=== PATIENT | female | born 1970 | race Caucasian/White ===

== ENCOUNTER 2017-11-15 07:43 | Emergency (ER) | payer OTHER, SELFPAY ==
[2017-11-15 07:44] VITALS: BP 129/93; PULSE 94; RESP 18; TEMP 37.1; O2SAT 99; BMI 18.5
--- NOTE | 2017-11-15 08:20 | CT_ITS ---
STUDY: CT ABDOMEN AND PELVIS WITH CONTRAST REASON FOR EXAM: Female, 47 years old. One week history of lower abdominal pain with nausea and vomiting. RADIATION DOSAGE (If Supplied By Facility): CTDIvol = ( 11.01 ) mGy, DLP = ( 262.59 ) mGycm TECHNIQUE: Transaxial images were obtained from the dome of the diaphragm to the symphysis pubis with oral contrast. 100 ml of Isovue 300 contrast was administered. Sagittal and coronal images were reconstructed. Individualized dose optimization techniques were used for this CT. COMPARISON: Comparison is made with prior study dated January 26, 2015. FINDINGS: The visualized lung bases are unremarkable. The visualized portions of the heart are within normal limits. Normal liver. Normal gallbladder and extrahepatic biliary system. Normal spleen. Normal pancreas. Normal bilateral adrenal glands. Normal right kidney. Normal left kidney. Normal visualized stomach. Normal small intestine. Moderate amount of fecal material is seen in the right hemicolon The appendix is visualized and appears normal. Normal abdominal aorta. Normal inferior vena cava. Normal retroperitoneum. Normal urinary bladder. Normal abdominal wall. Normal osseous structures. CT/Abdomen/Pelvis WITH Contrast IMPRESSION: Moderate amount of fecal material is seen in the right hemicolon. Electronically Signed: Cristopher Ayoub MD at 11:00 EDT Tel [phone], Service support ,
[2017-11-15] MEDS: Ondansetron 4 MG/2 ML Vial IV (08:36)
[2017-11-15 08:37] LABS: Absolute Lymphocyte Count 1.26 X10^3/ul (0.83-4.51); Absolute Neutrophil Count 4.6 X10^3/uL (2.0-7.7); Basophil# 0.06 X10^3/uL; Basophil% 0.9 % (0-1); Eosinophil# 0.19 X10^3/uL; Eosinophils% 2.9 % (0-5); Hematocrit 46.9 % (37-47); Hemoglobin 16.1 g/dl (12.0-15.0); Lymphocyte # 1.26 X10^3/ul (4.0); Mean Corp Hgb Conc 34.3 g/gl (32-36); Mean Corpuscular Hgb 31.8 pg (27.0-32.0); Mean Corpuscular Volume 92.5 fL (81-99); Mean Platelet Vol. 10.3 fl (6.2-12.0); Monocyte# 0.55 X10^3/uL; Monocyte% 8.3 % (0-10); Neutrophil # 4.56 X10^3/uL (2.7-7.7); Neutrophil % 68.7 % (47-70); Platelet Count 208 K/mm3 (150-450); RBC Distribution Width CV 12.3 % (11.6-14.6); RBC Distribution Width SD 40.9 fl (35.1-43.9); Red Blood Count 5.07 M/mm3 (4.2-5.4); White Blood Count 6.6 K/mm3 (4.4-11.0)
[2017-11-15] MEDS: 0.9% Normal Saline 1,000 ML 125 ML IV (08:39)
[2017-11-15 08:42] LABS: POSITIVE COUNT NO; POSITIVE DIFFERENTIAL NO; POSITIVE MORPHOLOGY NO
[2017-11-15 08:47] LABS: AST(SGOT) 21 U/L (15-37); Alanine Aminotransfer ALT/SGPT 19 U/L (13-56); Albumin, Serum 3.9 g/dL (3.2-5.0); Alkaline Phosphatase 58 U/L (45-117); Anion Gap 9 (5-15); BUN 16 mg/dL (7-18); BUN/Creat Ratio 15.1 RATIO (10-20); Calcium,Total 8.6 mg/dL (8.5-10.1); Chloride 105 mmol/L (98-107); Creatinine, Serum 1.06 mg/dL (0.55-1.02); EST Glomerular Filtration Rate 59 mL/min (>60); Est Glom Filt Rate - Afr Amer 71 mL/min (>60); Estimated Creatinine Clearance 50.19 ml/min; Globulin 4.1 g/dL (2.2-4.2); Glucose 73 mg/dL (74-106); Lipase 225 U/L (73-393); Potassium 3.5 mmol/L (3.5-5.1); Sodium Level 143 mmol/L (136-145)
[2017-11-15 08:51] LABS: Mucous, Urine 0 SEEN /hpf (<or=2+); Red Blood Cells-Urine 0 SEEN /hpf (0-5); White Blood Cells 0 SEEN /hpf (0-5)
[2017-11-15 08:55] LABS: Color, Urine Yellow (Yellow); Glucose, Dipstick Normal (Normal); Ketone-Dipstick Negative (Negative); Leukocyte Esterase-Dipstick Negative /ul (Negative); Nitrite-Dipstick Negative (Negative); Occult Blood-Urine Negative /ul (Negative); Protein-Dipstick Negative (Negative); Specific Gravity, Urine 1.015 (1.002-1.030); Urine Bilirubin Dipstick Negative (Negative); Urine Clarity Sl. Cloudy (Clear); Urine Urobilinogen Normal (Normal); Urine pH 6.5 (5.0 - 8.0)
[2017-11-15 09:03] LABS: Bacteria 1+ /hpf (None Seen); Squamous Epithelial Cells - UA 5-10 SEEN /hpf (5-10)
[2017-11-15 09:21] LABS: Lactic Acid 0.8 mmol/L (0.4-2.0)
--- NOTE | 2017-11-15 10:17 | ED.DCSUM_ITS ---
- ER Visit Summary Date of Service: 11/15/17 Chief Complaint: [Abdominal pain] History of Present Illness: The patient is a 47 F [since the emergency department abdominal pain that started about a week and a half ago. Patient states that is been relatively continuous but waxes and wanes in intensity. Patient currently claims the pain is a 6 or 7 out of 10. Patient describes the pain is at times in her lower abdomen at times in her upper abdomen. Patient states that food seems to make the pain worse. Patient denies any chest pain or shortness of breath. Patient believes she may have seen small amount of blood in her stool one time last week but none since. There is no family history of inflammatory bowel disease. Patient saw the nurse practitioner covering for her physician 2 days ago and had some blood work ordered as well as urinalysis and scheduled to have an ultrasound of her abdomen in 5 days. Patient had a hard time sleeping last night secondary to pain. Patient's prior surgical history includes a tubal ligation and hernia repair.] Physical Examination: [HEENT-PERRLA, EOMI. Cranial nerves II through XII grossly intact. TMs clear. Mucous membranes moist. No adenopathy. Cardiovascular-regular rate and rhythm without murmur or ectopy Lungs-clear to auscultation, chest wall stable without crepitus or subcu emphysema Abdomen-normoactive bowel sounds, soft. Patient has some mild diffuse tenderness throughout the abdomen. There is no rebound, rigidity, or perineal signs. Extremities-intact ?4, normal range of motion, normal pulses, atraumatic] Test Results: [CBC with differential obtained showed a white count of 6.6, h emoglobin 16, hematocrit 47, platelets 208. Chemistries unremarkable. LFTs were normal. Lipase was 225. Urinalysis was normal. Lactate was 0.8. CT scan of the abdomen and pelvis with IV and p.o. contrast showed moderate stool through the right side of the colon otherwise nothing acute.] Emergency Department Course and Treatment: [Patient was given a dose of Zofran in the emergency department as she did not want anything for pain being that she is driving.] Treatment Plan: [Patient will be given a prescription for Bentyl and [place] for severe pain. Patient will be given a referral to general surgeon on-call for follow-up. Patient understands she may need further workup such as possibly colonoscopy or EGD. Patient to keep her appointment in 5 days to have her ultrasound. ] Disposition: [Discharged home in stable condition] Impression: [Abdominal pain-etiology uncertain] This note was generated with [employer] dictation software. It may contain incorrect words, spelling, and punctuation that were not noted in review of the chart prior to signing ED Disposition - Plan for ED Patient: Chief Complaint: Abd Pain Referrals: Care Physician,No Primary [Primary Care Provider] -
[2017-11-15 11:02] VITALS: BP 99/62; PULSE 66; RESP 14; O2SAT 98
--- NOTE | 2017-11-15 11:34 | ED.DEP ---
ED Disposition - Plan for ED Patient: Chief Complaint: Abd Pain Instructions: ED Abdominal Pain Unkn Cause Prescriptions: Dicyclomine HCl [Bentyl] 20 mg PO TIDAC #20 cap Hydrocodone/Acetaminophen [[place] 5-325 Tablet] 1 - 2 ea PO 4X/DAY PRN PRN 3 Days #12 tab PRN Reason: Pain Referrals: Care Physician,No Primary [Primary Care Provider] - Julio C Russell MD [STAFF PHYSICIAN] - 3-5 Days Albert Garrison MD [STAFF PHYSICIAN] - 3-5 Days
[2017-11-15 12:06] VITALS: BP 119/82; PULSE 70; RESP 16; O2SAT 100
== END 2017-11-15 12:11 | disposition home or self-care (01) ==
PROVIDERS: Emergency Provider Emergency Medicine
DX: R10.9 Unspecified abdominal pain (principal); Z72.0 Tobacco use
CPT/HCPCS: 36415; 74177; 80053; 81001; 83605; 83690; 85025; 96361; 96374; 99283; J7030; Q9967; A4216; J2405

== ENCOUNTER 2018-02-25 12:44 | Emergency (ER) | payer OTHER, SELFPAY ==
[2018-02-25 12:45] VITALS: BP 127/79; PULSE 58; RESP 16; TEMP 36.4; O2SAT 99; BMI 19.9
--- NOTE | 2018-02-25 13:09 | RAD_ITS ---
STUDY: X-RAY CHEST REASON FOR EXAM: Female, 47 years old. Cough and fever. TECHNIQUE: Frontal and lateral views of the chest. COMPARISON: None. FINDINGS: The lungs are hyperexpanded. There is no demonstrated pleural abnormality. Normal size heart. Normal mediastinum and sky. Normal visualized pulmonary arteries. Normal visualized aortic arch and descending thoracic aorta. Normal visualized thoracic spine. Normal visualized ribs, clavicles, and shoulders. There is no demonstrated abnormality of the visualized soft tissue structures of the upper abdomen. RAD/Chest PA and Lateral IMPRESSION: Hyperexpansion. No acute pathology. Electronically Signed: Marky Mcgregor MD at 15:38 EST , Service support ,
--- NOTE | 2018-02-25 13:19 | ED.DCSUM_ITS ---
- ER Visit Summary Date of Service: 02/25/18 Chief Complaint: Flulike symptoms History of Present Illness: The patient is a 47 F presents to the emergency department with flulike symptoms. The patient states that her daughter was recently diagnosed with influenza and pneumonia. She was admitted to the [facility]. She states over the past 4 or 5 days, she has had fevers, chills, and myalgias. She had a scant cough. She denies any productive sputum. The patient was seen at urgent care today. She was complaining of being lightheaded. She was sent over for further evaluation. She has no history of immunosuppression. She does not take any daily medications. She does have history of smoking, recently quit. She did not get a flu shot this year. Physical Examination: Vital signs reviewed General: Well-nourished, well-developed Head: Normocephalic, atraumatic Eyes: Pupils equal and reactive, extraocular muscles intact Neck, supple, no lymphadenopathy Heart: Regular rate and rhythm Respiratory: No distress, clear bilaterally Abdomen: Soft, nontender, nondistended, no peritoneal signs Back: Nontender Extremities: Nontender, no edema, no cords Skin: Normal color no rash Neuro: Alert and oriented, no focal or lateralizing deficits Test Results: [] Emergency Department Course and Treatment: The patient was not tachypneic or hypoxic. She does not have a fever. Her symptoms do seem most consistent with influenza. Unfortunately, she is outside the window for treatment. I did obtain chest x-ray and screening labs. Labs are unremarkable. Chest x-ray is unremarkable. The patient was given fluids and Toradol. She had improvement of her symptoms. At this time, I do feel that she is safe for outpatient therapy. She was counseled on supportive care. She will be discharged home. Treatment Plan: [] Disposition: Discharge Impression: 1. Influenza This note was generated with [employer] dictation software. It may contain incorrect words, spelling, and punctuation that were not noted in review of the chart prior to signing ED Disposition - Plan for ED Patient: Disposition: Home or Assisted Living Chief Complaint: Cold Sx Instructions: ED Flu Prescriptions: RX: Naproxen [Naprosyn] 500 mg PO BID PRN #20 tab Referrals: NOT,DEFINED [NON-STAFF] -
[2018-02-25 13:33] VITALS: BP 131/87; PULSE 54; RESP 15; TEMP 36.7; O2SAT 100
[2018-02-25] MEDS: Ketorolac 30 MG/ML Syringe IV (13:54)
[2018-02-25] MEDS: 0.9% Normal Saline 1,000 ML 1000 ML IV (13:54)
[2018-02-25 14:06] LABS: Absolute Lymphocyte Count 1.55 X10^3/ul (0.83-4.51); Absolute Neutrophil Count 2.4 X10^3/uL (2.0-7.7); Basophil# 0.03 X10^3/uL; Basophil% 0.6 % (0-1); Eosinophil# 0.18 X10^3/uL; Eosinophils% 3.9 % (0-5); Hematocrit 42.7 % (37-47); Hemoglobin 14.7 g/dl (12.0-15.0); Lymphocyte # 1.55 X10^3/ul (4.0); Lymphocyte % 33.5 % (19-41); Mean Corp Hgb Conc 34.4 g/gl (32-36); Mean Corpuscular Hgb 31.9 pg (27.0-32.0); Mean Corpuscular Volume 92.6 fL (81-99); Mean Platelet Vol. 10.6 fl (6.2-12.0); Monocyte# 0.51 X10^3/uL; Neutrophil # 2.36 X10^3/uL (2.7-7.7); Platelet Count 187 K/mm3 (150-450); RBC Distribution Width CV 11.8 % (11.6-14.6); RBC Distribution Width SD 39.8 fl (35.1-43.9); Red Blood Count 4.61 M/mm3 (4.2-5.4); White Blood Count 4.6 K/mm3 (4.4-11.0)
[2018-02-25 14:16] LABS: POSITIVE COUNT NO; POSITIVE DIFFERENTIAL NO; POSITIVE MORPHOLOGY NO
[2018-02-25 14:18] LABS: Anion Gap 3 (5-15); BUN 12 mg/dL (7-18); BUN/Creat Ratio 13.4 RATIO (10-20); Calcium,Total 8.5 mg/dL (8.5-10.1); Chloride 107 mmol/L (98-107); EST Glomerular Filtration Rate 71 mL/min (>60); Est Glom Filt Rate - Afr Amer 86 mL/min (>60); Glucose 84 mg/dL (74-106); Potassium 4.2 mmol/L (3.5-5.1); Sodium Level 141 mmol/L (136-145)
[2018-02-25 14:45] VITALS: O2SAT 100
[2018-02-25 16:05] VITALS: BP 119/80; PULSE 69; RESP 15; O2SAT 97
== END 2018-02-25 16:09 | disposition home or self-care (01) ==
PROVIDERS: Emergency Provider Emergency Medicine
DX: J11.1 Influenza due to unidentified influenza virus with other respiratory manifestations (principal); F41.9 Anxiety disorder, unspecified; Z87.891 Personal history of nicotine dependence
CPT/HCPCS: 71046; 80048; 85025; 96361; 96374; 99285; J7030

== ENCOUNTER 2018-06-16 17:34 | Emergency (ER) | payer OTHER, SELFPAY ==
[2018-06-16 17:35] VITALS: BP 133/75; PULSE 75; RESP 18; TEMP 36.8; O2SAT 99; BMI 20.5
[2018-06-16 17:46] VITALS: O2SAT 100
--- NOTE | 2018-06-16 17:58 | NURSING ---
NO OLD EKGS
[2018-06-16] MEDS: LORazepam 1 MG Tablet PO (18:09)
--- NOTE | 2018-06-16 18:17 | ED.VISSUMM ---
- ER Visit Summary Date of Service: 06/16/18 Chief Complaint: Shortness of breath, palpitations History of Present Illness: The patient is a 47 F presenting with shortness of breath, palpitations. She states this started 30 minutes prior to arrival. She felt like she was having a panic attack. She states that she took her anxiety medicine as directed today. She has been under a lot of stress. She is currently going through a divorce. She is currently trying to quit smoking. She denies suicidal or homicidal ideation. She denies chest pain. Denies other complaints. Physical Examination: Vitals are stable. Patient is afebrile. Alert no acute distress. HEENT exam is unremarkable. Neck is supple. Lungs are clear and equal bilaterally. Heart is regular rate and rhythm. Abdomen is soft nontender nondistended. Extremities are unremarkable. Skin is warm and dry. No focal neurologic deficit. Anxious Remainder of exam is unremarkable. Emergency Department Course and Treatment: EKG sinus rhythm rate of 71. Patient was given Ativan. On reevaluation, patient is feeling improved. She has been to 180 in the past for counseling and will call for an appointment. She is advised to also follow-up with Dr. White distribution center supervisor for no doc. Advised return to ED if worsening complaints. Disposition: Discharge home Impression: Anxiety This note was generated with [employer] dictation software. It may contain incorrect words, spelling, and punctuation that were not noted in review of the chart prior to signing ED Disposition - Plan for ED Patient: Instructions: Understanding Anxiety Disorders Referrals: Edwar White MD [STAFF PHYSICIAN] - [facility] [STAFF PHYSICIAN] -
--- NOTE | 2018-06-16 18:20 | EKG12_ITS ---
Test Reason : PALPS Blood Pressure : / mmHG Vent. Rate : 071 BPM Atrial Rate : 071 BPM P-R Int : 148 ms QRS Dur : 080 ms QT Int : 410 ms P-R-T Axes : 074 070 032 degrees QTc Int : 445 ms Normal sinus rhythm Nonspecific ST & T wave abnormality Abnormal ECG Confirmed by KIMBER RUIZ, RADHA ([id number]), research editor SRIKANTH REYES ([id number]) on 06/20/2018 1:20:22 PM Referred By: KALI Confirmed By:RADHA QUIROGA MD
--- NOTE | 2018-06-16 18:41 | ED.DEP ---
ED Disposition - Plan for ED Patient: Instructions: Understanding Anxiety Disorders Referrals: [facility] [STAFF PHYSICIAN] - Edwar White MD [STAFF PHYSICIAN] -
[2018-06-16 18:57] VITALS: BP 116/90; PULSE 57; RESP 18; O2SAT 98
== END 2018-06-16 18:58 | disposition home or self-care (01) ==
LOC: ED 18:13
PROVIDERS: Emergency Provider Emergency Medicine
DX: F41.9 Anxiety disorder, unspecified (principal); F17.200 Nicotine dependence, unspecified, uncomplicated
CPT/HCPCS: 93005; 99282; J7050; A4216

== ENCOUNTER 2019-03-24 12:33 | Emergency (ER) | payer OTHER, SELFPAY ==
[2019-03-24 12:35] VITALS: BP 105/78; PULSE 98; RESP 18; TEMP 36.6; O2SAT 98; BMI 20.2
--- NOTE | 2019-03-24 12:50 | CT_ITS ---
STUDY: CT ABDOMEN AND PELVIS WITH CONTRAST REASON FOR EXAM: Female, 48 years old. Lower abdomen and rectal pain, recently treated for hemrrhoids 10 days ago. Prior hernia repair, tubal ligation. RADIATION DOSAGE (If Supplied By Facility): CTDIvol = ( 13.12 ) mGy, DLP = ( 294.76 ) mGycm TECHNIQUE: Transaxial images were obtained from the dome of the diaphragm to the symphysis pubis with oral contrast. IV 100mL Isovue-300 and amp; gastrografin was administered. Sagittal and coronal images were reconstructed. Individualized dose optimization techniques were used for this CT. COMPARISON: November 15, 2017 FINDINGS: The visualized lung bases are unremarkable. The visualized portions of the heart are within normal limits. Normal liver. Normal gallbladder and extrahepatic biliary system. Normal spleen. Normal pancreas. Normal bilateral adrenal glands. Normal right kidney. Normal left kidney. Normal visualized stomach. Normal small intestine. Normal colon. The appendix is visualized and appears normal. There is diffuse atherosclerotic calcification of the abdominal aorta, without a demonstrated aneurysm. Normal inferior vena cava. Normal retroperitoneum. Normal urinary bladder. There is bilateral tubal ligation clips. Normal abdominal wall. Normal osseous structures. CT/Abdomen/Pelvis WITH Contrast IMPRESSION: No bowel obstruction, diverticulitis or colitis. Electronically Signed: Belkys Antoine MD at 15:19 EST Tel , Service support ,
--- NOTE | 2019-03-24 12:52 | ED.VIS.GEN ---
History of Present Illness Chief Complaint: Abd Pain Informant: Patient Onset: Weeks Context: Gradual Onset Timing: Waxes and wanes Current Severity: Moderate Maximum Severity: Moderate Narrative: Patient presents with continued lower abdomen and rectal pain. Symptoms started a couple weeks ago. She was seen by her primary care physician who noted a hemorrhoid. Patient was seen by Dr. Frederick and patient reports Dr. Frederick did surgery approximate 10 days ago. She believes she had a thrombosed hemorrhoid. Surgery was performed at the outpatient surgery center I do not have notes available. Patient states she started to improve following the surgery, but over the past 3 or 4 days has now worsened again. She has not noted fever or chills. She has been able to have bowel movements. She denies dysuria. - Past Medical History (1) Anxiety Status: Chronic (2) H/O tubal ligation Status: Chronic Past Medical History - Allergies and Home Meds Allergies/Adverse Reactions: Allergies No Known Allergies Allergy (Verified 03/24/19 12:35) Primary Care Physician: Irene Frederick MD [STAFF PHYSICIAN] - As soon as possible Doctors: Dr. Peoples, Dr. Frederick Prior records reviewed: Yes Lives: With Family Smoking Status: Current every day smoker Review of Systems General: Denies: Chills, Fever Eyes: Denies: Visual changes - bilaterally ENT: Denies: Bilateral ear pain Cardiovascular: Denies: Chest pain Respiratory: Denies: Dyspnea, Cough Gastrointestinal: Reports: Abdominal pain, Nausea. Denies: Vomiting, Diarrhea Genitourinary: Denies: Dysuria Musculoskeletal: Denies: Swelling, Extremity Pain Skin: Denies: Rash Neurological: Denies: Headache Allergy: Denies: Uticaria Physical Exam Vital Signs/Narrative: Vital Signs Temp Pulse Resp BP Pulse Ox 03/24/19 12:35 97.9 F 98 18 105/78 98 Inital Vital Signs reviewed: Yes General: Well nourished, Well developed Head: Normocephalic ENT: Moist mucous membranes Neck: Supple Cardiovascular: Regular rate, Regular rhythm Respiratory: No distress, CTA bilaterally Abdomen: Soft, Tender - Suprapubic tenderness palpation.. Negative for: Guarding, Rebound tenderness Rectal: - - Noninflamed hemorrhoid noted. No tenderness. Back: Nontender Extremities: Nontender Skin: Normal color Neurological: Alert, Oriented x3 Psychological: Normal affect Diagnostic/Tx/Re-eval Impressions Abdomen/Pelvis CT 03/24/19 12:50 IMPRESSION: No bowel obstruction, diverticulitis or colitis. Electronically Signed: Belkys Antoine MD at 15:19 EST Tel , Service support , 03/24/19 12:50 Abdomen/Pelvis WITH Contrast [CT] Stat Laboratory Results 03/24/19 03/24/19 03/24/19 13:10 13:10 13:10 WBC 7.4 RBC 5.10 Hgb 16.2 H Hct 47.5 H MCV 93.1 MCH 31.8 MCHC 34.1 RDW Std Deviation 39.6 RDW Coeff of Jorge 11.5 L Plt Count 266 MPV 9.0 Immature Gran % (Auto) 0.100 Neut % (Auto) 55.6 Lymph % (Auto) 34.3 [place] % (Auto) 6.9 Eos % (Auto) 2.2 Baso % (Auto) 0.9 Absolute Neuts (auto) 4.1 Absolute Lymphs (auto) 2.53 Nucleated RBC % 0 Sodium 139 Potassium 4.2 Chloride 107 Carbon Dioxide 29.0 Anion Gap 3 L BUN 18 Creatinine 1.12 H Estim Creat Clear Calc 51.34 Est GFR (MDRD) Af Amer 66 Est GFR (MDRD) Non-Af 55 L BUN/Creatinine Ratio 16.1 Glucose 93 Calcium 9.0 Serum , Qual NEGATIVE Urine Color Urine Clarity Urine pH Ur Specific [place] Urine Protein Urine Glucose (UA) Urine Ketones Urine Occult Blood Urine Nitrite Urine Bilirubin Urine Urobilinogen Ur Leukocyte Esterase Urine RBC Urine WBC Ur Squamous Epith Cells Urine Bacteria Urine Mucus 03/24/19 14:14 WBC RBC Hgb Hct MCV MCH MCHC RDW Std Deviation RDW Coeff of Jorge Plt Count MPV Immature Gran % (Auto) Neut % (Auto) Lymph % (Auto) [place] % (Auto) Eos % (Auto) Baso % (Auto) Absolute Neuts (auto) Absolute Lymphs (auto) Nucleated RBC % Sodium Potassium Chloride Carbon Dioxide Anion Gap BUN Creatinine Estim Creat Clear Calc Est GFR (MDRD) Af Amer Est GFR (MDRD) Non-Af BUN/Creatinine Ratio Glucose Calcium Serum , Qual Urine Color Yellow Urine Clarity Sl. Cloudy Urine pH 6.0 Ur Specific [place] 1.010 Urine Protein Negative Urine Glucose (UA) Normal Urine Ketones Negative Urine Occult Blood Negative Urine Nitrite Negative Urine Bilirubin Negative Urine Urobilinogen Normal Ur Leukocyte Esterase Negative Urine RBC 0 SEEN Urine WBC 0 SEEN Ur Squamous Epith Cells 0 SEEN Urine Bacteria 0 SEEN Urine Mucus 0 SEEN - Medical Decision Making Patient was given morphine and Zofran for pain here. Test results are discussed with her. I did do an external rectal exam. There is no evidence of perirectal inflammation on CT scan. Patient will be written for some pain medication. She is already on stool softeners. I attempted to contact Dr. Frederick as she just performed surgery on this patient, however I am advised that Dr. Frederick is sick and is not able to respond to pages today. Patient was advised that this and is to call the office for close follow-up. Addendum: Please note patient initially advised me she wanted her prescription sent to [facility]. Prescription for Mccle[place]and was sent electronically. When nurse went to discharge the patient she changed her mind and wished to have her prescription sent to [facility] instead. The order for [facility] was canceled in the computer and we are notifying them not to fill this prescription. A new prescription was generated and sent to [facility], however this may appear twice on her oars report. ED Disposition - Plan for ED Patient: Disposition: Home or Assisted Living Diagnosis: Abdominal pain Instructions: ABDOMINAL PAIN, Unknown Cause, (Female) Prescriptions: Hydrocodone Bitart/Apap 5-325 [M[place] 5MG-325MG] 1 tablet PO Q6H PRN PRN 3 Days #10 tablet PRN Reason: Pain Transmission Status: Sent to [facility] Referrals: Irene Frederick MD [STAFF PHYSICIAN] - As soon as possible
[2019-03-24 13:19] LABS: Absolute Lymphocyte Count 2.53 X10^3/uL (0.83-4.51); Absolute Neutrophil Count 4.1 X10^3/uL (2.0-7.7); Basophil# 0.07 X10^3/uL; Basophil% 0.9 % (0-1); Eosinophil# 0.16 X10^3/uL; Eosinophils% 2.2 % (0-5); Hematocrit 47.5 % (37-47); Hemoglobin 16.2 g/dL (12.0-15.0); Lymphocyte # 2.53 X10^3/ul (4.0); Lymphocyte % 34.3 % (19-41); Mean Corp Hgb Conc 34.1 g/dL (32-36); Mean Corpuscular Hgb 31.8 pg (27.0-32.0); Mean Corpuscular Volume 93.1 fL (81-99); Monocyte# 0.51 X10^3/uL; Monocyte% 6.9 % (0-10); NRBC Flagged by Analyzer 0 % (0-5); Neutrophil % 55.6 % (47-70); Platelet Count 266 K/mm3 (150-450); RBC Distribution Width CV 11.5 % (11.6-14.6); RBC Distribution Width SD 39.6 fl (35.1-43.9); White Blood Count 7.4 K/mm3 (4.4-11.0)
[2019-03-24] MEDS: Morphine 4 MG/ML Syringe IV (13:19)
[2019-03-24] MEDS: Ondansetron 4 MG/2 ML Vial IV (13:19)
[2019-03-24] MEDS: 0.9% Normal Saline 1,000 ML 150 ML IV (13:20)
[2019-03-24 13:38] LABS: Anion Gap 3 (5-15); BUN 18 mg/dL (7-18); BUN/Creat Ratio 16.1 RATIO (10-20); Chloride 107 mmol/L (98-107); Creatinine, Serum 1.12 mg/dL (0.55-1.02); EST Glomerular Filtration Rate 55 mL/min (>60); Est Glom Filt Rate - Afr Amer 66 mL/min (>60); Estimated Creatinine Clearance 51.34 ml/min; Glucose 93 mg/dL (74-106); Potassium 4.2 mmol/L (3.5-5.1); Sodium Level 139 mmol/L (136-145)
[2019-03-24 13:49] LABS: Internal QC Validated? YES +Cl - CLEAR BKGD; Pregnancy, Serum, hCG Quali. NEGATIVE Negative
[2019-03-24 14:17] LABS: Bacteria 0 SEEN /hpf (None Seen); Mucous, Urine 0 SEEN /hpf (<or=2+); Red Blood Cells-Urine 0 SEEN /hpf (0-5); Squamous Epithelial Cells - UA 0 SEEN /hpf (5-10); White Blood Cells 0 SEEN /hpf (0-5)
[2019-03-24 14:19] LABS: Color, Urine Yellow (Yellow); Glucose, Dipstick Normal (Normal); Ketone-Dipstick Negative (Negative); Leukocyte Esterase-Dipstick Negative /ul (Negative); Nitrite-Dipstick Negative (Negative); Occult Blood-Urine Negative /ul (Negative); Protein-Dipstick Negative (Negative); Urine Bilirubin Dipstick Negative (Negative); Urine Clarity Sl. Cloudy (Clear); Urine Urobilinogen Normal (Normal)
[2019-03-24 15:50] VITALS: BP 121/92; PULSE 77; RESP 16; O2SAT 100
== END 2019-03-24 15:59 | disposition home or self-care (01) ==
PROVIDERS: Emergency Provider Emergency Medicine
DX: R10.30 Lower abdominal pain, unspecified (principal); F41.9 Anxiety disorder, unspecified; F17.200 Nicotine dependence, unspecified, uncomplicated
CPT/HCPCS: 74177; 80048; 81001; 84703; 85025; 96361; 96374; 96375; 99283; J7030; Q9967; A4216; J2405

== ENCOUNTER 2023-09-11 14:53 | Inpatient (IN) | payer MEDICAID, SELFPAY ==
[2023-09-11] VITALS (15 sets, daily range): BP systolic 90–126; BP diastolic 61–82; PULSE 56–85; RESP 13–19; TEMP 36.2–36.7; O2SAT 88–99; BMI 24.3
--- NOTE | 2023-09-11 15:25 | EKG12_ITS ---
Test Reason : CP Blood Pressure : / mmHG Vent. Rate : 064 BPM Atrial Rate : 064 BPM P-R Int : 150 ms QRS Dur : 082 ms QT Int : 414 ms P-R-T Axes : 049 040 -45 degrees QTc Int : 427 ms Normal sinus rhythm ST & T wave abnormality, consider inferior ischemia ST & T wave abnormality, consider anterolateral ischemia Abnormal ECG Confirmed by YASHIRA RUIZ, RAJESH ([id number]), advertising editor MUKUL BLISS ([id number]) on 09/13/2023 10:00:50 AM Referred By: Confirmed By:GABRIEL AC MD
--- NOTE | 2023-09-11 15:50 | RAD_ITS ---
INDICATION: chest pain EXAMINATION/TECHNIQUE: X-RAY - XR Chest 1 View COMPARISON: February 25, 2018 FINDINGS: LINES/DEVICES: None. LUNGS: No consolidation, edema or effusion. No pneumothorax. MEDIASTINUM AND CARDIOVASCULAR STRUCTURES: Cardiac silhouette not enlarged. Central airways and mediastinal contour are unremarkable. BONES AND SOFT TISSUES: Unremarkable. RAD/Chest 1 View (Portable) IMPRESSION: No radiographic evidence of acute cardiopulmonary disease. Electronically Signed: Fantasma Magaña DO at 17:15 EDT ,
--- NOTE | 2023-09-11 16:23 | ED.VIS.CHEST ---
HPI History of Present Illness Chief Complaint: Chest Pain Informant: patient Narrative Narrative: Patient is a 52-year-old female with history of prior tobacco use, COPD, and hyperlipidemia presenting with chest tightness and pressure. Patient states 2 days ago she woke up at 3:30 AM with pressure in her chest. She states it felt there was a cinderblock on my chest. She could not breathe. She got up and eventually the symptoms went away. Since then she has been having intermittent tightness and pressure on her chest. She is she feels like she is having having a hard time breathing. Today she was not feeling well and she laid down. Around 1 PM she was laying on her side and developed another episode of tightness in her chest lasting about 10 minutes. She has felt slightly better when she was laying flat on her back. Patient has no relief with her inhalers that she has at home. She does not have a nebulizer. Denies any cough or swelling of her legs. Denies any history of DVT or PE. Denies any fever. Did have some nausea today but EMS gave her Zofran and is doing better. No vomiting or abdominal pain reported. Denies any urinary symptoms. Does get some intermittent blood with wiping but attributes that to constipation and hemorrhoids. No other complaints or concerns reported at this time. CVD Risk Factors: Positive for Hypercholesterolemia and Smoking [facility] Medical History (Updated 09/12/23 @ 00:[address] Tricia Gonzalez, DO) COPD (chronic obstructive pulmonary disease) Hyperlipemia Home Medications ?Medication ?Instructions ?Recorded ?Last Taken ?Type buspirone 15 mg tablet 15 mg PO BID 11/15/17 Unknown History multivitamin with minerals 1 ea PO DAILY 02/25/18 Unknown History (Multiple Vitamin-Minerals tablet) albuterol sulfate 90 mcg/actuation 2 puff inhalation Q4H PRN 09/11/23 Unknown History aerosol inhaler atorvastatin 40 mg tablet 40 mg PO DAILY 09/11/23 Unknown History fluticasone 250 mcg-salmeterol 50 1 inh inhalation BID 09/11/23 Unknown History mcg/dose blistr powdr for inhalation (Advair Diskus) trazodone 100 mg tablet 100 mg PO QHS 09/11/23 Unknown History Allergy/AdvReac Type Severity Reaction Status Date / Time No Known Allergies Allergy Verified 09/11/23 14:54 Social History (Updated 09/11/23 @ 23:14 by Salena Machado) household members: children number of children: 3 current occupational status: unemployed pets and animals: Yes (cat) Smoking Status: Former smoker ROS ROS ED Constitutional Constitutional ED: Denies chills or fever(s) Cardiovascular Cardiovascular: Reports chest pain and other Details: chest pressure Respiratory/Chest Respiratory/Chest: Reports dyspnea and dyspnea on exertion; Denies cough or sputum Gastrointestinal Gastrointestinal: Reports nausea; Denies abdominal pain, diarrhea, melena or vomiting Musculoskeletal Musculoskeletal: Denies arthralgias or myalgias Neurologic Neurologic: Denies headache(s) or weakness Hematologic/Lymphatic Hematologic/Lymphatic: Denies easy bleeding or easy bruising EXAM Physical Exam Const Vital Signs: 09/11/23 14:54 09/11/23 17:02 09/11/23 17:02 Temperature 97.1 F L Temperature Source Temporal Pulse Rate 85 57 L Respiratory Rate 16 16 Respiratory Effort Respiratory Pattern Blood Pressure 126/82 H 104/69 Blood Pressure Mean 96 80 Pulse Ox 97 97 Oxygen Delivery Method Room Air Room Air Room Air 09/11/23 17:04 09/11/23 18:00 09/11/23 19:00 Temperature Temperature Source Pulse Rate 60 62 Respiratory Rate 13 18 Respiratory Effort Normal Non-Labored Respiratory Pattern Blood Pressure 90/61 97/64 Blood Pressure Mean 70 75 Pulse Ox 98 98 Oxygen Delivery Method Room Air Room Air 09/11/23 20:02 09/11/23 20:04 09/11/23 20:15 Temperature Temperature Source Pulse Rate 58 L 58 L Respiratory Rate 18 14 16 Respiratory Effort Respiratory Pattern Blood Pressure Blood Pressure Mean Pulse Ox 94 94 Oxygen Delivery Method 09/11/23 20:31 09/11/23 20:45 09/11/23 21:06 Temperature Temperature Source Pulse Rate 63 57 L 56 L Respiratory Rate 16 14 13 Respiratory Effort Respiratory Pattern Blood Pressure 99/69 Blood Pressure Mean 79 Pulse Ox 88 94 99 Oxygen Delivery Method 09/11/23 21:19 09/11/23 21:39 09/11/23 22:00 Temperature 98.0 F Temperature Source Pulse Rate 66 73 84 Respiratory Rate 16 18 19 H Respiratory Effort Respiratory Pattern Normal Blood Pressure 116/79 102/82 H Blood Pressure Mean 91 88 Pulse Ox 95 91 Oxygen Delivery Method Positive well nourished and well developed General Appearance ED: well developed and NAD HEENT Reports moist mucous membranes normocephalic Eyes PERRL and EOMs intact bilaterally Neck supple and no JVD Chest Wall inspection of chest normal and palpation of chest normal Resp normal respiratory effort and clear to auscultation bilaterally Auscultation: Negative for rhonchi, wheezes or diminished lung sounds Cardio regular rate, regular rhythm and no murmurs Peripheral Pulses: pulses 2+ throughout GI normal to inspection, nondistended, normoactive bowel sounds and soft to palpation Extremity normal to inspection General Extremety ED: Negative for edema General Extremity: Negative for edema Neuro oriented x3 Sensorium / Orientation: awake and alert Motor Exam: Negative for general weakness Psych mental status grossly normal Skin no rashes or lesions noted and no wounds MDM MDM MDM Narrative Medical decision making narrative: Patient is evaluated for shortness of breath and chest discomfort. Does have a history of COPD. Cardiopulmonary workup is obtained. Patient is PERC positive because of age but otherwise low risk of pulmonary embolus will obtain a D-dimer. Vital signs stable at this time. Will give patient a DuoNeb and reevaluate. Patient does feel slightly improved. Lab work largely unremarkable including CBC, BMP and delta high-sensitivity troponin. Her D-dimer is normal. Low suspicion for pulmonary emboli. She still does have some mild chest tightness and discomfort. She is given additional butyryl treatment. Patient is ambulated in the emergency room and does not feel well. She desats to 87%. Because of this desaturation continued chest discomfort will admit for presumed COPD exacerbation. Case discussed with hospitalist, Dr. Tamayo. Lab Data Attestation: I reviewed the patient's lab results. Labs: Laboratory Results - last 24 hr 09/11/23 09/11/23 17:50 20:05 WBC 5.9 RBC 4.72 Hgb 14.2 Hct 42.9 MCV 90.9 MCH 30.1 MCHC 33.1 RDW Std Deviation 39.7 RDW Coeff of Jorge 11.9 Plt Count 239 MPV 9.6 Immature Gran % (Auto) 0.200 Neut % (Auto) 62.1 Lymph % (Auto) 28.0 [place] % (Auto) 6.3 Eos % (Auto) 2.2 Baso % (Auto) 1.2 H Absolute Neuts (auto) 3.6 Absolute Lymphs (auto) 1.64 Nucleated RBC % 0 D-Dimer Quant (PE/DVT) 0.29 Sodium 140 Potassium 3.3 L Chloride 106 Carbon Dioxide 27.0 Anion Gap 7 BUN 14 Creatinine 1.14 H Estim Creat Clear Calc 49.28 Est GFR (MDRD) Af Amer 64 Est GFR (MDRD) Non-Af 53 L BUN/Creatinine Ratio 12.3 Glucose 112 H Calcium 9.7 Troponin I High Sens 4 4 Radiography Chest X-Ray - ED: 1 View, Read by ED Physician, Read by Radiologist and No Acute Disease Diagnostic Testing: Clinical Impression(s) from Imaging Studies Chest X-Ray 09/11/23 15:50 IMPRESSION: No radiographic evidence of acute cardiopulmonary disease. Electronically Signed: Fantasma Magaña DO at 17:15 EDT Reading Location ID and State: [facility] / [place] Tel [phone], Service support , Rhythm Strip Rhythm Strip: Sinus Rhythm Rate: 64 Ectopy: None EKG Initial EKG: Attestation: I personally reviewed and interpreted this EKG as follows: Interpretation: Sinus Rhythm Comments: Normal sinus rhythm at a rate of 64 bpm Normal axis T wave inversions in inferior and anterior leads with no reciprocal changes No significant change compared to prior EKG on 06/16/2018 Prior EKG tracings: available for review Prior: Unchanged Management Discussion w/another healthcare provider: Hospitalist Discharge Plan Dx/Rx/DC Orders Clinical Impression: COPD with acute exacerbation, History of tobacco abuse Disposition Disposition: Acute Care Hospital [facility] Discharge Date/Time: 09/11/23 22:41
[2023-09-11] MEDS: Ipratropium/Albuterol Sulfate 3 ML AMPUL.NEB INHALATION (16:28)
[2023-09-11 18:02] LABS: Absolute Lymphocyte Count 1.64 X10^3/uL (0.83-4.51); Absolute Neutrophil Count 3.6 X10^3/uL (2.0-7.7); Basophil# 0.07 X10^3/uL; Basophil% 1.2 % (0-1); Eosinophil# 0.13 X10^3/uL; Eosinophils% 2.2 % (0-5); Hematocrit 42.9 % (37-47); Hemoglobin 14.2 g/dL (12.0-15.0); Lymphocyte # 1.64 X10^3/ul (0.83-4.51); Mean Corp Hgb Conc 33.1 g/dL (32-36); Mean Corpuscular Hgb 30.1 pg (27.0-32.0); Mean Corpuscular Volume 90.9 fL (81-99); Mean Platelet Vol. 9.6 fl (6.2-12.0); Monocyte# 0.37 X10^3/uL; Monocyte% 6.3 % (0-10); NRBC Flagged by Analyzer 0 % (0-5); Neutrophil # 3.64 X10^3/uL (2.7-7.7); Neutrophil % 62.1 % (47-70); Platelet Count 239 K/mm3 (150-450); RBC Distribution Width CV 11.9 % (11.6-14.6); RBC Distribution Width SD 39.7 fl (35.1-43.9); Red Blood Count 4.72 M/mm3 (4.2-5.4); White Blood Count 5.9 K/mm3 (4.4-11.0)
[2023-09-11 18:17] LABS: D-Dimer Quantitative (DVT/PE) 0.29 FEU/ug/m (0.27-0.49)
[2023-09-11 18:18] LABS: Anion Gap 7 (5-15); BUN 14 mg/dL (7-18); BUN/Creat Ratio 12.3 RATIO (10-20); Calcium,Total 9.7 mg/dL (8.5-10.1); Chloride 106 mmol/L (98-107); Creatinine, Serum 1.14 mg/dL (0.55-1.02); EST Glomerular Filtration Rate 53 mL/min (>60); Est Glom Filt Rate - Afr Amer 64 mL/min (>60); Estimated Creatinine Clearance 49.28 ml/min; Glucose 112 mg/dL (74-106); Potassium 3.3 mmol/L (3.5-5.1); Sodium Level 140 mmol/L (136-145); Troponin-I HS (w/2H Reflex) 4 pg/mL (3.0-54.0)
[2023-09-11 19:56] LABS: Reflex Troponin-HS? (from REC) Y
[2023-09-11 20:40] LABS: Troponin-I HS 4 pg/mL (3.0-54.0)
[2023-09-11] MEDS: Albuterol 2.5 MG/3 ML VIAL.NEB. INHALATION (21:19)
[2023-09-11] MEDS: predniSONE 20 MG Tablet 60 MG PO (21:26)
--- NOTE | 2023-09-11 21:44 | PCM.HP.STD ---
[facility] - General General Date of Admission: 09/11/23 Date of Service: 09/11/23 Chief Complaint: Chest Tightness and SOB. [facility] Narrative SAMINA TURCIOS, is a 52 F with a past medical history of hyperlipidemia, depression with anxiety, history of tubal ligation, positive history of premature CAD in her father who of an OH at age 63 and history of tobacco abuse (quit ~2 years ago); with subsequent COPD who presents to [facility] ER complaining of chest tightness and SOB. Ms. Turcios reports her symptoms began approximately two days prior to admission after she was awakened from a sound sleep ~3:30 AM on September 09, 2023 but she did not seek medical attention at that time because her symptoms temporarily improved ~20 minutes after ECASA. Since then she states she feels like a cinderblock is on my chest that was ~10/10, substernal and non-radiating with with the gradual-onset of MERCADO that progressed to SOB with her also feeling a strong sense of impending doom causing her to worry that she might . She then had a second episode of chest pressure around 1:00 PM earlier today that occurred while she was lying on her Left side that lasted ~10 minutes and was very concerning for her as she has had intermittent chest pain in the past - but never this severe, persistent and recurrent. She tried to use her inhalers at home but when they did not help control her symptoms she activated EMS who gave her Zofran for nausea with modest improvement. She denies associated fever, chills, vomiting, abdominal pain, dysuria or leg swelling but she does admit to chronic constipation with external hemorrhoids that cause intermittent blood with wiping. In the ER she was diagnosed with AE COPD complicated by clinical evidence of acute respiratory insufficiency after her oxygen saturation dropped to 87% with activity with laboratory evidence of hypokalemia of 3.3 mmol/L present on admission compounded by severe intermittent chest pain and she was then admitted to the general medical floor for ongoing care for a stay that is expected to extend beyond 2 midnights. [facility] Medical History COPD (chronic obstructive pulmonary disease) Hyperlipemia Home Medications ?Medication ?Instructions ?Recorded ?Last Taken ?Type buspirone 15 mg tablet 15 mg PO BID 11/15/17 Unknown History multivitamin with minerals 1 ea PO DAILY 02/25/18 Unknown History (Multiple Vitamin-Minerals tablet) albuterol sulfate 90 mcg/actuation 2 puff inhalation Q4H PRN 09/11/23 Unknown History aerosol inhaler atorvastatin 40 mg tablet 40 mg PO DAILY 09/11/23 Unknown History fluticasone 250 mcg-salmeterol 50 1 inh inhalation BID 09/11/23 Unknown History mcg/dose blistr powdr for inhalation (Advair Diskus) trazodone 100 mg tablet 100 mg PO QHS 09/11/23 Unknown History Allergy/AdvReac Type Severity Reaction Status Date / Time No Known Allergies Allergy Verified 09/11/23 14:54 Social History household members: children number of children: 3 current occupational status: unemployed pets and animals: Yes (cat) Smoking Status: Former smoker ROS ROS Narrative Review of systems: General: Patient denies fever or chills HENT: Denies headache, denies stuffy nose, denies sore throat EYES: Denies changes in vision or discharge from eyes Resp: Patient admits to dyspnea on exertion that progressed to shortness of breath at rest. She denies cough or sputum production Cardiac: Patient admits to chest pressure that is related to her difficulty breathing. She denies heart racing or palpitations. GI: Denies abdominal pain, denies changes in bowel, had some nausea but denies vomiting : Denies changes in urination Extremity: Denies swelling Musculoskeletal: Feels somewhat generally weak and unwell but denies arthralgias or myalgias Neuro: Patient denies headache, paresthesias or focal neurologic deficits. Heme: Patient admits to hemorrhoids with occasional blood with wiping as per HPI. Skin: Denies rashes Psychiatric: No complaints voiced related uncontrolled depression or anxiety Endocrine: No polyuria, polydipsia or polyphagia. The rest of the 14 point ROS was negative except for positives in HPI. Vital Signs Vital Signs Vital Signs: 09/11/23 14:54 09/11/23 17:02 09/11/23 17:02 Temperature 97.1 F L Temperature Source Temporal Pulse Rate 85 57 L Respiratory Rate 16 16 Respiratory Effort Blood Pressure 126/82 H 104/69 Blood Pressure Mean 96 80 Pulse Ox 97 97 Oxygen Delivery Method Room Air Room Air Room Air 09/11/23 17:04 09/11/23 18:00 09/11/23 19:00 Temperature Temperature Source Pulse Rate 60 62 Respiratory Rate 13 18 Respiratory Effort Normal Non-Labored Blood Pressure 90/61 97/64 Blood Pressure Mean 70 75 Pulse Ox 98 98 Oxygen Delivery Method Room Air Room Air 09/11/23 20:02 09/11/23 20:04 09/11/23 20:15 Temperature Temperature Source Pulse Rate 58 L 58 L Respiratory Rate 18 14 16 Respiratory Effort Blood Pressure Blood Pressure Mean Pulse Ox 94 94 Oxygen Delivery Method 09/11/23 20:31 09/11/23 20:45 09/11/23 21:06 Temperature Temperature Source Pulse Rate 63 57 L 56 L Respiratory Rate 16 14 13 Respiratory Effort Blood Pressure 99/69 Blood Pressure Mean 79 Pulse Ox 88 94 99 Oxygen Delivery Method 09/11/23 21:39 Temperature 98.0 F Temperature Source Pulse Rate 73 Respiratory Rate 18 Respiratory Effort Blood Pressure 116/79 Blood Pressure Mean 91 Pulse Ox 95 Oxygen Delivery Method Weight Weight: 141 lb 11.2 oz Body Mass Index (BMI) 24.3 Physical Exam Const alert, oriented x3, no apparent distress and average body habitus General Appearance: cooperative HEENT normocephalic, head/scalp atraumatic, hearing grossly normal bilaterally and moist oral mucous membranes Eyes PERRL and EOMs intact bilaterally Neck no lymphadenopathy and supple Resp Resp Narrative: Diminished breath sounds throughout. Cardio regular rate and regular rhythm GI normal to inspection, nondistended, normoactive bowel sounds, soft to palpation, non-tender and non-distended Extremity normal to inspection, full ROM and no clubbing, cyanosis or edema Skin Skin Narrative: Patient has no evidence of rash, jaundice or abscess. Neuro oriented x3, CN's II-XII intact bilaterally, moves all extremities and no focal motor deficits Sensorium / Orientation: awake, alert, oriented to person, oriented to place and oriented to time Speech: speech normal Psych affect normal Results Medical Records Data Attestation: I reviewed the patient's medical records Lab / Micro Data Attestation: I reviewed the patient's lab results. 09/11/23 17:50 09/11/23 17:50 Labs: Laboratory Results - last 24 hr 09/11/23 17:50: WBC 5.9, RBC 4.72, Hgb 14.2, Hct 42.9, MCV 90.9, MCH 30.1, MCHC 33.1, RDW Std Deviation 39.7, RDW Coeff of Jorge 11.9, Plt Count 239, MPV 9.6, Immature Gran % (Auto) 0.200, Neut % (Auto) 62.1, Lymph % (Auto) 28.0, [place] % (Auto) 6.3, Eos % (Auto) 2.2, Baso % (Auto) 1.2 H, Absolute Neuts (auto) 3.6, Absolute Lymphs (auto) 1.64, Nucleated RBC % 0, D-Dimer Quant (PE/DVT) 0.29, Sodium 140, Potassium 3.3 L, Chloride 106, Carbon Dioxide 27.0, Anion Gap 7, BUN 14, Creatinine 1.14 H, Estim Creat Clear Calc 49.28, Est GFR (MDRD) Af Amer 64, Est GFR (MDRD) Non-Af 53 L, BUN/Creatinine Ratio 12.3, Glucose 112 H, Calcium 9.7, Troponin I High Sens 4 09/11/23 20:05: Troponin I High Sens 4 Micro: Microbiology 09/11/23 17:10 Mucosa - Nose Coronavirus COVID-19 PCR - Final Rhythm Strip Rhythm Strip: Sinus Rhythm Rate: 64 Ectopy: None Imaging Radiology Impression Chest X-Ray 09/11/23 15:50 IMPRESSION: No radiographic evidence of acute cardiopulmonary disease. Electronically Signed: Fantasma Magaña DO at 17:15 EDT Reading Location ID and State: [address] [place] [address] Tel [phone], Service support , Assessment & Plan Assessment/Plan (1) COPD with acute exacerbation: (2) Respiratory insufficiency: (3) History of tobacco abuse: (4) Chest pressure: (5) Hypokalemia: (6) Hyperlipemia: QUALIFIERS: Hyperlipidemia type: unspecified Qualified Code(s): E78.5 - Hyperlipidemia, unspecified PLAN: Plan 1. AE COPD; quit tobacco ~2 years ago - Admit to PCU. Continue steroids begun in ER plus give scheduled and as needed nebulizers. Give Tylenol as needed for pain or fever. 2. Acute respiratory insufficiency arising from #1 - Wean supplemental oxygen as tolerated. 3. Chest pressure; severe and recurrent in the setting of a known family history of premature CAD in her father who of an OH at age 63 complicating #1 & #2 - Serialize troponin. Check echocardiogram to evaluate LVEF. Check Lexiscan nuclear stress test to evaluate for underlying ischemia. Give ECASA plus as needed sublingual nitroglycerin. 4. Hypokalemia of 3.3 mmol/L present on admission compounding #1 - #3 - Give supplemental KCl and then recheck level in a.m. to ensure improvement 5. Hyperlipidemia - Resume statin and check Lipid Profile in light of #3. 6. Depression with anxiety - Continue home regimen as previous. 7. History of tubal ligation - Noted. 8. DVT prophylaxis - Lovenox 40 mg subcu daily. Total time: Approximately 75 minutes. Charges/Coding Visit Charges Inpatient E&M: 37186 Init Hosp L3
[2023-09-11] MEDS: MethylPREDNISolone 125 MG/2 ML Vial IV (22:06)
--- NOTE | 2023-09-11 22:10 | ECHOD_ITS ---
Reason For Study: CHEST PAIN Procedure This was a 2D Doppler, Color Flow transthoracic echocardiogram. Exam performed in department. Left Ventricle Normal LV size. The estimated ejection fraction is 70 %. No evidence for diastolic dysfunction. No regional wall motion abnormalities noted. Right Ventricle Normal RV size. Normal systolic function. Atria The left and right atria are normal. No doppler evidence for ASD. Mitral Valve There is no mitral valve stenosis. Trivial mitral valve insufficiency. Tricuspid Valve There is no tricuspid stenosis. Trivial tricuspid valve insufficiency. Unable to estimate RV systolic pressure due to insufficient tricuspid regurgitant envelope. Aortic Valve Trisinus/trileaflet aortic valve. There is no aortic stenosis. Trivial aortic valve insufficiency. Pulmonic Valve There is no pulmonic valvular stenosis. No pulmonic valve insufficiency. Great Vessels Normal aortic root. Pericardium/Pleural No pericardial effusion. MMode/2D Measurements & Calculations LVIDd: 4.4 cm IVSd: 0.88 cm LVOT diam: 2.0 cm LVIDs: 2.4 cm LVPWd: 0.77 cm LVOT area: 3.2 cm2 RVDd: 2.9 cm FS: 46.0 % Ao root diam: 2.9 cm LAV(MOD-bp): 34.3 ml LVAd ap4: 16.9 cm2 LAV(MOD-bp) Indexed: 20.3 ml/m2 LVLd ap4: 6.9 cm LAV(MOD-sp2): 37.7 ml EDV(MOD-sp4): 35.0 ml LAV(MOD-sp4): 29.6 ml EDV(sp4-el): 35.3 ml LVAs ap4: 8.2 cm2 LVLs ap4: 5.6 cm ESV(MOD-sp4): 10.5 ml ESV(sp4-el): 10.2 ml EF(MOD-sp4): 70.0 % EF(sp4-el): 71.2 % LVAd ap2: 16.0 cm2 SV(MOD-sp4): 24.5 ml SV(MOD-sp2): 20.7 ml LVLd ap2: 6.8 cm EDV(MOD-sp2): 31.1 ml EDV(sp2-el): 31.6 ml LVAs ap2: 8.1 cm2 LVLs ap2: 5.5 cm ESV(MOD-sp2): 10.4 ml ESV(sp2-el): 10.2 ml EF(MOD-sp2): 66.6 % SV(sp4-el): 25.2 ml LA dimension(2D): 3.1 cm LA A4 area: 13.0 cm2 RA A4 area: 10.3 cm2 TAPSE: 1.8 cm Time Measurements MV dec time: 0.22 sec Doppler Measurements & Calculations MV E max michael: 92.6 cm/sec Lat Peak E' Michael: 13.3 cm/sec Med Peak E' Michael: 9.6 cm/sec MV A max michael: 89.3 cm/sec E/E' lat: 6.9 E/E' med: 9.6 MV E/A: 1.0 Ao V2 max: 144.8 cm/sec LV V1 max: 131.4 cm/sec MV dec slope: 422.0 cm/sec2 Ao max P.4 mmHg LV V1 max P.9 mmHg Ao V2 mean: 101.8 cm/sec LV V1 mean P.5 mmHg Ao mean P.7 mmHg LV V1 mean: 88.1 cm/sec Ao V2 VTI: 33.7 cm LV V1 VTI: 28.4 cm AV (velocity ratio): 0.84 LAKSHMI(I,D): 2.7 cm2 LAKSHMI(V,D): 2.9 cm2 SV(LVOT): 91.1 ml PA V2 max: 105.2 cm/sec TR max michael: 236.9 cm/sec PA max PG (full): 1.4 mmHg TR max P.4 mmHg ECHO/Echo Complete Interpretation Summary The estimated ejection fraction is 70 %. No evidence for diastolic dysfunction. Trivial mitral valve insufficiency. Trivial aortic valve insufficiency. Ordering Physician: Red Torres Performed By: Mary Patel RDCS and Student
--- NOTE | 2023-09-11 22:48 | EKG12_ITS ---
Test Reason : CP ADMIT Blood Pressure : / mmHG Vent. Rate : 061 BPM Atrial Rate : 061 BPM P-R Int : 166 ms QRS Dur : 084 ms QT Int : 434 ms P-R-T Axes : 047 060 046 degrees QTc Int : 436 ms Normal sinus rhythm ST & T wave abnormality, consider inferior ischemia ST & T wave abnormality, consider anterior ischemia Abnormal ECG When compared with ECG of 11-SEP-2023 14:58, MANUAL COMPARISON REQUIRED, DATA IS UNCONFIRMED Confirmed by YASHIRA RUIZ, RAJESH ([id number]), editor greeting card MUKUL BLISS ([id number]) on 09/13/2023 10:09:07 AM Referred By: Confirmed By:GABRIEL AC MD
[2023-09-11 23:05] LABS: Troponin-I HS < 3 pg/mL (3.0-54.0)
[2023-09-11] MEDS: Aspirin 81 MG TAB.CHEW 324 MG PO (23:45)
[2023-09-11] MEDS: Potassium Chloride Oral Tablet 20 MEQ 40 MEQ PO (23:46)
[2023-09-11] MEDS: Acetaminophen 325 MG Tablet 650 MG PO (23:46)
[2023-09-11] MEDS: KCL 20MEQ in 0.9% NS 20 MEQ/1,000 ML IV.SOLN. 70 MEQ IV (23:49)
[2023-09-11] MEDS: traZODone 100 MG Tablet PO (23:53)
[2023-09-12] VITALS (10 sets, daily range): BP systolic 92–99; BP diastolic 56–71; PULSE 67–82; RESP 14–18; TEMP 36.4–36.6; O2SAT 93–95
--- NOTE | 2023-09-12 05:55 | EKG12_ITS ---
Test Reason : AM EKG Blood Pressure : / mmHG Vent. Rate : 066 BPM Atrial Rate : 066 BPM P-R Int : 158 ms QRS Dur : 078 ms QT Int : 436 ms P-R-T Axes : 057 052 037 degrees QTc Int : 457 ms Normal sinus rhythm Nonspecific T wave abnormality Abnormal ECG When compared with ECG of 11-SEP-2023 23:32, MANUAL COMPARISON REQUIRED, DATA IS UNCONFIRMED Confirmed by YASHIRA RUIZ, RAJESH ([id number]), department editor MUKUL BLISS ([id number]) on 09/13/2023 10:08:06 AM Referred By: Confirmed By:GABRIEL AC MD
[2023-09-12] MEDS: Budesonide Respules 0.5 MG/2 ML AMPUL.NEB. INHALATION (06:06)
[2023-09-12 06:08] LABS: Absolute Lymphocyte Count 0.43 X10^3/uL (0.83-4.51); Absolute Neutrophil Count 5.2 X10^3/uL (2.0-7.7); Basophil# 0.01 X10^3/uL; Hematocrit 41.7 % (37-47); Hemoglobin 13.8 g/dL (12.0-15.0); Lymphocyte # 0.43 X10^3/ul (0.83-4.51); Mean Corp Hgb Conc 33.1 g/dL (32-36); Mean Corpuscular Hgb 30.3 pg (27.0-32.0); Mean Corpuscular Volume 91.6 fL (81-99); Monocyte# 0.03 X10^3/uL; NRBC Flagged by Analyzer 0 % (0-5); Neutrophil # 5.15 X10^3/uL (2.7-7.7); POSITIVE DIFFERENTIAL YES; POSITIVE MORPHOLOGY YES; Platelet Count 247 K/mm3 (150-450); RBC Distribution Width SD 40.3 fl (35.1-43.9); Red Blood Count 4.55 M/mm3 (4.2-5.4); White Blood Count 5.6 K/mm3 (4.4-11.0)
[2023-09-12] MEDS: Albuterol 2.5 MG/3 ML VIAL.NEB. INHALATION ×2 (06:08→12:44)
[2023-09-12 06:13] LABS: Differential Indicated SCAN CRITERIA MET
[2023-09-12 06:38] LABS: AST(SGOT) 22 U/L (15-37); Alanine Aminotransfer ALT/SGPT 26 U/L (13-56); Albumin, Serum 3.7 g/dL (3.2-5.0); Alkaline Phosphatase 62 U/L (45-117); Anion Gap 8 (5-15); BUN 17 mg/dL (7-18); BUN/Creat Ratio 12.4 RATIO (10-20); Chloride 109 mmol/L (98-107); Cholesterol 122 mg/dL (200); Creatinine, Serum 1.37 mg/dL (0.55-1.02); EST Glomerular Filtration Rate 43 mL/min (>60); Est Glom Filt Rate - Afr Amer 52 mL/min (>60); Estimated Creatinine Clearance 41.01 ml/min; Globulin 3.8 g/dL (2.2-4.2); Glucose 189 mg/dL (74-106); High Density Lipoprotein 51 mg/dL; Magnesium 1.7 mg/dL (1.6-2.6); Phosphorus 2.6 mg/dL (2.5-4.9); Potassium 3.8 mmol/L (3.5-5.1); Protein, Total 7.5 g/dL (6.4-8.2); Sodium Level 140 mmol/L (136-145); Thyroid Stim Hormone (TSH) 1.09 uIU/mL (0.358-3.74); Triglycerides 58 mg/dL; Very Low Density Lipoprotein 12 mg/dL (5-40)
[2023-09-12 07:33] LABS: Lymphocyte 7 % (19-41); Metamyelocyte 2 % (0-1); Neutrophil-Band 2 % (0-5); Neutrophil-Segmented 89 % (47-70); Total Cells Counted 100 (MANUAL DIFF)
[2023-09-12 07:34] LABS: Scan Smear per Review Criteria MANUAL DIFF
[2023-09-12] MEDS: Aspirin E.C. 81 MG Tablet PO (07:38)
--- NOTE | 2023-09-12 07:43 | PCM.PN.HOSP ---
Reason for Visit Reason for Visit: Diagnoses Hyperlipidemia, unspecified (09/11/23) Hypokalemia (09/11/23) Chronic obstructive pulmonary disease with (acute) exacerbation (09/11/23) Other abnormalities of breathing (09/11/23) Other chest pain (09/11/23) Personal history of nicotine dependence (09/11/23) Subjective Subjective Has been coughing and has had midsternal chest pain. Objective Data Objective Data Vital Signs: Vital Signs Temp Pulse Resp BP Pulse Ox O2 Del Method 36.6 C 71 14 92/60 93 Room Air 09/12/23 06:24 09/12/23 06:24 09/12/23 06:24 09/12/23 06:24 09/12/23 06:24 09/12/23 06:24 Oxygen Delivery Method Room Air Weight: 64.1 kg Body Mass Index (BMI) 24.3 Intake & Output: Intake and Output for Last 24 Hours 09/10/23 09/11/23 09/12/23 23:59 23:59 23:59 Intake Total 0 / 325 873.33 / 873.33 Balance 0 / 325 873.33 / 873.33 Lab / Micro Data 09/12/23 05:27 09/12/23 05:27 Labs: Laboratory Results - last 24 hr 09/11/23 17:50: WBC 5.9, RBC 4.72, Hgb 14.2, Hct 42.9, MCV 90.9, MCH 30.1, MCHC 33.1, RDW Std Deviation 39.7, RDW Coeff of Ojrge 11.9, Plt Count 239, MPV 9.6, Immature Gran % (Auto) 0.200, Neut % (Auto) 62.1, Lymph % (Auto) 28.0, [place] % (Auto) 6.3, Eos % (Auto) 2.2, Baso % (Auto) 1.2 H, Absolute Neuts (auto) 3.6, Absolute Lymphs (auto) 1.64, Nucleated RBC % 0, D-Dimer Quant (PE/DVT) 0.29, Sodium 140, Potassium 3.3 L, Chloride 106, Carbon Dioxide 27.0, Anion Gap 7, BUN 14, Creatinine 1.14 H, Estim Creat Clear Calc 49.28, Est GFR (MDRD) Af Amer 64, Est GFR (MDRD) Non-Af 53 L, BUN/Creatinine Ratio 12.3, Glucose 112 H, Calcium 9.7, Troponin I High Sens 4 09/11/23 20:05: Troponin I High Sens 4 09/11/23 22:18: Troponin I High Sens < 3 L 09/12/23 05:27: WBC 5.6, RBC 4.55, Hgb 13.8, Hct 41.7, MCV 91.6, MCH 30.3, MCHC 33.1, RDW Std Deviation 40.3, RDW Coeff of Jorge 12.0, Plt Count 247, MPV 10.0, Immature Gran % (Auto) GERIATRIC PSYCHIATRIST, Neut % (Auto) GERIATRIC PSYCHIATRIST, Lymph % (Auto) GERIATRIC PSYCHIATRIST, [place] % (Auto) GERIATRIC PSYCHIATRIST, Eos % (Auto) GERIATRIC PSYCHIATRIST, Baso % (Auto) GERIATRIC PSYCHIATRIST, Absolute Neuts (auto) 5.2, Absolute Lymphs (auto) 0.43 L, Total Counted 100, Neutrophils % (Manual) 89 H, Band Neutrophils % 2, Lymphocytes % (Manual) 7 L, Metamyelocytes % 2 H, Nucleated RBC % 0, Diff Path Review June, Sodium 140, Potassium 3.8, Chloride 109 H, Carbon Dioxide 23.0, Anion Gap 8, BUN 17, Creatinine 1.37 H, Estim Creat Clear Calc 41.01, Est GFR (MDRD) Af Amer 52 L, Est GFR (MDRD) Non-Af 43 L, BUN/Creatinine Ratio 12.4, Glucose 189 H, Calcium 9.0, Phosphorus 2.6, Magnesium 1.7, Total Bilirubin 0.40, AST 22, ALT 26, Alkaline Phosphatase 62, Total Protein 7.5, Albumin 3.7, Globulin 3.8, Albumin/Globulin Ratio 1.0, Triglycerides 58, Cholesterol 122, LDL Cholesterol 59, VLDL Cholesterol 12, HDL Cholesterol 51, TSH 1.09 Micro: Microbiology 09/11/23 17:10 Mucosa - Nose Coronavirus COVID-19 PCR - Final Radiography Diagnostic Testing: Radiology Impression Chest X-Ray 09/11/23 15:50 IMPRESSION: No radiographic evidence of acute cardiopulmonary disease. Electronically Signed: Fantasma Magaña DO at 17:15 EDT Reading Location ID and State: [facility] / [place] Tel [phone], Service support , Rhythm Strip Rhythm Strip: Sinus Rhythm Rate: 64 Ectopy: None Physical Exam Const alert and no apparent distress HEENT head/scalp atraumatic and moist oral mucous membranes Resp normal respiratory effort, no retractions, no use of accessory muscles and clear to auscultation bilaterally Cardio regular rate, regular rhythm, S1 normal heart sound and S2 normal heart sound GI normal to inspection, nondistended, normoactive bowel sounds Assessment & Plan Assessment/Plan (1) COPD with acute exacerbation: (2) Respiratory insufficiency: (3) History of tobacco abuse: (4) Chest pressure: (5) Hypokalemia: (6) Hyperlipemia: QUALIFIERS: Hyperlipidemia type: unspecified Qualified Code(s): E78.5 - Hyperlipidemia, unspecified PLAN: Plan AECOPD Continue BDs and and changed to prednisone burst home oxygen, patient did not require oxygen with activity. Chest pain troponins negative Stress test negative Echocardiogram shows an EF of 70%. Chronic conditions: Hyperlipidemia - Resume statin and check Lipid Profile in light of #3. Depression with anxiety - Continue home regimen as previous. VTE prophylaxis: LMWH .
--- NOTE | 2023-09-12 10:30 | CASEMGMT ---
TORIBIO PLUMMER Assessment: Face to Face with pt for initial transition planning/care coordination assessment. TORIBIO PLUMMER introduced self and role at [facility], pt voices understanding and consents to assessment. Pt is A&O x4 and answers all questions appropriately at this time. Pt sitting up in chair in no distress. Care providers, pharmacy, and demographics verified/updated. Admitting Dx: AE COPD, Respiratory insufficiency and chest pressure PCP: [facility] Specialists: Denies Preferred Pharmacy: [facility] Insurance: [facility] Prescription Benefit: yes LNOK: Son Living Arrangements: Pt lives with son in a 2 story home with 3 steps to enter. ADLs: Pt states I with ADLs and IADLs. Transportation: Pt drives self, son also assists pt with driving when needed. DME: Denies HHC/SNF: Denies Hx of. Pt states no concerns with going home at time of dc. Pt states no further concerns/needs. CM to follow. Advised pt to ask CM if any further question/concerns/needs arise, voices understanding. Pt Goal: Home Plan: Home, will follow plan of care. Celina ROONEY CM
--- NOTE | 2023-09-12 11:02 | CASEMGMT ---
Social Work As per admitting RN, pt does not have LW/POA and declined further information. BETH Douglas
--- NOTE | 2023-09-12 11:04 | CASEMGMT ---
Social Work As per admitting RN, pt does not have LW/POA and declined further information. BETH Douglas
--- NOTE | 2023-09-12 11:09 | STRESSREP ---
Stress Test Report Date: 09/12/2023 Procedure: Exercise tolerance test/imaging study Indications: Chest pain Consent: Per the patient Procedure: The patient exercised on a Clay protocol for 9 minutes achieving a peak heart rate of 134 bpm (80% predicted maximal heart rate) with a peak blood pressure 174/70 mmHg and a peak MET capacity of 10.1 METs. The baseline ECG demonstrated sinus rhythm. The peak exercise ECG demonstrated no significant ischemic changes. EKG during recovery revealed no significant ischemic changes [There were no cardiac dysrhythmias pretest, during exercise, or recovery]. The functional capacity was considered excellent for age. There was mild chest pressure at baseline which did not increase significantly with exercise. The examination was discontinued secondary to dyspnea. Impression: 1. Inability to reach 85% of maximal age-predicted heart rate decreases the sensitivity of this test. 2. Stress test is negative for exercise-induced EKG changes of ischemia 3. Patient had mild chest pressure at baseline that did not change with exercise significantly. 4. Functional capacity is excellent for age 5. Nuclear images pending Myocardial perfusion imaging study: Technique: The patient was injected with 12 mCi of technetium 99m Cardiolite and subsequently rest SPECT Cardiolite nuclear imaging was obtained in the horizontal long, vertical long, and short axis views. The patient exercised on a Clay protocol. Please see above for details. The patient was injected with 33.7 mCi of technetium 99m Cardiolite and subsequently stress SPECT Cardiolite nuclear imaging was obtained in the horizontal long, vertical long, and short axis views. A gated Cardiolite study at peak stress was obtained. Interpretation: Rest and stress SPECT Cardiolite nuclear imaging status post realignment, normalization, and attenuation correction, demonstrates overall normal myocardial radioisotope uptake. The gated Cardiolite study demonstrates no significant regional wall motion abnormalities. The reported LVEF is greater than 70%. Impression: 1. There is no evidence of significant ischemia or infarction. 2. The gated Cardiolite study reports an LVEF of greater than 70%. This note was generated with Course Heroation software. It may contain incorrect words, spelling, and punctuation that were not noted in checking the note before signing.
[2023-09-12] MEDS: Multivitamins,Ther W-Minerals Tablet 1 TABLET PO (11:49)
[2023-09-12] MEDS: Acetaminophen 325 MG Tablet 650 MG PO (11:49)
[2023-09-12] MEDS: Pantoprazole Sodium 40 MG Tablet PO (11:49)
[2023-09-12] MEDS: busPIRone 15 MG TABLET PO (12:10)
[2023-09-12] MEDS: Magnesium Hydroxide 30 ML UDC PO (12:20)
[2023-09-12] MEDS: 0.9% Saline Lock 10 ML Syringe IV (12:20)
--- NOTE | 2023-09-12 13:17 | DS.PCM_ITS ---
Providers Date of Admission: 09/11/23 Primary Care Physician: ANGELIA. ROSALINDA WoodallC Reason For Visit: AE COPD, RESPIRATORY INSUFFICIENCY AND CHEST Diagnosis Discharge Diagnosis (1) COPD with acute exacerbation: Status: Chronic Code(s): J44.1 - Chronic obstructive pulmonary disease with (acute) exacerbation (2) Respiratory insufficiency: Status: Acute Code(s): R06.89 - Other abnormalities of breathing (3) History of tobacco abuse: Status: Acute Code(s): Z87.891 - Personal history of nicotine dependence (4) Chest pressure: Status: Acute Code(s): R07.89 - Other chest pain (5) Hypokalemia: Status: Acute Code(s): E87.6 - Hypokalemia (6) Hyperlipemia: Status: Acute Code(s): E78.5 - Hyperlipidemia, unspecified Qualifiers: Hyperlipidemia type: unspecified Qualified Code(s): E78.5 - Hyperlipidemia, unspecified Plan AECOPD * Continue BDs and and changed to prednisone burst * home oxygen, patient did not require oxygen with activity. Chest pain * troponins negative * Stress test negative * Echocardiogram shows an EF of 70%. Chronic conditions: * Hyperlipidemia - Resume statin and check Lipid Profile in light of #3. * Depression with anxiety - Continue home regimen as previous. VTE prophylaxis: LMWH . Medications at Discharge Home Medications buspirone 15 mg tablet 15 mg PO BID 11/15/17 multivitamin with minerals (Multiple Vitamin-Minerals tablet) 1 ea PO DAILY 02/25/18 albuterol sulfate 90 mcg/actuation aerosol inhaler 2 puff inhalation Q4H PRN 09/11/23 atorvastatin 40 mg tablet 40 mg PO DAILY 09/11/23 fluticasone 250 mcg-salmeterol 50 mcg/dose blistr powdr for inhalation (Advair Diskus) 1 inh inhalation BID 09/11/23 trazodone 100 mg tablet 100 mg PO QHS 09/11/23 prednisone 20 mg tablet 40 mg (2 x 20 mg) PO DAILY #10 tabs 09/12/23 Hospital Course Operations None Procedures 2-D Echocardiogram and Stress test Summary of Care Provided Hospital Course: Patient presents with chest pain. Patient mimic coughing. She came here had a stress test and 2D echocardiogram that were both unremarkable. Chest pain is felt to be probably musculoskeletal/costochondritis. No additional workup is necessary for this. Patient also had some exacerbation of her COPD and started on bronchodilators as well as Solu-Medrol. Patient is overall doing well. Patient will be discharged and to continue the prednisone burst. Weight / BMI Weight Weight: 64.1 kg Body Mass Index (BMI) 24.3 ABG / Lab / Microbiology Data 09/12/23 05:27 09/12/23 05:27 Laboratory: Laboratory Results - last 24 hr 09/11/23 17:50: WBC 5.9, RBC 4.72, Hgb 14.2, Hct 42.9, MCV 90.9, MCH 30.1, MCHC 33.1, RDW Std Deviation 39.7, RDW Coeff of Jorge 11.9, Plt Count 239, MPV 9.6, Immature Gran % (Auto) 0.200, Neut % (Auto) 62.1, Lymph % (Auto) 28.0, [place] % (Auto) 6.3, Eos % (Auto) 2.2, Baso % (Auto) 1.2 H, Absolute Neuts (auto) 3.6, Absolute Lymphs (auto) 1.64, Nucleated RBC % 0, D-Dimer Quant (PE/DVT) 0.29, Sodium 140, Potassium 3.3 L, Chloride 106, Carbon Dioxide 27.0, Anion Gap 7, BUN 14, Creatinine 1.14 H, Estim Creat Clear Calc 49.28, Est GFR (MDRD) Af Amer 64, Est GFR (MDRD) Non-Af 53 L, BUN/Creatinine Ratio 12.3, Glucose 112 H, Calcium 9.7, Troponin I High Sens 4 09/11/23 20:05: Troponin I High Sens 4 09/11/23 22:18: Troponin I High Sens < 3 L 09/12/23 05:27: WBC 5.6, RBC 4.55, Hgb 13.8, Hct 41.7, MCV 91.6, MCH 30.3, MCHC 33.1, RDW Std Deviation 40.3, RDW Coeff of Jorge 12.0, Plt Count 247, MPV 10.0, Immature Gran % (Auto) ASTROBIOLOGIST, Neut % (Auto) ASTROBIOLOGIST, Lymph % (Auto) ASTROBIOLOGIST, [place] % (Auto) ASTROBIOLOGIST, Eos % (Auto) ASTROBIOLOGIST, Baso % (Auto) ASTROBIOLOGIST, Absolute Neuts (auto) 5.2, Absolute Lymphs (auto) 0.43 L, Total Counted 100, Neutrophils % (Manual) 89 H, Band Neutrophils % 2, Lymphocytes % (Manual) 7 L, Metamyelocytes % 2 H, Nucleated RBC % 0, Diff Path Review May foll, Sodium 140, Potassium 3.8, Chloride 109 H, Carbon Dioxide 23.0, Anion Gap 8, BUN 17, Creatinine 1.37 H, Estim Creat Clear Calc 41.01, Est GFR (MDRD) Af Amer 52 L, Est GFR (MDRD) Non-Af 43 L, BUN/Creatinine Ratio 12.4, Glucose 189 H, Calcium 9.0, Phosphorus 2.6, Magnesium 1.7, Total Bilirubin 0.40, AST 22, ALT 26, Alkaline Phosphatase 62, Total Protein 7.5, Albumin 3.7, Globulin 3.8, Albumin/Globulin Ratio 1.0, Triglycerides 58, Cholesterol 122, LDL Cholesterol 59, VLDL Cholesterol 12, HDL Cholesterol 51, TSH 1.09 Microbiology: Microbiology 09/11/23 17:10 Mucosa - Nose Coronavirus COVID-19 PCR - Final Radiography Diagnostic Testing: Radiology Impression Chest X-Ray 09/11/23 15:50 IMPRESSION: No radiographic evidence of acute cardiopulmonary disease. Electronically Signed: Fantasma Magaña DO at 17:15 EDT Reading Location ID and State: [address] [place] [address] Tel [phone], Service support , Echocardiogram 09/11/23 22:10 Interpretation Summary The estimated ejection fraction is 70 %. No evidence for diastolic dysfunction. Trivial mitral valve insufficiency. Trivial aortic valve insufficiency. Ordering Physician: Red Torres Performed By: Mary Patel RDCS and Student D/C Instructions Discharge Diet: No restrictions Meaningful Use Info Meaningful Use Meaningful Use Diagnoses (Choose all that apply): None applicable Ischemic Stroke Statin Dosing Therapy Reference: STATIN DOSE THERAPY REFERENCE: * Patients > 75 years receive moderate or high dose statin therapy. * Patients 75 years or YOUNGER should receive HIGH intensity statin dose unless contraindicated. You will be required to document reason for non-treatment if statin daily dose does not meet guidelines. HIGH DOSE STATIN THERAPY DAILY Atorvastatin > than or = to 40 mg Rosuvastatin > than or = to 20 mg Amlodipine + Atorvastatin > than or = to 2.5/40 mg Ezetimibe + Simvastatin 10/80 mg Simvastatin 80mg Discharge Plan Admission Admit Date/Time: 09/11/23 22:04 Primary Reason for Your Visit: Chest pain Attending Provider: Dwight Self Primary Care Provider: Cammie Collins Consulting Providers: Red Torres Instructions Additional Instructions / Restrictions: Your chest pain workup with a stress test and echocardiogram (ultrasound of your heart) was normal. Your chest pain is not due to any cardiac reason but more likely due to some chest wall pain that he may have sustained with your coughing. I will get better with time. You may take Tylenol and ibuprofen for the pain. He had a flareup of your lungs and will be on prednisone for 5 days. If you have worsening shortness of breath, notify your physician or return to the emergency room. Discharge Orders/Prescriptions Prescriptions: New prednisone 20 mg tablet 40 mg PO DAILY Qty: 10 0RF Continued buspirone 15 MG tablet 15 mg PO BID Multiple Vitamin-Minerals 1 EACH tablet 1 ea PO DAILY albuterol sulfate 90 mcg/actuation HFA aerosol inhaler 2 puff INHALATION Q4H PRN atorvastatin 40 mg tablet 40 mg PO DAILY fluticasone propion-salmeterol [Advair Diskus] 250-50 mcg/dose blister with device 1 inh INHALATION BID trazodone 100 mg tablet 100 mg PO QHS Referrals / Follow Up: Care Physician,No Primary [Non-Staff] - Cammie Collins, ASTROBIOLOGIST-C [Primary Care Provider] - Within 2 Weeks Disposition Disposition (needs filled in before D/C Order can be placed): Home, Self Care Charges/Coding Visit Charges Inpatient E&M: 94171 Disch Hosp
--- NOTE | 2023-09-12 13:41 | PHA.DC_ITS ---
Pharmacy [facility] has performed discharge medication reconciliation and counseling for this patient. The patient's discharge medication list was reviewed for discrepancies and discrepancies were resolved. The patient was counseled on the following discharge medications and changes in medications for homegoing were reviewed. The Reason for Use, instructions for use, and potential side effects were reviewed for all new medications. The patient's questions regarding all of their medications were answered. 1. Prednisone 40 mg PO daily x 5 days The patient was able to verbally demonstrate an understanding of their discharge medications. The patient was counselled on new medications by student finance specialist Jose. Medications at Discharge Home Medications buspirone 15 mg tablet 15 mg PO BID 11/15/17 multivitamin with minerals (Multiple Vitamin-Minerals tablet) 1 ea PO DAILY 02/25/18 albuterol sulfate 90 mcg/actuation aerosol inhaler 2 puff inhalation Q4H PRN 09/11/23 atorvastatin 40 mg tablet 40 mg PO DAILY 09/11/23 fluticasone 250 mcg-salmeterol 50 mcg/dose blistr powdr for inhalation (Advair Diskus) 1 inh inhalation BID 09/11/23 trazodone 100 mg tablet 100 mg PO QHS 09/11/23 prednisone 20 mg tablet 40 mg (2 x 20 mg) PO DAILY #10 tabs 09/12/23
--- NOTE | 2023-09-12 15:06 | CHAPLAIN ---
Type of Pastoral Visit _x__ Initial Visit ___ Follow-up Visit ___ On-call Visit ___ General Patient Visit ___ Spiritual Assessment ___ Family Conference ___ Bereavement ___ Rapid Response ___ Code Blue ___ Other (describe below) Pastoral Care Referral From _x__ Patient ___ Family ___ Nurse ___ Physician ___ Child Care Education Coordinator ___ Butane Compressor Operator ___ Other (describe below) Sacrament/Intervention _x__ Active listening ___ Anointing ___ Mandaen ___ Bereavement ___ Communion _x__ Alejandra exploration ___ _x__ Life review _x__ Prayer ___ Reconciliation ___ Sacrament of Sick _x__ Supportive presence ___ Wedding ___ Other (describe below) Pastoral Comments patient is welcoming and describes her health issue and the fear it brought just yesterday; pt states she is feeling better now and is more relaxed; pt is waiting on more results and so not exactly sure about other findings, but until then being hopeful; pt takes responsibility for her health and tries to do the best she can now; pt has some family support but reveals other family tensions that also bring stress to her life; pt finds that her alejandra in God and support from her christian are very helpful; pt also has outside activities that bring her enjoyment; agreed to focus on the positives and the good parts of life going forward; pt welcomes a prayer with the visit
[2023-09-13 11:52] LABS: Pathologist Review Reviewed
== END 2023-09-12 17:30 | disposition home or self-care (01) | DRG 140 ==
LOC: ED 17:50 → PCU 09-12 03:38
PROVIDERS: Admitting Provider Internal Medicine; Emergency Provider Emergency Medicine; PCP Nurse Practitioner Family
DX: J44.1 Chronic obstructive pulmonary disease with (acute) exacerbation (principal); E78.00 Pure hypercholesterolemia, unspecified; F32.A Depression, unspecified; F41.9 Anxiety disorder, unspecified; E87.6 Hypokalemia; M94.0 Chondrocostal junction syndrome [Tietze]; Z87.891 Personal history of nicotine dependence; R06.89 Other abnormalities of breathing; Z79.51 Long term (current) use of inhaled steroids; Z79.899 Other long term (current) drug therapy
CPT/HCPCS: 36415; 71045; 78452; 80048; 80053; 80061; 83735; 84100; 84443; 84484; 85025; 85379; 87635; 93005; 93017; 93306; 94640; 94668; 99252; 99285; A9500; A4216; G0463; J2785

== ENCOUNTER 2023-10-04 18:26 | Emergency (ER) | payer MEDICAID, SELFPAY ==
[2023-10-04 18:26] VITALS: BP 146/89; PULSE 80; RESP 16; TEMP 36.6; O2SAT 100; BMI 23.8
--- NOTE | 2023-10-04 18:42 | EDS_ITS ---
HPI History of Present Illness Chief Complaint: Suicidal [facility] Medical History COPD (chronic obstructive pulmonary disease) Hyperlipemia Home Medications ?Medication ?Instructions ?Recorded ?Last Taken ?Type buspirone 15 mg tablet 15 mg PO BID 11/15/17 Unknown History multivitamin with minerals 1 ea PO DAILY 02/25/18 Unknown History (Multiple Vitamin-Minerals tablet) albuterol sulfate 90 mcg/actuation 2 puff inhalation Q4H PRN 09/11/23 Unknown History aerosol inhaler atorvastatin 40 mg tablet 40 mg PO DAILY 09/11/23 Unknown History fluticasone 250 mcg-salmeterol 50 1 inh inhalation BID 09/11/23 Unknown History mcg/dose blistr powdr for inhalation (Advair Diskus) trazodone 100 mg tablet 100 mg PO QHS 09/11/23 Unknown History prednisone 20 mg tablet 40 mg (2 x 20 mg) PO DAILY #10 tabs 09/12/23 Unknown Rx Allergy/AdvReac Type Severity Reaction Status Date / Time No Known Allergies Allergy Verified 10/04/23 18:31 Surgical History H/O tubal ligation Social History household members: children number of children: 3 current occupational status: unemployed pets and animals: Yes (cat) Smoking Status: Former smoker EXAM Physical Exam Const Vital Signs: 10/04/23 18:26 Temperature 97.8 F Temperature Source Temporal Pulse Rate 80 Respiratory Rate 16 Blood Pressure 146/89 H Blood Pressure Mean 108 Pulse Ox 100 Oxygen Delivery Method Room Air MDM MDM MDM Narrative Medical decision making narrative: HISTORY OF PRESENT ILLNESS: 52-year-old female presents with concern for suicidal ideation. Per police patient voiced suicidal ideation secondary to depression. This was voiced to the patient's son. She stated to her son I am going to take my meds. Patient denies wanting take her meds at this time but states she is upset that her family does not love her anymore. States she made mention to her son that she is going take her meds but she is only describing her anxiety medication. She states he had no intention of overdosing. REVIEW OF SYSTEMS: Pertinent positives: Suicidal ideation Pertinent negatives: Auditory hallucinations, visual hallucinations, homicidal ideation PHYSICAL EXAM: Nursing triage notes reviewed, Vital signs reviewed Constitutional: please see mdm HENT: MMM Eyes: Pupils equal round and reactive to light, Extraocular muscles intact Neck: No stridor, no JVD, full neck ROM Lungs: Clear to auscultation, No wheezing or rales. No increased work of breathing, no conversational dyspnea, no accessory muscle use, no nasal flaring. No respiratory distress noted Heart: Regular rate and rhythm, No murmurs, No rubs and No gallops, 2+ distal pulses (radial, femoral, posterior tibial) in all extremities Abdomen: Soft, there is no tenderness, rigidity, rebound or guarding, no obvious peritoneal signs, no palpable pulsatile abdominal masses, no auscultated abdominal bruit : No CVAT Extremities: No edema Neuro: No focal neurological deficits, cranial nerves II through XII intact, 5/5 strength in all extremities. Intact sensation to light touch in all extremities, 2+ reflexes bilateral patella tendons. Normal gait. No ataxia. Skin: No rash or lesions noted Psych: Tearful, depressed affect, goal-directed thought process, does not appear to be responding to internal stimuli MEDICAL DECISION MAKING: Chief Complaint: Suicidal ideation External records reviewed: Reviewed prior ED records: No recent or past encounters for suicide ideation noted in the chart Factors affecting care: Depression Social determinants of health: You are seen mental health pathology History obtained from others: Police Consults: Behavioral health psychosocial rehabilitation counselor [facility] Narrative: The patient was initially hemodynamically stable, afebrile and nontoxic- appearing. Patient was tearful, upset. But did not appear to responding to internal stimuli. Given report of suicidal intent I did obtain medical clearance for further behavioral health evaluation. I obtained labs to rule out intoxication, alcohol intoxication, coingestants, metabolic dysfunction issues with signs of infection. ALL IMAGES (IF OBTAINED) HAVE BEEN PERSONALLY REVIEWED AND INTERPRETED BY MYSELF. Salicylate, tylenol is negative. CBC without leukocytosis, severe anemia, no thrombocytopenia. BMP with mild hypokalemia, no NIDIA, no circulatory abnormalities otherwise. Noted hypokalemia, potassium was replaced. Urine tox cream negative Serum alcohol negative On reassessment patient denied any suicide ideation, denying auditory visual hallucinations. Denied any plan. Contracts safety. I discussed the case with our behavioral psychosocial rehabilitation counselor. She thought the patient is appropriate for outpatient care plan. I agree given patient would not contract to safety and denied suicidal ideation, homicidal nation, auditory or visual sedations while in the emergency department. Patient was discharged stable condition with IOP safety plan. The patient and/or family, caregivers express understanding. The patient and/or family, caregivers agrees with the plan. Shared decision making: I will have a discussion with the patient and or visitors regarding risk/benefits of further testing or admission. They will be made aware of of the risk/benefits inherent in this decision they will be given the opportunity to voice understanding. Total critical care time today provided was at least 0 minutes. This excludes separately billable procedures. Critical care time (if documented) is secondary to the patient having high probability of clinically significant/life threatening deterioration in the patient's condition which required my urgent intervention. Impression: 1. Suicidal ideation 2. History of anxiety Dispo: discharge This note was generated with Snappy shuttle dictation software. It may contain incorrect words, spelling, and punctuation that were not noted in review of the chart prior to signing. Lab Data Labs: Laboratory Results - last 24 hr 10/04/23 10/04/23 18:46 19:18 WBC 5.6 RBC 4.52 Hgb 13.6 Hct 40.2 MCV 88.9 MCH 30.1 MCHC 33.8 RDW Std Deviation 38.5 RDW Coeff of Jorge 11.9 Plt Count 257 MPV 9.9 Immature Gran % (Auto) 0.200 Neut % (Auto) 55.2 Lymph % (Auto) 32.9 [place] % (Auto) 7.7 Eos % (Auto) 3.1 Baso % (Auto) 0.9 Absolute Neuts (auto) 3.1 Absolute Lymphs (auto) 1.83 Nucleated RBC % 0 Sodium 140 Potassium 2.9 L Chloride 105 Carbon Dioxide 29.0 Anion Gap 6 BUN 19 H Creatinine 1.10 H Estim Creat Clear Calc 51.07 Est GFR (MDRD) Af Amer 67 Est GFR (MDRD) Non-Af 55 L BUN/Creatinine Ratio 17.3 Glucose 118 H Calcium 9.7 Urine Test Negative Salicylates < 1.7 L Urine Opiates Screen NEGATIVE Urine Methadone Screen NEGATIVE Acetaminophen < 2.0 L Ur Barbiturates Screen NEGATIVE Ur Phencyclidine Scrn NEGATIVE Ur Amphetamines Screen NEGATIVE MDMA (Ecstasy) Screen NEGATIVE U Benzodiazepines Scrn NEGATIVE Urine Cocaine Screen NEGATIVE U Cannabinoids Screen NEGATIVE Ur Drug Screen Comment Ethyl Alcohol 3.0 Discharge Plan Triage Chief Complaint: Suicidal ED Provider: Enrique Layne Dx/Rx/DC Orders Prescriptions: No Action buspirone 15 MG tablet 15 mg PO BID Multiple Vitamin-Minerals 1 EACH tablet 1 ea PO DAILY albuterol sulfate 90 mcg/actuation HFA aerosol inhaler 2 puff INHALATION Q4H PRN atorvastatin 40 mg tablet 40 mg PO DAILY fluticasone propion-salmeterol [Advair Diskus] 250-50 mcg/dose blister with device 1 inh INHALATION BID trazodone 100 mg tablet 100 mg PO QHS prednisone 20 mg tablet 40 mg PO DAILY Qty: 10 0RF Primary Care Provider: Cammie Collins Referrals: Cammie Collins, OPHTHALMIC NURSE-C [Primary Care Provider] - Print Language: Maltese
[2023-10-04 19:40] LABS: Absolute Lymphocyte Count 1.83 X10^3/uL (0.83-4.51); Absolute Neutrophil Count 3.1 X10^3/uL (2.0-7.7); Basophil# 0.05 X10^3/uL; Basophil% 0.9 % (0-1); Eosinophil# 0.17 X10^3/uL; Eosinophils% 3.1 % (0-5); Hematocrit 40.2 % (37-47); Hemoglobin 13.6 g/dL (12.0-15.0); Lymphocyte # 1.83 X10^3/ul (0.83-4.51); Lymphocyte % 32.9 % (19-41); Mean Corp Hgb Conc 33.8 g/dL (32-36); Mean Corpuscular Hgb 30.1 pg (27.0-32.0); Mean Corpuscular Volume 88.9 fL (81-99); Mean Platelet Vol. 9.9 fl (6.2-12.0); Monocyte# 0.43 X10^3/uL; Monocyte% 7.7 % (0-10); NRBC Flagged by Analyzer 0 % (0-5); Neutrophil # 3.07 X10^3/uL (2.7-7.7); Neutrophil % 55.2 % (47-70); Platelet Count 257 K/mm3 (150-450); RBC Distribution Width CV 11.9 % (11.6-14.6); RBC Distribution Width SD 38.5 fl (35.1-43.9); Red Blood Count 4.52 M/mm3 (4.2-5.4); White Blood Count 5.6 K/mm3 (4.4-11.0)
[2023-10-04 19:45] LABS: Internal QC Validated? YES +Cl - CLEAR BKGD; Pregnancy, Urine Negative Negative
--- NOTE | 2023-10-04 19:54 | ED.RN ---
PT CALLED FOR THIS NURSE AND ASKED FOR GUM FROM HER PURSE. THIS NURSE WENT AND GOT PT PURSE AND ALLOWED PT TO TAKE 1 PIECE OF GUM. THIS NURSE TOOK GUM AND PURSE BACK WITH LABELED BELONGINGS.
[2023-10-04 19:58] LABS: Anion Gap 6 (5-15); BUN 19 mg/dL (7-18); BUN/Creat Ratio 17.3 RATIO (10-20); Calcium,Total 9.7 mg/dL (8.5-10.1); Chloride 105 mmol/L (98-107); EST Glomerular Filtration Rate 55 mL/min (>60); Est Glom Filt Rate - Afr Amer 67 mL/min (>60); Estimated Creatinine Clearance 51.07 ml/min; Glucose 118 mg/dL (74-106); Potassium 2.9 mmol/L (3.5-5.1); Sodium Level 140 mmol/L (136-145)
[2023-10-04] MEDS: Potassium Chloride Oral Tablet 20 MEQ 60 MEQ PO (20:14)
[2023-10-04 20:26] LABS: Amphetamine Urine VISTA NEGATIVE (<1000 ng/mL); Barbiturate Urine VISTA NEGATIVE (< 200 ng/mL); Benzodiazepine Urine VISTA NEGATIVE (< 200 ng/mL); Cocaine Urine VISTA NEGATIVE (< 300 ng/mL); Ecstacy Urine VISTA NEGATIVE (< 500 ng/mL); Methadone Urine VISTA NEGATIVE (< 300 ng/mL); PCP Urine VISTA NEGATIVE (< 25 ng/mL); THC Urine VISTA NEGATIVE (< 50 ng/mL); Vista UDS pH Range 7
[2023-10-04 20:28] LABS: Acetaminophen (Tylenol) Level < 2.0 ug/mL (10.0-30.0); Salicylate < 1.7 mg/dL (2.8-20.0)
--- NOTE | 2023-10-04 20:33 | NURSING ---
CALLED CRISIS AT 2030 AND FAXED CHART
[2023-10-04 21:52] VITALS: BP 133/85; PULSE 70; RESP 16; TEMP 36.4; O2SAT 97
== END 2023-10-04 21:52 | disposition home or self-care (01) ==
PROVIDERS: Emergency Provider Emergency Medicine; PCP Nurse Practitioner Family; Visit Provider Emergency Medicine
DX: R45.851 Suicidal ideations (principal); J44.9 Chronic obstructive pulmonary disease, unspecified; E87.6 Hypokalemia; E78.5 Hyperlipidemia, unspecified; F41.9 Anxiety disorder, unspecified; Z79.899 Other long term (current) drug therapy; Z87.891 Personal history of nicotine dependence
CPT/HCPCS: 80048; 80307; 80329; 81025; 82077; 85025; 99283; G0480

== ENCOUNTER 2024-02-23 18:12 | Emergency (ER) | payer MEDICAID, SELFPAY ==
[2024-02-23] VITALS (9 sets, daily range): BP systolic 94–128; BP diastolic 65–92; PULSE 85–121; RESP 16–25; TEMP 37.7–39.3; O2SAT 91–98; BMI 25.8
--- NOTE | 2024-02-23 18:26 | EX.ED.DYSGE1 ---
HPI History of Present Illness Chief Complaint: Fever PFSH [facility] Medical History COPD (chronic obstructive pulmonary disease) Hyperlipemia Home Medications ?Medication ?Instructions ?Recorded ?Last Taken ?Type buspirone 15 mg tablet 15 mg PO BID 11/15/17 Unknown History multivitamin with minerals 1 ea PO DAILY 02/25/18 Unknown History (Multiple Vitamin-Minerals tablet) albuterol sulfate 90 mcg/actuation 2 puff inhalation Q4H PRN 09/11/23 Unknown History aerosol inhaler atorvastatin 40 mg tablet 40 mg PO DAILY 09/11/23 Unknown History fluticasone 250 mcg-salmeterol 50 1 inh inhalation BID 09/11/23 Unknown History mcg/dose blistr powdr for inhalation (Advair Diskus) trazodone 100 mg tablet 100 mg PO QHS 09/11/23 Unknown History prednisone 20 mg tablet 40 mg (2 x 20 mg) PO DAILY #10 tabs 09/12/23 Unknown Rx Allergy/AdvReac Type Severity Reaction Status Date / Time No Known Allergies Allergy Verified 10/04/23 18:31 Surgical History H/O tubal ligation Social History household members: children number of children: 3 current occupational status: unemployed pets and animals: Yes (cat) Smoking Status: Former smoker EXAM Physical Exam Const Vital Signs: 02/23/24 18:13 02/23/24 18:26 02/23/24 18:31 Temperature 102.8 F H 102.8 F H Temperature Source Oral Oral Pulse Rate 119 H 121 H Respiratory Rate 16 17 Respiratory Effort Normal Respiratory Pattern Normal Blood Pressure 128/91 H 128/92 H Blood Pressure Mean 103 104 Pulse Ox 98 95 Oxygen Delivery Method Room Air Room Air 02/23/24 19:22 02/23/24 19:26 02/23/24 20:00 Temperature 100.8 F H 100.8 F H Temperature Source Oral Oral Pulse Rate 99 99 Respiratory Rate 18 25 H Respiratory Effort Respiratory Pattern Blood Pressure 104/69 99/67 Blood Pressure Mean 80 77 Pulse Ox 92 91 Oxygen Delivery Method Room Air Room Air Room Air 02/23/24 22:00 02/23/24 22:21 02/23/24 22:23 Temperature 99.9 F H 99.9 F H 99.8 F H Temperature Source Oral Pulse Rate 85 85 99 Respiratory Rate 18 18 16 Respiratory Effort Respiratory Pattern Blood Pressure 94/78 94/78 96/65 Blood Pressure Mean 83 83 75 Pulse Ox 96 96 98 Oxygen Delivery Method Room Air [facility] Narrative Medical decision making narrative: HISTORY OF PRESENT ILLNESS: 53-year-old female presents with concern for fever. She states she has had sick contacts at home. She notes cough congestion short of breath 1 week. Today she developed body aches and chills. She has not been tested for COVID or flu. Denies chest pain. Notes productive cough of yellow sputum. She is concerned she may have pneumonia. The patient denies recent surgery in the last 4 weeks or immobilization in the last 3 days, denies previous diagnosis of DVT or PE, hemoptysis, unilateral leg swelling or malignancy with treatment the last 6 months or palliative. No estrogen use noted. REVIEW OF SYSTEMS: Pertinent positives: congestion, shortness of breath, body aches, fever, chillsCough, Pertinent negatives: Chest pain, leg swelling, syncope PHYSICAL EXAM: Nursing triage notes reviewed, Vital signs reviewed Constitutional: please see mdm HENT: MMM, no posterior oropharyngeal erythema, no tonsillar swelling or exudates Eyes: Pupils equal round and reactive to light, Extraocular muscles intact Neck: No stridor, no JVD, full neck ROM Lungs: Clear to auscultation, No wheezing or rales. No increased work of breathing, no conversational dyspnea, no accessory muscle use, no nasal flaring. No respiratory distress noted Heart: Regular rate and rhythm, No murmurs, No rubs and No gallops, 2+ distal pulses (radial, femoral, posterior tibial) in all extremities Abdomen: Soft, there is no tenderness, rigidity, rebound or guarding, no obvious peritoneal signs, no palpable pulsatile abdominal masses, no auscultated abdominal bruit : No CVAT Extremities: No edema Neuro: No new focal neurological deficits, cranial nerves II through XII intact, 5/5 strength in all present extremities. Intact sensation to light touch in all present extremities, 2+ reflexes bilateral patella tendons. Skin: No rash or lesions noted MEDICAL DECISION MAKING: Chief Complaint: Fever External records reviewed: Reviewed prior labs, allergies, current medications Factors affecting care: COPD, hyperlipidemia, anxiety, Social determinants of health: tobacco abuse History obtained from others: none Consults: none MDM Narrative: The patient was initially tachycardic with a rate of 119, febrile with a temperature 102.8, otherwise saturating well on room air. Exam without focus of infection I considered the following differential diagnosis: Pneumonia, UTI, COVID, flu, RSV, sepsis Sepsis order set used. The patient was resuscitated 1 L normal saline, 50 mg of IV Toradol and 1 g of oral Tylenol ALL IMAGES (IF OBTAINED) HAVE BEEN PERSONALLY REVIEWED AND INTERPRETED BY MYSELF. I have personally reviewed the patient's chest x-ray. Chest x-ray is unremarkable for pulmonary edema, pneumothorax, pneumonia or focal cardiopulmonary abnormality. Lactate is wnl indicating no end-organ hypoperfusion and/or hypoxia. CBC without leukocytosis, severe anemia, no thrombocytopenia. BMP without evidence of significant electrolyte abnormalities, no anion gap, no acute kidney injury. LFTs show no evidence of hepatobiliary pathology. Urinalysis shows no evidence of urinary inflammation suggestive of UTI Upon reevaluation patient's heart rate improved to 99, temperature improved to 99.8. Patient was able to ambulate without significant hypoxia. She is appropriate discharge home. Her symptoms are likely secondary to COVID-19. Encouraged Tylenol, ibuprofen and plenty of oral fluids. The patient and/or family, caregivers express understanding. The patient and/or family, caregivers agrees with the plan. Shared decision making: I will have a discussion with the patient and or visitors regarding risk/benefits of further testing or admission. They will be made aware of of the risk/benefits inherent in this decision they will be given the opportunity to voice understanding. Total critical care time today provided was at least 0 [] minutes. This excludes separately billable procedures. Critical care time (if documented) is secondary to the patient having high probability of clinically significant/life threatening deterioration in the patient's condition which required my urgent intervention. Impression: 1. Fever 2. COVID-19 Dispo: [] This note was generated with [employer] dictation software. It may contain incorrect words, spelling, and punctuation that were not noted in review of the chart prior to signing. Lab Data Labs: Laboratory Results - last 24 hr 02/23/24 02/23/24 02/23/24 18:40 19:18 20:18 WBC 8.6 RBC 5.01 Hgb 15.5 H Hct 44.8 MCV 89.4 MCH 30.9 MCHC 34.6 RDW Std Deviation 41.5 RDW Coeff of Jorge 12.8 Plt Count 284 MPV 10.8 Immature Gran % (Auto) 0.200 Neut % (Auto) 82.9 H Lymph % (Auto) 6.9 L [place] % (Auto) 8.5 Eos % (Auto) 0.7 Baso % (Auto) 0.8 Absolute Neuts (auto) 7.1 Absolute Lymphs (auto) 0.59 L Nucleated RBC % 0 PT 12.0 INR 0.9 APTT 31.1 Sodium Cancelled 141 Potassium Cancelled 3.6 Chloride Cancelled 112 H Carbon Dioxide Cancelled 26.0 Anion Gap Cancelled 3 L BUN Cancelled 18 Creatinine Cancelled 1.00 Estim Creat Clear Calc Cancelled 61.06 Est GFR (MDRD) Af Amer Cancelled 74 Est GFR (MDRD) Non-Af Cancelled 61 BUN/Creatinine Ratio Cancelled 18.0 Glucose Cancelled 102 Lactic Acid 1.7 Calcium Cancelled 8.0 L Total Bilirubin Cancelled 0.30 AST Cancelled 42 H ALT Cancelled 48 Alkaline Phosphatase Cancelled 72 Total Protein Cancelled 6.4 Albumin Cancelled 3.2 Globulin Cancelled 3.2 Albumin/Globulin Ratio Cancelled 1.0 Urine Color Yellow Urine Clarity Clear Urine pH 6.0 Ur Specific [place] 1.015 Urine Protein Negative Urine Glucose (UA) Normal Urine Ketones Negative Urine Occult Blood Negative Urine Nitrite Negative Urine Bilirubin Negative Urine Urobilinogen Normal Ur Leukocyte Esterase Negative Urine RBC 0-5 SEEN Urine WBC 0-5 SEEN Ur Squamous Epith Cells 0-5 SEEN Urine Bacteria 0 SEEN Urine Mucus 0 SEEN Radiography Diagnostic Testing: Clinical Impression(s) from Imaging Studies Chest X-Ray 02/23/24 19:14 IMPRESSION: No radiographic evidence of acute cardiopulmonary disease. Electronically Signed: Fantasma Magaña DO at 20:44 EST Reading Location ID and State: [facility] / [place] Tel [phone], Service support , Discharge Plan Triage Chief Complaint: Fever ED Provider: Enrique Layne Dx/Rx/DC Orders Instructions: Coronavirus Disease 2019 (COVID-19): Overview Prescriptions: No Action buspirone 15 MG tablet 15 mg PO BID Multiple Vitamin-Minerals 1 EACH tablet 1 ea PO DAILY albuterol sulfate 90 mcg/actuation HFA aerosol inhaler 2 puff INHALATION Q4H PRN atorvastatin 40 mg tablet 40 mg PO DAILY fluticasone propion-salmeterol [Advair Diskus] 250-50 mcg/dose blister with device 1 inh INHALATION BID trazodone 100 mg tablet 100 mg PO QHS prednisone 20 mg tablet 40 mg PO DAILY Qty: 10 0RF Primary Care Provider: Cammie Collins Referrals: Cammie Collins, TV HOST-C [Primary Care Provider] - Activity Restrictions/Additional Instructions: Thank you for trusting us with your care today! Please take Tylenol (2 pills, 650 mg), ibuprofen (2 pills, 400 mg) every 6 hours as needed for pain and fever control. Please return to the emergency department if your symptoms change or worsen. Please follow with your primary care physician for further outpatient evaluation and management. Print Language: Palestinian Disposition Disposition: Home, Self Care Discharge Date/Time: 02/23/24 22:24
--- NOTE | 2024-02-23 18:35 | EKG12_ITS ---
Test Reason : FEVER Blood Pressure : */* mmHG Vent. Rate : 116 BPM Atrial Rate : 116 BPM P-R Int : 144 ms QRS Dur : 76 ms QT Int : 308 ms P-R-T Axes : 70 70 44 degrees QTcB Int : 428 ms Sinus tachycardia Nonspecific T wave abnormality Abnormal ECG Confirmed by SCOTTIE RUIZ, CHERYL ([id number]), assistant editor MUKUL BLISS ([id number]) on 02/26/2024 6:46:46 AM Referred By: Confirmed By: CHERYL RUBIN MD
[2024-02-23 18:52] LABS: Bacteria 0 SEEN /hpf (None Seen); Mucous, Urine 0 SEEN /hpf (<or=2+)
[2024-02-23 18:53] LABS: Color, Urine Yellow (Yellow); Glucose, Dipstick Normal (Normal); Ketone-Dipstick Negative (Negative); Leukocyte Esterase-Dipstick Negative /ul (Negative); Nitrite-Dipstick Negative (Negative); Occult Blood-Urine Negative /ul (Negative); Protein-Dipstick Negative (Negative); Specific Gravity, Urine 1.015 (1.002-1.030); Urine Bilirubin Dipstick Negative (Negative); Urine Clarity Clear (Clear); Urine Urobilinogen Normal (Normal)
[2024-02-23 19:05] LABS: Red Blood Cells-Urine 0-5 SEEN /hpf (0-5); Squamous Epithelial Cells - UA 0-5 SEEN /hpf (5-10); White Blood Cells 0-5 SEEN /hpf (0-5)
--- NOTE | 2024-02-23 19:14 | RAD_ITS ---
INDICATION: cough EXAMINATION/TECHNIQUE: X-RAY - XR Chest 1 View COMPARISON: September 11, 2023 FINDINGS: LINES/DEVICES: None. LUNGS: No consolidation, edema or effusion. No pneumothorax. MEDIASTINUM AND CARDIOVASCULAR STRUCTURES: Cardiac silhouette not enlarged. Central airways and mediastinal contour are unremarkable. BONES AND SOFT TISSUES: Unremarkable. RAD/Chest 1 View (Portable) IMPRESSION: No radiographic evidence of acute cardiopulmonary disease. Electronically Signed: Fantasma Magaña DO at 20:44 EST ,
[2024-02-23] MEDS: Acetaminophen 500 MG Tablet 1000 MG PO (19:15)
[2024-02-23] MEDS: 0.9% Normal Saline (1000mL) 1,000 ML 999 ML IV (19:15)
[2024-02-23] MEDS: Ketorolac 15 MG/ML Vial IV (19:15)
[2024-02-23 19:26] LABS: Absolute Lymphocyte Count 0.59 X10^3/uL (0.83-4.51); Absolute Neutrophil Count 7.1 X10^3/uL (2.0-7.7); Basophil# 0.07 X10^3/uL; Basophil% 0.8 % (0-1); Eosinophil# 0.06 X10^3/uL; Eosinophils% 0.7 % (0-5); Hematocrit 44.8 % (37-47); Hemoglobin 15.5 g/dL (12.0-15.0); Lymphocyte # 0.59 X10^3/ul (0.83-4.51); Lymphocyte % 6.9 % (19-41); Mean Corp Hgb Conc 34.6 g/dL (32-36); Mean Corpuscular Hgb 30.9 pg (27.0-32.0); Mean Corpuscular Volume 89.4 fL (81-99); Mean Platelet Vol. 10.8 fl (6.2-12.0); Monocyte# 0.73 X10^3/uL; Monocyte% 8.5 % (0-10); NRBC Flagged by Analyzer 0 % (0-5); Neutrophil # 7.08 X10^3/uL (2.7-7.7); Neutrophil % 82.9 % (47-70); POSITIVE DIFFERENTIAL YES; Platelet Count 284 K/mm3 (150-450); RBC Distribution Width CV 12.8 % (11.6-14.6); RBC Distribution Width SD 41.5 fl (35.1-43.9); Red Blood Count 5.01 M/mm3 (4.2-5.4); White Blood Count 8.6 K/mm3 (4.4-11.0)
[2024-02-23 19:34] LABS: International Normalized Ratio 0.9
[2024-02-23 19:35] LABS: Partial Thromboplast Time 31.1 Seconds (24.1-36.2)
[2024-02-23 19:58] LABS: Lactic Acid 1.7 mmol/L (0.4-1.9)
[2024-02-23 20:45] LABS: AST(SGOT) 42 U/L (15-37); Alanine Aminotransfer ALT/SGPT 48 U/L (13-56); Albumin, Serum 3.2 g/dL (3.2-5.0); Alkaline Phosphatase 72 U/L (45-117); Anion Gap 3 (5-15); BUN 18 mg/dL (7-18); Chloride 112 mmol/L (98-107); EST Glomerular Filtration Rate 61 mL/min (>60); Est Glom Filt Rate - Afr Amer 74 mL/min (>60); Estimated Creatinine Clearance 61.06 ml/min; Globulin 3.2 g/dL (2.2-4.2); Glucose 102 mg/dL (74-106); Potassium 3.6 mmol/L (3.5-5.1); Protein, Total 6.4 g/dL (6.4-8.2); Sodium Level 141 mmol/L (136-145)
== END 2024-02-23 22:24 | disposition home or self-care (01) ==
PROVIDERS: Emergency Provider Emergency Medicine; PCP Nurse Practitioner Family; Visit Provider Emergency Medicine
DX: U07.1 COVID-19 (principal); J44.9 Chronic obstructive pulmonary disease, unspecified; Z87.891 Personal history of nicotine dependence
CPT/HCPCS: 71045; 80053; 81001; 83605; 85025; 85610; 85730; 87040; 87086; 87631; 93005; 96374; 99285; A4216

== ENCOUNTER 2024-10-25 05:47 | Emergency (ER) | payer MEDICAID, SELFPAY ==
[2024-10-25 05:48] VITALS: BP 127/87; PULSE 86; RESP 18; TEMP 36.5; O2SAT 96; BMI 23.8
[2024-10-25 05:52] VITALS: BP 127/87; PULSE 86; RESP 18; TEMP 36.5; O2SAT 96
--- NOTE | 2024-10-25 05:55 | EDS_ITS ---
HPI History of Present Illness Chief Complaint: General Illness Informant: patient Onset/Context/Timing Onset: Days Context: Gradual Onset Timing: Continuous Current Severity: Mild Maximum Severity: Mild Narrative Narrative: 53-year-old female history of COPD. States she is not felt well for about a week. Says she has had intermittent diarrhea. Has been sleeping a lot. And on Monday started getting discomfort with urination. Denies any hematuria. No fever. No nausea or vomiting. Mild suprapubic abdominal discomfort. Prior similar symptoms: No Recent Illness/Hospitalization: No PFSH PFS Medical History Emphysema lung History of tobacco abuse COPD (chronic obstructive pulmonary disease) Hyperlipemia Anxiety Home Medications ?Medication ?Instructions ?Recorded ?Last Taken ?Type buspirone 15 mg tablet 15 mg PO BID 11/15/17 Unknow n History multivitamin with minerals 1 ea PO DAILY 02/25/18 Unkn own History (Multiple Vitamin-Minerals tablet) albuterol sulfate 90 mcg/actuation 2 puff inhalation Q 4H PRN 09/11/23 Unknown History aerosol inhaler atorvastatin 40 mg tablet 40 mg PO DAILY 09/11/23 Unkn own History trazodone 100 mg tablet 150 mg PO QHS PRN sleep 08/27 07/20 Unknown History
--- NOTE | 2024-10-25 05:55 | EX.ED.DYSGE1 ---
HPI History of Present Illness Chief Complaint: General Illness Informant: patient Onset/Context/Timing Onset: Days Context: Gradual Onset Timing: Continuous Current Severity: Mild Maximum Severity: Mild Narrative Narrative: 53-year-old female history of COPD. States she is not felt well for about a week. Says she has had intermittent diarrhea. Has been sleeping a lot. And on Monday started getting discomfort with urination. Denies any hematuria. No fever. No nausea or vomiting. Mild suprapubic abdominal discomfort. Prior similar symptoms: No Recent Illness/Hospitalization: No PFSH PFSH Medical History Emphysema lung History of tobacco abuse COPD (chronic obstructive pulmonary disease) Hyperlipemia Anxiety Home Medications ?Medication ?Instructions ?Recorded ?Last Taken ?Type buspirone 15 mg tablet 15 mg PO BID 11/15/17 Unknown History multivitamin with minerals 1 ea PO DAILY 02/25/18 Unknown History (Multiple Vitamin-Minerals tablet) albuterol sulfate 90 mcg/actuation 2 puff inhalation Q4H PRN 09/11/23 Unknown History aerosol inhaler atorvastatin 40 mg tablet 40 mg PO DAILY 09/11/23 Unknown History trazodone 100 mg tablet 150 mg PO QHS PRN sleep 09/11/23 Unknown History mometasone-formoterol HFA 200 2 puff inhalation BID 10/25/24 Unknown History mcg-5 mcg/actuation aerosol inhaler (Dulera) Allergy/AdvReac Type Severity Reaction Status Date / Time No Known Allergies Allergy Verified 10/25/24 05:48 Surgical History H/O tubal ligation Social History household members: children number of children: 3 current occupational status: unemployed pets and animals: Yes (cat) Smoking Status: Former smoker ROS ROS ED Constitutional Constitutional ED: Denies chills or fever(s) Eyes Eyes: Denies blurry vision ENT ENT ED: Denies ear pain Cardiovascular Cardiovascular: Denies chest pain Respiratory/Chest Respiratory/Chest: Denies cough or dyspnea Gastrointestinal Gastrointestinal: Reports abdominal pain and diarrhea; Denies melena, nausea or vomiting Genitourinary Genitourinary ED: Reports dysuria; Denies hematuria Musculoskeletal Musculoskeletal: Reports back pain Integumentary Denies abscess Neurologic Neurologic: Denies headache(s) Psychiatric Psychiatric: Denies anxiety Endocrine Endocrinology: Denies cold intolerance Hematologic/Lymphatic Hematologic/Lymphatic: Denies anemia Allergic/Immunologic Allergic/Immunologic ED: Denies mouth swelling, tongue swelling or urticaria EXAM Physical Exam Narrative Exam Narrative: 53-year-old female sitting upright in bed. Vital signs are stable afebrile. Pulse ox 96% on room air no hypoxia. No distress. No lives with her. H EENT exam pupils round react light. Mildly dry mucous membranes. Neck nontender no lymphadenopathy. No meningismus. Back nontender. Lungs clear to auscultation bilaterally. Heart regular rhythm rate about 85 no murmur. Chest wall ribs nontender. Abdomen soft, nondistended, no peritoneal signs. Mild suprapubic discomfort to palpation. No hernia or mass. No obstruction. No pulsatile mass. Moving all 4 extremities. Normal diamond grinder strength. Normal dorsi plantarflexion. Calves are nontender without edema or cords. Neurologically patient is awake alert. Answer question following commands. Const Vital Signs: 10/25/24 05:48 10/25/24 05:48 10/25/24 05:52 Temperature 97.7 F L 97.7 F L Temperature Source Oral Oral Pulse Rate 86 86 Respiratory Rate 18 18 Respiratory Effort Normal Non-Labored Respiratory Pattern Normal Blood Pressure 127/87 H 127/87 H Blood Pressure Mean 100 100 Pulse Ox 96 96 Oxygen Delivery Method Room Air Room Air 10/25/24 06:52 Temperature 98.7 F Temperature Source Oral Pulse Rate 78 Respiratory Rate 18 Respiratory Effort Respiratory Pattern Blood Pressure 132/78 H Blood Pressure Mean 96 Pulse Ox 99 Oxygen Delivery Method Room Air Positive well nourished and well developed; Negative for cachectic, contractures or unkempt General Appearance ED: well developed and NAD; Negative for unkempt, cachectic, contractures, cyanotic, diaphoretic or pallor Nutritional Appearance: Negative for cachectic HEENT Reports dry mucous membranes Negative for trauma or tenderness Mouth ED: Yes dry mucous membranes Mouth: dry mucous membranes Eyes PERRL and EOMs intact bilaterally General Eye ED: Negative for pale conjunctiva or scleral icterus Neck no lymphadenopathy, supple and no JVD Chest Wall inspection of chest normal and palpation of chest normal Resp normal respiratory effort and clear to auscultation bilaterally Auscultation: Negative for rales, rhonchi, wheezes or diminished lung sounds Cardio regular rate, regular rhythm, S1 normal heart sound, S2 normal heart sound and no murmurs GI normal to inspection, nondistended, normoactive bowel sounds, non-distended and no masses; Negative for non-tender GI Narrative: Mild suprapubic tenderness. No rebound guarding or rigidity. No specific right lower or right upper quadrant tenderness. No Monique sign or McBurney's point tenderness. No hernia or mass. No obstruction. Auscultation: normoactive bowel sounds Palpation: soft and tender; Negative for guarding, splenomegaly, mass or rebound tenderness present Back/Spine no CVA tenderness General Back: Negative for CVA tenderness Cervical Spine: Negative for cervical spine tenderness Thoracic Spine / Upper Back: Negative for thoracic spinal tenderness or paraspinal muscle tenderness Lumbar Spine / Lower Back: Negative for lumbar spinal tenderness Extremity normal to inspection General Extremety ED: Negative for edema or tenderness General Extremity: Negative for edema Neuro oriented x3 and CN's II-XII intact bilaterally Motor Exam: strength 5/5 throughout Psych mental status grossly normal Appearance: Negative for unkempt Attitude: No agitated Skin no rashes or lesions noted, no wounds and skin turgor normal General Skin Exam: Negative for jaundice or pallor Lesions: No lesion noted Rashes: No rashes noted Trauma: Negative for abrasion MDM MDM MDM Narrative Medical decision making narrative: 53-year-old female week of intermittent diarrhea and increasing sleep and fatigue. Clinically may be a little dehydrated with dry mucous membranes. Possible UTI with her dysuria. Should be treated IV fluids screening labs will be obtained a UA. At this time I do not think she needs imaging. Repeat exam patient is doing well at 7:33 AM. We went over her test results. I will send a urine culture. Given her symptoms and her UA I will treat her for UTI she will be started on Bactrim 1 pill twice a day for 5 days. Urine culture will be sent. Repeat exam her abdomen is benign. We discussed her lab results. She is comfortable being discharged to home. She will follow-up with her primary care provider next week. Patient was given her first dose of Bactrim here prior to discharge. History & Record Review Discussion w/independent historian: Patient Additional record(s) reviewed:: Prior inpatient record, Prior outpatient record, Prior ED visit and Prior labs Lab Data Attestation: I reviewed the patient's lab results. Lab results narrative: CBC shows a white count 6. H&H 15 and 45. Platelets 259. BMP showed sodium 138. Gap 12. BUN and creatinine 29 and 0.9. Glucose of 109. Urinalysis shows positive nitrites 5-10 white cells. Only rare bacteria. It was contaminated with 10-25 epithelial cells. Labs: Laboratory Results - last 24 hr 10/25/24 10/25/24 06:03 06:08 WBC 6.0 RBC 5.03 Hgb 15.7 H Hct 45.4 MCV 90.3 MCH 31.2 MCHC 34.6 RDW Std Deviation 38.3 RDW Coeff of Jorge 11.6 Plt Count 259 MPV 9.4 Immature Gran % (Auto) 0.300 Neut % (Auto) 38.5 L Lymph % (Auto) 46.1 H [place] % (Auto) 9.4 Eos % (Auto) 4.5 Baso % (Auto) 1.2 H Absolute Neuts (auto) 2.3 Absolute Lymphs (auto) 2.75 Nucleated RBC % 0 Sodium 138 Potassium 4.0 Chloride 102 Carbon Dioxide 24.3 Anion Gap 12 BUN 29 H Creatinine 0.93 Estim Creat Clear Calc 59.72 Est GFR (MDRD) Non-Af 73 BUN/Creatinine Ratio 31.2 H Glucose 109 H Calcium 9.3 Urine Color Crissy Urine Clarity Clear Urine pH 5.0 Ur Specific Maria Stein 1.025 Urine Protein 15 H Urine Glucose (UA) Normal Urine Ketones Negative Urine Occult Blood 10 H Urine Nitrite Positive H Urine Bilirubin 6 H Urine Urobilinogen 8 H Ur Leukocyte Esterase 25 H Urine RBC 0-5 SEEN Urine WBC 5-10 SEEN Ur Squamous Epith Cells 10-25 SEEN Urine Bacteria RARE Urine Mucus 0 SEEN Discharge Plan Triage Chief Complaint: General Illness ED Provider: Ty Norwood Dx/Rx/DC Orders Prescriptions: No Action buspirone 15 MG tablet 15 mg PO BID Multiple Vitamin-Minerals 1 EACH tablet 1 ea PO DAILY albuterol sulfate 90 mcg/actuation HFA aerosol inhaler 2 puff INHALATION Q4H PRN atorvastatin 40 mg tablet 40 mg PO DAILY trazodone 100 mg tablet 150 mg PO QHS PRN (Reason: sleep) Dulera 200-5 mcg/actuation HFA aerosol inhaler 2 puff inhalation BID Primary Care Provider: Care Physician,No Primary Referrals: Care Physician,No Primary [Primary Care Provider] - Print Language: Canadian
[2024-10-25] MEDS: 0.9% Normal Saline (1000mL) 1,000 ML 1000 ML IV (06:09)
--- OUTSIDE RECORDS SUMMARY | 2024-10-25 06:10 | XMS RPT_ITS | CCD ---
Author Organization [facility] Care Team Providers Care Internal Grinder Tender Name Role Phone PHYSICIAN, NOT RECORDED Primary Care Physician U navailable Unavailable Primary Care Provider Unavailabl e PHYSICIAN, NOT RECORDED Primary Care Unavaila hilario SIMONS MD, DR APARICIO Admitting Unavailab kailash SIMONS MD, DR APARICIO Attending Unavailab le PHYSICIAN, NOT RECORDED Primary Care Unavaila hilario DUGGAN MD, CAROLANN Leger Attending Unavail able AN NORMAN, MARCELA Persaud Attending Unavaila hilario KINGSTON MD, AKIN Referring Unavailable PHYSICIAN, NOT RECORDED Primary Care Unavaila hilario NORMAN, MERYL Admitting Unavailab le Unavailable Primary Care Provider Unavailcristi e O'JHONCAMMIE Attending Unavailable AMANDA FOOTE Referring Unavailable Vera'JHONCAMMIE SOTO Attending Unavailable AMANDA FOOTE Referring Unavailable Vera'CAMMIE FERREIRA Attending Unavailable AMANDA FOOTE Referring Unavailable AMANDA FOOTE Attending Unavailable CAMMIE SELF Referring Unavailable FRANCESCO BANKS Referring Unavailable FRANCESCO BANKS Attending Unavailable FRANCESCO BANKS Attending Unavailable KYAW REMY Referring Unavailable FRANCESCO BANKS Referring Unavailable Yolandar, Cammie Primary Care Unavailable Dwight Self Attending Unavailable Amanda Torres Admitting Unavailable de Amanda Tavera Consulting Unavailable Yolandar, Cammie Primary Care Unavailable Cari Gardner Attending Unavailcristi e Karina, Cammie Primary Care Unavailable de Amanda Tavera Admitting Unavailable de Amanda Tavera Consulting Unavailable Amanda Torres Attending Unavailable Dwight Self Attending Unavailable Dwight Self Consulting Unavailable Ungerer, Cammie Primary Care Unavailable Roverto Enrique Attending Unavailable Ungerer, Cammie Primary Care Unavailable Roverto Enrique Attending Unavailable UNGDUTCHR, CAMMIE DIGITAL ARTIST Attending Unavailable CAMMIE SELF DIGITAL ARTIST Consulting Unavailable CAMMIE SELF NP Primary Care Unavailable CAMMIE SELF DIGITAL ARTIST Admitting Unavailable PROVIDER, UNKNOWN Consulting Unavailable Medications Current Medications Medication Drug Class(es) Dates Sig (Normalized) Sig (Original) 200 actuat albuterol 0.09 mg/actuat dry powder inhaler (10 sources) beta2-Adrenergic Agonist Start: 05-28-2019 take 2 puff(s) by inhalation four times daily as needed albuterol sulfate (PROAIR RESPICLICK) 90 mcg/actuation Indications: Chronic obstructive pulmonary disease, unspecified COPD type (HCC) Inhale 2 Puffs as instructed four times daily as needed. 3 Inhaler 05/28/2019 Active Comment on above: Inhale 2 Puffs as in structed four times daily as needed. albuterol MDI (90 mcg/inh) CFC free inhalation aerosol (3 sources) Start: 11-07-2022 take 1 puff(s) by inhalation every six hours as needed albuterol MDI (90 mcg/inh) CFC free inhalation aerosol 1 puff(s), Inhalation, q6hr, PRN Shortness of breath (SOB), 0 Refill(s) Start Date: 11/07/22 Status: Ordered aspirin 81 mg chewable tablet (13 sources) Platelet Aggregation Inhibitor, Nonsteroidal Anti-inflammatory Drug Start: 11-07-2022 aspirin 81 mg oral tablet, chewable Dose : 81 mg = 1 tab(s), Chewed, qDay, 0 Refill(s) Start Date: 11/07/22 Status: Ordered take 1 tablet by mouth once darin y aspirin, enteric coated (ASPIRIN, ENTERIC COATED) 81 mg EC tablet Take 81 mg by mouth once daily. Active Comment on above: Take 81 mg by mouth once daily. atorvastatin 40 mg oral tablet (11 sources) HMG-CoA Reductase Inhibitor Start: 11-09-19 atorvastatin (LIPITOR) 40 mg tablet biotin 1 mg oral capsule (10 sources) biotin 1 mg cap Take by mouth. Active Comment on above: Take by mouth. Budesonide / formoterol (9 sources) Corticosteroid, beta2-Adrenergic Agonist Start: 09-05-19 take 2 puff(s) by inhalation twice daily budesonide-formotero l (SYMBICORT) 160-4.5 mcg/actuation inhaler Indications: Chronic obstructive pulmonary disease, unspecified COPD type (HCC) Inhale 2 Puffs as instructed twice daily. 30.6 g 09/05/2019 Active Start: 09-05-2019 take 2 puff(s) by in halation twice daily budesonide-formoterol (SYMBICORT) 160-4.5 mcg/actuation inhaler Indications: Chronic obstructive pulmonary disease, unspecified COPD type (HCC) Inhale 2 Puffs as instructed twice daily. 30.6 g 0 09/05/2019 Active Comment on above: Inhale 2 Puffs as in structed twice daily. busPIRone hydrochloride 15 mg oral tablet (10 sources) Start: 2019 take 0.5 tablet by mouth twice daily busPIRone (BUSPAR) 15 mg tablet Indications: Anxiety Take 0.5 tablets by mouth twice daily. 30 tablet 3 03/04/2019 Active Comment on above: Take 0.5 tablets by mouth twice daily. DULoxetine 30 mg delayed release oral capsule (4 sources) Serotonin and Norepinephrine Reuptake Inhibitor Start: 2023 take 1 capsule by mouth once DULoxetine (CYMBALTA) 30 mg capsule Take 1 capsule by mouth every afternoon. 0 05/28/2023 Active Comment on above: Take 1 capsule [facility] afternoon. escitalopram 10 mg oral tablet (10 sources) Serotonin Reuptake Inhibitor Start: 2019 take 1 tablet by mouth once daily escitalopram oxalate (LEXAPRO) 10 mg tablet Indications: Anxiety , Situational stress Take 1 tablet by mouth once daily. 30 tablet 11 07/09/2019 Active Comment on above: [facility]. 60 actuat fluticasone propionate 0.25 mg/actuat / salmeterol 0.05 mg/actuat dry powder inhaler (4 sources) Corticosteroid, beta2-Adrenergic Agonist Start: 2023 ADVAIR DISKUS 250-50 mcg/dose inhaler two times a day. 0 05/19/2023 Active Comment on above: two times a day. melatonin 10 mg extended release oral tablet (12 sources) Start: 2022 melatonin 10 mg TbER Take by mouth. 0 11/07/2022 Active Comment on above: Take by mouth. Misc Medication (3 sources) Start: 2022 take 1 capsule by mouth three times daily as needed for gastroesophageal reflux disease, then take 1 capsule by mouth three times daily as needed for gastroesophageal reflux disease Misc Medication 1 capsule, Oral, TID, apple cider vinegar capsules patient takes up to 3 times a day for heartburn, PRN Heartburn, 0 Refill(s) Start Date: 11/07/22 Status: Ordered MULTIVITAMIN ORAL (10 sources) MULTIVITAMIN ORA L Take by mouth. Active MULTIVITAMIN ORA L Take by mouth. 0 Active Comment on above: Take by mouth. Multivitamin preparation (3 sources) Start: 3 take 1 tablet by mouth once daily Multivitamin Dose = 1 tab(s), Oral, Daily, 0 Refill(s) Start Date: 11/07/22 Status: Ordered omeprazole 20 mg delayed release oral capsule (1 source) Proton Pump Inhibitor Start: 4 omeprazole 20 mg oral delayed release capsule Dose : 20 mg = 1 cap(s), Oral, qDay, # 90 cap(s), 0 Refill(s) Start Date: 03/11/23 Status: Ordered pantoprazole 40 mg delayed release oral tablet (4 sources) Proton Pump Inhibitor Start: 4 take 1 tablet by mouth once pantoprazole DR (PROTONIX) 40 mg tablet Take 1 tablet by mouth every afternoon. 0 03/23/2023 Active Comment on above: Take 1 tablet by lexy th every afternoon. tiZANidine 4 mg oral tablet (4 sources) Central alpha-2 Adrenergic Agonist Start: 4 take 1 tablet by mouth twice daily as needed tiZANidine (ZANAFLEX) 4 mg tablet Indications: muscle spasm Take 1 tablet by mouth two times a day as needed. 30 tablet 0 06/07/2023 Active Comment on above: Take 1 tablet by leyx th two times a day as needed. traZODone hydrochloride 100 mg oral tablet (4 sources) Serotonin Reuptake Inhibitor Start: 4 take 1 tablet by mouth once daily at bedtime traZODone (DESYREL) 100 mg tablet Take 100 mg by mouth daily at bedtime. 0 04/25/2023 Active Comment on above: Take 100 mg by mouth daily at bedtime. TURMERIC ROOT EXTRACT ORAL (10 sources) TURMERIC ROOT EXTRACT ORAL Take by mouth. Active TURMERIC ROOT EX TRACT ORAL Take by mouth. 0 Active Comment on above: Take by mouth. Problems Active Problems Problem Classification Problem Date Documented Date Episodic/Chronic Anxiety disorders (10 sources) Anxiety; Translations: [Anxiety disorder, unspecified] Onset: 05-30-2017 05-30-2017 Chronic Chronic obstructive pulmonary disease and bronchiectasis (20 sources) Chronic obstructive lung disease; Translations: [Chronic obstructive pulmonary disease, unspecified] Onset: 05-28-2019 Chronic Disorders of lipid metabolism (1 source) Hyperlipidemia, unspecified; Translations: [Hyperlipidemia, unspecified] Onset: 09-12-2023 Chronic Esophageal disorders (2 sources) Gastroesophageal reflux disease without esophagitis; Translations: [Gastro-esophageal reflux disease without esophagitis] Onset: 11-07-2022 Chronic Fever of unknown origin (1 source) Fever, unspecified; Translations: [Fever, unspecified] Onset: 03-19-2024 Episodic Other bone disease and musculoskeletal deformities (7 sources) Somatic dysfunction of lumbar region; Translations: [Segmental and somatic dysfunction of lumbar region] Onset: 06-21-2023 06-07-2023 Episodic Other connective tissue disease (1 source) Synovial cyst of right popliteal space; Translations: [Synovial cyst of popliteal space [Christy], right knee] 01-15-2023 Episodic Other lower respiratory disease (1 source) Rib pain; Translations: [Pleurodynia] 02-06-2020 Episodic Other nervous system disorders (1 source) Other chronic pain; Translations: [Chronic pain of both knees] Onset: 06-21-2023 Chronic Residual codes; unclassified (2 sources) Pain; Translations: [Pain, unspecified] 01-16-2023 Episodic Substance-related disorders (10 sources) Tobacco user; Translations: [Nicotine dependence, unspecified, uncomplicated] Onset: 05-30-2017 05-30-2017 Chronic Past or Other Problems Problem Classification Problem Date Documented Da te Episodic/Chronic Fluid and electrolyte disorders (1 source) Hypokalemia; Translations: [Hypokalemia] Onset: 09-12-2023 Episodic Genitourinary symptoms and ill-defined conditions (10 sources) Dysuria; Translations: [Dysuria] Onset: 01-21-2013 01-21-2013 Episodic Nonspecific chest pain (5 sources) Chest pain; Translations: [Chest pain, unspecified] Onset: 11-07-2022 Episodic Other bone disease and musculoskeletal deformities (1 source) Segmental and somatic dysfunction of lumbar region; Translations: [Somatic dysfunction of lumbar region] Onset: 06-21-2023 Episodic Other connective tissue disease (1 source) Synovial cyst of popliteal space [Christy], right knee; Translations: [Synovial cyst of right popliteal space] Onset: 02-10-2023 Episodic Other lower respiratory disease (10 sources) Multiple nodules of lung; Translations: [Other nonspecific abnormal finding of lung field] Onset: 02-06-2020 02-06-2020 Episodic Other lower respiratory disease (1 source) Other abnormalities of breathing; Translations: [Other abnormalities of breathing] Onset: 09-12-2023 Episodic Other non-traumatic joint disorders (8 sources) Pain in right knee; Translations: [Pain in joint, lower leg] Onset: 06-21-2023 06-07-2023 Episodic Other non-traumatic joint disorders (2 sources) Pain in left knee; Translations: [Chronic pain of both knees] Onset: 03-03-2023 Episodic Residual codes; unclassified (1 source) Pain, unspecified; Translations: [Pain] Onset: 01-20-2023 Episodic Screening and history of mental health and substance abuse codes (11 sources) Tobacco use and exposure - finding; Translations: [Personal history of nicotine dependence] Onset: 09-12-2023 05-28-2019 Episodic Suicide and intentional self-inflicted injury (1 source) Suicidal ideations; Translations: [Suicidal ideations] Onset: 10-19-2023 Episodic Results Test Name Value Interpretation Reference Range Facility Culture, Blood (WB)on 2024 CUB Blood cultures x2, f rom two different sites No growth in 5 days. Normal [facility] Comment on above: Performed By: #### L 700.6800, L500.2500, L505.5000, L501.9100, L100.0100, L501.8300, L501.8400 #### [facility] [address] [place], [address] Urine Cultureon 02-24-2024 URC Culture exhibits no growth. Normal [facility] Comment on above: Performed By: #### L 700.6800, L500.2500, L505.5000, L501.9100, L100.0100, L501.8300, L501.8400 #### [facility] [address] [place], [address] 12 Lead EKGon 02-23-2024 12 Lead EKG [facility] [address] [place] [address] 12 Lead EKG 02/23/24 1903 MR#: [id number] Acct: [id number] Name: JOAN SNOW Rep #: [id number] : 1970 53 From: Hamilton Dorantes MD Attending Dr: Status: DEP ER Ordering Dr: Enrique Layne DO Date: 02/23/24 Location: ED Sex: F C Admitted: Test Reason : FEVER Blood Pressure : */* mmHG Vent. Rate : 116 BPM Atrial Rate : 116 BPM P-R Int : 144 ms QRS Dur : 76 ms QT Int : 308 ms P-R-T Axes : 70 70 44 degrees QTcB Int : 428 ms Sinus tachycardia Nonspecific T wave abnormality Abnormal ECG Confirmed by HAMILTON DORANTES MD ([id number]), material expeditor MUKUL BLISS ([id number]) on 02/26/2024 6:46:46 AM Referred By: Confirmed By: HAMILTON DORANTES MD 02/26/24 0646 Date Hamilton Dorantes MD CC: DIGITAL ARTIST-Soto Self; Dr. Enrique Layne DO Signed Normal [facility] CBC W/Diff, Automatedon 12-2 Absolute Lymph 0.59 X10 3/uL Low 0.83-4.51 [facility] Comment on above: Performed By: #### L 503.6005, L500.4050, M200.1000, L300.4310, L100.0100, L300.3900 #### [facility] [address] [place], [address] Absolute Neut 7.1 X10 3/uL Normal 2.0-7.7 [facility] Comment on above: Performed By: #### L 503.6005, L500.4050, M200.1000, L300.4310, L100.0100, L300.3900 #### [facility] [address] [place], [address] Basophils/100 WBC (Bld) 0.8 % Normal 0-1 [facility] Comment on above: Performed By: #### L 503.6005, L500.4050, M200.1000, L300.4310, L100.0100, L300.3900 #### [facility] [address] [place], [address] Eosinophils/100 WBC (Bld) 0.7 % Normal 0-5 [facility] Comment on above: Performed By: #### L 503.6005, L500.4050, M200.1000, L300.4310, L100.0100, L300.3900 #### [facility] [address] [place], [address] Erythrocyte distribution width (RBC) [Ratio] 12.8 % Normal 11.6-14.6 [facility] Comment on above: Performed By: #### L 503.6005, L500.4050, M200.1000, L300.4310, L100.0100, L300.3900 #### [facility] [address] [place], [address] Hematocrit (Bld) [Volume fraction] 44.8 % Normal 37-47 [facility] Comment on above: Performed By: #### L 503.6005, L500.4050, M200.1000, L300.4310, L100.0100, L300.3900 #### [facility] [address] [place], [address] Hemoglobin (Bld) [Mass/Vol] 15.5 g/dL High 12.0-15.0 [facility] Comment on above: Performed By: #### L 503.6005, L500.4050, M200.1000, L300.4310, L100.0100, L300.3900 #### [facility] [address] [place], [address] IG% 0.200 Normal 0.0-0.9 [facility] Comment on above: Result Comment: IG% - Immature Granulocytes (promyelocytes, myelocytes and metamyelocytes) > 1% indicates that a LEFT SHIFT is Present. Performed By: #### L 503.6005, L500.4050, M200.1000, L300.4310, L100.0100, L300.3900 #### [facility] [address] [place], [address] Lymphocytes/100 WBC (Bld) 6.9 % Low 19-41 [facility] Comment on above: Performed By: #### L 503.6005, L500.4050, M200.1000, L300.4310, L100.0100, L300.3900 #### [facility] [address] [place], [address] MCH (RBC) [Entitic mass] 30.9 pg Normal 27.0-32.0 [facility] Comment on above: Performed By: #### L 503.6005, L500.4050, M200.1000, L300.4310, L100.0100, L300.3900 #### [facility] [address] [place], [address] MCHC (RBC) [Mass/Vol] 34.6 g/dL Normal 32-36 [facility] Comment on above: Performed By: #### L 503.6005, L500.4050, M200.1000, L300.4310, L100.0100, L300.3900 #### [facility] [address] [place], [address] MCV (RBC) [Entitic vol] 89.4 fL Normal 81-99 [facility] Comment on above: Performed By: #### L 503.6005, L500.4050, M200.1000, L300.4310, L100.0100, L300.3900 #### [facility] [address] [place], [address] Monocytes/100 WBC (Bld) 8.5 % Normal 0-10 [facility] Comment on above: Performed By: #### L 503.6005, L500.4050, M200.1000, L300.4310, L100.0100, L300.3900 #### [facility] [address] [place], [address] Neutrophils/100 WBC (Bld) 82.9 % High 47-70 [facility] Comment on above: Performed By: #### L 503.6005, L500.4050, M200.1000, L300.4310, L100.0100, L300.3900 #### [facility] [address] [place], [address] Nucleated RBC (Bld) [#/Vol] 0 10*3/uL Normal 0-5 [facility] Comment on above: Performed By: #### L 503.6005, L500.4050, M200.1000, L300.4310, L100.0100, L300.3900 #### [facility] [address] [place], [address] Platelet mean volume (Bld) [Entitic vol] 10.8 fL Normal 6.2-12.0 [facility] Comment on above: Performed By: #### L 503.6005, L500.4050, M200.1000, L300.4310, L100.0100, L300.3900 #### [facility] [address] [place], [address] Platelets (Bld) [#/Vol] 284 10*3/uL Normal 150-450 [facility] Comment on above: Performed By: #### L 503.6005, L500.4050, M200.1000, L300.4310, L100.0100, L300.3900 #### [facility] [address] [place], [address] RBC (Bld) [#/Vol] 5.01 10*6/uL Normal 4.2-5.4 [facility] Comment on above: Performed By: #### L 503.6005, L500.4050, M200.1000, L300.4310, L100.0100, L300.3900 #### [facility] [address] [place], [address] RDW SD 41.5 fl Normal 35.1-43.9 [facility] Comment on above: Performed By: #### L 503.6005, L500.4050, M200.1000, L300.4310, L100.0100, L300.3900 #### [facility] [address] [place], [address] WBC (Bld) [#/Vol] 8.6 10*3/uL Normal 4.4-11.0 [facility] Comment on above: Performed By: #### L 503.6005, L500.4050, M200.1000, L300.4310, L100.0100, L300.3900 #### [facility] [address] [place], [address] Chest 1 View (Portable)on Chest 1 View (Portable) [facility] Imaging Services [address] [place] [address] Chest 1 View (Portable) MR#: [id number] Acct: [id number] Name: JOAN SNOW Rep #: [id number] : 1970 F 53 From: Fantasma Magaña DO PCP: NP. Cammie Self DIGITAL ARTIST-C Status: REG ER Study: Chest 1 View (Portable) Date of Exam: 02/23/24 Exam# [id number] Ordering [place]: [place] [id number] INDICATION: cough EXAMINATION/TECHNIQUE: X-RAY - XR Chest 1 View COMPARISON: September 11, 2023 FINDINGS: LINES/DEVICES: None. LUNGS: No consolidation, edema or effusion. No pneumothorax. MEDIASTINUM AND CARDIOVASCULAR STRUCTURES: Cardiac silhouette not enlarged. Central airways and mediastinal contour are unremarkable. BONES AND SOFT TISSUES: Unremarkable. RAD/Chest 1 View (Portable) IMPRESSION: No radiographic evidence of acute cardiopulmonary disease. Electronically Signed: Fantasma Magaña DO at 20:44 EST Reading Location ID and State: [facility] / [place] Tel [phone], Service support , CC: DIGITAL ARTIST-C NP. Cammie Self; Dr. Enrique Layne DO Transmission Maintenance Supervisor: Signed Normal [facility] Comprehensive Metabolic Prof pron 02-23-2024 Albumin [Mass/Vol] 3.2 g/dL Normal 3.2-5.0 [facility] Comment on above: Performed By: #### L 700.6800, L500.2500, L505.5000, L501.9100, L100.0100, L501.8300, L501.8400 #### [facility] [address] [place], [place], [id number] Albumin/Globulin [Mass ratio] 1.0 {ratio} Normal 0.9-2.4 [facility] Comment on above: Performed By: #### L 700.6800, L500.2500, L505.5000, L501.9100, L100.0100, L501.8300, L501.8400 #### [facility] [address] [place], [address] ALK P 72 U/L Normal 45-117 [facility] Comment on above: Performed By: #### L 700.6800, L500.2500, L505.5000, L501.9100, L100.0100, L501.8300, L501.8400 #### [facility] [address] [place], [address] ALT [Catalytic activity/Vol] 48 U/L Normal 13-56 [facility] Comment on above: Performed By: #### L 700.6800, L500.2500, L505.5000, L501.9100, L100.0100, L501.8300, L501.8400 #### [facility] [address] [place], [address] AST [Catalytic activity/Vol] 42 U/L High 15-37 [facility] Comment on above: Result Comment: Mode rate Hemolysis, Result may be falsely increased. Performed By: #### L 700.6800, L500.2500, L505.5000, L501.9100, L100.0100, L501.8300, L501.8400 #### [facility] [address] [place], [address] Bilirubin [Mass/Vol] 0.30 mg/dL Normal 0.20-1.00 [facility] Comment on above: Result Comment: For patients on eltrombopag therapy, use of Dimension [place] TBIL is not recommended. Performed By: #### L 700.6800, L500.2500, L505.5000, L501.9100, L100.0100, L501.8300, L501.8400 #### [facility] [address] [place], [address] BUN/CRE 18.0 RATIO Normal 10-20 [facility] Comment on above: Performed By: #### L 700.6800, L500.2500, L505.5000, L501.9100, L100.0100, L501.8300, L501.8400 #### [facility] [address] [place], [address] CA,Total 8.0 mg/dL Low 8.5-10.1 [facility] Comment on above: Performed By: #### L 700.6800, L500.2500, L505.5000, L501.9100, L100.0100, L501.8300, L501.8400 #### [facility] [address] [place], [address] Chloride [Moles/Vol] 112 mmol/L High 98-107 [facility] Comment on above: Performed By: #### L 700.6800, L500.2500, L505.5000, L501.9100, L100.0100, L501.8300, L501.8400 #### [facility] [address] [place], [address] CO2 [Moles/Vol] 26.0 mmol/L Normal 21.0-32.0 [facility] Comment on above: Performed By: #### L 700.6800, L500.2500, L505.5000, L501.9100, L100.0100, L501.8300, L501.8400 #### [facility] [address] [place], [address] Creatinine [Mass/Vol] 1.00 mg/dL Normal 0.55-1.02 [facility] Comment on above: Result Comment: The validity of the calculated GFR GFRAA in patients over 70 years has not been determined. Clinical correlation is essential. Performed By: #### L 700.6800, L500.2500, L505.5000, L501.9100, L100.0100, L501.8300, L501.8400 #### [facility] [address] [place], [address] ECRCL 61.06 ml/min Normal [facility] Comment on above: Performed By: #### L 700.6800, L500.2500, L505.5000, L501.9100, L100.0100, L501.8300, L501.8400 #### [facility] [address] [place], [address] EST GFR - AA 74 mL/min Normal >60 [facility] Comment on above: Result Comment: Afri can Moroccan GFR Calc Performed By: #### L 700.6800, L500.2500, L505.5000, L501.9100, L100.0100, L501.8300, L501.8400 #### [facility] [address] [place], [place], [id number] GAP 3 Low 5-15 [facility] Comment on above: Performed By: #### L 700.6800, L500.2500, L505.5000, L501.9100, L100.0100, L501.8300, L501.8400 #### [facility] [address] [place], [address] GFR/1.73 sq M.predicted among non-blacks MDRD (S/P/Bld) [Vol rate/Area] 61 mL/min/{1.73_m2} Normal >60 [facility] Comment on above: Result Comment: Non- GFR Calc Performed By: #### L 700.6800, L500.2500, L505.5000, L501.9100, L100.0100, L501.8300, L501.8400 #### [facility] [address] [place], [address] Globulin (S) [Mass/Vol] 3.2 g/dL Normal 2.2-4.2 [facility] Comment on above: Performed By: #### L 700.6800, L500.2500, L505.5000, L501.9100, L100.0100, L501.8300, L501.8400 #### [facility] [address] [place], [address] Glucose [Mass/Vol] 102 mg/dL Normal 74-106 [facility] Comment on above: Result Comment: Fast ing Glucose result from 100 to 125 mg/dL suggests IMPAIRED HOMEOSTASIS per A.D.A. criteria. Performed By: #### L 700.6800, L500.2500, L505.5000, L501.9100, L100.0100, L501.8300, L501.8400 #### [facility] [address] [place], [address] Potassium [Moles/Vol] 3.6 mmol/L Normal 3.5-5.1 [facility] Comment on above: Result Comment: Mode rate Hemolysis, Result may be falsely increased. Performed By: #### L 700.6800, L500.2500, L505.5000, L501.9100, L100.0100, L501.8300, L501.8400 #### [facility] [address] [place], [address] Sodium [Moles/Vol] 141 mmol/L Normal 136-145 [facility] Comment on above: Performed By: #### L 700.6800, L500.2500, L505.5000, L501.9100, L100.0100, L501.8300, L501.8400 #### [facility] [address] [place], [address] T PROT 6.4 g/dL Normal 6.4-8.2 [facility] Comment on above: Performed By: #### L 700.6800, L500.2500, L505.5000, L501.9100, L100.0100, L501.8300, L501.8400 #### [facility] [address] [place], [address] Urea nitrogen [Mass/Vol] 18 mg/dL Normal 7-18 [facility] Comment on above: Performed By: #### L 700.6800, L500.2500, L505.5000, L501.9100, L100.0100, L501.8300, L501.8400 #### [facility] [address] [place], [address] ALB Normal 3.2-5.0 [facility] Comment on above: Result Comment: This specimen has been REJECTED due to Laboratory criteria: Hemolyzed. SARI CHIU has been notified of need of recollection. 02/23/242013 Sabrina Lollo Performed By: #### L 700.6800, L500.2500, L505.5000, L501.9100, L100.0100, L501.8300, L501.8400 #### [facility] [address] [place], [address] ALK P Normal 45-117 [facility] Comment on above: Result Comment: This specimen has been REJECTED due to Laboratory criteria: Hemolyzed. SARI CHIU has been notified of need of recollection. 02/23/242013 Sabrina Lollo Performed By: #### L 700.6800, L500.2500, L505.5000, L501.9100, L100.0100, L501.8300, L501.8400 #### [facility] [address] [place], [address] ALT Normal 13-56 [facility] Comment on above: Result Comment: This specimen has been REJECTED due to Laboratory criteria: Hemolyzed. SARI CHIU has been notified of need of recollection. 02/23/242013 Sabrina Lollo Performed By: #### L 700.6800, L500.2500, L505.5000, L501.9100, L100.0100, L501.8300, L501.8400 #### [facility] [address] [place], [address] AST Normal 15-37 [facility] Comment on above: Result Comment: This specimen has been REJECTED due to Laboratory criteria: Hemolyzed. SARI CHIU has been notified of need of recollection. 02/23/242013 Sabrina Lollo Performed By: #### L 700.6800, L500.2500, L505.5000, L501.9100, L100.0100, L501.8300, L501.8400 #### [facility] [address] [place], [address] BUN Normal 7-18 [facility] Comment on above: Result Comment: This specimen has been REJECTED due to Laboratory criteria: Hemolyzed. SARI CHIU has been notified of need of recollection. 02/23/242013 Sabrina Lollo Performed By: #### L 700.6800, L500.2500, L505.5000, L501.9100, L100.0100, L501.8300, L501.8400 #### [facility] [address] [place], [address] BUN/CRE Normal 10-20 [facility] Comment on above: Result Comment: This specimen has been REJECTED due to Laboratory criteria: Hemolyzed. SARI CHIU has been notified of need of recollection. 02/23/242013 Sabrina Lollo Performed By: #### L 700.6800, L500.2500, L505.5000, L501.9100, L100.0100, L501.8300, L501.8400 #### [facility] [address] [place], [address] CA,Total Normal 8.5-10.1 [facility] Comment on above: Result Comment: This specimen has been REJECTED due to Laboratory criteria: Hemolyzed. SARI CHIU has been notified of need of recollection. 02/23/242013 Sabrina Lollo Performed By: #### L 700.6800, L500.2500, L505.5000, L501.9100, L100.0100, L501.8300, L501.8400 #### [facility] [address] [place], [address] CL Normal 98-107 [facility] Comment on above: Result Comment: This specimen has been REJECTED due to Laboratory criteria: Hemolyzed. SARI CHIU has been notified of need of recollection. 02/23/242013 Sabrina Lollo Performed By: #### L 700.6800, L500.2500, L505.5000, L501.9100, L100.0100, L501.8300, L501.8400 #### [facility] [address] [place], [address] CO2 Normal 21.0-32.0 [facility] Comment on above: Result Comment: This specimen has been REJECTED due to Laboratory criteria: Hemolyzed. SARI CHIU has been notified of need of recollection. 02/23/242013 Sabrina Lollo Performed By: #### L 700.6800, L500.2500, L505.5000, L501.9100, L100.0100, L501.8300, L501.8400 #### [facility] [address] [place], [address] CREAT,SERUM Normal 0.55-1.02 [facility] Comment on above: Result Comment: This specimen has been REJECTED due to Laboratory criteria: Hemolyzed. SARI CHIU has been notified of need of recollection. 02/23/242013 Sabrina Lollo Performed By: #### L 700.6800, L500.2500, L505.5000, L501.9100, L100.0100, L501.8300, L501.8400 #### [facility] [address] [place], [address] EST GFR Normal >60 [facility] Comment on above: Result Comment: This specimen has been REJECTED due to Laboratory criteria: Hemolyzed. SARI CHIU has been notified of need of recollection. 02/23/242013 Sabrina Lollo Performed By: #### L 700.6800, L500.2500, L505.5000, L501.9100, L100.0100, L501.8300, L501.8400 #### [facility] [address] [place], [address] EST GFR - AA Normal >60 [facility] Comment on above: Result Comment: This specimen has been REJECTED due to Laboratory criteria: Hemolyzed. SARILILIAN CHIU has been notified of need of recollection. 02/23/242013 Sabrina Lollo Performed By: #### L 700.6800, L500.2500, L505.5000, L501.9100, L100.0100, L501.8300, L501.8400 #### [facility] [address] [place], [address] GAP Normal 5-15 [facility] Comment on above: Result Comment: This specimen has been REJECTED due to Laboratory criteria: Hemolyzed. SARI APPLE has been notified of need of recollection. 02/23/242013 Sabrina Lollo Performed By: #### L 700.6800, L500.2500, L505.5000, L501.9100, L100.0100, L501.8300, L501.8400 #### [facility] [address] [place], [address] GLU Normal 74-106 [facility] Comment on above: Result Comment: This specimen has been REJECTED due to Laboratory criteria: Hemolyzed. SARILILIAN CHIU has been notified of need of recollection. 02/23/242013 Sabrina Lollo Performed By: #### L 700.6800, L500.2500, L505.5000, L501.9100, L100.0100, L501.8300, L501.8400 #### [facility] [address] [place], [address] Potassium Normal 3.5-5.1 [facility] Comment on above: Result Comment: This specimen has been REJECTED due to Laboratory criteria: Hemolyzed. SARI PINEDAUC has been notified of need of recollection. 02/23/242013 Sabrina Lollo Performed By: #### L 700.6800, L500.2500, L505.5000, L501.9100, L100.0100, L501.8300, L501.8400 #### [facility] [address] [place], [address] T BILI Normal 0.20-1.00 [facility] Comment on above: Result Comment: This specimen has been REJECTED due to Laboratory criteria: Hemolyzed. SARI PINEDAUC has been notified of need of recollection. 02/23/242013 Sabrina Lollo Performed By: #### L 700.6800, L500.2500, L505.5000, L501.9100, L100.0100, L501.8300, L501.8400 #### [facility] [address] [place], [place], [id number] T PROT Normal 6.4-8.2 [facility] Comment on above: Result Comment: This specimen has been REJECTED due to Laboratory criteria: Hemolyzed. SARI CHIU has been notified of need of recollection. 02/23/242013 Sabrina Lollo Performed By: #### L 700.6800, L500.2500, L505.5000, L501.9100, L100.0100, L501.8300, L501.8400 #### [facility] [address] [place], [address] Comprehensive Metabolic Profil Normal 136-145 [facility] Comment on above: Result Comment: This specimen has been REJECTED due to Laboratory criteria: Hemolyzed. SARI CHIU has been notified of need of recollection. 02/23/242013 Sabrina Lollo Performed By: #### L 700.6800, L500.2500, L505.5000, L501.9100, L100.0100, L501.8300, L501.8400 #### [facility] [address] [place], [address] Emergency Department Summary on 02-23-2024 Emergency Department Summary [facility] Medical Records Department [address] [place] [address] Emergency Department Summary 02/23/24 MR#: [id number] Acct: [id number] Name: JOAN SNOW Rep #: [id number] : 1970 53 From: Enrique Layne DO PCP: ALFONSO Wang Status:DEP ER Location: ED HPI History of Present Illness Chief Complaint: Fever PFSH PFSH Medical History COPD (chronic obstructive pulmonary disease) Hyperlipemia Home Medications ???Medication ???Instructions ???Recorded ???Last Taken ???Type buspirone 15 mg tablet 15 mg PO BID 11/15/17 Unknown History multivitamin with minerals 1 ea PO DAILY 02/25/18 Unknown History (Multiple Vitamin-Minerals tablet) albuterol sulfate 90 mcg/actuation 2 puff inhalation Q4H PRN 09/11/23 Unknown History aerosol inhaler atorvastatin 40 mg tablet 40 mg PO DAILY 09/11/23 Unknown History fluticasone 250 mcg-salmeterol 50 1 inh inhalation BID 09/11/23 Unknown History mcg/dose blistr powdr for inhalation (Advair Diskus) trazodone 100 mg tablet 100 mg PO QHS 09/11/23 Unknown History prednisone 20 mg tablet 40 mg (2 x 20 mg) PO DAILY #10 tabs 09/12/23 Unknown Rx Allergy/AdvReac Type Severity Reaction Status Date / Time No Known Allergies Allergy Verified 10/04/23 18:31 Surgical History H/O tubal ligation Social History household members: children number of children: 3 current occupational status: unemployed pets and animals: Yes (cat) Smoking Status: Former smoker EXAM Physical Exam Const Vital Signs: 02/23/24 18:13 02/23/24 18:26 02/23/24 18:31 Temperature 102.8 F H 102.8 F H Temperature Source Oral Oral Pulse Rate 119 H 121 H Respiratory Rate 16 17 Respiratory Effort Normal Respiratory Pattern Normal Blood Pressure 128/91 H 128/92 H Blood Pressure Mean 103 104 Pulse Ox 98 95 Oxygen Delivery Method Room Air Room Air 02/23/24 19:22 02/23/24 19:26 02/23/24 20:00 Temperature 100.8 F H 100.8 F H Temperature Source Oral Oral Pulse Rate 99 99 Respiratory Rate 18 25 H Respiratory Effort Respiratory Pattern Blood Pressure 104/69 99/67 Blood Pressure Mean 80 77 Pulse Ox 92 91 Oxygen Delivery Method Room Air Room Air Room Air 02/23/24 22:00 02/23/24 22:21 02/23/24 22:23 Temperature 99.9 F H 99.9 F H 99.8 F H Temperature Source Oral Pulse Rate 85 85 99 Respiratory Rate 18 18 16 Respiratory Effort Respiratory Pattern Blood Pressure 94/78 94/78 96/65 Blood Pressure Mean 83 83 75 Pulse Ox 96 96 98 Oxygen Delivery Method Room Air MDM MDM MDM Narrative Medical decision making narrative: HISTORY OF PRESENT ILLNESS: 53-year-old female presents with concern for fever. She states she has had sick contacts at home. She notes cough congestion short of breath 1 week. Today she developed body aches and chills. She has not been tested for COVID or flu. Denies chest pain. Notes productive cough of yellow sputum. She is concerned she may have pneumonia. The patient denies recent surgery in the last 4 weeks or immobilization in the last 3 days, denies previous diagnosis of DVT or PE, hemoptysis, unilateral leg swelling or malignancy with treatment the last 6 months or palliative. No estrogen use noted. REVIEW OF SYSTEMS: Pertinent positives: congestion, shortness of breath, body aches, fever, chillsCough, Pertinent negatives: Chest pain, leg swelling, syncope PHYSICAL EXAM: Nursing triage notes reviewed, Vital signs reviewed Constitutional: please see mdm HENT: MMM, no posterior oropharyngeal erythema, no tonsillar swelling or exudates Eyes: Pupils equal round and reactive to light, Extraocular muscles intact Neck: No stridor, no JVD, full neck ROM Lungs: Clear to auscultation, No wheezing or rales. No increased work of breathing, no conversational dyspnea, no accessory muscle use, no nasal flaring. No respiratory distress noted Heart: Regular rate and rhythm, No murmurs, No rubs and No gallops, 2+ distal pulses (radial, femoral, posterior tibial) in all extremities Abdomen: Soft, there is no tenderness, rigidity, rebound or guarding, no obvious peritoneal signs, no palpable pulsatile abdominal masses, no auscultated abdominal bruit : No CVAT Extremities: No edema Neuro: No new focal neurological deficits, cranial nerves II through XII intact, 5/5 strength in all present extremities. Intact sensation to light touch in all present extremities, 2+ reflexes bilateral patella tendons. Skin: No rash or lesions noted MEDICAL DECISION MAKING: Chief Complaint: Fever External records reviewed: Reviewed peyton (more content not included)... Normal [facility] Lactic Acidon 02-23-2024 Lactate [Moles/Vol] 1.7 mmol/L Normal 0.4-1.9 [facility] Comment on above: Order Comment: Y Performed By: #### L 700.6800, L500.2500, L505.5000, L501.9100, L100.0100, L501.8300, L501.8400 #### [facility] [address] [place], [address] M100.678on 02-23-2024 M100.678 Copy of report sent to Infection Control Printer [id number] 02/24/24 3653 DAIN. SARS-CoV-2 (COVID 19) A Positive A INFLUENZA A Negative INFLUENZA B Negative RSV PCR Negative SARS-CoV-2 (COVID 19 PCR) * This is an amended result. * A prior result that was reported as final has been changed. 02/24/24 2208 by DAIN [facility] Comment on above: Performed By: #### L 700.6800, L500.2500, L505.5000, L501.9100, L100.0100, L501.8300, L501.8400 #### [facility] [address] [place], [address] Partial Thromboplast Timeon 02-23-2024 aPTT Coag (Bld) [Time] 31.1 s Normal 24.1-36.2 [facility] Comment on above: Performed By: #### L 700.6800, L500.2500, L505.5000, L501.9100, L100.0100, L501.8300, L501.8400 #### [facility] [address] [place], [address] Prothrombin Time w/INRon INR Coag (PPP) [Relative time] 0.9 {INR} Normal [facility] Comment on above: Performed By: #### L 503.6005, L500.4050, M200.1000, L300.4310, L100.0100, L300.3900 #### [facility] [address] [place], [address] PT Coag (PPP) [Time] 12.0 s Normal 11.7-14.9 [facility] Comment on above: Performed By: #### L 503.6005, L500.4050, M200.1000, L300.4310, L100.0100, L300.3900 #### [facility] [address] [place], [place], [phone] Urinalysis, Completeon 02-22 EPI,SQUAMOUS 0-5 SEEN Normal 5-10 [facility] Comment on above: Order Comment: COLLE CTOR TO SPECIFY Performed By: #### L 700.6800, L500.2500, L505.5000, L501.9100, L100.0100, L501.8300, L501.8400 #### [facility] [address] [place], [address] RBC 0-5 SEEN Normal 0-5 [facility] Comment on above: Order Comment: COLLE CTOR TO SPECIFY Performed By: #### L 700.6800, L500.2500, L505.5000, L501.9100, L100.0100, L501.8300, L501.8400 #### [facility] [address] [place], [address] WBC 0-5 SEEN Normal 0-5 [facility] Comment on above: Order Comment: COLLE CTOR TO SPECIFY Performed By: #### L 700.6800, L500.2500, L505.5000, L501.9100, L100.0100, L501.8300, L501.8400 #### [facility] [address] [place], [address] BACTERIA 0 SEEN Normal None Seen [facility] Comment on above: Order Comment: COLLE CTOR TO SPECIFY Performed By: #### L 700.6800, L500.2500, L505.5000, L501.9100, L100.0100, L501.8300, L501.8400 #### [facility] [address] [place], [address] Mucus Ql (Urine sed) 0 SEEN Normal [facility] Comment on above: Order Comment: COLLE CTOR TO SPECIFY Performed By: #### L 700.6800, L500.2500, L505.5000, L501.9100, L100.0100, L501.8300, L501.8400 #### [facility] [address] [place], [address] Acetaminophen (Tylenol) Leve jonathan 10-04-2023 Acetaminophen [Mass/Vol] ug/mL Low 10.0-30.0 [facility] Comment on above: Performed By: #### L 700.6800, L500.2500, L505.5000, L501.9100, L100.0100, L501.8300, L501.8400 #### [facility] [address] [place], [place], [address] Alcohol, Blood (Medical)-Ser umon 10-04-2023 SERUM ETOH 3.0 mg/dL Normal [facility] Comment on above: Result Comment: The serum:whole blood ethanol ratio is approximately 1.14 and varies slightly with hematocrit. Medical Alcohol reference interval and critical value in non-tolerant individuals; 50 - 100 Impairment 100 Intoxication 100 - 250 Severe Poisoning 250 - 400 Deep/possible fatal coma Performed By: #### L 700.6800, L500.2500, L505.5000, L501.9100, L100.0100, L501.8300, L501.8400 #### [facility] [address] [place], [place], [id number] Basic Metabolic Profile (BMP )on 10-04-2023 BUN/CRE 17.3 RATIO Normal 10-20 [facility] Comment on above: Performed By: #### L 700.6800, L500.2500, L505.5000, L501.9100, L100.0100, L501.8300, L501.8400 #### [facility] [address] [place], [place], [id number] CA,Total 9.7 mg/dL Normal 8.5-10.1 [facility] Comment on above: Performed By: #### L 700.6800, L500.2500, L505.5000, L501.9100, L100.0100, L501.8300, L501.8400 #### [facility] [address] [place], [place], [phone] Chloride [Moles/Vol] 105 mmol/L Normal 98-107 [facility] Comment on above: Performed By: #### L 700.6800, L500.2500, L505.5000, L501.9100, L100.0100, L501.8300, L501.8400 #### [facility] [address] [place], [address] CO2 [Moles/Vol] 29.0 mmol/L Normal 21.0-32.0 [facility] Comment on above: Performed By: #### L 700.6800, L500.2500, L505.5000, L501.9100, L100.0100, L501.8300, L501.8400 #### [facility] [address] [place], [address] Creatinine [Mass/Vol] 1.10 mg/dL High 0.55-1.02 [facility] Comment on above: Result Comment: The validity of the calculated GFR GFRAA in patients over 70 years has not been determined. Clinical correlation is essential. Performed By: #### L 700.6800, L500.2500, L505.5000, L501.9100, L100.0100, L501.8300, L501.8400 #### [facility] [address] [place], [address] ECRCL 51.07 ml/min Normal [facility] Comment on above: Performed By: #### L 700.6800, L500.2500, L505.5000, L501.9100, L100.0100, L501.8300, L501.8400 #### [facility] [address] [place], [place], [id number] EST GFR - AA 67 mL/min Normal >60 [facility] Comment on above: Result Comment: Afri can Moroccan GFR Calc Performed By: #### L 700.6800, L500.2500, L505.5000, L501.9100, L100.0100, L501.8300, L501.8400 #### [facility] [address] [place], [address] GAP 6 Normal 5-15 [facility] Comment on above: Performed By: #### L 700.6800, L500.2500, L505.5000, L501.9100, L100.0100, L501.8300, L501.8400 #### [facility] [address] [place], [address] GFR/1.73 sq M.predicted among non-blacks MDRD (S/P/Bld) [Vol rate/Area] 55 mL/min/{1.73_m2} Low >60 [facility] Comment on above: Result Comment: Non- GFR Calc Performed By: #### L 700.6800, L500.2500, L505.5000, L501.9100, L100.0100, L501.8300, L501.8400 #### [facility] [address] [place], [address] Glucose [Mass/Vol] 118 mg/dL High 74-106 [facility] Comment on above: Result Comment: Fast ing Glucose result from 100 to 125 mg/dL suggests IMPAIRED HOMEOSTASIS per A.D.A. criteria. Performed By: #### L 700.6800, L500.2500, L505.5000, L501.9100, L100.0100, L501.8300, L501.8400 #### [facility] [address] [place], [address] ([phone] Potassium [Moles/Vol] 2.9 mmol/L Low 3.5-5.1 [facility] Comment on above: Performed By: #### L 700.6800, L500.2500, L505.5000, L501.9100, L100.0100, L501.8300, L501.8400 #### [facility] [address] [place], [address] Sodium [Moles/Vol] 140 mmol/L Normal 136-145 [facility] Comment on above: Performed By: #### L 700.6800, L500.2500, L505.5000, L501.9100, L100.0100, L501.8300, L501.8400 #### [facility] [address] [place], [address] Urea nitrogen [Mass/Vol] 19 mg/dL High 7-18 [facility] Comment on above: Performed By: #### L 700.6800, L500.2500, L505.5000, L501.9100, L100.0100, L501.8300, L501.8400 #### [facility] [address] [place], [address] CBC W/Diff, Automatedon 08-0 7-2023 Absolute Lymph 1.83 X10 3/uL Normal 0.83-4.51 [facility] Comment on above: Performed By: #### L 700.6800, L500.2500, L505.5000, L501.9100, L100.0100, L501.8300, L501.8400 #### [facility] [address] [place], [address] Absolute Neut 3.1 X10 3/uL Normal 2.0-7.7 [facility] Comment on above: Performed By: #### L 700.6800, L500.2500, L505.5000, L501.9100, L100.0100, L501.8300, L501.8400 #### [facility] [address] [place], [address] Basophils/100 WBC (Bld) 0.9 % Normal 0-1 [facility] Comment on above: Performed By: #### L 700.6800, L500.2500, L505.5000, L501.9100, L100.0100, L501.8300, L501.8400 #### [facility] [address] [place], [address] Eosinophils/100 WBC (Bld) 3.1 % Normal 0-5 [facility] Comment on above: Performed By: #### L 700.6800, L500.2500, L505.5000, L501.9100, L100.0100, L501.8300, L501.8400 #### [facility] [address] [place], [address] Erythrocyte distribution width (RBC) [Ratio] 11.9 % Normal 11.6-14.6 [facility] Comment on above: Performed By: #### L 700.6800, L500.2500, L505.5000, L501.9100, L100.0100, L501.8300, L501.8400 #### [facility] [address] [place], [address] Hematocrit (Bld) [Volume fraction] 40.2 % Normal 37-47 [facility] Comment on above: Performed By: #### L 700.6800, L500.2500, L505.5000, L501.9100, L100.0100, L501.8300, L501.8400 #### [facility] [address] [place], [address] Hemoglobin (Bld) [Mass/Vol] 13.6 g/dL Normal 12.0-15.0 [facility] Comment on above: Performed By: #### L 700.6800, L500.2500, L505.5000, L501.9100, L100.0100, L501.8300, L501.8400 #### [facility] [address] [place], [address] IG% 0.200 Normal 0.0-0.9 [facility] Comment on above: Result Comment: IG% - Immature Granulocytes (promyelocytes, myelocytes and metamyelocytes) > 1% indicates that a LEFT SHIFT is Present. Performed By: #### L 700.6800, L500.2500, L505.5000, L501.9100, L100.0100, L501.8300, L501.8400 #### [facility] [address] [place], [address] Lymphocytes/100 WBC (Bld) 32.9 % Normal 19-41 [facility] Comment on above: Performed By: #### L 700.6800, L500.2500, L505.5000, L501.9100, L100.0100, L501.8300, L501.8400 #### [facility] [address], [address] MCH (RBC) [Entitic mass] 30.1 pg Normal 27.0-32.0 [facility] Comment on above: Performed By: #### L 700.6800, L500.2500, L505.5000, L501.9100, L100.0100, L501.8300, L501.8400 #### [facility] [address] [place], [address] MCHC (RBC) [Mass/Vol] 33.8 g/dL Normal 32-36 [facility] Comment on above: Performed By: #### L 700.6800, L500.2500, L505.5000, L501.9100, L100.0100, L501.8300, L501.8400 #### [facility] [address] [place], [address] MCV (RBC) [Entitic vol] 88.9 fL Normal 81-99 [facility] Comment on above: Performed By: #### L 700.6800, L500.2500, L505.5000, L501.9100, L100.0100, L501.8300, L501.8400 #### [facility] [address], [address] Monocytes/100 WBC (Bld) 7.7 % Normal 0-10 [facility] Comment on above: Performed By: #### L 700.6800, L500.2500, L505.5000, L501.9100, L100.0100, L501.8300, L501.8400 #### [facility] [address] [place], [address] Neutrophils/100 WBC (Bld) 55.2 % Normal 47-70 [facility] Comment on above: Performed By: #### L 700.6800, L500.2500, L505.5000, L501.9100, L100.0100, L501.8300, L501.8400 #### [facility] [address] [place], [address] Nucleated RBC (Bld) [#/Vol] 0 10*3/uL Normal 0-5 [facility] Comment on above: Performed By: #### L 700.6800, L500.2500, L505.5000, L501.9100, L100.0100, L501.8300, L501.8400 #### [facility] [address] [place], [address] Platelet mean volume (Bld) [Entitic vol] 9.9 fL Normal 6.2-12.0 [facility] Comment on above: Performed By: #### L 700.6800, L500.2500, L505.5000, L501.9100, L100.0100, L501.8300, L501.8400 #### [facility] [address] [place], [address] Platelets (Bld) [#/Vol] 257 10*3/uL Normal 150-450 [facility] Comment on above: Performed By: #### L 700.6800, L500.2500, L505.5000, L501.9100, L100.0100, L501.8300, L501.8400 #### [facility] [address] [place], [address] RBC (Bld) [#/Vol] 4.52 10*6/uL Normal 4.2-5.4 [facility] Comment on above: Performed By: #### L 700.6800, L500.2500, L505.5000, L501.9100, L100.0100, L501.8300, L501.8400 #### [facility] [address] [place], [address] RDW SD 38.5 fl Normal 35.1-43.9 [facility] Comment on above: Performed By: #### L 700.6800, L500.2500, L505.5000, L501.9100, L100.0100, L501.8300, L501.8400 #### [facility] [address] [place], [address] WBC (Bld) [#/Vol] 5.6 10*3/uL Normal 4.4-11.0 [facility] Comment on above: Performed By: #### L 700.6800, L500.2500, L505.5000, L501.9100, L100.0100, L501.8300, L501.8400 #### [facility] [address] [facility] [place], [address] Emergency Department Summary on 10-04-2023 Emergency Department Summary [facility] Medical Records Department [address] [place] [address] Emergency Department Summary 10/04/23 MR#: [id number] Acct: [id number] Name: JOAN SNOW Rep #: [id number] : 1970 52 From: Enrique Layne DO PCP: ALFONSO Wang Status:REG ER Location: ED HPI History of Present Illness Chief Complaint: Suicidal [facility] Medical History COPD (chronic obstructive pulmonary disease) Hyperlipemia Home Medications ???Medication ???Instructions ???Recorded ???Last Taken ???Type buspirone 15 mg tablet 15 mg PO BID 11/15/17 Unknown History multivitamin with minerals 1 ea PO DAILY 02/25/18 Unknown History (Multiple Vitamin-Minerals tablet) albuterol sulfate 90 mcg/actuation 2 puff inhalation Q4H PRN 09/11/23 Unknown History aerosol inhaler atorvastatin 40 mg tablet 40 mg PO DAILY 09/11/23 Unknown History fluticasone 250 mcg-salmeterol 50 1 inh inhalation BID 09/11/23 Unknown History mcg/dose blistr powdr for inhalation (Advair Diskus) trazodone 100 mg tablet 100 mg PO QHS 09/11/23 Unknown History prednisone 20 mg tablet 40 mg (2 x 20 mg) PO DAILY #10 tabs 09/12/23 Unknown Rx Allergy/AdvReac Type Severity Reaction Status Date / Time No Known Allergies Allergy Verified 10/04/23 18:31 Surgical History H/O tubal ligation Social History household members: children number of children: 3 current occupational status: unemployed pets and animals: Yes (cat) Smoking Status: Former smoker EXAM Physical Exam Const Vital Signs: 10/04/23 18:26 Temperature 97.8 F Temperature Source Temporal Pulse Rate 80 Respiratory Rate 16 Blood Pressure 146/89 H Blood Pressure Mean 108 Pulse Ox 100 Oxygen Delivery Method Room Air MDM MDM MDM Narrative Medical decision making narrative: HISTORY OF PRESENT ILLNESS: 52-year-old female presents with concern for suicidal ideation. Per police patient voiced suicidal ideation secondary to depression. This was voiced to the patient's son. She stated to her son I am going to take my meds. Patient denies wanting take her meds at this time but states she is upset that her family does not love her anymore. States she made mention to her son that she is going take her meds but she is only describing her anxiety medication. She states he had no intention of overdosing. REVIEW OF SYSTEMS: Pertinent positives: Suicidal ideation Pertinent negatives: Auditory hallucinations, visual hallucinations, homicidal ideation PHYSICAL EXAM: Nursing triage notes reviewed, Vital signs reviewed Constitutional: please see mdm HENT: MMM Eyes: Pupils equal round and reactive to light, Extraocular muscles intact Neck: No stridor, no JVD, full neck ROM Lungs: Clear to auscultation, No wheezing or rales. No increased work of breathing, no conversational dyspnea, no accessory muscle use, no nasal flaring. No respiratory distress noted Heart: Regular rate and rhythm, No murmurs, No rubs and No gallops, 2+ distal pulses (radial, femoral, posterior tibial) in all extremities Abdomen: Soft, there is no tenderness, rigidity, rebound or guarding, no obvious peritoneal signs, no palpable pulsatile abdominal masses, no auscultated abdominal bruit : No CVAT Extremities: No edema Neuro: No focal neurological deficits, cranial nerves II through XII intact, 5/5 strength in all extremities. Intact sensation to light touch in all extremities, 2+ reflexes bilateral patella tendons. Normal gait. No ataxia. Skin: No rash or lesions noted Psych: Tearful, depressed affect, goal-directed thought process, does not appear to be responding to internal stimuli MEDICAL DECISION MAKING: Chief Complaint: Suicidal ideation External records reviewed: Reviewed prior ED records: No recent or past encounters for suicide ideation noted in the chart Factors affecting care: Depression Social determinants of health: You are seen mental health pathology History obtained from others: Police Consults: Behavioral health hospice social worker MDM Narrative: The patient was initially hemodynamically stable, afebrile and nontoxic-appearing. Patient was tearful, upset. But did not appear to responding to internal stimuli. Given report of suicidal intent I did obtain medical clearance for further behavioral health evaluation. I obtained labs to rule out intoxication, alcohol intoxication, coingestants, metabolic dysfunction issues with signs of infection. ALL IMAGES (IF OBTAINED) HAVE BEEN PERSONALLY REVIEWED AND INTERPRETED BY MYSELF. Salicylate, tylenol is negative. CBC without leukocytosis, severe anemia, no thr (more content not included)... Normal [facility] ,Serum,hCG Quali.on 10-04-2023 HCG, SERUM QUAL Normal [facility] Comment on above: Result Comment: Luc elled via OM: Ordered Performed By: #### L 700.6800, L500.2500, L505.5000, L501.9100, L100.0100, L501.8300, L501.8400 #### [facility] [address] [place], [address] INTERNAL QC OK? Normal [facility] Comment on above: Result Comment: Luc douged via OM: Ordered Performed By: #### L 700.6800, L500.2500, L505.5000, L501.9100, L100.0100, L501.8300, L501.8400 #### [facility] [address] [place], [place], [id number] RECORD KIT LOT# [facility] Comment on above: Result Comment: Canc elled via OM: Ordered Performed By: #### L 700.6800, L500.2500, L505.5000, L501.9100, L100.0100, L501.8300, L501.8400 #### [facility] [address] [place], [place], [id number] ,Urineon 10-04-2023 Beta HCG ( test) Ql (U) Negative Normal [facility] Comment on above: Result Comment: Very dilute urine specimens, as indicated by a low specific gravity, may not contain loan representative levels of hCG. If is still suspected, a first morning urine specimen should be collected 48 hours later and tested. Performed By: #### L 700.6800, L500.2500, L505.5000, L501.9100, L100.0100, L501.8300, L501.8400 #### [facility] [address] [place], [address] Salicylateon 10-04-2023 SALICYLATE < 1.7 Low 2.8-20.0 [facility] Comment on above: Performed By: #### L 700.6800, L500.2500, L505.5000, L501.9100, L100.0100, L501.8300, L501.8400 #### [facility] [address] [place], [address] Urine Drug Screen (VISTA)on 10-04-2023 AMPHETAMINES Negative Normal <1000 ng/mL [facility] Comment on above: Performed By: #### L 700.6800, L500.2500, L505.5000, L501.9100, L100.0100, L501.8300, L501.8400 #### [facility] [address] [place], [place], [id number] BARBITIURATES Negative Normal < 200 ng/mL [facility] Comment on above: Performed By: #### L 700.6800, L500.2500, L505.5000, L501.9100, L100.0100, L501.8300, L501.8400 #### [facility] [address] [place], [place], [facility] BENZODIAZIPINE Negative Normal < 200 ng/mL [facility] Comment on above: Performed By: #### L 700.6800, L500.2500, L505.5000, L501.9100, L100.0100, L501.8300, L501.8400 #### [facility] [address] [place], [facility] COCAINE Negative Normal < 300 ng/mL [facility] Comment on above: Performed By: #### L 700.6800, L500.2500, L505.5000, L501.9100, L100.0100, L501.8300, L501.8400 #### [facility] [place], [place], [facility] ECSTACY Negative Normal < 500 ng/mL [facility] Comment on above: Performed By: #### L 700.6800, L500.2500, L505.5000, L501.9100, L100.0100, L501.8300, L501.8400 #### [facility] [place], [facility] METHADONE Negative Normal < 300 ng/mL [facility] Comment on above: Performed By: #### L 700.6800, L500.2500, L505.5000, L501.9100, L100.0100, L501.8300, L501.8400 #### [facility] [address] [place], [facility] OPIATES Negative Normal < 300 ng/mL [facility] Comment on above: Performed By: #### L 700.6800, L500.2500, L505.5000, L501.9100, L100.0100, L501.8300, L501.8400 #### [facility] [address] [place], [address] PCP Negative Normal < 25 ng/mL [facility] Comment on above: Performed By: #### L 700.6800, L500.2500, L505.5000, L501.9100, L100.0100, L501.8300, L501.8400 #### [facility] [address] [place], [address] THC Negative Normal < 50 ng/mL [facility] Comment on above: Performed By: #### L 700.6800, L500.2500, L505.5000, L501.9100, L100.0100, L501.8300, L501.8400 #### [facility] [address] [place], [address] VISTA UDS PH 7 Normal [facility] Comment on above: Performed By: #### L 700.6800, L500.2500, L505.5000, L501.9100, L100.0100, L501.8300, L501.8400 #### [facility] [address] [place], [address] CBC W/Diff, Automatedon 07- PATH REV Reviewed Normal [facility] Comment on above: Order Comment: A MENDED REPORT 09/12/23733 NEUT% previously reported as: 91.3 H % AMENDED REPORT 09/12/23733 LY% previously reported as: 7.6 L % AMENDED REPORT 09/12/23733 MONO% previously reported as: 0.5 % AMENDED REPORT 09/12/23733 EO% previously reported as: 0.0 % AMENDED REPORT 09/12/23733 BASO% previously reported as: 0.2 %IG% - Immature Granulocytes (promyelocytes, myelocytes andmetamyelocytes) > 1% indicates that a LEFT SHIFT is Present. AMENDED REPORT 07/16/24 0734 IM GRAN % previously reported as: 0.400 % Result Comment: Shant Mack M.D. 09/13/23 AMENDED REPORT 09/13/23 1152 PATH REV previously reported as: June Performed By: #### L 700.6800, L500.2500, L505.5000, L501.9100, L100.0100, L501.8300, L501.8400 #### [facility] [address] [place], [address] Absolute Neut Normal 2.0-7.7 [facility] Comment on above: Result Comment: Canc elled via OM: Order cancelled - Patient discharged Performed By: #### L 700.6800, L500.2500, L505.5000, L501.9100, L100.0100, L501.8300, L501.8400 #### [facility] [address] [place], [address] HCT Normal 37-47 [facility] Comment on above: Result Comment: Canc elled via OM: Order cancelled - Patient discharged Performed By: #### L 700.6800, L500.2500, L505.5000, L501.9100, L100.0100, L501.8300, L501.8400 #### [facility] [address] [place], [address] HGB Normal 12.0-15.0 [facility] Comment on above: Result Comment: Canc elled via OM: Order cancelled - Patient discharged Performed By: #### L 700.6800, L500.2500, L505.5000, L501.9100, L100.0100, L501.8300, L501.8400 #### [facility] [address] [place], [address] MCH Normal 27.0-32.0 [facility] Comment on above: Result Comment: Canc elled via OM: Order cancelled - Patient discharged Performed By: #### L 700.6800, L500.2500, L505.5000, L501.9100, L100.0100, L501.8300, L501.8400 #### [facility] [address] [place], [address] MCHC Normal 32-36 [facility] Comment on above: Result Comment: Canc elled via OM: Order cancelled - Patient discharged Performed By: #### L 700.6800, L500.2500, L505.5000, L501.9100, L100.0100, L501.8300, L501.8400 #### [facility] [address] [place], [address] MCV Normal 81-99 [facility] Comment on above: Result Comment: Canc elled via OM: Order cancelled - Patient discharged Performed By: #### L 700.6800, L500.2500, L505.5000, L501.9100, L100.0100, L501.8300, L501.8400 #### [facility] [address] [place], [address] NEUT% Normal 47-70 [facility] Comment on above: Result Comment: Canc elled via OM: Order cancelled - Patient discharged Performed By: #### L 700.6800, L500.2500, L505.5000, L501.9100, L100.0100, L501.8300, L501.8400 #### [facility] [address] [place], [address] PLT Normal 150-450 [facility] Comment on above: Result Comment: Canc elled via OM: Order cancelled - Patient discharged Performed By: #### L 700.6800, L500.2500, L505.5000, L501.9100, L100.0100, L501.8300, L501.8400 #### [facility] [address] [place], [address] RBC Normal 4.2-5.4 [facility] Comment on above: Result Comment: Canc elled via OM: Order cancelled - Patient discharged Performed By: #### L 700.6800, L500.2500, L505.5000, L501.9100, L100.0100, L501.8300, L501.8400 #### [facility] [address] [place], [address] RDW CV Normal 11.6-14.6 [facility] Comment on above: Result Comment: Canc elled via OM: Order cancelled - Patient discharged Performed By: #### L 700.6800, L500.2500, L505.5000, L501.9100, L100.0100, L501.8300, L501.8400 #### [facility] [address] [place], [address] RDW SD Normal 35.1-43.9 [facility] Comment on above: Result Comment: Canc elled via OM: Order cancelled - Patient discharged Performed By: #### L 700.6800, L500.2500, L505.5000, L501.9100, L100.0100, L501.8300, L501.8400 #### [facility] [address] [place], [address] WBC Normal 4.4-11.0 [facility] Comment on above: Result Comment: Canc elled via OM: Order cancelled - Patient discharged Performed By: #### L 700.6800, L500.2500, L505.5000, L501.9100, L100.0100, L501.8300, L501.8400 #### [facility] [address] [place], [address] Comprehensive Metabolic Prof ilon 09-13-2023 ALB Normal 3.2-5.0 [facility] Comment on above: Result Comment: Canc elled via OM: Order cancelled - Patient discharged Performed By: #### L 700.6800, L500.2500, L505.5000, L501.9100, L100.0100, L501.8300, L501.8400 #### [facility] [address] [place], [address] ALK P Normal 45-117 [facility] Comment on above: Result Comment: Canc elled via OM: Order cancelled - Patient discharged Performed By: #### L 700.6800, L500.2500, L505.5000, L501.9100, L100.0100, L501.8300, L501.8400 #### [facility] [address] [place], [address] ALT Normal 13-56 [facility] Comment on above: Result Comment: Canc elled via OM: Order cancelled - Patient discharged Performed By: #### L 700.6800, L500.2500, L505.5000, L501.9100, L100.0100, L501.8300, L501.8400 #### [facility] [address] [place], [address] AST Normal 15-37 [facility] Comment on above: Result Comment: Canc elled via OM: Order cancelled - Patient discharged Performed By: #### L 700.6800, L500.2500, L505.5000, L501.9100, L100.0100, L501.8300, L501.8400 #### [facility] [address] [place], [address] BUN Normal 7-18 [facility] Comment on above: Result Comment: Canc elled via OM: Order cancelled - Patient discharged Performed By: #### L 700.6800, L500.2500, L505.5000, L501.9100, L100.0100, L501.8300, L501.8400 #### [facility] [address] [place], [address] BUN/CRE Normal 10-20 [facility] Comment on above: Result Comment: Canc elled via OM: Order cancelled - Patient discharged Performed By: #### L 700.6800, L500.2500, L505.5000, L501.9100, L100.0100, L501.8300, L501.8400 #### [facility] [address] [place], [address] CA,Total Normal 8.5-10.1 [facility] Comment on above: Result Comment: Canc elled via OM: Order cancelled - Patient discharged Performed By: #### L 700.6800, L500.2500, L505.5000, L501.9100, L100.0100, L501.8300, L501.8400 #### [facility] [address] [place], [address] CL Normal 98-107 [facility] Comment on above: Result Comment: Canc elled via OM: Order cancelled - Patient discharged Performed By: #### L 700.6800, L500.2500, L505.5000, L501.9100, L100.0100, L501.8300, L501.8400 #### [facility] [address] [place], [place], [id number] (148) CO2 Normal 21.0-32.0 [facility] Comment on above: Result Comment: Canc elled via OM: Order cancelled - Patient discharged Performed By: #### L 700.6800, L500.2500, L505.5000, L501.9100, L100.0100, L501.8300, L501.8400 #### [facility] [address] [place], [place], [id number] (822) CREAT,SERUM Normal 0.55-1.02 [facility] Comment on above: Result Comment: Canc elled via OM: Order cancelled - Patient discharged Performed By: #### L 700.6800, L500.2500, L505.5000, L501.9100, L100.0100, L501.8300, L501.8400 #### [facility] [address] [place], [address] EST GFR Normal >60 [facility] Comment on above: Result Comment: Canc elled via OM: Order cancelled - Patient discharged Performed By: #### L 700.6800, L500.2500, L505.5000, L501.9100, L100.0100, L501.8300, L501.8400 #### [facility] [address] [place], [address] EST GFR - AA Normal >60 [facility] Comment on above: Result Comment: Canc elled via OM: Order cancelled - Patient discharged Performed By: #### L 700.6800, L500.2500, L505.5000, L501.9100, L100.0100, L501.8300, L501.8400 #### [facility] [address] [place], [address] GAP Normal 5-15 [facility] Comment on above: Result Comment: Canc elled via OM: Order cancelled - Patient discharged Performed By: #### L 700.6800, L500.2500, L505.5000, L501.9100, L100.0100, L501.8300, L501.8400 #### [facility] [address] [place], [address] GLU Normal 74-106 [facility] Comment on above: Result Comment: Canc elled via OM: Order cancelled - Patient discharged Performed By: #### L 700.6800, L500.2500, L505.5000, L501.9100, L100.0100, L501.8300, L501.8400 #### [facility] [address] [place], [address] Potassium Normal 3.5-5.1 [facility] Comment on above: Result Comment: Canc elled via OM: Order cancelled - Patient discharged Performed By: #### L 700.6800, L500.2500, L505.5000, L501.9100, L100.0100, L501.8300, L501.8400 #### [facility] [address] [place], [address] T BILI Normal 0.20-1.00 [facility] Comment on above: Result Comment: Canc elled via OM: Order cancelled - Patient discharged Performed By: #### L 700.6800, L500.2500, L505.5000, L501.9100, L100.0100, L501.8300, L501.8400 #### [facility] [address] [place], [address] T PROT Normal 6.4-8.2 [facility] Comment on above: Result Comment: Canc elled via OM: Order cancelled - Patient discharged Performed By: #### L 700.6800, L500.2500, L505.5000, L501.9100, L100.0100, L501.8300, L501.8400 #### [facility] [address] [place], [address] Comprehensive Metabolic Profil Normal 136-145 [facility] Comment on above: Result Comment: Canc elled via OM: Order cancelled - Patient discharged Performed By: #### L 700.6800, L500.2500, L505.5000, L501.9100, L100.0100, L501.8300, L501.8400 #### [facility] [address] [place], [address] 12 Lead EKGon 09-12-2023 12 Lead EKG [facility] [address] [place] [address] 12 Lead EKG 09/12/23 0552 MR#: [id number] Acct: [id number] Name: GWENDOLYNJOAN Altamirano Rep #: [id number] : 1970 52 From: Cari Gardner MD Attending Dr: Dr. Dwight Self DO Status: DIS IN Ordering Dr: Amanda Torres DO Date: 09/12/23 Location: [facility] Sex: F C Admitted: 09/11/23 Test Reason : AM EKG Blood Pressure : / mmHG Vent. Rate : 066 BPM Atrial Rate : 066 BPM P-R Int : 158 ms QRS Dur : 078 ms QT Int : 436 ms P-R-T Axes : 057 052 037 degrees QTc Int : 457 ms Normal sinus rhythm Nonspecific T wave abnormality Abnormal ECG When compared with ECG of 11-SEP-2023 23:32, MANUAL COMPARISON REQUIRED, DATA IS UNCONFIRMED Confirmed by YASHIRA RUZI, LUANN ([id number]), material expeditor MUKUL BLISS ([id number]) on 09/13/2023 10:08:06 AM Referred By: Confirmed By:GABRIEL GARDNER MD 09/13/23 1008 Date Cari Gardner MD CC: DIGITAL ARTIST-C DIGITAL ARTIST. Cammie Self; Dr. Amanda Torres DO; Dr. Dwight Self DO Signed Normal [facility] Comprehensive Metabolic Prof pron 09-12-2023 Albumin [Mass/Vol] 3.7 g/dL Normal 3.2-5.0 [facility] Comment on above: Performed By: #### L 700.6800, L500.2500, L505.5000, L501.9100, L100.0100, L501.8300, L501.8400 #### [facility] [address] [place], [address] Albumin/Globulin [Mass ratio] 1.0 {ratio} Normal 0.9-2.4 [facility] Comment on above: Performed By: #### L 700.6800, L500.2500, L505.5000, L501.9100, L100.0100, L501.8300, L501.8400 #### [facility] [address] [place], [address] ALK P 62 U/L Normal 45-117 [facility] Comment on above: Performed By: #### L 700.6800, L500.2500, L505.5000, L501.9100, L100.0100, L501.8300, L501.8400 #### [facility] [address] [place], [address] ALT [Catalytic activity/Vol] 26 U/L Normal 13-56 [facility] Comment on above: Performed By: #### L 700.6800, L500.2500, L505.5000, L501.9100, L100.0100, L501.8300, L501.8400 #### [facility] [address] [place], [address] AST [Catalytic activity/Vol] 22 U/L Normal 15-37 [facility] Comment on above: Performed By: #### L 700.6800, L500.2500, L505.5000, L501.9100, L100.0100, L501.8300, L501.8400 #### [facility] [address] [place], [address] Bilirubin [Mass/Vol] 0.40 mg/dL Normal 0.20-1.00 [facility] Comment on above: Result Comment: For patients on eltrombopag therapy, use of Dimension [place] TBIL is not recommended. Performed By: #### L 700.6800, L500.2500, L505.5000, L501.9100, L100.0100, L501.8300, L501.8400 #### [facility] [address] [place], [address] BUN/CRE 12.4 RATIO Normal 10-20 [facility] Comment on above: Performed By: #### L 700.6800, L500.2500, L505.5000, L501.9100, L100.0100, L501.8300, L501.8400 #### [facility] [address] [place], [address] CA,Total 9.0 mg/dL Normal 8.5-10.1 [facility] Comment on above: Performed By: #### L 700.6800, L500.2500, L505.5000, L501.9100, L100.0100, L501.8300, L501.8400 #### [facility] [address] [place], [address] Chloride [Moles/Vol] 109 mmol/L High 98-107 [facility] Comment on above: Performed By: #### L 700.6800, L500.2500, L505.5000, L501.9100, L100.0100, L501.8300, L501.8400 #### [facility] [address] [place], [address] CO2 [Moles/Vol] 23.0 mmol/L Normal 21.0-32.0 [facility] Comment on above: Performed By: #### L 700.6800, L500.2500, L505.5000, L501.9100, L100.0100, L501.8300, L501.8400 #### [facility] [address] [place], [address] Creatinine [Mass/Vol] 1.37 mg/dL High 0.55-1.02 [facility] Comment on above: Result Comment: The validity of the calculated GFR GFRAA in patients over 70 years has not been determined. Clinical correlation is essential. Performed By: #### L 700.6800, L500.2500, L505.5000, L501.9100, L100.0100, L501.8300, L501.8400 #### [facility] [address] [place], [address] ECRCL 41.01 ml/min Normal [facility] Comment on above: Performed By: #### L 700.6800, L500.2500, L505.5000, L501.9100, L100.0100, L501.8300, L501.8400 #### [facility] [address] [place], [address] EST GFR - AA 52 mL/min Low >60 [facility] Comment on above: Result Comment: Afri can Moroccan GFR Calc Performed By: #### L 700.6800, L500.2500, L505.5000, L501.9100, L100.0100, L501.8300, L501.8400 #### [facility] [address] [place], [address] GAP 8 Normal 5-15 [facility] Comment on above: Performed By: #### L 700.6800, L500.2500, L505.5000, L501.9100, L100.0100, L501.8300, L501.8400 #### [facility] [address] [place], [place], [id number] [phone] GFR/1.73 sq M.predicted among non-blacks MDRD (S/P/Bld) [Vol rate/Area] 43 mL/min/{1.73_m2} Low >60 [facility] Comment on above: Result Comment: Non- GFR Calc Performed By: #### L 700.6800, L500.2500, L505.5000, L501.9100, L100.0100, L501.8300, L501.8400 #### [facility] [address] [place], [place], [id number] [phone]) Globulin (S) [Mass/Vol] 3.8 g/dL Normal 2.2-4.2 [facility] Comment on above: Performed By: #### L 700.6800, L500.2500, L505.5000, L501.9100, L100.0100, L501.8300, L501.8400 #### [facility] [address] [place], [address] Glucose [Mass/Vol] 189 mg/dL High 74-106 [facility] Comment on above: Result Comment: Fast ing Glucose result greater than or equal to 126 mg/dL suggests DIABETES MELLITUS per A.D.A. criteria. Performed By: #### L 700.6800, L500.2500, L505.5000, L501.9100, L100.0100, L501.8300, L501.8400 #### [facility] [address] [place], [address] Potassium [Moles/Vol] 3.8 mmol/L Normal 3.5-5.1 [facility] Comment on above: Performed By: #### L 700.6800, L500.2500, L505.5000, L501.9100, L100.0100, L501.8300, L501.8400 #### [facility] [address] [place], [address] Sodium [Moles/Vol] 140 mmol/L Normal 136-145 [facility] Comment on above: Performed By: #### L 700.6800, L500.2500, L505.5000, L501.9100, L100.0100, L501.8300, L501.8400 #### [facility] [address] [place], [address] T PROT 7.5 g/dL Normal 6.4-8.2 [facility] Comment on above: Performed By: #### L 700.6800, L500.2500, L505.5000, L501.9100, L100.0100, L501.8300, L501.8400 #### [facility] [address] [place], [address] Urea nitrogen [Mass/Vol] 17 mg/dL Normal 7-18 [facility] Comment on above: Performed By: #### L 700.6800, L500.2500, L505.5000, L501.9100, L100.0100, L501.8300, L501.8400 #### [facility] [address] [place], [address] Lipid Profileon 09-12-2023 Cholesterol [Mass/Vol] 122 mg/dL Normal 200 [facility] Comment on above: Result Comment: <200 mg/dL Desirable 200-240 mg/dL Borderline >240 mg/dL High Risk Performed By: #### L 700.6800, L500.2500, L505.5000, L501.9100, L100.0100, L501.8300, L501.8400 #### [facility] [address] [place], [address] Cholesterol in HDL [Mass/Vol] 51 mg/dL Normal [facility] Comment on above: Result Comment: The drugs N-Acetylcysteine and Metamizole may falsely depress this assay. Reference Range HDL <40 mg/dL Low HDL Cholesterol HDL >or= 60 mg/dL High HDL Cholesterol Performed By: #### L 700.6800, L500.2500, L505.5000, L501.9100, L100.0100, L501.8300, L501.8400 #### [facility] [address] [place], [address] Cholesterol in LDL [Mass/Vol] 59 mg/dL Normal 0-130 [facility] Comment on above: Performed By: #### L 700.6800, L500.2500, L505.5000, L501.9100, L100.0100, L501.8300, L501.8400 #### [facility] [address] [place], [address] Cholesterol in VLDL [Mass/Vol] 12 mg/dL Normal 5-40 [facility] Comment on above: Performed By: #### L 700.6800, L500.2500, L505.5000, L501.9100, L100.0100, L501.8300, L501.8400 #### [facility] [address] [place], [address] Triglyceride [Mass/Vol] 58 mg/dL Normal [facility] Comment on above: Result Comment: The drugs N-Acetylcysteine and Metamizole may falsely depress this assay. Serum Triglycerides Reference Interval Normal <150 mg/dL Borderline high 150 - 199 mg/dL High 200 - 499 mg/dL Very High > or = 500 mg/dL Performed By: #### L 700.6800, L500.2500, L505.5000, L501.9100, L100.0100, L501.8300, L501.8400 #### [facility] [address] [place], [address] Magnesiumon 09-12-2023 Magnesium [Mass/Vol] 1.7 mg/dL Normal 1.6-2.6 [facility] Comment on above: Performed By: #### L 700.6800, L500.2500, L505.5000, L501.9100, L100.0100, L501.8300, L501.8400 #### [facility] [address] [place], [address] Phosphoruson 09-12-2023 Phosphate [Mass/Vol] 2.6 mg/dL Normal 2.5-4.9 [facility] Comment on above: Performed By: #### L 700.6800, L500.2500, L505.5000, L501.9100, L100.0100, L501.8300, L501.8400 #### [facility] [address] [place], [address] Stress Reporton 09-12-2023 Stress Report [facility] Services [address] [place] [address] MR#: [id number] Acct: [id number] Name: JOAN SNOW Adarsh Rep #: [id number] : 1970 52 From: Cari Gardner MD Primary Care: DIGITAL ARTIST. Cammie Self NP-C Status: ADM IN Referring Dr: Sex: F C Stress Test Report Date: 09/12/2023 Procedure: Exercise tolerance test/imaging study Indications: Chest pain Consent: Per the patient Procedure: The patient exercised on a Clay protocol for 9 minutes achieving a peak heart rate of 134 bpm (80% predicted maximal heart rate) with a peak blood pressure 174/70 mmHg and a peak MET capacity of 10.1 METs. The baseline ECG demonstrated sinus rhythm. The peak exercise ECG demonstrated no significant ischemic changes. EKG during recovery revealed no significant ischemic changes [There were no cardiac dysrhythmias pretest, during exercise, or recovery]. The functional capacity was considered excellent for age. There was mild chest pressure at baseline which did not increase significantly with exercise. The examination was discontinued secondary to dyspnea. Impression: 1. Inability to reach 85% of maximal age-predicted heart rate decreases the sensitivity of this test. 2. Stress test is negative for exercise-induced EKG changes of ischemia 3. Patient had mild chest pressure at baseline that did not change with exercise significantly. 4. Functional capacity is excellent for age 5. Nuclear images pending Myocardial perfusion imaging study: Technique: The patient was injected with 12 mCi of technetium 99m Cardiolite and subsequently rest SPECT Cardiolite nuclear imaging was obtained in the horizontal long, vertical long, and short axis views. The patient exercised on a Clay protocol. Please see above for details. The patient was injected with 33.7 mCi of technetium 99m Cardiolite and subsequently stress SPECT Cardiolite nuclear imaging was obtained in the horizontal long, vertical long, and short axis views. A gated Cardiolite study at peak stress was obtained. Interpretation: Rest and stress SPECT Cardiolite nuclear imaging status post realignment, normalization, and attenuation correction, demonstrates overall normal myocardial radioisotope uptake. The gated Cardiolite study demonstrates no significant regional wall motion abnormalities. The reported LVEF is greater than 70%. Impression: 1. There is no evidence of significant ischemia or infarction. 2. The gated Cardiolite study reports an LVEF of greater than 70%. This note was generated with [employer] software. It may contain incorrect words, spelling, and punctuation that were not noted in checking the note before signing. 09/12/23 1113 Date Cari Gardner MD CC: DIGITAL ARTIST-C DIGITAL ARTIST. Cammie Self; Dr. Tricia Gonzalez DO; Dr. Amanda Torres DO; Dr. Dwight Self DO Date Dictated: 09/12/231108 Date Transcribed: 09/12/231108 Transmission Maintenance Supervisor: NN Signed Normal [facility] Thyroid Stim Hormone (TSH)on 09-12-2023 TSH 1.09 uIU/mL Normal 0.358-3.74 [facility] Comment on above: Performed By: #### L 700.6800, L500.2500, L505.5000, L501.9100, L100.0100, L501.8300, L501.8400 #### [facility] [address] [facility] [place], [address] 12 Lead EKGon 09-11-2023 12 Lead EKG [facility] Cardiovascular Services [address] [place] [address] 12 Lead EKG 09/11/23 2332 MR#: [id number] Acct: [id number] Name: JOAN SNOW Rep #: [id number] : 1970 52 From: Cari Gardner MD Attending Dr: Dr. Dwight Self DO Status: DIS IN Ordering Dr: Amanda Torres DO Date: 09/11/23 Location: [facility] Sex: F C Admitted: 09/11/23 Test Reason : CP ADMIT Blood Pressure : / mmHG Vent. Rate : 061 BPM Atrial Rate : 061 BPM P-R Int : 166 ms QRS Dur : 084 ms QT Int : 434 ms P-R-T Axes : 047 060 046 degrees QTc Int : 436 ms Normal sinus rhythm ST T wave abnormality, consider inferior ischemia ST T wave abnormality, consider anterior ischemia Abnormal ECG When compared with ECG of 11-SEP-2023 14:58, MANUAL COMPARISON REQUIRED, DATA IS UNCONFIRMED Confirmed by YASHIRA RUIZ, LUANN ([id number]), material expeditor MUKUL BLISS ([id number]) on 09/13/2023 10:09:07 AM Referred By: Confirmed By:GABRIEL GARDNER MD 09/13/23 1009 Date Cari Gardner MD CC: DIGITAL ARTIST-C NP. Cammie Self; Dr. Amanda Torres DO; Dr. Dwight Self DO Signed Normal [facility] 12 Lead EKG [facility] Cardiovascular Services [address] [place] [address] 12 Lead EKG 09/11/23 1458 MR#: [id number] Acct: [id number] Name: JOAN SNOW Rep #: [id number] : 1970 52 From: Cari Gardner MD Attending Dr: Dr. Dwight Self DO Status: DIS IN Ordering Dr: Tricia Gonzalez DO Date: 09/11/23 Location: [facility] Sex: F C Admitted: 09/11/23 Test Reason : CP Blood Pressure : / mmHG Vent. Rate : 064 BPM Atrial Rate : 064 BPM P-R Int : 150 ms QRS Dur : 082 ms QT Int : 414 ms P-R-T Axes : 049 040 -45 degrees QTc Int : 427 ms Normal sinus rhythm ST T wave abnormality, consider inferior ischemia ST T wave abnormality, consider anterolateral ischemia Abnormal ECG Confirmed by LUANN GARDNER MD ([id number]), material expeditor MUKUL BLISS ([id number]) on 09/13/2023 10:00:50 AM Referred By: Confirmed By:GABRIEL GARDNER MD 09/13/23 1000 Date Cari Gardner MD CC: ALFONSO Self; Dr. Tricia Gonzalez DO; Dr. Dwight Self DO Signed Normal [facility] Basic Metabolic Profile (BMP )on 09-11-2023 BUN/CRE 12.3 RATIO Normal 10-20 [facility] Comment on above: Order Comment: 1Y Performed By: #### L 700.6800, L500.2500, L505.5000, L501.9100, L100.0100, L501.8300, L501.8400 #### [facility] [address] [place], [address] CA,Total 9.7 mg/dL Normal 8.5-10.1 [facility] Comment on above: Order Comment: 1Y Performed By: #### L 700.6800, L500.2500, L505.5000, L501.9100, L100.0100, L501.8300, L501.8400 #### [facility] [address] [place], [address] Chloride [Moles/Vol] 106 mmol/L Normal 98-107 [facility] Comment on above: Order Comment: 1Y Performed By: #### L 700.6800, L500.2500, L505.5000, L501.9100, L100.0100, L501.8300, L501.8400 #### [facility] [address] [place], [address] CO2 [Moles/Vol] 27.0 mmol/L Normal 21.0-32.0 [facility] Comment on above: Order Comment: 1Y Performed By: #### L 700.6800, L500.2500, L505.5000, L501.9100, L100.0100, L501.8300, L501.8400 #### [facility] [address] [place], [address] Creatinine [Mass/Vol] 1.14 mg/dL High 0.55-1.02 [facility] Comment on above: Order Comment: 1Y Result Comment: The validity of the calculated GFR GFRAA in patients over 70 years has not been determined. Clinical correlation is essential. Performed By: #### L 700.6800, L500.2500, L505.5000, L501.9100, L100.0100, L501.8300, L501.8400 #### [facility] [address] [place], [address] ECRCL 49.28 ml/min Normal [facility] Comment on above: Order Comment: 1Y Performed By: #### L 700.6800, L500.2500, L505.5000, L501.9100, L100.0100, L501.8300, L501.8400 #### [facility] [address] [place], [address] EST GFR - AA 64 mL/min Normal >60 [facility] Comment on above: Order Comment: 1Y Result Comment: Afri can [place]occan GFR Calc Performed By: #### L 700.6800, L500.2500, L505.5000, L501.9100, L100.0100, L501.8300, L501.8400 #### [facility] [address] [place], [place], [id number] GAP 7 Normal 5-15 [facility] Comment on above: Order Comment: 1Y Performed By: #### L 700.6800, L500.2500, L505.5000, L501.9100, L100.0100, L501.8300, L501.8400 #### [facility] [address] [place], [address] GFR/1.73 sq M.predicted among non-blacks MDRD (S/P/Bld) [Vol rate/Area] 53 mL/min/{1.73_m2} Low >60 [facility] Comment on above: Order Comment: 1Y Result Comment: Non- GFR Calc Performed By: #### L 700.6800, L500.2500, L505.5000, L501.9100, L100.0100, L501.8300, L501.8400 #### [facility] [address] [place], [address] Glucose [Mass/Vol] 112 mg/dL High 74-106 [facility] Comment on above: Order Comment: 1Y Result Comment: Fast ing Glucose result from 100 to 125 mg/dL suggests IMPAIRED HOMEOSTASIS per A.D.A. criteria. Performed By: #### L 700.6800, L500.2500, L505.5000, L501.9100, L100.0100, L501.8300, L501.8400 #### [facility] [address] [place], [address] Potassium [Moles/Vol] 3.3 mmol/L Low 3.5-5.1 [facility] Comment on above: Order Comment: 1Y Performed By: #### L 700.6800, L500.2500, L505.5000, L501.9100, L100.0100, L501.8300, L501.8400 #### [facility] [address] [place], [place], [address] Sodium [Moles/Vol] 140 mmol/L Normal 136-145 [facility] Comment on above: Order Comment: 1Y Performed By: #### L 700.6800, L500.2500, L505.5000, L501.9100, L100.0100, L501.8300, L501.8400 #### [facility] [address] [place], [address] Urea nitrogen [Mass/Vol] 14 mg/dL Normal 7-18 [facility] Comment on above: Order Comment: 1Y Performed By: #### L 700.6800, L500.2500, L505.5000, L501.9100, L100.0100, L501.8300, L501.8400 #### [facility] [address] [place], [address] CBC W/Diff, Automatedon 08-27 Absolute Lymph 1.64 X10 3/uL Normal 0.83-4.51 [facility] Comment on above: Performed By: #### L 700.6800, L500.2500, L505.5000, L501.9100, L100.0100, L501.8300, L501.8400 #### [facility] [address] [place], [address] Absolute Neut 3.6 X10 3/uL Normal 2.0-7.7 [facility] Comment on above: Performed By: #### L 700.6800, L500.2500, L505.5000, L501.9100, L100.0100, L501.8300, L501.8400 #### [facility] [address] [place], [address] Basophils/100 WBC (Bld) 1.2 % High 0-1 [facility] Comment on above: Performed By: #### L 700.6800, L500.2500, L505.5000, L501.9100, L100.0100, L501.8300, L501.8400 #### [facility] [address] [place], [address] Eosinophils/100 WBC (Bld) 2.2 % Normal 0-5 [facility] Comment on above: Performed By: #### L 700.6800, L500.2500, L505.5000, L501.9100, L100.0100, L501.8300, L501.8400 #### [facility] [address] [place], [address] Erythrocyte distribution width (RBC) [Ratio] 11.9 % Normal 11.6-14.6 [facility] Comment on above: Performed By: #### L 700.6800, L500.2500, L505.5000, L501.9100, L100.0100, L501.8300, L501.8400 #### [facility] [address] [facility] [address] Hematocrit (Bld) [Volume fraction] 42.9 % Normal 37-47 [facility] Comment on above: Performed By: #### L 700.6800, L500.2500, L505.5000, L501.9100, L100.0100, L501.8300, L501.8400 #### [facility] [address] [place], [address] Hemoglobin (Bld) [Mass/Vol] 14.2 g/dL Normal 12.0-15.0 [facility] Comment on above: Performed By: #### L 700.6800, L500.2500, L505.5000, L501.9100, L100.0100, L501.8300, L501.8400 #### [facility] [address] [facility] [place], [address] IG% 0.200 Normal 0.0-0.9 [facility] Comment on above: Result Comment: IG% - Immature Granulocytes (promyelocytes, myelocytes and metamyelocytes) > 1% indicates that a LEFT SHIFT is Present. Performed By: #### L 700.6800, L500.2500, L505.5000, L501.9100, L100.0100, L501.8300, L501.8400 #### [facility] [address] [place], [address] Lymphocytes/100 WBC (Bld) 28.0 % Normal 19-41 [facility] Comment on above: Performed By: #### L 700.6800, L500.2500, L505.5000, L501.9100, L100.0100, L501.8300, L501.8400 #### [facility] [address] [place], [address] MCH (RBC) [Entitic mass] 30.1 pg Normal 27.0-32.0 [facility] Comment on above: Performed By: #### L 700.6800, L500.2500, L505.5000, L501.9100, L100.0100, L501.8300, L501.8400 #### [facility] [address], [address] MCHC (RBC) [Mass/Vol] 33.1 g/dL Normal 32-36 [facility] Comment on above: Performed By: #### L 700.6800, L500.2500, L505.5000, L501.9100, L100.0100, L501.8300, L501.8400 #### [facility] [address] [place], [address] MCV (RBC) [Entitic vol] 90.9 fL Normal 81-99 [facility] Comment on above: Performed By: #### L 700.6800, L500.2500, L505.5000, L501.9100, L100.0100, L501.8300, L501.8400 #### [facility] [address] [place], [address] Monocytes/100 WBC (Bld) 6.3 % Normal 0-10 [facility] Comment on above: Performed By: #### L 700.6800, L500.2500, L505.5000, L501.9100, L100.0100, L501.8300, L501.8400 #### [facility] [address] [place], [address] Neutrophils/100 WBC (Bld) 62.1 % Normal 47-70 [facility] Comment on above: Performed By: #### L 700.6800, L500.2500, L505.5000, L501.9100, L100.0100, L501.8300, L501.8400 #### [facility] [address] [place] [place], [address] Nucleated RBC (Bld) [#/Vol] 0 10*3/uL Normal 0-5 [facility] Comment on above: Performed By: #### L 700.6800, L500.2500, L505.5000, L501.9100, L100.0100, L501.8300, L501.8400 #### [facility] [address] [place], [address] Platelet mean volume (Bld) [Entitic vol] 9.6 fL Normal 6.2-12.0 [facility] Comment on above: Performed By: #### L 700.6800, L500.2500, L505.5000, L501.9100, L100.0100, L501.8300, L501.8400 #### [facility] [address] [place], [address] Platelets (Bld) [#/Vol] 239 10*3/uL Normal 150-450 [facility] Comment on above: Performed By: #### L 700.6800, L500.2500, L505.5000, L501.9100, L100.0100, L501.8300, L501.8400 #### [facility] [address] [place], [address] RBC (Bld) [#/Vol] 4.72 10*6/uL Normal 4.2-5.4 [facility] Comment on above: Performed By: #### L 700.6800, L500.2500, L505.5000, L501.9100, L100.0100, L501.8300, L501.8400 #### [facility] [address] [place], [address] RDW SD 39.7 fl Normal 35.1-43.9 [facility] Comment on above: Performed By: #### L 700.6800, L500.2500, L505.5000, L501.9100, L100.0100, L501.8300, L501.8400 #### [facility] [address] [place], [address] WBC (Bld) [#/Vol] 5.9 10*3/uL Normal 4.4-11.0 [facility] Comment on above: Performed By: #### L 700.6800, L500.2500, L505.5000, L501.9100, L100.0100, L501.8300, L501.8400 #### [facility] [address] [place], [address] Chest 1 View (Portable)on Chest 1 View (Portable) [facility] Imaging Services [address] [place], [place] [address] Chest 1 View (Portable) MR#: [id number] Acct: [id number] Name: JOAN SNOW Rep #: [id number] : 1970 F 52 From: Fantasma Magaña DO PCP: NP. Cammie Self, ROSALINDAC Status: DIS IN Study: Chest 1 View (Portable) Date of Exam: 09/11/23 Exam# [id number] Ordering Dr: [place] [id number] INDICATION: chest pain EXAMINATION/TECHNIQUE: X-RAY - XR Chest 1 View COMPARISON: February 25, 2018 FINDINGS: LINES/DEVICES: None. LUNGS: No consolidation, edema or effusion. No pneumothorax. MEDIASTINUM AND CARDIOVASCULAR STRUCTURES: Cardiac silhouette not enlarged. Central airways and mediastinal contour are unremarkable. BONES AND SOFT TISSUES: Unremarkable. RAD/Chest 1 View (Portable) IMPRESSION: No radiographic evidence of acute cardiopulmonary disease. Electronically Signed: Fantasma Magaña DO at 17:15 EDT , CC: DIGITAL ARTIST-C NP. Cammie Self; Dr. Tricia Gonzalez DO Transmission Maintenance Supervisor: Signed Normal [facility] D-Dimer Quantitative (DVT/PE )on 09-11-2023 D-DIMER QUANT 0.29 FEU/ug/m Normal 0.27-0.49 [facility] Comment on above: Result Comment: NORM AL D-Dimer level (<0.50) indicates no DVT or PE. Performed By: #### L 700.6800, L500.2500, L505.5000, L501.9100, L100.0100, L501.8300, L501.8400 #### [facility] [address] [place], [address] Echo Completeon 09-11-2023 Echo Complete [facility] [address] [place] [address] Echo Complete 09/12/23 0933 MR#: [id number] Acct: [id number] Name: JOAN SNOW Rep #: [id number] : 1970 52 From: Cari Gardner MD Attending Dr: Dr. Dwight Self DO Status: ADM IN Ordering Dr: Amanda Torres DO Date: 09/11/23 Location: U Sex: F C Admitted: 09/11/23 Reason For Study: CHEST PAIN Procedure This was a 2D Doppler, Color Flow transthoracic echocardiogram. Exam performed in department. Left Ventricle Normal LV size. The estimated ejection fraction is 70 %. No evidence for diastolic dysfunction. No regional wall motion abnormalities noted. Right Ventricle Normal RV size. Normal systolic function. Atria The left and right atria are normal. No doppler evidence for ASD. Mitral Valve There is no mitral valve stenosis. Trivial mitral valve insufficiency. Tricuspid Valve There is no tricuspid stenosis. Trivial tricuspid valve insufficiency. Unable to estimate RV systolic pressure due to insufficient tricuspid regurgitant envelope. Aortic Valve Trisinus/trileaflet aortic valve. There is no aortic stenosis. Trivial aortic valve insufficiency. Pulmonic Valve There is no pulmonic valvular stenosis. No pulmonic valve insufficiency. Great Vessels Normal aortic root. Pericardium/Pleural No pericardial effusion. MMode/2D Measurements Calculations LVIDd: 4.4 cm IVSd: 0.88 cm LVOT diam: 2.0 cm LVIDs: 2.4 cm LVPWd: 0.77 cm LVOT area: 3.2 cm2 RVDd: 2.9 cm FS: 46.0 % Ao root diam: 2.9 cm LAV(MOD-bp): 34.3 ml LVAd ap4: 16.9 cm2 LAV(MOD-bp) Indexed: 20.3 ml/m2 LVLd ap4: 6.9 cm LAV(MOD-sp2): 37.7 ml EDV(MOD-sp4): 35.0 ml LAV(MOD-sp4): 29.6 ml EDV(sp4-el): 35.3 ml LVAs ap4: 8.2 cm2 LVLs ap4: 5.6 cm ESV(MOD-sp4): 10.5 ml ESV(sp4-el): 10.2 ml EF(MOD-sp4): 70.0 % EF(sp4-el): 71.2 % LVAd ap2: 16.0 cm2 SV(MOD-sp4): 24.5 ml SV(MOD-sp2): 20.7 ml LVLd ap2: 6.8 cm EDV(MOD-sp2): 31.1 ml EDV(sp2-el): 31.6 ml LVAs ap2: 8.1 cm2 LVLs ap2: 5.5 cm ESV(MOD-sp2): 10.4 ml ESV(sp2-el): 10.2 ml EF(MOD-sp2): 66.6 % SV(sp4-el): 25.2 ml LA dimension(2D): 3.1 cm LA A4 area: 13.0 cm2 RA A4 area: 10.3 cm2 TAPSE: 1.8 cm Time Measurements MV dec time: 0.22 sec Doppler Measurements Calculations MV E max spencer: 92.6 cm/sec Lat Peak E' Spencer: 13.3 cm/sec Med Peak E' Spencer: 9.6 cm/sec MV A max spencer: 89.3 cm/sec E/E' lat: 6.9 E/E' med: 9.6 MV E/A: 1.0 Ao V2 max: 144.8 cm/sec LV V1 max: 131.4 cm/sec MV dec slope: 422.0 cm/sec2 Ao max P.4 mmHg LV V1 max P.9 mmHg Ao V2 mean: 101.8 cm/sec LV V1 mean P.5 mmHg Ao mean P.7 mmHg LV V1 mean: 88.1 cm/sec Ao V2 VTI: 33.7 cm LV V1 VTI: 28.4 cm AV (velocity ratio): 0.84 LAKSHMI(I,D): 2.7 cm2 LAKSHMI(V,D): 2.9 cm2 SV(LVOT): 91.1 ml PA V2 max: 105.2 cm/sec TR max spencer: 236.9 cm/sec PA max PG (full): 1.4 mmHg TR max P.4 mmHg ECHO/Echo Complete Interpretation Summary The estimated ejection fraction is 70 %. No evidence for diastolic dysfunction. Trivial mitral valve insufficiency. Trivial aortic valve insufficiency. Ordering Physician: Amanda Torres Performed By: Mary Patel RDCS and Student 09/12/23 1100 Date Cari Gardner MD CC: DIGITAL ARTIST-C NP. Cammie Self; Dr. Amanda Torres DO; Dr. Dwight Self DO Date Dictated: 09/12/23 0933 Date Transcribed: 09/12/23 1100 Transmission Maintenance Supervisor: Signed Normal [facility] Emergency Department Summary on 09-11-2023 Emergency Department Summary [facility] Medical Records Department [address] [place] [address] Emergency Department Summary 09/11/23 MR#: [id number] Acct: [id number] Name: JOAN SNOW Rep #: [id number] : 1970 52 From: Tricia Gonzalez DO PCP: ROSALINDA WangC Status:ADM JOSE L Location: [place] [address] HPI History of Present Illness Chief Complaint: Chest Pain Informant: patient Narrative Narrative: Patient is a 52-year-old female with history of prior tobacco use, COPD, and hyperlipidemia presenting with chest tightness and pressure. Patient states 2 days ago she woke up at 3:30 AM with pressure in her chest. She states it felt there was a cinderblock on my chest. She could not breathe. She got up and eventually the symptoms went away. Since then she has been having intermittent tightness and pressure on her chest. She is she feels like she is having having a hard time breathing. Today she was not feeling well and she laid down. Around 1 PM she was laying on her side and developed another episode of tightness in her chest lasting about 10 minutes. She has felt slightly better when she was laying flat on her back. Patient has no relief with her inhalers that she has at home. She does not have a nebulizer. Denies any cough or swelling of her legs. Denies any history of DVT or PE. Denies any fever. Did have some nausea today but EMS gave her Zofran and is doing better. No vomiting or abdominal pain reported. Denies any urinary symptoms. Does get some intermittent blood with wiping but attributes that to constipation and hemorrhoids. No other complaints or concerns reported at this time. CVD Risk Factors: Positive for Hypercholesterolemia and Smoking [facility] Medical History (Updated 09/12/23 @ 00:[address] Tricia Gonzalez, DO) COPD (chronic obstructive pulmonary disease) Hyperlipemia Home Medications ???Medication ???Instructions ???Recorded ???Last Taken ???Type buspirone 15 mg tablet 15 mg PO BID 11/15/17 Unknown History multivitamin with minerals 1 ea PO DAILY 02/25/18 Unknown History (Multiple Vitamin-Minerals tablet) albuterol sulfate 90 mcg/actuation 2 puff inhalation Q4H PRN 09/11/23 Unknown History aerosol inhaler atorvastatin 40 mg tablet 40 mg PO DAILY 09/11/23 Unknown History fluticasone 250 mcg-salmeterol 50 1 inh inhalation BID 09/11/23 Unknown History mcg/dose blistr powdr for inhalation (Advair Diskus) trazodone 100 mg tablet 100 mg PO QHS 09/11/23 Unknown History Allergy/AdvReac Type Severity Reaction Status Date / Time No Known Allergies Allergy Verified 09/11/23 14:54 Social History (Updated 09/11/23 @ 23:14 by Salena Machado) household members: children number of children: 3 current occupational status: unemployed pets and animals: Yes (cat) Smoking Status: Former smoker ROS ROS ED Constitutional Constitutional ED: Denies chills or fever(s) Cardiovascular Cardiovascular: Reports chest pain and other Details: chest pressure Respiratory/Chest Respiratory/Chest: Reports dyspnea and dyspnea on exertion; Denies cough or sputum Gastrointestinal Gastrointestinal: Reports nausea; Denies abdominal pain, diarrhea, melena or vomiting Musculoskeletal Musculoskeletal: Denies arthralgias or myalgias Neurologic Neurologic: Denies headache(s) or weakness Hematologic/Lymphatic Hematologic/Lymphatic: Denies easy bleeding or easy bruising EXAM Physical Exam Const Vital Signs: 09/11/23 14:54 09/11/23 17:02 09/11/23 17:02 Temperature 97.1 F L Temperature Source Temporal Pulse Rate 85 57 L Respiratory Rate 16 16 Respiratory Effort Respiratory Pattern Blood Pressure 126/82 H 104/69 Blood Pressure Mean 96 80 Pulse Ox 97 97 Oxygen Delivery Method Room Air Room Air Room Air 09/11/23 17:04 09/11/23 18:00 09/11/23 19:00 Temperature Temperature Source Pulse Rate 60 62 Respiratory Rate 13 18 Respiratory Effort Normal Non-Labored Respiratory Pattern Blood Pressure 90/61 97/64 Blood Pressure Mean 70 75 Pulse Ox 98 98 Oxygen Delivery Method Room Air Room Air 09/11/23 20:02 09/11/23 20:04 09/11/23 20:15 Temperature Temperature Source Pulse Rate 58 L 58 L Respiratory Rate 18 14 16 Respiratory Effort Respiratory Pattern Blood Pressure Blood Pressure Mean Pulse Ox 94 94 Oxygen Delivery Method 09/11/23 20:31 09/11/23 20:45 09/11/23 21:06 Temperature Temperature Source Pulse Rate 63 57 L 56 L Respiratory Rate 16 14 13 Respiratory Effort Respiratory Pattern Blood Pressure 99/69 Blood Pressure Mean 79 Pulse Ox 88 94 99 Oxygen Delivery Method 09/11/23 21:19 09/11/23 21:39 09/11/23 22:00 Temperature 98.0 F Temperature Source Pulse R (more content not included)... Normal [facility] H AND P Exam - Hospitaliston 09-11-2023 H&P Exam - Hospitalist [facility] Medical Records Department [address] [place] [address] H P Exam - Hospitalist 09/11/23 2939 MR#: [id number] Acct: [id number] Name: JOAN SNOW Rep #: [id number] : 1970 52 From: Amanda Torres DO PCP: ALFONSO Wang Status:ADM IN [facility] General Date of Admission: 09/11/23 Date of Service: 09/11/23 Chief Complaint: Chest Tightness and SOB. HPI Narrative JOAN SNOW, is a 52 F with a past medical history of hyperlipidemia, depression with anxiety, history of tubal ligation, positive history of premature CAD in her father who of an GA at age 63 and history of tobacco abuse (quit 2 years ago); with subsequent COPD who presents to [facility] ER complaining of chest tightness and SOB. Ms. Snow reports her symptoms began approximately two days prior to admission after she was awakened from a sound sleep 3:30 AM on September 09, 2023 but she did not seek medical attention at that time because her symptoms temporarily improved 20 minutes after ECASA. Since then she states she feels like a cinderblock is on my chest that was 10/10, substernal and non-radiating with with the gradual-onset of MERCADO that progressed to SOB with her also feeling a strong sense of impending doom causing her to worry that she might . She then had a second episode of chest pressure around 1:00 PM earlier today that occurred while she was lying on her Left side that lasted 10 minutes and was very concerning for her as she has had intermittent chest pain in the past - but never this severe, persistent and recurrent. She tried to use her inhalers at home but when they did not help control her symptoms she activated EMS who gave her Zofran for nausea with modest improvement. She denies associated fever, chills, vomiting, abdominal pain, dysuria or leg swelling but she does admit to chronic constipation with external hemorrhoids that cause intermittent blood with wiping. In the ER she was diagnosed with AE COPD complicated by clinical evidence of acute respiratory insufficiency after her oxygen saturation dropped to 87% with activity with laboratory evidence of hypokalemia of 3.3 mmol/L present on admission compounded by severe intermittent chest pain and she was then admitted to the general medical floor for ongoing care for a stay that is expected to extend beyond 2 midnights. [facility] Medical History COPD (chronic obstructive pulmonary disease) Hyperlipemia Home Medications ???Medication ???Instructions ???Recorded ???Last Taken ???Type buspirone 15 mg tablet 15 mg PO BID 11/15/17 Unknown History multivitamin with minerals 1 ea PO DAILY 02/25/18 Unknown History (Multiple Vitamin-Minerals tablet) albuterol sulfate 90 mcg/actuation 2 puff inhalation Q4H PRN 09/11/23 Unknown History aerosol inhaler atorvastatin 40 mg tablet 40 mg PO DAILY 09/11/23 Unknown History fluticasone 250 mcg-salmeterol 50 1 inh inhalation BID 09/11/23 Unknown History mcg/dose blistr powdr for inhalation (Advair Diskus) trazodone 100 mg tablet 100 mg PO QHS 09/11/23 Unknown History Allergy/AdvReac Type Severity Reaction Status Date / Time No Known Allergies Allergy Verified 09/11/23 14:54 Social History household members: children number of children: 3 current occupational status: unemployed pets and animals: Yes (cat) Smoking Status: Former smoker ROS ROS Narrative Review of systems: General: Patient denies fever or chills HENT: Denies headache, denies stuffy nose, denies sore throat EYES: Denies changes in vision or discharge from eyes Resp: Patient admits to dyspnea on exertion that progressed to shortness of breath at rest. She denies cough or sputum production Cardiac: Patient admits to chest pressure that is related to her difficulty breathing. She denies heart racing or palpitations. GI: Denies abdominal pain, denies changes in bowel, had some nausea but denies vomiting : Denies changes in urination Extremity: Denies swelling Musculoskeletal: Feels somewhat generally weak and unwell but denies arthralgias or myalgias Neuro: Patient denies headache, paresthesias or focal neurologic deficits. Heme: Patient admits to hemorrhoids with occasional blood with wiping as per HPI. Skin: Denies rashes Psychiatric: No complaints voiced related uncontrolled depression or anxiety Endocrine: No polyuria, polydipsia or polyphagia. The rest of the 14 point ROS was negative except for positives in HPI. Vital Signs Vital Signs Vital Signs: 09/11/23 14:54 09/11/23 17:02 09/11/23 17:02 Temperature 97.1 F L Temperature Source Temporal Pulse Rate 85 57 L Respiratory Rate 16 16 (more content not included)... Normal [facility] L501.4020on 09-11-2023 TROPONIN-I HS < 3 Low 3.0-54.0 [facility] Comment on above: Order Comment: 'TROP ' Serial specimen #1, #2 or #3: 2 Result Comment: Plea se Note: New Test Units and Gender Specific Reference Ranges. For more information see Policy Stat Procedure [place] High Sensitivity Troponin (TNIH) and attachments. Performed By: #### L 700.6800, L500.2500, L505.5000, L501.9100, L100.0100, L501.8300, L501.8400 #### [facility] [address] [place], [address] TROPONIN-I HS 4 pg/mL Normal 3.0-54.0 [facility] Comment on above: Result Comment: Plea se Note: New Test Units and Gender Specific Reference Ranges. For more information see Policy Stat Procedure [place] High Sensitivity Troponin (TNIH) and attachments. Performed By: #### L 501.4020 #### [facility] [address] [place], [address] L501.5425on 09-11-2023 TROPONIN-I HS 4 pg/mL Normal 3.0-54.0 [facility] Comment on above: Order Comment: 1Y Result Comment: Plea se Note: New Test Units and Gender Specific Reference Ranges. For more information see Policy Stat Procedure [place] High Sensitivity Troponin (TNIH) and attachments. Performed By: #### L 700.6800, L500.2500, L505.5000, L501.9100, L100.0100, L501.8300, L501.8400 #### [facility] [address] [place], [address] M100.019on 09-11-2023 M100.019 Negative Normal [facility] Comment on above: Performed By: #### L 700.6800, L500.2500, L505.5000, L501.9100, L100.0100, L501.8300, L501.8400 #### [facility] [address] [place], [address] [id number] 07-19-2023 [id number] HNO ID: [id number] Author: CAMMIE RODRIGES PT Service: ? Author Type: Physical Therapist Type: [id number] Filed: 07/19/2023 09:23 Note Text: [facility] Physical Therapy Plan of Care Certification Patient Name: Joan Snow : 1970 [facility] #: [id number] Date: 07/19/2023 To: Amanda Foote PA-C From Therapist: Cammie Rodriges PT RE: Patient Certification/ Recertification Your review, approval and electronic signature are required in order to comply with Payor: [facility] MEDICAID / Plan: [employer] PLAN MEDICAID OF [place] / Product Type: Medicaid / regulations. The identified Physical Therapy PLAN OF CARE for the patient is as follows: M99.03 Somatic dysfunction of lumbar region (primary encounter diagnosis) M25.561, M25.562, G89.29 Chronic pain of both knees PLAN OF CARE UPDATE: Assessment: Joan Snow demonstrates improvements in rising from a chair, standing, walking, walking in the house, and walking in the community. She has progressed toward goals. Patient continues to present with impairments in ADL's, balance, flexibility, gait, independence in exercise, overall function, patient reported outcome measures, strength, symptom management, and tissue tenderness that interfere with bending, kneeling, stair negotiation . Current prognosis is Good due to: positive past response to therapy, current objective clinical presentation . She will benefit from continued skilled therapy services to meet the updated goals for this plan of care as noted below. Goals for Episode of Care: created on 06/21/23 through 08/16/23 Goals updated on 07/19/2023 08/23/23 [place] in home exercise program. -- MET Patient will decrease pain rating by 2 points to meet minimal clinical important difference for numeric pain rating scale. -- MET Patient will increase active ROM of bilateral knee active extension to to 0 to allow pt to to improve postural alignment, to improve performance of ADLs, to improve gait mechanics / gait pattern , and to decrease falls risks . -- MET Patient will demonstrate increase in bilateral quadriceps strength to 4/5 during manual muscle testing in order to improve function for prior functional tasks. -- MET Patient will increase flexibility of BLE hamstrings to WNL to improve ability to maintain proper posture, improve mechanics, and decrease pain. Improve postural awareness. -- MET Normal gait. -- PROGRESSING Reciprocal stair negotiation. -- PROGRESSING Patient Goals: reduce LBP and B knee pain -- PROGRESSING Patient Goals: reduce LBP and B knee pain Planned Interventions, Frequency, and Duration: 1x/week, 5 weeks Total Number of Visits Planned: 5 Patient to be seen for Therapeutic exercise (67820), Neuromuscular re-education (99435), Manual therapy (52793), Therapeutic activities (80310), Self-fpc management (33184), Gait Training (39226) PLAN FOR NEXT VISIT: pt. will return 08/07/23 if she continues to have LB and knee pain. otherwise she plans to cx this visit. For further details regarding this patient refer to the Physical Therapy electronically documented visit dated 07/19/2023. Provider Attestation I have reviewed the treatment plan for Joan Snow, [facility]# [id number] for the period of 07/19/23 -- 08/23/23, established on 07/19/2023. Signature certifies the need for therapy services. Normal [facility] CNTHERAPYon 07-19-2023 CNTHERAPY OT/PT/Speech Visit (PTWS) JOAN SNOW ([id number]) 1970 F Date Time Provider Department 07/19/23 9:00 AM CAMMIE RODRIGES PTWS Date Time Provider Department Center 07/19/2023 9:00 AM [id number] RODRIGES PTWS Shira Perez Reason for Visit: PT Discharge [752] Primary Visit Diagnosis:Somatic dysfunction of lumbar region [M99.03] Other Visit Diagnosis:Chronic pain of both knees [M25.561, M25.562, G89.29] Allergies As of Date: 07/19/2023 (No Known Allergies) Date Reviewed: 06/07/2023 Reviewed by: Annelise Malagon MA - Fully Assessed Prescriptions as of 10/25/2023 - DULoxetine (CYMBALTA) 30 mg capsule Take 1 capsule by mouth every afternoon. - ADVAIR DISKUS 250-50 mcg/dose inhaler two times a day. - pantoprazole DR (PROTONIX) 40 mg tablet Take 1 tablet by mouth every afternoon. - traZODone (DESYREL) 100 mg tablet Take 100 mg by mouth daily at bedtime. - tiZANidine (ZANAFLEX) 4 mg tablet Take 1 tablet by mouth two times a day as needed. - atorvastatin (LIPITOR) 40 mg tablet - melatonin 10 mg TbER Take by mouth. - budesonide-formoterol (SYMBICORT) 160-4.5 mcg/actuation inhaler Inhale 2 Puffs as instructed twice daily. - escitalopram oxalate (LEXAPRO) 10 mg tablet Take 1 tablet by mouth once daily. - albuterol sulfate (PROAIR RESPICLICK) 90 mcg/actuation Inhale 2 Puffs as instructed four times daily as needed. - busPIRone (BUSPAR) 15 mg tablet Take 0.5 tablets by mouth twice daily. - biotin 1 mg cap Take by mouth. - TURMERIC ROOT EXTRACT ORAL Take by mouth. - aspirin, enteric coated (ASPIRIN, ENTERIC COATED) 81 mg EC tablet Take 81 mg by mouth once daily. - MULTIVITAMIN ORAL Take by mouth. Action Installer: Addendum Therapy (PT/OT/Speech/Resp) ID: [id number] 07/19/2023 9:19 AM Author: CAMMIE RODRIGES Signed by CAMMIE RODRIGES PT on 07/19/2023 at 9:19 AM * * * This document replaces document [id number] * * * Document text: Program_ID:[id number] Access Code: [email or web address] URL: [email or web address]/ Date: 07-19-2023 Prepared By: Cammie Rodriges Program Notes Exercises - Supine Single Knee to Chest Stretch - 2-3 x daily - 7 x weekly - 4 sets - 1 reps - Supine Single Knee to Chest Stretch - 2-3 x daily - 7 x weekly - 4 sets - 1 reps - Supine Hamstring Stretch - 2 x daily - 7 x weekly - 4 sets - 10 reps - Supine Hamstring Stretch - 2 x daily - 7 x weekly - 4 sets - 10 reps - Seated Long Arc Quad - 2 x daily - 7 x weekly - 2 sets - 10-12 reps - Seated Long Arc Quad - 2 x daily - 7 x weekly - 2 sets - 10-12 reps - Supine Active Straight Leg Raise - 2 x daily - 7 x weekly - 2 sets - 10-12 reps - Supine Active Straight Leg Raise - 2 x daily - 7 x weekly - 2 sets - 10-12 reps - Gastroc Stretch on Wall - 1 x daily - 7 x weekly - 3 sets - 10 reps - Gastroc Stretch on Wall - 1 x daily - 7 x weekly - 3 sets - 10 reps Normal [facility] THERAPY NTon 07-19-2023 THERAPY NT HNO ID: [id number] Author: CAMMIE RODRIGES PT Service: ? Author Type: Physical Therapist Type: Therapy (PT/OT/Speech/Resp) Filed: 07/19/2023 09:07 Note Text: Program_ID:[id number] Access Code: [email or web address] URL: [email or web address]/ Date: 07-19-2023 Prepared By: Cammie Rodriges Program Notes Exercises - Supine Single Knee to Chest Stretch - 2-3 x daily - 7 x weekly - 4 sets - 1 reps - Supine Single Knee to Chest Stretch - 2-3 x daily - 7 x weekly - 4 sets - 1 reps - Supine Hamstring Stretch - 1 x daily - 7 x weekly - 4 sets - 10 reps Normal [facility] CNTHERAPYon 07-05-2023 CNTHERAPY OT/PT/Speech Visit (PTWS) JOAN SNOW ([id number]) 1970 F Date Time Provider Department 07/05/23 6:00 PM CAMMIE RODRIGES Date Time Provider Department [place] 07/05/2023 6:00 PM [id number] RODRIGES PTANTONIETTA Perez Reason for Visit: Physical Therapy [503] Primary Visit Diagnosis:Somatic dysfunction of lumbar region [M99.03] Other Visit Diagnosis:Chronic pain of both knees [M25.561, M25.562, G89.29] Allergies As of Date: 07/05/2023 (No Known Allergies) Date Reviewed: 06/07/2023 Reviewed by: Annelise Malagon MA - Fully Assessed Prescriptions as of 07/05/2023 - DULoxetine (CYMBALTA) 30 mg capsule Take 1 capsule by mouth every afternoon. - ADVAIR DISKUS 250-50 mcg/dose inhaler two times a day. - pantoprazole DR (PROTONIX) 40 mg tablet Take 1 tablet by mouth every afternoon. - traZODone (DESYREL) 100 mg tablet Take 100 mg by mouth daily at bedtime. - tiZANidine (ZANAFLEX) 4 mg tablet Take 1 tablet by mouth two times a day as needed. - atorvastatin (LIPITOR) 40 mg tablet - melatonin 10 mg TbER Take by mouth. - budesonide-formoterol (SYMBICORT) 160-4.5 mcg/actuation inhaler Inhale 2 Puffs as instructed twice daily. - escitalopram oxalate (LEXAPRO) 10 mg tablet Take 1 tablet by mouth once daily. - albuterol sulfate (PROAIR RESPICLICK) 90 mcg/actuation Inhale 2 Puffs as instructed four times daily as needed. - busPIRone (BUSPAR) 15 mg tablet Take 0.5 tablets by mouth twice daily. - biotin 1 mg cap Take by mouth. - TURMERIC ROOT EXTRACT ORAL Take by mouth. - aspirin, enteric coated (ASPIRIN, ENTERIC COATED) 81 mg EC tablet Take 81 mg by mouth once daily. - MULTIVITAMIN ORAL Take by mouth. Action Installer: Therapy (PT/OT/Speech/Resp) ID: [id number] 07/05/2023 6:18 PM Author: CAMMIE RODRIGES Signed by CAMMIE RODRIGES PT on 07/05/2023 at 6:18 PM Document text: Program_ID:[id number] Access Code: [email or web address] URL: [email or web address] [email or web address]/ Date: 07-05-2023 Prepared By: Cammie Rodriges Program Notes Exercises - Supine Single Knee to Chest Stretch - 2-3 x daily - 7 x weekly - 4 sets - 1 reps - Supine Single Knee to Chest Stretch - 2-3 x daily - 7 x weekly - 4 sets - 1 reps - Quad Setting and Stretching - 2-3 x daily - 7 x weekly - 4 sets - 5 reps - Supine Hamstring Stretch - 1 x daily - 7 x weekly - 4 sets - 5 reps Normal [facility] THERAPY NTon 07-05-2023 THERAPY NT HNO ID: [id number] Author: CAMMIE RODRIGES PT Service: ? Author Type: Physical Therapist Type: Therapy (PT/OT/Speech/Resp) Filed: 07/05/2023 18:18 Note Text: Program_ID:[id number] Access Code: [email or web address] URL: [email or web address] .Jenn [email or web address]/ Date: 07-05-2023 Prepared By: Cammie Rodriges Program Notes Exercises - Supine Single Knee to Chest Stretch - 2-3 x daily - 7 x weekly - 4 sets - 1 reps - Supine Single Knee to Chest Stretch - 2-3 x daily - 7 x weekly - 4 sets - 1 reps - Quad Setting and Stretching - 2-3 x daily - 7 x weekly - 4 sets - 5 reps - Supine Hamstring Stretch - 1 x daily - 7 x weekly - 4 sets - 5 reps Normal [facility] [id number] 06-21-2023 [id number] HNO ID: [id number] Author: CAMMIE RODRIGES PT Service: ? Author Type: Physical Therapist Type: [id number] Filed: 06/21/2023 08:51 Note Text: [facility] Physical Therapy Plan of Care Certification Patient Name: Joan Snow : 1970 [facility] #: [id number] Date: 06/21/2023 To: Amanda Foote PA-C From Therapist: Cammie Rodriges PT RE: Patient Certification/ Recertification Your review, approval and electronic signature are required in order to comply with Payor: [facility] MEDICAID / Plan: [facility] COMMUNITY PLAN MEDICAID [facility] / Product Type: Medicaid / regulations. The identified Physical Therapy PLAN OF CARE for the patient is as follows: M99.03 Somatic dysfunction of lumbar region (primary encounter diagnosis) M25.561, M25.562, G89.29 Chronic pain of both knees PLAN OF CARE: Assessment: Joan Snow presents with diagnosis of somatic dysfunction of lumbar region and chronic pain of both knees that interferes with standing, rising from a chair, bending, kneeling, walking, stair negotiation, walking in the community, walking in the house . She presents with impairments in ADL's, balance, flexibility, gait, independence in exercise, joint mobility, overall function, patient reported outcome measures, posture, range of motion, strength, and symptom management. PROMIS? (Patient-Reported Outcomes Measurement Information System) scores were reviewed and identified as a rehabilitation concern. Prognosis for therapy is Fair due to: coping skills, chronic nature of impairments, multiple co- morbidities, clinical presentation, limited tolerance to activity, poor historian, poor understanding of deficits . She will benefit from skilled therapy services to meet the goals established for this plan of care as noted below. Classification Low Back Pain Classification: Symptom Modulation Goals for Episode of Care: created on 06/21/23 through 08/16/23 [place] in home exercise program. Patient will decrease pain rating by 2 points to meet minimal clinical important difference for numeric pain rating scale. Patient will increase active ROM of bilateral knee active extension to to 0 to allow pt to to improve postural alignment, to improve performance of ADLs, to improve gait mechanics / gait pattern , and to decrease falls risks . Patient will demonstrate increase in bilateral quadriceps strength to 4/5 during manual muscle testing in order to improve function for prior functional tasks. Patient will increase flexibility of BLE hamstrings to WNL to improve ability to maintain proper posture, improve mechanics, and decrease pain. Improve postural awareness. Normal gait. Reciprocal stair negotiation. Patient Goals: reduce LBP and B knee pain Planned Interventions, Frequency, and Duration: Current Frequency: 1x/week Duration: 8 weeks Total Number of Visits Planned: 8 Planned Treatment Interventions: Self-fpc management (99231), Gait Training (43350), Therapeutic activities (37066), Manual therapy (20420), Neuromuscular re-education (35455), Therapeutic exercise (88222) PLAN FOR NEXT VISIT: assess symptom response to HS stretching, quad strengthening, and flexion KTC stretch--- determine directional preference of lumbar spine or continue hook lying TA Patient demonstrates fair understanding of plan of care and treatment. The above goals and plan of care were discussed and agreed upon by patient/family. For further details regarding this patient refer to the Physical Therapy electronically documented visit dated 06/21/2023. Provider Attestation I have reviewed the treatment plan for Joan Adarsh Snow, [facility]# [id number] for the period of 06/21/23 -- 07/26/23, established on 06/21/2023. Signature certifies the need for therapy services. Normal [facility] CNTHERAPYon 06-21-2023 CNTHERAPY OT/PT/Speech Visit (PTWS) JOAN SNOW ([id number]) 1970 F Date Time Provider Department 06/21/23 8:15 AM CAMMIE RODRIGES Date Time Provider Department Center 06/21/2023 8:15 AM [id number]-CCAMMIE RODRIGES Reason for Visit: PT Eval [747] Primary Visit Diagnosis:Somatic dysfunction of lumbar region [M99.03] Other Visit Diagnosis:Chronic pain of both knees [M25.561, M25.562, G89.29] Allergies As of Date: 06/21/2023 (No Known Allergies) Date Reviewed: 06/07/2023 Reviewed by: Annelise Malagon MA - Fully Assessed Prescriptions as of 06/21/2023 - DULoxetine (CYMBALTA) 30 mg capsule Take 1 capsule by mouth every afternoon. - ADVAIR DISKUS 250-50 mcg/dose inhaler two times a day. - pantoprazole DR (PROTONIX) 40 mg tablet Take 1 tablet by mouth every afternoon. - traZODone (DESYREL) 100 mg tablet Take 100 mg by mouth daily at bedtime. - tiZANidine (ZANAFLEX) 4 mg tablet Take 1 tablet by mouth two times a day as needed. - atorvastatin (LIPITOR) 40 mg tablet - melatonin 10 mg TbER Take by mouth. - budesonide-formoterol (SYMBICORT) 160-4.5 mcg/actuation inhaler Inhale 2 Puffs as instructed twice daily. - escitalopram oxalate (LEXAPRO) 10 mg tablet Take 1 tablet by mouth once daily. - albuterol sulfate (PROAIR RESPICLICK) 90 mcg/actuation Inhale 2 Puffs as instructed four times daily as needed. - busPIRone (BUSPAR) 15 mg tablet Take 0.5 tablets by mouth twice daily. - biotin 1 mg cap Take by mouth. - TURMERIC ROOT EXTRACT ORAL Take by mouth. - aspirin, enteric coated (ASPIRIN, ENTERIC COATED) 81 mg EC tablet Take 81 mg by mouth once daily. - MULTIVITAMIN ORAL Take by mouth. Action Installer: Addendum Therapy (PT/OT/Speech/Resp) ID: [id number] 06/21/2023 8:42 AM Author: CAMMIE RODRIGES Signed by CAMMIE RODRIGES PT on 06/21/2023 at 8:42 AM * * * This document replaces document [id number] * * * Document text: Program_ID:[id number] Access Code: [email or web address] URL: [email or web address] .Jenn Rykert/ Date: 06-21-2023 Prepared By: Cammie Rodriges Program Notes Exercises - Supine Single Knee to Chest Stretch - 2-3 x daily - 7 x weekly - 4 sets - 1 reps - Quad Setting and Stretching - 2-3 x daily - 7 x weekly - 4 sets - 5 reps - Supine Single Knee to Chest Stretch - 2-3 x daily - 7 x weekly - 4 sets - 1 reps - Seated Hamstring Stretch - 2-3 x daily - 7 x weekly - 4 sets - 1 reps Normal [facility] THERAPY NTon 06-21-2023 THERAPY NT HNO ID: [id number] Author: CAMMIE RODRIGES PT Service: ? Author Type: Physical Therapist Type: Therapy (PT/OT/Speech/Resp) Filed: 06/21/2023 08:31 Note Text: Program_ID:[id number] Access Code: [email or web address] URL: [email or web address] .Jenn Rykert/ Date: 06-21-2023 Prepared By: Cammie Rodriges Program Notes Exercises - Supine Single Knee to Chest Stretch - 2-3 x daily - 7 x weekly - 4 sets - 1 reps - Quad Setting and Stretching - 2-3 x daily - 7 x weekly - 4 sets - 5 reps - Supine Single Knee to Chest Stretch - 2-3 x daily - 7 x weekly - 4 sets - 1 reps Normal [facility] CNOVon 06-07-2023 CNOV Office Visit (SPNMED ) JOAN SNOW ([id number]) 1970 F Date Time Provider Department 06/07/23 9:40 AM AMANDA FOOTE SPNMED During your visit today, we recorded the following information about you: Pulse Blood pressure Weight Height 72/minute 120/83 66.9 kg 1.626 m Amanda Foote PA-C 06/07/2023 10:35 AM Signed [facility] [address] [place] [address] 06/07/2023 ASSESSMENT AND PLAN: Assessment : Encounter Diagnosis ICD-10-CM 1. Somatic dysfunction of lumbar region M99.03 CONSULT TO PHYSICAL THERAPY tiZANidine (ZANAFLEX) 4 mg tablet 2. Chronic pain of both knees M25.561 CONSULT TO PHYSICAL THERAPY M25.562 tiZANidine (ZANAFLEX) 4 mg tablet G89.29 Discussion: Ms. Snow is a 52-year-old female here for evaluation of fairly severe low back pain worsening over the past 6 months or so, but present for a number of years. She describes separate right greater than left knee pain and stiffness with standing and sitting. She has been using a heating pad extensively and notes the fact that she has developed heating pad solorzano across her lumbosacral junction. EXAM Highlights: She is quite slow to move from sitting to standing and does not achieve a fully erect stance. She does not straighten out her right knee fully. She has troubles with getting any motion forward, backward, or [id number]-ga-[id number] without increasing central low back pain. She has diminished strength resistance in all motor groups of the lower extremities but describes increased pain with all resisted strength testing. She denies any bowel or bladder dysfunction or perineal numbness Seated SLR's are negative bilaterally. There is moderately severe pain on palpation in multiple areas across her low back including SI joints, PSIS, and lumbosacral junction in the midline and greater trochanters. IMAGING: She had a current series of lumbar plain radiographs that we reviewed in detail during today's visit. There is mild scoliosis without rotational component noted on the AP view. There may be mild disc space height loss at L3-4 and L4-5, but this is fairly subtle. She has otherwise age-appropriate degenerative findings in the lumbar region. SUMMARY/PLAN: Her pain seems to be poorly managed at this point and it seems to also be creating a cascade of other issues. I am not sure if the low back problems recently worsened are a result of her significant gait alterations to favor her right knee, or whether her low back is its own separate issue. Since she is neurologically intact without clear evidence of lumbar nerve root dysfunction today, I would recommend supervised PT and muscle relaxants to try to calm down some of her muscle spasm and pain in the back itself. We also had a discussion about the importance of her getting her knee issues evaluated and more fully treated. As long as she has significant gait alteration and favoring of her knee, it we will place additional mechanical stressors on her low back and keep her low back from healing well. She is to follow-up here after trying these 2 things if she still has some appreciable symptoms. We could consider future spine imaging studies such as CT or MRI. She will consider follow-up in urgent care or emergency department if symptoms become unmanageable in the interim Plan : REFERAL FOR SERVICES: -Physical therapy will be instituted. MEDICATIONS: -See prescribed medication list for this encounter. ACTIVITY RECOMMENDATIONS: -The patient is encouraged to avoid bed rest and maintain normal activity. -The patient advised to avoid prolonged sitting. FOLLOW-UP: -The patient is instructed to return after six weeks of therapy. -The patient is instructed to return sooner if problems warrant. This document has been created with the use of voice recognition technology. It may contain inaccuracies: (e.g. misspellings, inaccurate syntax or word sense) that have escaped review. Time spent: 45 minutes today with this patient visit. This includes [id number] time, review of chart records regarding conservative care history, spine-pertinent imaging, and communication/care coordination with referring provider, problem-specific history-taking and counseling/education regarding treatment options. cc: SELF Phone: N/A Fax: Results of consultation to be transmitted via electronic medical record for those providers who practice within [facility] or with access to [facility] via [facility], or via letter. ___ ####################### ####################### ####################### ### CHIEF COMPLAINT: Patient is here for the lower back pain, sometimes has left hip pain and pain goes down to the upper left leg. Has t (more content not included)... Normal [facility] CNPJennifer 05-09-2023 CNPN Telephone (SEJALNA) JOAN SNOW ([id number]) 1970 F Date Time Provider Department 05/09/23 FRANCESCO BANKS During your visit today, we recorded the following information about you: Tia Almonte MA 05/09/2023 10:40 AM Signed Patient has appointment scheduled on 05/12/2023 for bilateral knee injections. I left a message for the patient to contact the office to determine what kind of injection she is coming in for. She is too early to get a cortisone injection(last one 03/03/2023), will need to wait until 06/02/2023 to repeat and if she is coming in for a gel injection, that needs to be approved by her insurance. Tia Almonte MA 05/10/2023 2:26 PM Signed Patient cancelled appointment. Allergies As of Date: 05/09/2023 (No Known Allergies) Date Reviewed: 03/03/2023 Reviewed by: Francesco Banks PA-C - Fully Assessed Reason for Visit: Appointment [186] Prescriptions as of 05/10/2023 - atorvastatin (LIPITOR) 40 mg tablet - melatonin 10 mg TbER Take by mouth. - budesonide-formoterol (SYMBICORT) 160-4.5 mcg/actuation inhaler Inhale 2 Puffs as instructed twice daily. - escitalopram oxalate (LEXAPRO) 10 mg tablet Take 1 tablet by mouth once daily. - albuterol sulfate (PROAIR RESPICLICK) 90 mcg/actuation Inhale 2 Puffs as instructed four times daily as needed. - busPIRone (BUSPAR) 15 mg tablet Take 0.5 tablets by mouth twice daily. - biotin 1 mg cap Take by mouth. - TURMERIC ROOT EXTRACT ORAL Take by mouth. - aspirin, enteric coated (ASPIRIN, ENTERIC COATED) 81 mg EC tablet Take 81 mg by mouth once daily. - MULTIVITAMIN ORAL Take by mouth. Problem List As Of Date 05/09/2023 Noted Resolved Dysuria [R30.0] 01/21/2013 Anxiety [F41.9] 05/30/2017 Tobacco use disorder [F17.200] 05/30/2017 Chronic obstructive pulmonary disease (HCC) [J4*05/28/2019 History of tobacco use [Z87.891] COPD (chronic obstructive pulmonary disease) (H* Lung nodule, multiple [R91.8] 02/06/2020 Encounter Status:Closed by TIA ALMONTE on 05/10/23 Normal [facility] XR CERVICAL 4V AP/LAT/FLX/EX Ton 04-18-2023 XR CERVICAL 4V AP/LAT/FLX/EXT * * *Final Report* * * DATE OF EXAM: Apr 18 2023 9:52AM [id number] - XR CERVICAL 4V AP/LAT/FLX/EXT / PROCEDURE REASON: M54.9 * * * * Physician Interpretation * * * * EXAM TITLE: XR CERVICAL 4V AP/LAT/FLX/EXT EXAM DATE/TIME: 04/18/2023 9:52 AM COMPARISON: None. CLINICAL INDICATION/HISTORY: Degenerative disc disease. TECHNIQUE: AP, lateral, lateral extension and lateral flexion views of the cervical spine are presented. FINDINGS: No fractures or subluxations are noted. No change in alignment of the cervical spine with lateral extension and lateral flexion. C5-6 disc space narrowing is demonstrated, with osteophyte formation. The prevertebral soft tissues are normal. IMPRESSION: Cervical spine degenerative changes with C5-6 disc space narrowing. Transmission Maintenance Supervisor: PSC[facility] Transcribe Date/Time: Apr 19 2023 3:06P Dictated by : KEE YUSUF MD This examination was interpreted and the report reviewed and electronically signed by: KEE YUSUF MD on Apr 19 2023 3:09PM EST [id number] Normal [facility] XR LUMBAR 4V AP/LAT/ FLEX/EX Ton 04-18-2023 XR LUMBAR 4V AP/LAT/ FLEX/EXT * * *Final Report* * * DATE OF EXAM: Apr 18 2023 9:55AM WRX [id number] - XR LUMBAR 4V AP/LAT/ FLEX/EXT / PROCEDURE REASON: M54.9 * * * * Physician Interpretation * * * * HISTORY: M5. TECHNOLOGIST PROVIDED HISTORY (if applicable): PT STATES HISTORY OF DDD. TECHNIQUE: XR LUMBAR 4V AP/LAT/ FLEX/EXT RESULT: Lumbar spine 4 views. Counting reference: Lumbosacral junction. For the purposes of this report, L5-S1 is considered the most caudal well formed disc space. Mild apex rightward curvature centered at L2-3. Mild straightening of the lordosis. No subluxation or compression. Mild disc space narrowing L2-3 through L4-5 with minimal endplate productive changes. With flexion and extension there is no radiographic demonstration of instability. The sacroiliac joints and hips are symmetrically preserved. There are tubal ligation clips. IMPRESSION: MILD DEGENERATIVE CHANGES WITHOUT RADIOGRAPHICALLY DEMONSTRATED INSTABILITY. Transmission Maintenance Supervisor: [facility] Transcribe Date/Time: Apr 19 2023 9:10P Dictated by : YUNIOR DUNN MD This examination was interpreted and the report reviewed and electronically signed by: YUNIOR DUNN MD on Apr 19 2023 9:27PM EST [id number] Normal [facility] XR THORACIC 3V AP/LAT/SWIMME RSon 04-18-2023 XR THORACIC 3V AP/LAT/SWIMMERS * * *Final Report* * * DATE OF EXAM: Apr 18 2023 9:54AM [id number] [id number] - XR THORACIC 3V AP/LAT/SWIMMERS / PROCEDURE REASON: M54.9 * * * * Physician Interpretation * * * * HISTORY: M54. TECHNOLOGIST PROVIDED HISTORY (if applicable): PT STATES HISOTRY OF DDD TECHNIQUE: XR THORACIC 3V AP/LAT/SWIMMERS RESULT: Thoracic spine 3 views. Counting reference: The first visualized rib is considered T1. There are 12 paired ribs. She is osteopenic. Mildly accentuated thoracic kyphosis. No compression or destructive lesion is identified. There is mild disc space narrowing with minimal productive change throughout the midthoracic spine. More advanced degenerative changes are seen in the lower cervical spine on the swimmer's projection. IMPRESSION: OSTEOPENIA. DEGENERATIVE CHANGES. Transmission Maintenance Supervisor: [facility] Transcribe Date/Time: Apr 19 2023 9:09P Dictated by : YUNIOR DUNN MD This examination was interpreted and the report reviewed and electronically signed by: YUNIOR DUNN MD on Apr 19 2023 9:26PM EST [id number] Normal [facility] .GFRon 03-12-2023 GFR 56 ml/min/1.73sqm Normal [facility] ([place]) Comment on above: Result Comment: GFR Population mean for , Non- Americans Ages 20-29 = 116 mL/min/1.73 sq.m. Ages 30-39 = 107 mL/min/1.73 sq.m. Ages 40-49 = 99 mL/min/1.73 sq.m. Ages 50-59 = 93 mL/min/1.73 sq.m. Ages 60-69 = 85 mL/min/1.73 sq.m. Ages 70+ = 75 mL/min/1.73 sq.m. Chronic Kidney Disease: Less than 60 mL/min/1.73 square meters End Stage Renal Disease: Less than 15 mL/min/1.73 square meters Performed By: #### C BC, ADIFF, ANEU, BMP, TROPHS, MG, GFR, TSH, DRUGS, A1C #### [place] [address] GFR Non- 47 ml/min/1.73sqm Normal [facility] ([place]) Comment on above: Result Comment: GFR Population mean for , Non- Americans Ages 20-29 = 116 mL/min/1.73 sq.m. Ages 30-39 = 107 mL/min/1.73 sq.m. Ages 40-49 = 99 mL/min/1.73 sq.m. Ages 50-59 = 93 mL/min/1.73 sq.m. Ages 60-69 = 85 mL/min/1.73 sq.m. Ages 70+ = 75 mL/min/1.73 sq.m. Chronic Kidney Disease: Less than 60 mL/min/1.73 square meters End Stage Renal Disease: Less than 15 mL/min/1.73 square meters Performed By: #### C BC, ADIFF, ANEU, BMP, TROPHS, MG, GFR, TSH, DRUGS, A1C #### [address] [address] [facility] BUN/Creatinine Ratio 18 ratio Normal 7-27 [facility] ([place]) Comment on above: Performed By: #### C BC, ADIFF, ANEU, BMP, TROPHS, MG, GFR, TSH, DRUGS, A1C #### [place] [address] Calcium [Mass/Vol] 9.2 mg/dL Normal 8.4-10.2 [facility] ([place]) Comment on above: Performed By: #### C BC, ADIFF, ANEU, BMP, TROPHS, MG, GFR, TSH, DRUGS, A1C #### [place] [address] Chloride [Moles/Vol] 103 mmol/L Normal 98-107 [facility] ([place]) Comment on above: Performed By: #### C BC, ADIFF, ANEU, BMP, TROPHS, MG, GFR, TSH, DRUGS, A1C #### [place] [id number] CO2 [Moles/Vol] 31 mmol/L High 22-29 [facility] ([place]) Comment on above: Performed By: #### C BC, ADIFF, ANEU, BMP, TROPHS, MG, GFR, TSH, DRUGS, A1C #### [place] [address] Creatinine [Mass/Vol] 1.21 mg/dL High 0.55-1.02 [facility] ([place]) Comment on above: Performed By: #### C BC, ADIFF, ANEU, BMP, TROPHS, MG, GFR, TSH, DRUGS, A1C #### [place] [address] Electrolyte Balance 6.0 mEq/L Normal 4.0-15.0 [facility] ([place]) Comment on above: Performed By: #### C BC, ADIFF, ANEU, BMP, TROPHS, MG, GFR, TSH, DRUGS, A1C #### [address] [address] Glucose [Mass/Vol] 121 mg/dL High 70-105 [facility] ([place]) Comment on above: Performed By: #### C BC, ADIFF, ANEU, BMP, TROPHS, MG, GFR, TSH, DRUGS, A1C #### [address] [address] Potassium [Moles/Vol] 3.8 mmol/L Normal 3.5-5.1 [facility] ([place]) Comment on above: Performed By: #### C BC, ADIFF, ANEU, BMP, TROPHS, MG, GFR, TSH, DRUGS, A1C #### [address] [address] Sodium [Moles/Vol] 140 mmol/L Normal 136-145 [facility] ([place]) Comment on above: Performed By: #### C BC, ADIFF, ANEU, BMP, TROPHS, MG, GFR, TSH, DRUGS, A1C #### [address] [address] Urea nitrogen [Mass/Vol] 22 mg/dL High 7-18 [facility] ([place]) Comment on above: Performed By: #### C BC, ADIFF, ANEU, BMP, TROPHS, MG, GFR, TSH, DRUGS, A1C #### [address] [address] TROPHSon 03-12-2023 Troponin I High Sensitivity <4.0 Normal 0.0-51.4 [facility] ([place]) Comment on above: Performed By: #### C BC, ADIFF, ANEU, BMP, TROPHS, MG, GFR, TSH, DRUGS, A1C #### [address] [address] XR CHEST 1 VIEWon 03-12-2023 XR CHEST 1 VIEW ORIGINAL EXAMINATION: ONE XRAY VIEW OF THE CHEST 03/11/2023 10:14 pm COMPARISON: Chest radiograph November 08, 2022 HISTORY: ORDERING SYSTEM PROVIDED HISTORY: Reason for Exam: chest pain FINDINGS: The cardiomediastinal silhouette is relatively stable. The lungs appear to be emphysematous. No overt central vascular congestion, large pleural effusion or significant appreciable pneumothorax. There is biapical scarring. There is left basilar airspace opacity. The right lung is predominantly clear. No acute osseous abnormality. IMPRESSION: Left basilar airspace opacity may represent atelectasis versus developing infiltrate. Correlate with symptomatology and continued follow-up is recommended. Interpreted by: Lashawn Alonso MD Preliminary Report By: Lashawn Alonso MD Electronically signed By Lashawn Alonso MD Dictated Date: 03/11/2023 10:21:45 PM Prelim Date: 03/11/2023 10:24:42 PM Sign Date: 03/11/2023 10:24:42 PM Ordering Provider: CAROLANN French [facility] ([place]) .Auto Diffon 03-11-2023 Basophil, Absolute 0.1 10 3/mcL Normal 0.0-0.2 [facility] ([place]) Comment on above: Performed By: #### C BC, ADIFF, ANEU, BMP, TROPHS, MG, GFR, TSH, DRUGS, A1C #### [address] [address] Basophils/100 WBC (Bld) 1.4 % Normal 0.0-2.5 [facility] ([place]) Comment on above: Performed By: #### C BC, ADIFF, ANEU, BMP, TROPHS, MG, GFR, TSH, DRUGS, A1C #### [address] [address] Eosinophil, Absolute 0.3 10 3/mcL Normal 0.0-0.4 [facility] ([place]) Comment on above: Performed By: #### C BC, ADIFF, ANEU, BMP, TROPHS, MG, GFR, TSH, DRUGS, A1C #### [address] [address] Eosinophils/100 WBC (Bld) 3.4 % Normal 0.0-7.0 [facility] ([place]) Comment on above: Performed By: #### C BC, ADIFF, ANEU, BMP, TROPHS, MG, GFR, TSH, DRUGS, A1C #### [address] [address] Lymphocyte, Absolute 3.0 10 3/mcL Normal 0.8-3.9 [facility] ([place]) Comment on above: Performed By: #### C BC, ADIFF, ANEU, BMP, TROPHS, MG, GFR, TSH, DRUGS, A1C #### [address] [address] Lymphocytes/100 WBC (Bld) 40.9 % Normal 10.0-50.0 [facility] ([place]) Comment on above: Performed By: #### C BC, ADIFF, ANEU, BMP, TROPHS, MG, GFR, TSH, DRUGS, A1C #### [address] [address] Monocyte, Absolute 0.8 10 3/mcL Normal 0.2-1.0 [facility] ([place]) Comment on above: Performed By: #### C BC, ADIFF, ANEU, BMP, TROPHS, MG, GFR, TSH, DRUGS, A1C #### [address] [address] Monocytes/100 WBC (Bld) 10.1 % Normal 1.7-13.0 [facility] ([place]) Comment on above: Performed By: #### C BC, ADIFF, ANEU, BMP, TROPHS, MG, GFR, TSH, DRUGS, A1C #### [address] [address] Neutrophils/100 WBC (Bld) 44.2 % Normal 37.0-80.0 [facility] ([place]) Comment on above: Performed By: #### C BC, ADIFF, ANEU, BMP, TROPHS, MG, GFR, TSH, DRUGS, A1C #### [address] [address] .MDWon 03-11-2023 Monocyte Distribution Width 17.39 Normal 0.00-20.00 [facility] ([place]) Comment on above: Result Comment: For ED adult patients suspected of sepsis, MDW<=20.0 does not rule out sepsis or risk of sepsis Performed By: #### C BC, ADIFF, ANEU, BMP, TROPHS, MG, GFR, TSH, DRUGS, A1C #### [address] [address] .NEUABSon 03-11-2023 Neutrophil, Absolute 3.3 10 3/mcL Normal 2.9-6.2 [facility] ([place]) Comment on above: Performed By: #### C BC, ADIFF, ANEU, BMP, TROPHS, MG, GFR, TSH, DRUGS, A1C #### [place] [id number] CBCon 03-11-2023 Erythrocyte distribution width (RBC) [Ratio] 12.6 % Normal 11.5-14.5 [facility] ([place]) Comment on above: Performed By: #### C BC, ADIFF, ANEU, BMP, TROPHS, MG, GFR, TSH, DRUGS, A1C #### [place] [address] Hematocrit (Bld) [Volume fraction] 41.5 % Normal 37.0-47.0 [facility] ([place]) Comment on above: Performed By: #### C BC, ADIFF, ANEU, BMP, TROPHS, MG, GFR, TSH, DRUGS, A1C #### [place] [address] Hgb 14.8 G/dL Normal 12.0-16.0 [facility] ([place]) Comment on above: Performed By: #### C BC, ADIFF, ANEU, BMP, TROPHS, MG, GFR, TSH, DRUGS, A1C #### [place] [address] MCH (RBC) [Entitic mass] 32.0 pg High 27.0-31.2 [facility] ([place]) Comment on above: Performed By: #### C BC, ADIFF, ANEU, BMP, TROPHS, MG, GFR, TSH, DRUGS, A1C #### [place] [address] MCHC 35.6 G/dL Normal 33.0-37.0 [facility] ([place]) Comment on above: Performed By: #### C BC, ADIFF, ANEU, BMP, TROPHS, MG, GFR, TSH, DRUGS, A1C #### [place] [address] MCV (RBC) [Entitic vol] 89.7 fL Normal 80.0-94.0 [facility] ([place]) Comment on above: Performed By: #### C BC, ADIFF, ANEU, BMP, TROPHS, MG, GFR, TSH, DRUGS, A1C #### [place] [address] Platelet 282 10 3/mcL Normal 130-400 [facility] ([place]) Comment on above: Performed By: #### C BC, ADIFF, ANEU, BMP, TROPHS, MG, GFR, TSH, DRUGS, A1C #### [place] [address] Platelet mean volume (Bld) [Entitic vol] 7.1 fL Low 7.4-10.4 [facility] ([place]) Comment on above: Performed By: #### C BC, ADIFF, ANEU, BMP, TROPHS, MG, GFR, TSH, DRUGS, A1C #### [place] [address] RBC 4.63 10 6/mcL Normal 4.20-5.40 [facility] ([place]) Comment on above: Performed By: #### C BC, ADIFF, ANEU, BMP, TROPHS, MG, GFR, TSH, DRUGS, A1C #### [place] [address] WBC 7.4 10 3/mcL Normal 4.6-10.8 [facility] ([place]) Comment on above: Performed By: #### C BC, ADIFF, ANEU, BMP, TROPHS, MG, GFR, TSH, DRUGS, A1C #### [place] [address] LABORATORYOrdered By: SYSTEM SYSTEM on 03-11-2023 Basophil, Absolute 0.1 103/mcL Normal 0.0 - 0.2 10^3/mcL AO Workflow SS Basophils/100 WBC (Bld) 1.4 % Normal 0.0 - 2.5 % AO Workflow SS Calcium [Mass/Vol] 9.2 mg/dL Normal 8.4 - 10. 2 mg/dL AO ADM SS Chloride [Moles/Vol] 103 mmol/L Normal 98 - 10 7 mmol/L AO ADM SS CO2 [Moles/Vol] 31 mmol/L High 22 - 29 mmol/L AO ADM SS Creatinine [Mass/Vol] 1.21 mg/dL High 0.55 - 1.02 mg/dL AO ADM SS Electrolyte Balance 6.0 mEq/L Normal 4.0 - 15 .0 mEq/L AO ADM SS Eosinophil, Absolute 0.3 103/mcL Normal 0.0 - 0 .4 10^3/mcL AO Workflow SS Eosinophils/100 WBC (Bld) 3.4 % Normal 0.0 - 7.0 % AO Workflow SS Erythrocyte distribution width (RBC) [Ratio] 12.6 % Normal 11.5 - 14.5 % AO Workflow SS GFR/1.73 sq M.predicted among blacks MDRD (S/P/Bld) [Vol rate/Area] 56 ml/min/1.73sqm Invalid Interpretation Code AO Chemistry S Comment on above: Interpretive Data: GFR Population mean for , Non- Americans Ages 20-29 = 116 mL/min/1.73 sq.m. Ages 30-39 = 107 mL/min/1.73 sq.m. Ages 40-49 = 99 mL/min/1.73 sq.m. Ages 50-59 = 93 mL/min/1.73 sq.m. Ages 60-69 = 85 mL/min/1.73 sq.m. Ages 70+ = 75 mL/min/1.73 sq.m. Chronic Kidney Disease: Less than 60 mL/min/1.73 square meters End Stage Renal Disease: Less than 15 mL/min/1.73 square meters GFR/1.73 sq M.predicted among non-blacks MDRD (S/P/Bld) [Vol rate/Area] 47 ml/min/1.73sqm Invalid Interpretation Code AO Chemistry S Comment on above: Interpretive Data: GFR Population mean for , Non- Americans Ages 20-29 = 116 mL/min/1.73 sq.m. Ages 30-39 = 107 mL/min/1.73 sq.m. Ages 40-49 = 99 mL/min/1.73 sq.m. Ages 50-59 = 93 mL/min/1.73 sq.m. Ages 60-69 = 85 mL/min/1.73 sq.m. Ages 70+ = 75 mL/min/1.73 sq.m. Chronic Kidney Disease: Less than 60 mL/min/1.73 square meters End Stage Renal Disease: Less than 15 mL/min/1.73 square meters Glucose [Mass/Vol] 121 mg/dL High 70 - 105 mg/dL AO ADM SS Hematocrit (Bld) [Volume fraction] 41.5 % Normal 37.0 - 47.0 % AO Workflow SS Hemoglobin (Bld) [Mass/Vol] 14.8 G/dL Normal 12.0 - 16.0 G/dL AO Workflow SS Lymphocyte, Absolute 3.0 103/mcL Normal 0.8 - 3 .9 10^3/mcL AO Workflow SS Lymphocytes/100 WBC (Bld) 40.9 % Normal 10.0 - 50.0 % AO Workflow SS MCH (RBC) [Entitic mass] 32.0 pg High 27.0 - 31.2 pg AO Workflow SS MCHC 35.6 G/dL Normal 33.0 - 37.0 G/dL AO Workflow SS MCV (RBC) [Entitic vol] 89.7 fL Normal 80.0 - 94.0 fL AO Workflow SS Monocyte distribution width Auto (Bld) [Entitic vol] 17.39 1 Normal 0.00 - 20.00 AO Workflow SS Comment on above: Result Comment: For ED adult patients suspected of sepsis, MDW<=20.0 does not rule out sepsis or risk of sepsis Monocyte, Absolute 0.8 103/mcL Normal 0.2 - 1.0 10^3/mcL AO Workflow SS Monocytes/100 WBC (Bld) 10.1 % Normal 1.7 - 13.0 % AO Workflow SS Neutrophil, Absolute 3.3 103/mcL Normal 2.9 - 6 .2 10^3/mcL AO Workflow SS Neutrophils/100 WBC (Bld) 44.2 % Normal 37.0 - 80.0 % AO Workflow SS Platelet mean volume (Bld) [Entitic vol] 7.1 fL Low 7.4 - 10.4 fL AO Workflow SS Platelets (Bld) [#/Vol] 282 103/mcL Normal 130 - 400 10^3/mcL AO Workflow SS Potassium [Moles/Vol] 3.8 mmol/L Normal 3.5 - 5.1 mmol/L AO ADM SS RBC (Bld) [#/Vol] 4.63 106/mcL Normal 4.20 - 5.4 0 10^6/mcL AO Workflow SS Sodium [Moles/Vol] 140 mmol/L Normal 136 - 145 mmol/L AO ADM SS Troponin I.cardiac DL <= 0.01 ng/mL [Mass/Vol] ng/L Normal 0.0 - 51.4 ng/L AO ADM SS Urea nitrogen [Mass/Vol] 22 mg/dL High 7 - 18 mg/dL AO ADM SS Urea nitrogen/Creatinine [Mass ratio] 18 ratio Normal 7 - 27 ratio AO ADM SS WBC (Bld) [#/Vol] 7.4 103/mcL Normal 4.6 - 10.8 10^3/mcL AO Workflow SS CNOVon 03-03-2023 CNOV Office Visit (ORTHWS ) JOAN SNOW ([id number]) 1970 F Date Time Provider Department 03/03/23 9:30 AM FRANCESCO BANKS During your visit today, we recorded the following information about you: Suzy Tia Perea 03/03/2023 9:50 AM Signed AMB ROOMING INTAKE FLOWSHEET DATA Pain Pain Level: 4 Pain Location: Knee-Left Description: Aching Duration Amount of Time: 1 Duration Units: Months Frequency: Continuous Intervention/Comfort measure: Cold, Medication, Other: See comment (compression) Patient here for left knee pain that has been ongoing for about 1 month. She states it is difficult to sleep. Her pain is better when she wakes up, but get progressively worse throughout the day as she is on it. Not currently working outside the home. She has been using compression, ice and medications which do not help her pain. Francesco Banks PA-C 03/03/2023 9:50 AM Signed INJECTION PROCEDURE NOTE: Patient returns today for LEFT knee cortisone injection. Patient reports some relief from right knee cortisone, but may be compensating and aggravating the knees. She also was kneeling on concrete floor which made her pain worse. Has been taking meloxicam with minimal help. We will proceed with left knee cortisone for relief. Prior to the procedure, the patient's allergies were reviewed. The procedure site was marked. The procedure team checked for proper functioning of devices and supplies to be used for the procedure. Procedure details: The injection site was prepped in the usual sterile manner. Ethyl chloride mist spray was used to numb the skin. 3cc of 1% lidocaine without epinephrine and 2cc of Celestone was injected into the left knee. After the injection, a bandage was placed over the injection site. The patient tolerated the procedure well with no adverse effects. Post-injection instructions were reviewed with the patient and the patient voiced understanding. Large Joint Arthro/Inj: L knee joint Informed Consent Consent Obtained: Verbal [place] Protocol SIGN IN Personnel directly involved with the procedure wore the appropriate PPE. Special Equipment: N/A Patient/Surrogate Stated/Verified: Patient name, Date of , Relevant allergies and Intended procedure TIME OUT Relevant labs, photos, and/or imaging studies have been reviewed. Correct side/site marked and visible. Medications required for procedure verified. No fire risk assessment and interventions applicable. No implant(s) inserted. 03/03/2023 9:49 AM The procedure site was prepped in the usual sterile fashion. Site: L knee joint Medications: 12 mg betamethasone acetate-betamethasone sodium phosphate 6 mg/mL Anesthetics: 3 mL lidocaine (PF) 10 mg/mL (1 %) Outcome: Tolerated well, no immediate complications Post-injection instructions were reviewed with the patient and the patient voiced understanding of these instructions. SIGN OUT All instruments, equipment, possible retained foreign bodies accounted for. 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 - atorvastatin (LIPITOR) 40 mg tablet - melatonin 10 mg TbER Take by mouth. - budesonide-formoterol (SYMBICORT) 160-4.5 mcg/actuation inhaler Inhale 2 Puffs as instructed twice daily. - escitalopram oxalate (LEXAPRO) 10 mg tablet Take 1 tablet by mouth once daily. - albuterol sulfate (PROAIR RESPICLICK) 90 mcg/actuation Inhale 2 Puffs as instructed four times daily as needed. - busPIRone (BUSPAR) 15 mg tablet Take 0.5 tablets by mouth twice daily. - biotin 1 mg cap Take by mouth. - TURMERIC ROOT EXTRACT ORAL Take by mouth. - aspirin, enteric coated (ASPIRIN, ENTERIC COATED) 81 mg EC tablet Take 81 mg by mouth once daily. - MULTIVITAMIN ORAL Take by mouth. Medication notes this encounter MULTIVITAMIN ORAL >> Tia Almonte Ma 03/03/2023 9:24 AM >> TIA ALMONTE MA MonMar 03, 2023 9:24 AM Problem List As Of Date 03/03/2023 Noted Resolved Dysuria [R30.0] 01/21/2013 Anxiety [F41.9] 05/30/2017 Tobacco use disorder [F17.200] 05/30/2017 Chronic obstructive pulmonary disease (HCC) [J4*05/28/2019 History of tobacco use [Z87.891] COPD (chronic obstructive pulmonary disease) (H* Lung nodule, multiple [R91.8] 02/06/2020 Prescriptions (more content not included)... Normal [facility] XR KNEE 4V AP/PA BOTH+LAT/ME R LTon 03-03-2023 XR KNEE 4V AP/PA BOTH+LAT/NAYLA LT * * *Final Report* * * DATE OF EXAM: Mar 03 2023 9:19AM WRX 5202 - XR KNEE 4V AP/PA BOTH+LAT/NAYLA LT / PROCEDURE REASON: Left knee pain, unspecified chronicity * * * * Physician Interpretation * * * * EXAMINATION / TECHNIQUE: XR KNEE 4V AP/PA BOTH+LAT/NAYLA LT HISTORY: pain in left anterior patella area for a month no inj Left knee pain, unspecified chronicity COMPARISON: 01/20/2023. RESULT: No acute fracture or osseous malalignment is identified. The joint spaces are preserved. No joint effusion. IMPRESSION: No acute bony abnormality. Transmission Maintenance Supervisor: PSCB Transcribe Date/Time: Mar 06 2023 8:48P Dictated by : SAGRARIO PARNELL MD This examination was interpreted and the report reviewed and electronically signed by: SAGRARIO PARNELL MD on Mar 06 2023 9:10PM EST [id number] Normal [facility] CNOVon 02-10-2023 CNOV Office Visit (ORTHWS ) JOAN SNOW ([id number]) 1970 F Date Time Provider Department 02/10/23 8:00 AM FRANCESCO BANKS During your visit today, we recorded the following information about you: Natalie Mcnair RN 02/10/2023 8:47 AM Signed Patient presents with: Right Knee - New: Right knee pain and swelling Referred by Kyaw Remy APRN Xrnigel 01/20/2023 (right knee only) Left Knee - New: Left knee pain Patient states that both of her knees have been bothering her (right worse left) with pain and swelling. She states the right knee pain sometimes radiates down to her foot. The pain is worse when using stairs or by the end of the day. Patient is not currently employed. AMB ROOMING INTAKE FLOWSHEET DATA Pain Pain Level: 7 (left knee 2/10) Pain Location: Knee-Right Description: Dull, Throbbing Duration Amount of Time: 3 Duration Units: Months Frequency: Continuous Intervention/Comfort measure: Reposition, Medication TORIBIO Matthew Pawel, PA-C 02/10/2023 9:45 AM Addendum HISTORY OF PRESENT ILLNESS: Joan is a 52 year old female. She is here for evaluation of Right knee pain. Previously been seen by Kyaw Remy CNP for right knee posterior swelling for 3 weeks. She has been using knee sleeve and ibuprofen with no relief. Upon physical examination she had Christy's cyst in the posterior right knee. 02/10/2023: Patient presents to the office today with bilateral knee pain right greater than left. She feels that she is compensating for her right knee and her left knee has started to bother her. This pain has been going on for approximately 3 months. There was no injury or trauma that set off her pain. She has been using topical lidocaine, ibuprofen, and copper knee sleeve without relief. She reports that any movement aggravates her pain, but she does report pain going down the stairs makes her feel even worse. She does not report any alleviating factors that have helped. Patient denies diabetes, history of blood clots, or use of blood thinners. Per chart review patient is a former smoker with [id number] history she does have chronic COPD that is well-controlled. Injury: No Pain: Yes LOCATION: Bilateral knee pain predominantly anterior PAIN SCALE: 710 on the right, 210 on the left PAIN CHARACTER: Dull, aching DURATION: (How long have you had the pain?) 3 months FREQUENCY: (How often does the pain occur?) Daily, continuous AGGRAVATING FACTORS: Activity, walking, stairs ALLEVIATING FACTORS: Heating pad, rest Onset: gradual and progressive Quality:aching Swelling: Patient notes continuous swelling of the joint. Mechanical symptoms: None Radiation: Yes, occasional radiation down right lower leg extending into foot Activities: Walking, exercise Restriction: None Progression: Constant Previous treatment: Ibuprofen, heating pad, knee sleeve, topical lidocaine NSAIDS: Ibuprofen PT:No physical therapy program has been initiated. MEDICATIONS Current Outpatient Medications on File Prior to Visit Medication Sig atorvastatin (LIPITOR) 40 mg tablet melatonin 10 mg TbER Take by mouth. budesonide-formoterol (SYMBICORT) 160-4.5 mcg/actuation inhaler Inhale 2 Puffs as instructed twice daily. escitalopram oxalate (LEXAPRO) 10 mg tablet Take 1 tablet by mouth once daily. (Patient not taking: Reported on 01/15/2023) albuterol sulfate (PROAIR RESPICLICK) 90 mcg/actuation Inhale 2 Puffs as instructed four times daily as needed. busPIRone (BUSPAR) 15 mg tablet Take 0.5 tablets by mouth twice daily. (Patient not taking: Reported on 01/15/2023) biotin 1 mg cap Take by mouth. (Patient not taking: Reported on 01/15/2023) TURMERIC ROOT EXTRACT ORAL Take by mouth. aspirin, enteric coated (ASPIRIN, ENTERIC COATED) 81 mg EC tablet Take 81 mg by mouth once daily. MULTIVITAMIN ORAL Take by mouth. No current facility-administered medications on file prior to visit. ALLERGIES ALLERGIES No Known Allergies PAST MEDICAL HISTORY PAST MEDICAL HISTORY Diagnosis Date Abnormal pap COPD (chronic obstructive pulmonary disease) (HCC) History of tobacco use Umbilical hernia without mention of obstruction or gangrene PAST SURGICAL HISTORY PAST SURGICAL HISTORY Procedure Laterality Date COLONOSCOPY FLX DX W/COLLJ SPEC WHEN PFRMD 11/22/2017 Colonoscopy HERNIA REPAIR HX 2003 umbilical LEEP PROCEDURE (HEAD OF BIOLOGY DEPT)_*FL 2006 LIG/TRNSXJ FLP TUBE ABDL/VAG APPR UNI/BI 2003 VAGINOSCOPY 07/2006 SOCIAL HISTORY Tobacco: Ex-smoker, quit 1 years ago FAMILY HISTORY Does a similar condition to what you are experiencing run in your family? N/A REVIEW OF SYSTEMS: All other systems negative. PHYSICAL EXAM: PE: All other systems deferred. GENERAL: Appears healthy, well-nourished, no deformities. HABITUS: Normal Gait: Antalgic to the right Left: (more content not included)... Normal [facility] XR KNEE 4V AP/PA BOTH+LAT/ME R RTon 01-20-2023 XR KNEE 4V AP/PA BOTH+LAT/NAYLA RT * * *Final Report* * * DATE OF EXAM: Jan 20 2023 8:47AM WRX 5203 - XR KNEE 4V AP/PA BOTH+LAT/NAYLA RT / PROCEDURE REASON: Pain * * * * Physician Interpretation * * * * HISTORY: 52-YEAR-OLD FEMALE WITH Pain . PT STATES RIGHT POSTERIOR KNEE CYST. TECHNIQUE: XR KNEE 4V AP/PA BOTH+LAT/NAYLA RT Laterality: RIGHT Number of different views (projections): 4 COMPARISON: None RESULT: Right knee: Knee joint and patellofemoral joint are maintained. No joint effusion. No fracture. If a Christy's cyst is clinically suspected further evaluation by ultrasound should be considered. IMPRESSION: NORMAL RADIOGRAPH OF THE RIGHT KNEE. Transmission Maintenance Supervisor: RAVI Transcribe Date/Time: Jan 22 2023 9:08P Dictated by : NIDA MONET MD This examination was interpreted and the report reviewed and electronically signed by: NIDA MONET MD on Jan 22 2023 9:08PM EST [id number] Normal [facility] CNOVon 01-15-2023 CNOV Office Visit (UCWSTR ) JOAN SNOW ([id number]) 1970 F Date Time Provider Department 01/15/23 1:15 PM KYAW REMY [facility] During your visit today, we recorded the following information about you: Pulse Respiration Blood pressure Weight 82/minute 16/minute 110/78 66.2 kg Kyaw Remy APRN.CNP 01/15/2023 1:42 PM Signed This note was created using EasySizeriter. Subjective Joan Snow is a 52 year old female for right posterior knee swelling x3 weeks. Patient reports use of knee sleeve and ibuprofen with no improvement. Objective BP 110/78 Pulse 82 Resp 16 Wt 66.2 kg (146 lb) LMP (LMP Unknown) SpO2 96% BMI 25.86 kg/m? Physical Exam PHYSICAL EXAMINATION: General appearance: Well appearing, alert, in no acute distress, well-hydrated, well nourished. Extremities: Positive findings: Bakers Cyst to posterior right knee Peripheral pulses: Normal Neuro: Gait normal. Reflexes normal and symmetric. Sensation grossly intact. ASSESSMENT/PLAN: 1. Synovial cyst of right popliteal space - ICD9: 727.51, ICD10: M71.21 - CONSULT TO ORTHOPAEDICS JOHN Parkinson Danielle, APRN.CNP 01/15/2023 1:42 PM Signed Follow up with Dr. Alva. Allergies As of Date: 01/15/2023 (No Known Allergies) Date Reviewed: 01/15/2023 Reviewed by: Alicia Alonso LPN - Fully Assessed Reason for Visit: Edema [39] Cmt: Right knee with pain x 3 wks worsening Primary Visit Diagnosis:Synovial cyst of right popliteal space [M71.21] Order(s):CONSULT TO ORTHOPAEDICS [9085] Order #: [id number]: 1 FUTURE Prescriptions as of 01/15/2023 - atorvastatin (LIPITOR) 40 mg tablet - melatonin 10 mg TbER Take by mouth. - budesonide-formoterol (SYMBICORT) 160-4.5 mcg/actuation inhaler Inhale 2 Puffs as instructed twice daily. - escitalopram oxalate (LEXAPRO) 10 mg tablet Take 1 tablet by mouth once daily. - albuterol sulfate (PROAIR RESPICLICK) 90 mcg/actuation Inhale 2 Puffs as instructed four times daily as needed. - busPIRone (BUSPAR) 15 mg tablet Take 0.5 tablets by mouth twice daily. - biotin 1 mg cap Take by mouth. - TURMERIC ROOT EXTRACT ORAL Take by mouth. - aspirin, enteric coated (ASPIRIN, ENTERIC COATED) 81 mg EC tablet Take 81 mg by mouth once daily. - MULTIVITAMIN ORAL Take by mouth. Problem List As Of Date 01/15/2023 Noted Resolved Dysuria [R30.0] 01/21/2013 Anxiety [F41.9] 05/30/2017 Tobacco use disorder [F17.200] 05/30/2017 Chronic obstructive pulmonary disease (HCC) [J4*05/28/2019 History of tobacco use [Z87.891] COPD (chronic obstructive pulmonary disease) (H* Lung nodule, multiple [R91.8] 02/06/2020 Other instructions from your clinician: Follow up with Dr. Alva. Encounter Status:Closed by KYAW REMY on 01/15/23 Normal [facility] .Auto Diffon 11-08-2022 Basophil, Absolute 0.1 10 3/mcL Normal 0.0-0.3 [facility] ([place]) Comment on above: Performed By: #### C DEISI, KD, SILVERIO, BMP, TROPHS, MG, GFR, TSH, DRUGS, A1C #### [facility] [address] [place] [id number] Basophils/100 WBC (Bld) 0.7 % Normal 0.0-2.5 [facility] ([place]) Comment on above: Performed By: #### C BC, ADIFF, ANEU, BMP, TROPHS, MG, GFR, TSH, DRUGS, A1C #### [address] [address] Eosinophil, Absolute 0.2 10 3/mcL Normal 0.0-0.7 [facility] ([place]) Comment on above: Performed By: #### C BC, ADIFF, ANEU, BMP, TROPHS, MG, GFR, TSH, DRUGS, A1C #### [address] [address] Eosinophils/100 WBC (Bld) 2.6 % Normal 0.0-6.0 [facility] ([place]) Comment on above: Performed By: #### C BC, ADIFF, ANEU, BMP, TROPHS, MG, GFR, TSH, DRUGS, A1C #### [address] [address] Lymphocyte, Absolute 1.9 10 3/mcL Normal 0.9-4.3 [facility] ([place]) Comment on above: Performed By: #### C BC, ADIFF, ANEU, BMP, TROPHS, MG, GFR, TSH, DRUGS, A1C #### [address] [address] Lymphocytes/100 WBC (Bld) 28.4 % Normal 20.0-40.0 [facility] ([place]) Comment on above: Performed By: #### C BC, ADIFF, ANEU, BMP, TROPHS, MG, GFR, TSH, DRUGS, A1C #### [address] [address] Monocyte, Absolute 0.5 10 3/mcL Normal 0.1-1.4 [facility] ([place]) Comment on above: Performed By: #### C BC, ADIFF, ANEU, BMP, TROPHS, MG, GFR, TSH, DRUGS, A1C #### [address] [address] Monocytes/100 WBC (Bld) 7.4 % Normal 2.0-13.0 [facility] ([place]) Comment on above: Performed By: #### C BC, ADIFF, ANEU, BMP, TROPHS, MG, GFR, TSH, DRUGS, A1C #### [address] [address] Neutrophils/100 WBC (Bld) 60.9 % Normal 50.0-75.0 [facility] ([place]) Comment on above: Performed By: #### C BC, ADIFF, ANEU, BMP, TROPHS, MG, GFR, TSH, DRUGS, A1C #### [address] [address] .GFRon 11-08-2022 GFR >60 Normal [facility] ([place]) Comment on above: Result Comment: GFR Population mean for , Non- Americans Ages 20-29 = 116 mL/min/1.73 sq.m. Ages 30-39 = 107 mL/min/1.73 sq.m. Ages 40-49 = 99 mL/min/1.73 sq.m. Ages 50-59 = 93 mL/min/1.73 sq.m. Ages 60-69 = 85 mL/min/1.73 sq.m. Ages 70+ = 75 mL/min/1.73 sq.m. Chronic Kidney Disease: Less than 60 mL/min/1.73 square meters End Stage Renal Disease: Less than 15 mL/min/1.73 square meters Performed By: #### C BC, ADIFF, ANEU, BMP, TROPHS, MG, GFR, TSH, DRUGS, A1C #### [address] [address] GFR Non- 53 ml/min/1.73sqm Normal [facility] ([place]) Comment on above: Result Comment: GFR Population mean for , Non- Americans Ages 20-29 = 116 mL/min/1.73 sq.m. Ages 30-39 = 107 mL/min/1.73 sq.m. Ages 40-49 = 99 mL/min/1.73 sq.m. Ages 50-59 = 93 mL/min/1.73 sq.m. Ages 60-69 = 85 mL/min/1.73 sq.m. Ages 70+ = 75 mL/min/1.73 sq.m. Chronic Kidney Disease: Less than 60 mL/min/1.73 square meters End Stage Renal Disease: Less than 15 mL/min/1.73 square meters Performed By: #### C BC, ADIFF, ANEU, BMP, TROPHS, MG, GFR, TSH, DRUGS, A1C #### [address] [address] .NEUABSon 11-08-2022 Neutrophil, Absolute 4.1 10 3/mcL Normal 2.3-8.1 [facility] ([place]) Comment on above: Performed By: #### C BC, ADIFF, ANEU, BMP, TROPHS, MG, GFR, TSH, DRUGS, A1C #### [address] [address] A1Con 11-08-2022 HbA1c (Bld) [Mass fraction] 5.1 % Normal 4.0-6.0 [facility] ([place]) Comment on above: Performed By: #### C BC, ADIFF, ANEU, BMP, TROPHS, MG, GFR, TSH, DRUGS, A1C #### [address] [address] BMPon 11-08-2022 BUN/Creatinine Ratio 17.6 ratio Normal 10.0-22.0 [facility] ([place]) Comment on above: Performed By: #### C BC, ADIFF, ANEU, BMP, TROPHS, MG, GFR, TSH, DRUGS, A1C #### [address] [address] Calcium [Mass/Vol] 9.3 mg/dL Normal 8.7-10.4 [facility] ([place]) Comment on above: Performed By: #### C BC, ADIFF, ANEU, BMP, TROPHS, MG, GFR, TSH, DRUGS, A1C #### [address] [address] Chloride [Moles/Vol] 110 mmol/L Normal 98-110 [facility] ([place]) Comment on above: Performed By: #### C BC, ADIFF, ANEU, BMP, TROPHS, MG, GFR, TSH, DRUGS, A1C #### [address] [address] CO2 [Moles/Vol] 28 mmol/L Normal 22-32 [facility] ([place]) Comment on above: Performed By: #### C BC, ADIFF, ANEU, BMP, TROPHS, MG, GFR, TSH, DRUGS, A1C #### [address] [address] Creatinine [Mass/Vol] 1.08 mg/dL Normal 0.50-1.20 [facility] ([place]) Comment on above: Performed By: #### C BC, ADIFF, ANEU, BMP, TROPHS, MG, GFR, TSH, DRUGS, A1C #### [address] [address] Electrolyte Balance 4.0 mEq/L Normal 4.0-15.0 [facility] ([place]) Comment on above: Performed By: #### C BC, ADIFF, ANEU, BMP, TROPHS, MG, GFR, TSH, DRUGS, A1C #### [address] [address] Glucose [Mass/Vol] 103 mg/dL Normal 70-110 [facility] ([place]) Comment on above: Performed By: #### C BC, ADIFF, ANEU, BMP, TROPHS, MG, GFR, TSH, DRUGS, A1C #### [address] [address] Potassium [Moles/Vol] 4.0 mmol/L Normal 3.5-5.0 [facility] ([place]) Comment on above: Result Comment: Spec imen slightly hemolyzed. Performed By: #### C BC, ADIFF, ANEU, BMP, TROPHS, MG, GFR, TSH, DRUGS, A1C #### [address] [address] Sodium [Moles/Vol] 142 mmol/L Normal 136-145 [facility] ([place]) Comment on above: Performed By: #### C BC, ADIFF, ANEU, BMP, TROPHS, MG, GFR, TSH, DRUGS, A1C #### [address] [address] Urea nitrogen [Mass/Vol] 19.0 mg/dL Normal 8.0-22.0 [facility] ([place]) Comment on above: Performed By: #### C BC, ADIFF, ANEU, BMP, TROPHS, MG, GFR, TSH, DRUGS, A1C #### [address] [address] CBCon 11-08-2022 Erythrocyte distribution width (RBC) [Ratio] 12.5 % Normal 11.5-15.5 [facility] ([place]) Comment on above: Performed By: #### C BC, ADIFF, ANEU, BMP, TROPHS, MG, GFR, TSH, DRUGS, A1C #### [place] [id number] Hematocrit (Bld) [Volume fraction] 40.0 % Normal 34.0-46.0 [facility] ([place]) Comment on above: Performed By: #### C BC, ADIFF, ANEU, BMP, TROPHS, MG, GFR, TSH, DRUGS, A1C #### [place] [address] Hgb 13.8 G/dL Normal 12.0-16.0 [facility] ([place]) Comment on above: Performed By: #### C BC, ADIFF, ANEU, BMP, TROPHS, MG, GFR, TSH, DRUGS, A1C #### [place] [address] MCH (RBC) [Entitic mass] 31.5 pg Normal 27.0-33.0 [facility] ([place]) Comment on above: Performed By: #### C BC, ADIFF, ANEU, BMP, TROPHS, MG, GFR, TSH, DRUGS, A1C #### [place] [address] MCHC 34.5 G/dL Normal 32.0-36.0 [facility] ([place]) Comment on above: Performed By: #### C BC, ADIFF, ANEU, BMP, TROPHS, MG, GFR, TSH, DRUGS, A1C #### [place] [id number] MCV (RBC) [Entitic vol] 91.4 fL Normal 80.0-99.0 [facility] ([place]) Comment on above: Performed By: #### C BC, ADIFF, ANEU, BMP, TROPHS, MG, GFR, TSH, DRUGS, A1C #### [place] [address] Platelet 273 10 3/mcL Normal 150-450 [facility] ([place]) Comment on above: Performed By: #### C BC, ADIFF, ANEU, BMP, TROPHS, MG, GFR, TSH, DRUGS, A1C #### [address] [address] Platelet mean volume (Bld) [Entitic vol] 7.9 fL Normal 6.6-10.5 [facility] ([place]) Comment on above: Performed By: #### C BC, ADIFF, ANEU, BMP, TROPHS, MG, GFR, TSH, DRUGS, A1C #### [place] [id number] RBC 4.38 10 6/mcL Normal 4.10-5.30 [facility] ([place]) Comment on above: Performed By: #### C BC, ADIFF, ANEU, BMP, TROPHS, MG, GFR, TSH, DRUGS, A1C #### [place] [id number] WBC 6.8 10 3/mcL Normal 4.5-10.8 [facility] ([place]) Comment on above: Performed By: #### C BC, ADIFF, ANEU, BMP, TROPHS, MG, GFR, TSH, DRUGS, A1C #### [place] [id number] DRUGSon 11-08-2022 Acetaminophen [Mass/Vol] ug/mL Low 10.0-20.0 [facility] ([place]) Comment on above: Performed By: #### C BC, ADIFF, ANEU, BMP, TROPHS, MG, GFR, TSH, DRUGS, A1C #### [place] [address] Ethanol Level <10.0 Normal [facility] ([place]) Comment on above: Performed By: #### C BC, ADIFF, ANEU, BMP, TROPHS, MG, GFR, TSH, DRUGS, A1C #### [place] [id number] Salicylate Lvl (ds) <3.0 Low 10.0-25.0 [facility] ([place]) Comment on above: Performed By: #### C BC, ADIFF, ANEU, BMP, TROPHS, MG, GFR, TSH, DRUGS, A1C #### [place] [address] Serum Drugs screened: See Below Normal [facility] ([place]) Comment on above: Result Comment: This drug screen is a presumptive screening only. No confirmation will be performed unless requested. Drugs included in the ER serum drug screen are: Threshold Ethanol 10.0 mg/dL Salicylate 2.0 mg/dl Acetaminophen 2.0 mcg/mL Testing has been performed FOR MEDICAL PURPOSES ONLY. Performed By: #### C BC, ADIFF, ANEU, BMP, TROPHS, MG, GFR, TSH, DRUGS, A1C #### [place] [address] DRUGUon 11-08-2022 Amphetamine (u) Negative Normal Negative [facility] ([place]) Comment on above: Performed By: #### C BC, ADIFF, ANEU, BMP, TROPHS, MG, GFR, TSH, DRUGS, A1C #### [place] [address] Barbiturate (u) Negative Normal Negative [facility] ([place]) Comment on above: Performed By: #### C BC, ADIFF, ANEU, BMP, TROPHS, MG, GFR, TSH, DRUGS, A1C #### [place] [address] Benzodiazepine (u) Negative Normal Negative [facility] ([place]) Comment on above: Performed By: #### C BC, ADIFF, ANEU, BMP, TROPHS, MG, GFR, TSH, DRUGS, A1C #### [place] [address] Cannabinoid (u) Negative Normal Negative [facility] ([place]) Comment on above: Performed By: #### C BC, ADIFF, ANEU, BMP, TROPHS, MG, GFR, TSH, DRUGS, A1C #### [place] [address] Cocaine Ql (U) Negative Normal Negative [facility] ([place]) Comment on above: Performed By: #### C BC, ADIFF, ANEU, BMP, TROPHS, MG, GFR, TSH, DRUGS, A1C #### [address] [address] Fentanyl (u) Negative Normal Negative [facility] ([place]) Comment on above: Result Comment: Test ing has been performed FOR MEDICAL PURPOSES ONLY. Performed By: #### C BC, ADIFF, ANEU, BMP, TROPHS, MG, GFR, TSH, DRUGS, A1C #### [address] [address] Methadone Ql (U) Negative Normal Negative [facility] ([place]) Comment on above: Performed By: #### C BC, ADIFF, ANEU, BMP, TROPHS, MG, GFR, TSH, DRUGS, A1C #### [place] [id number] Opiate (u) Negative Normal Negative [facility] ([place]) Comment on above: Performed By: #### C BC, ADIFF, ANEU, BMP, TROPHS, MG, GFR, TSH, DRUGS, A1C #### [place] [address] Oxycodone (u) Negative Normal Negative [facility] ([place]) Comment on above: Result Comment: Test ing has been performed FOR MEDICAL PURPOSES ONLY. Performed By: #### C BC, ADIFF, ANEU, BMP, TROPHS, MG, GFR, TSH, DRUGS, A1C #### [address] [address] PCP (u) Negative Normal Negative [facility] ([place]) Comment on above: Performed By: #### C BC, ADIFF, ANEU, BMP, TROPHS, MG, GFR, TSH, DRUGS, A1C #### [place] [id number] Propoxyphene (u) Negative Normal Negative [facility] ([place]) Comment on above: Performed By: #### C BC, ADIFF, ANEU, BMP, TROPHS, MG, GFR, TSH, DRUGS, A1C #### [place] [address] U pH Drug Scrn 6.5 Normal 5.0-8.0 [facility] ([place]) Comment on above: Performed By: #### C BC, ADIFF, ANEU, BMP, TROPHS, MG, GFR, TSH, DRUGS, A1C #### [address] [address] Urine Drugs screened: See Below Normal [facility] ([place]) Comment on above: Result Comment: This drug screen is a presumptive screening only. No confirmation will be performed unless requested. Drugs screened include: Threshold Amphetamines/Methamphetamines 1,000 ng/mL Barbiturates 200 ng/mL Benzodiazepine metabolites 200 ng/mL Cannabinoids (THC metabolites) 50 ng/mL Benzoylecognine (Cocaine metab) 300 ng/mL Opiates 300 ng/mL Phencyclidine (PCP) 25 ng/mL Methadone 300 ng/mL Propoxyphene 300 ng/mL Fentanyl 1.0 ng/mL Oxycodone 100 ng/mL Testing has been performed FOR MEDICAL PURPOSES ONLY. Performed By: #### C BC, ADIFF, ANEU, BMP, TROPHS, MG, GFR, TSH, DRUGS, A1C #### [address] [address] LABORATORYOrdered By: Yue Owens on 11-08-2022 Amphetamines Screen Ql (U) Negative *NA* (11/08/22 4:56 AM) Invalid Interpretation Code Negative AH ADM SS Barbiturates Screen Ql (U) Negative *NA* (11/08/22 4:56 AM) Invalid Interpretation Code Negative AH ADM SS Benzodiazepines Ql (U) Negative *NA* (11/08/22 4:56 AM) Invalid Interpretation Code Negative AH ADM SS Benzoylecgonine Screen Ql (U) Negative *NA* (11/08/22 4:56 AM) Invalid Interpretation Code Negative AH ADM SS Cannabinoids Screen Ql (U) Negative *NA* (11/08/22 4:56 AM) Invalid Interpretation Code Negative AH ADM SS fentaNYL Screen Ql (U) Negative 1 *NA* (11/08/22 4:56 AM) Invalid Interpretation Code Negative AH ADM SS Comment on above: Interpretive Data: T esting has been performed FOR MEDICAL PURPOSES ONLY. Methadone Screen Ql (U) Negative *NA* (11/08/22 4:56 AM) Invalid Interpretation Code Negative AH ADM SS Opiates Screen Ql (U) Negative *NA* (11/08/22 4:56 AM) Invalid Interpretation Code Negative AH ADM SS oxyCODONE Ql (U) Negative 2 *NA* (11/08/22 4:56 AM) Invalid Interpretation Code Negative ADM SS Comment on above: Interpretive Data: T esting has been performed FOR MEDICAL PURPOSES ONLY. pH (U) 6.5 [pH] Invalid Interpretation Code 5.0 - 8.0 Chemistry S Phencyclidine Ql (U) Negative *NA* (11/08/22 4:56 AM) Invalid Interpretation Code Negative ADM SS Propoxyphene Screen Ql (U) Negative *NA* (11/08/22 4:56 AM) Invalid Interpretation Code Negative ADM SS Urine Drugs screened: See Below 9 (11/08/22 4:56 AM) Invalid Interpretation Code Chemistry S Comment on above: Interpretive Data: T his drug screen is a presumptive screening only. No confirmation will be performed unless requested. Drugs screened include: Threshold Amphetamines/Methamphetamines 1,000 ng/mL Barbiturates 200 ng/mL Benzodiazepine metabolites 200 ng/mL Cannabinoids (THC metabolites) 50 ng/mL Benzoylecognine (Cocaine metab) 300 ng/mL Opiates 300 ng/mL Phencyclidine (PCP) 25 ng/mL Methadone 300 ng/mL Propoxyphene 300 ng/mL Fentanyl 1.0 ng/mL Oxycodone 100 ng/mL Testing has been performed FOR MEDICAL PURPOSES ONLY. LABORATORYOrdered By: Pratik Flores on 11-08-2022 Cholesterol [Mass/Vol] 240 mg/dL Invalid Interpretation Code 50 - 199 mg/dL ADM SS Comment on above: Interpretive Data: C holesterol Reference Interval: Less than 200 Desirable 200-239 Borderline high risk 240 and above High risk Cholesterol in HDL [Mass/Vol] 50 mg/dL Invalid Interpretation Code 40 - 59 mg/dL ADM SS Cholesterol in LDL [Mass/Vol] 171 mg/dL Invalid Interpretation Code 0 - 129 mg/dL ADM SS Triglyceride [Mass/Vol] 96 mg/dL Invalid Interpretation Code 3 - 149 mg/dL ADM SS Acetaminophen [Mass/Vol] mcg/mL Invalid Interpretation Code 10.0 - 20.0 mcg/mL ADM SS Ethanol [Mass/Vol] mg/dL Invalid Interpretation Code ADM SS Salicylates [Mass/Vol] mg/dL Invalid Interpretation Code 10.0 - 25.0 mg/dL ADM SS Serum Drugs screened: See Below 8 (11/08/22 1:50 AM) Invalid Interpretation Code Chemistry S Comment on above: Interpretive Data: T his drug screen is a presumptive screening only. No confirmation will be performed unless requested. Drugs included in the ER serum drug screen are: Threshold Ethanol 10.0 mg/dL Salicylate 2.0 mg/dl Acetaminophen 2.0 mcg/mL Testing has been performed FOR MEDICAL PURPOSES ONLY. LABORATORYOrdered By: SYSTEM SYSTEM on 11-08-2022 Troponin I.cardiac DL <= 0.01 ng/mL [Mass/Vol] ng/L Invalid Interpretation Code 0.00 - 34.00 ng/L ADM SS Comment on above: Interpretive Data: I f the High Sensitive Troponin result is below the 99th percentile value (<45 ng/L) at the first blood draw, at least two additional blood samples should be drawn before results are interpreted as negative for AMI. Basophils (Bld) [#/Vol] 0.1 103/mcL Invalid Interpretation Code 0.0 - 0.3 10^3/mcL Workflow SS Basophils/100 WBC (Bld) 0.7 % Invalid Interpretation Code 0.0 - 2.5 % Workflow SS Calcium [Mass/Vol] 9.3 mg/dL Invalid Interpretation Code 8.7 - 10.4 mg/dL ADM SS Chloride [Moles/Vol] 110 mmol/L Invalid Interpretation Code 98 - 110 mEq/L ADM SS CO2 [Moles/Vol] 28 mmol/L Invalid Interpretation Code 22 - 32 mEq/L ADM SS Creatinine [Mass/Vol] 1.08 mg/dL Invalid Interpretation Code 0.50 - 1.20 mg/dL ADM SS Electrolyte Balance 4.0 mEq/L Invalid Interpretation Code 4.0 - 15.0 mEq/L ADM SS Eosinophils (Bld) [#/Vol] 0.2 103/mcL Invalid Interpretation Code 0.0 - 0.7 10^3/mcL Workflow SS Eosinophils/100 WBC (Bld) 2.6 % Invalid Interpretation Code 0.0 - 6.0 % Workflow SS Erythrocyte distribution width (RBC) [Ratio] 12.5 % Invalid Interpretation Code 11.5 - 15.5 % Workflow SS GFR/1.73 sq M.predicted among blacks MDRD (S/P/Bld) [Vol rate/Area] ml/min/1.73sqm Invalid Interpretation Code ADM SS Comment on above: Interpretive Data: GFR Population mean for , Non- Americans Ages 20-29 = 116 mL/min/1.73 sq.m. Ages 30-39 = 107 mL/min/1.73 sq.m. Ages 40-49 = 99 mL/min/1.73 sq.m. Ages 50-59 = 93 mL/min/1.73 sq.m. Ages 60-69 = 85 mL/min/1.73 sq.m. Ages 70+ = 75 mL/min/1.73 sq.m. Chronic Kidney Disease: Less than 60 mL/min/1.73 square meters End Stage Renal Disease: Less than 15 mL/min/1.73 square meters GFR/1.73 sq M.predicted among non-blacks MDRD (S/P/Bld) [Vol rate/Area] 53 ml/min/1.73sqm Invalid Interpretation Code ADM SS Comment on above: Interpretive Data: GFR Population mean for , Non- Americans Ages 20-29 = 116 mL/min/1.73 sq.m. Ages 30-39 = 107 mL/min/1.73 sq.m. Ages 40-49 = 99 mL/min/1.73 sq.m. Ages 50-59 = 93 mL/min/1.73 sq.m. Ages 60-69 = 85 mL/min/1.73 sq.m. Ages 70+ = 75 mL/min/1.73 sq.m. Chronic Kidney Disease: Less than 60 mL/min/1.73 square meters End Stage Renal Disease: Less than 15 mL/min/1.73 square meters Glucose [Mass/Vol] 103 mg/dL Invalid Interpretation Code 70 - 110 mg/dL ADM SS HbA1c (Bld) [Mass fraction] 5.1 % Invalid Interpretation Code 4.0 - 6.0 % Auto Chem SS Hematocrit (Bld) [Volume fraction] 40.0 % Invalid Interpretation Code 34.0 - 46.0 % Workflow SS Hemoglobin (Bld) [Mass/Vol] 13.8 G/dL Invalid Interpretation Code 12.0 - 16.0 G/dL Workflow SS Lymphocytes (Bld) [#/Vol] 1.9 103/mcL Invalid Interpretation Code 0.9 - 4.3 10^3/mcL Workflow SS Lymphocytes/100 WBC (Bld) 28.4 % Invalid Interpretation Code 20.0 - 40.0 % Workflow SS Magnesium [Mass/Vol] 2.2 mg/dL Invalid Interpretation Code 1.6 - 2.4 mg/dL ADM SS MCH (RBC) [Entitic mass] 31.5 pg Invalid Interpretation Code 27.0 - 33.0 pg AH Workflow SS MCHC 34.5 G/dL Invalid Interpretation Code 32.0 - 36.0 G/dL Workflow SS MCV (RBC) [Entitic vol] 91.4 fL Invalid Interpretation Code 80.0 - 99.0 fL AH Workflow SS Monocytes (Bld) [#/Vol] 0.5 103/mcL Invalid Interpretation Code 0.1 - 1.4 10^3/mcL Workflow SS Monocytes/100 WBC (Bld) 7.4 % Invalid Interpretation Code 2.0 - 13.0 % Workflow SS Neutrophils (Bld) [#/Vol] 4.1 103/mcL Invalid Interpretation Code 2.3 - 8.1 10^3/mcL Workflow SS Neutrophils/100 WBC (Bld) 60.9 % Invalid Interpretation Code 50.0 - 75.0 % Workflow SS Platelet mean volume (Bld) [Entitic vol] 7.9 fL Invalid Interpretation Code 6.6 - 10.5 fL Workflow SS Platelets (Bld) [#/Vol] 273 103/mcL Invalid Interpretation Code 150 - 450 10^3/mcL Workflow SS Potassium [Moles/Vol] 4.0 mmol/L Invalid Interpretation Code 3.5 - 5.0 mEq/L [facility] Comment on above: Result Comment: Spec imen slightly hemolyzed. RBC (Bld) [#/Vol] 4.38 106/mcL Invalid Interpretation Code 4.10 - 5.30 10^6/mcL Workflow SS Sodium [Moles/Vol] 142 mmol/L Invalid Interpretation Code 136 - 145 mEq/L ADM SS Troponin I.cardiac DL <= 0.01 ng/mL [Mass/Vol] ng/L Invalid Interpretation Code 0.00 - 34.00 ng/L ADM Comment on above: Interpretive Data: I f the High Sensitive Troponin result is below the 99th percentile value (<45 ng/L) at the first blood draw, at least two additional blood samples should be drawn before results are interpreted as negative for AMI. TSH Qn 4.983 mIU/mL Invalid Interpretation Code 0.550 - 4.780 mIU/mL ADM SS Comment on above: Interpretive Data: * *Note - New Reference Range in effect 19 Urea nitrogen [Mass/Vol] 19.0 mg/dL Invalid Interpretation Code 8.0 - 22.0 mg/dL AH ADM SS Urea nitrogen/Creatinine [Mass ratio] 17.6 ratio Invalid Interpretation Code 10.0 - 22.0 ratio AH ADM SS WBC (Bld) [#/Vol] 6.8 103/mcL Invalid Interpretation Code 4.5 - 10.8 10^3/mcL AH Workflow SS LIPIDon 11-08-2022 Cholesterol [Mass/Vol] 240 mg/dL High 50-199 [facility] ([place]) Comment on above: Result Comment: Chol esterol Reference Interval: Less than 200 Desirable 200-239 Borderline high risk 240 and above High risk Performed By: #### C BC, ADIFF, ANEU, BMP, TROPHS, MG, GFR, TSH, DRUGS, A1C #### [address] [address] Cholesterol in HDL [Mass/Vol] 50 mg/dL Normal 40-59 [facility] ([place]) Comment on above: Performed By: #### C BC, ADIFF, ANEU, BMP, TROPHS, MG, GFR, TSH, DRUGS, A1C #### [address] [address] Cholesterol in LDL [Mass/Vol] 171 mg/dL High 0-129 [facility] ([place]) Comment on above: Performed By: #### C BC, ADIFF, ANEU, BMP, TROPHS, MG, GFR, TSH, DRUGS, A1C #### [address] [address] Triglyceride [Mass/Vol] 96 mg/dL Normal 3-149 [facility] ([place]) Comment on above: Performed By: #### C BC, ADIFF, ANEU, BMP, TROPHS, MG, GFR, TSH, DRUGS, A1C #### [address] [address] MGon 11-08-2022 Magnesium [Mass/Vol] 2.2 mg/dL Normal 1.6-2.4 [facility] ([place]) Comment on above: Performed By: #### C BC, ADIFF, ANEU, BMP, TROPHS, MG, GFR, TSH, DRUGS, A1C #### [address] [address] NM MYOCARDIAL SPECT STRESS/R ESTon 11-08-2022 NM MYOCARDIAL SPECT STRESS/REST ORIGINAL NM MYOCARDIAL SPECT STRESS/REST CLINICAL STATEMENT: chest pain TECHNIQUE: Lexiscan dose: 0.4 mg Radiopharmaceutical (stress): Tc-99m Sestamibi Dose: mCi Radiopharmaceutical (rest): Tc-99m Sestamibi Dose: mCi SPECT acquisition and processing Reconstruction and reorientation of SPECT images into short axis, vertical and horizontal long axis planes Quantitative LVEF assessment COMPARISON: None REPORT: There are no fixed or reversible perfusion defects. Gated study shows normal left ventricular wall motion and thickening with LVEF 73%. Left ventricle is normal in size with an end-diastolic volume of 60ml. TID ratio is normal at 1.29. IMPRESSION: 1. Lexiscan nuclear imaging study without ischemia or infarct. 2. Normal left ventricular cavity size and systolic function. 3. Normal TID ratio. 4. No prior study is available for comparison. Interpreted By: Jacqui Arroyo MD Preliminary Report By: Jacqui Arroyo MD Electronically Signed By: Jacqui Arroyo MD Dictated Date: 11/08/2022 7:19:49 AM Prelim Date: 11/08/2022 7:19:49 AM Sign Date: 11/08/2022 7:25:10 AM Ordering Provider:Meryl French [facility]) [facility] Troponin I High Sensitivity <2.50 Normal 0.00-34.00 [facility]) Comment on above: Result Comment: If t he High Sensitive Troponin result is below the 99th percentile value (<45 ng/L) at the first blood draw, at least two additional blood samples should be drawn before results are interpreted as negative for AMI. Performed By: #### C BC, ADIFF, ANEU, BMP, TROPHS, MG, GFR, TSH, DRUGS, A1C #### [address] [address] Troponin I High Sensitivity <2.50 Normal 0.00-34.00 [facility] ([place]) Comment on above: Result Comment: If t he High Sensitive Troponin result is below the 99th percentile value (<45 ng/L) at the first blood draw, at least two additional blood samples should be drawn before results are interpreted as negative for AMI. Performed By: #### C BC, ADIFF, ANEU, BMP, TROPHS, MG, GFR, TSH, DRUGS, A1C #### [address] [address] TSHon 11-08-2022 TSH 4.983 mIU/mL High 0.550-4.780 [facility] ([place]) Comment on above: Result Comment: No te - New Reference Range in effect 19 Performed By: #### C BC, ADIFF, ANEU, BMP, TROPHS, MG, GFR, TSH, DRUGS, A1C #### [address] [address] XR CHEST 2 VIEWSon 3 XR CHEST 2 VIEWS ORIGINAL EXAMINATION: TWO XRAY VIEWS OF THE CHEST 11/08/2022 11:17 am COMPARISON: None. HISTORY: ORDERING SYSTEM PROVIDED HISTORY: Reason for Exam: Chest pain FINDINGS: Heart is normal in size and there is no vascular congestion present. Emphysema is evident and there are scattered areas of scarring noted. No infiltrate or pleural fluid is evident. Minor degenerative changes are seen in the spine. IMPRESSION: Emphysema. No acute finding. Interpreted by: Ceci Owens MD Preliminary Report By: Ceci Owens MD Electronically signed By Ceci Owens MD Dictated Date: 11/08/2022 11:20:06 AM Prelim Date: 11/08/2022 11:20:36 AM Sign Date: 11/08/2022 11:20:36 AM Ordering Provider: THOMAS French [facility] ([place]) .Auto Diffon 11-07-2022 Basophil, Absolute 0.1 10 3/mcL Normal 0.0-0.2 [facility] ([place]) Comment on above: Performed By: #### C BC, ADIFF, ANEU, BMP, TROPHS, MG, GFR, TSH, DRUGS, A1C #### [address] [address] Basophils/100 WBC (Bld) 0.9 % Normal 0.0-2.5 [facility] ([place]) Comment on above: Performed By: #### C BC, ADIFF, ANEU, BMP, TROPHS, MG, GFR, TSH, DRUGS, A1C #### [address] [address] Eosinophil, Absolute 0.3 10 3/mcL Normal 0.0-0.4 [facility] ([place]) Comment on above: Performed By: #### C BC, ADIFF, ANEU, BMP, TROPHS, MG, GFR, TSH, DRUGS, A1C #### [address] [address] Eosinophils/100 WBC (Bld) 4.0 % Normal 0.0-7.0 [facility] ([place]) Comment on above: Performed By: #### C BC, ADIFF, ANEU, BMP, TROPHS, MG, GFR, TSH, DRUGS, A1C #### [address] [address] Lymphocyte, Absolute 2.1 10 3/mcL Normal 0.8-3.9 [facility] ([place]) Comment on above: Performed By: #### C BC, ADIFF, ANEU, BMP, TROPHS, MG, GFR, TSH, DRUGS, A1C #### [address] [address] Lymphocytes/100 WBC (Bld) 29.9 % Normal 10.0-50.0 [facility] ([place]) Comment on above: Performed By: #### C BC, ADIFF, ANEU, BMP, TROPHS, MG, GFR, TSH, DRUGS, A1C #### [address] [address] Monocyte, Absolute 0.6 10 3/mcL Normal 0.2-1.0 [facility] ([place]) Comment on above: Performed By: #### C BC, ADIFF, ANEU, BMP, TROPHS, MG, GFR, TSH, DRUGS, A1C #### [address] [address] Monocytes/100 WBC (Bld) 8.2 % Normal 1.7-13.0 [facility] ([place]) Comment on above: Performed By: #### C BC, ADIFF, ANEU, BMP, TROPHS, MG, GFR, TSH, DRUGS, A1C #### [address] [address] Neutrophils/100 WBC (Bld) 57.0 % Normal 37.0-80.0 [facility] ([place]) Comment on above: Performed By: #### C BC, ADIFF, ANEU, BMP, TROPHS, MG, GFR, TSH, DRUGS, A1C #### [address] [address] .GFRon 11-07-2022 GFR 55 ml/min/1.73sqm Normal [facility] ([place]) Comment on above: Result Comment: GFR Population mean for , Non- Americans Ages 20-29 = 116 mL/min/1.73 sq.m. Ages 30-39 = 107 mL/min/1.73 sq.m. Ages 40-49 = 99 mL/min/1.73 sq.m. Ages 50-59 = 93 mL/min/1.73 sq.m. Ages 60-69 = 85 mL/min/1.73 sq.m. Ages 70+ = 75 mL/min/1.73 sq.m. Chronic Kidney Disease: Less than 60 mL/min/1.73 square meters End Stage Renal Disease: Less than 15 mL/min/1.73 square meters Performed By: #### C BC, ADIFF, ANEU, BMP, TROPHS, MG, GFR, TSH, DRUGS, A1C #### [address] [address] GFR Non- 45 ml/min/1.73sqm Normal [facility] ([place]) Comment on above: Result Comment: GFR Population mean for , Non- Americans Ages 20-29 = 116 mL/min/1.73 sq.m. Ages 30-39 = 107 mL/min/1.73 sq.m. Ages 40-49 = 99 mL/min/1.73 sq.m. Ages 50-59 = 93 mL/min/1.73 sq.m. Ages 60-69 = 85 mL/min/1.73 sq.m. Ages 70+ = 75 mL/min/1.73 sq.m. Chronic Kidney Disease: Less than 60 mL/min/1.73 square meters End Stage Renal Disease: Less than 15 mL/min/1.73 square meters Performed By: #### C BC, ADIFF, ANEU, BMP, TROPHS, MG, GFR, TSH, DRUGS, A1C #### [address] [address] .NEUABSon 11-07-2022 Neutrophil, Absolute 4.0 10 3/mcL Normal 2.9-6.2 [facility] ([place]) Comment on above: Performed By: #### C BC, ADIFF, ANEU, BMP, TROPHS, MG, GFR, TSH, DRUGS, A1C #### [place] [address] CBCon 11-07-2022 Erythrocyte distribution width (RBC) [Ratio] 12.4 % Normal 11.5-14.5 [facility] ([place]) Comment on above: Performed By: #### C BC, ADIFF, ANEU, BMP, TROPHS, MG, GFR, TSH, DRUGS, A1C #### [place] [address] Hematocrit (Bld) [Volume fraction] 43.3 % Normal 37.0-47.0 [facility] ([place]) Comment on above: Performed By: #### C BC, ADIFF, ANEU, BMP, TROPHS, MG, GFR, TSH, DRUGS, A1C #### [place] [address] Hgb 14.9 G/dL Normal 12.0-16.0 [facility] ([place]) Comment on above: Performed By: #### C BC, ADIFF, ANEU, BMP, TROPHS, MG, GFR, TSH, DRUGS, A1C #### [place] [address] MCH (RBC) [Entitic mass] 31.0 pg Normal 27.0-31.2 [facility] ([place]) Comment on above: Performed By: #### C BC, ADIFF, ANEU, BMP, TROPHS, MG, GFR, TSH, DRUGS, A1C #### [place] [address] MCHC 34.5 G/dL Normal 33.0-37.0 [facility] ([place]) Comment on above: Performed By: #### C BC, ADIFF, ANEU, BMP, TROPHS, MG, GFR, TSH, DRUGS, A1C #### [place] [address] MCV (RBC) [Entitic vol] 89.7 fL Normal 80.0-94.0 [facility] ([place]) Comment on above: Performed By: #### C BC, ADIFF, ANEU, BMP, TROPHS, MG, GFR, TSH, DRUGS, A1C #### [place] [address] Platelet 299 10 3/mcL Normal 130-400 [facility] ([place]) Comment on above: Performed By: #### C BC, ADIFF, ANEU, BMP, TROPHS, MG, GFR, TSH, DRUGS, A1C #### [place] [id number] Platelet mean volume (Bld) [Entitic vol] 7.5 fL Normal 7.4-10.4 [facility] ([place]) Comment on above: Performed By: #### C BC, ADIFF, ANEU, BMP, TROPHS, MG, GFR, TSH, DRUGS, A1C #### [place] [address] RBC 4.82 10 6/mcL Normal 4.20-5.40 [facility] ([place]) Comment on above: Performed By: #### C BC, ADIFF, ANEU, BMP, TROPHS, MG, GFR, TSH, DRUGS, A1C #### [place] [id number] WBC 7.0 10 3/mcL Normal 4.6-10.8 [facility] ([place]) Comment on above: Performed By: #### C BC, ADIFF, ANEU, BMP, TROPHS, MG, GFR, TSH, DRUGS, A1C #### [address] [address] CMPon 11-07-2022 Albumin Level 4.4 G/dL Normal 3.5-5.0 [facility] ([place]) Comment on above: Performed By: #### C BC, ADIFF, ANEU, BMP, TROPHS, MG, GFR, TSH, DRUGS, A1C #### [address] [address] Albumin/Globulin [Mass ratio] 1.1 {ratio} Normal 1.1-2.5 [facility] ([place]) Comment on above: Performed By: #### C BC, ADIFF, ANEU, BMP, TROPHS, MG, GFR, TSH, DRUGS, A1C #### [address] [address] ALP [Catalytic activity/Vol] 70 U/L Normal 40-135 [facility] ([place]) Comment on above: Performed By: #### C BC, ADIFF, ANEU, BMP, TROPHS, MG, GFR, TSH, DRUGS, A1C #### [address] [address] ALT [Catalytic activity/Vol] 37 U/L Normal 14-59 [facility] ([place]) Comment on above: Performed By: #### C BC, ADIFF, ANEU, BMP, TROPHS, MG, GFR, TSH, DRUGS, A1C #### [address] [address] AST [Catalytic activity/Vol] 24 U/L Normal 10-40 [facility] ([place]) Comment on above: Performed By: #### C BC, ADIFF, ANEU, BMP, TROPHS, MG, GFR, TSH, DRUGS, A1C #### [address] [address] Bili Total 0.5 mg/dL Normal 0.2-1.0 [facility] ([place]) Comment on above: Result Comment: Use of this assay is not recommended for patients undergoing treatment with eltrombopag due to the potential for falsely elevated results. Performed By: #### C BC, ADIFF, ANEU, BMP, TROPHS, MG, GFR, TSH, DRUGS, A1C #### [address] [address] BUN/Creatinine Ratio 15 ratio Normal 7-27 [facility] ([place]) Comment on above: Performed By: #### C BC, ADIFF, ANEU, BMP, TROPHS, MG, GFR, TSH, DRUGS, A1C #### [address] [address] Calcium [Mass/Vol] 9.3 mg/dL Normal 8.4-10.2 [facility] ([place]) Comment on above: Performed By: #### C BC, ADIFF, ANEU, BMP, TROPHS, MG, GFR, TSH, DRUGS, A1C #### [address] [address] Chloride [Moles/Vol] 102 mmol/L Normal 98-107 [facility] ([place]) Comment on above: Performed By: #### C BC, ADIFF, ANEU, BMP, TROPHS, MG, GFR, TSH, DRUGS, A1C #### [address] [address] CO2 [Moles/Vol] 32 mmol/L High 22-29 [facility] ([place]) Comment on above: Performed By: #### C BC, ADIFF, ANEU, BMP, TROPHS, MG, GFR, TSH, DRUGS, A1C #### [address] [address] Creatinine [Mass/Vol] 1.24 mg/dL High 0.55-1.02 [facility] ([place]) Comment on above: Performed By: #### C BC, ADIFF, ANEU, BMP, TROPHS, MG, GFR, TSH, DRUGS, A1C #### [address] [address] Electrolyte Balance 6.0 mEq/L Normal 4.0-15.0 [facility] ([place]) Comment on above: Performed By: #### C BC, ADIFF, ANEU, BMP, TROPHS, MG, GFR, TSH, DRUGS, A1C #### [address] [address] Globulin 4.0 G/dL Normal [facility] ([place]) Comment on above: Performed By: #### C BC, ADIFF, ANEU, BMP, TROPHS, MG, GFR, TSH, DRUGS, A1C #### [place] [id number] Glucose [Mass/Vol] 101 mg/dL Normal 70-105 [facility] ([place]) Comment on above: Performed By: #### C BC, ADIFF, ANEU, BMP, TROPHS, MG, GFR, TSH, DRUGS, A1C #### [address] [address] Potassium [Moles/Vol] 4.5 mmol/L Normal 3.5-5.1 [facility] ([place]) Comment on above: Performed By: #### C BC, ADIFF, ANEU, BMP, TROPHS, MG, GFR, TSH, DRUGS, A1C #### [address] [address] Sodium [Moles/Vol] 140 mmol/L Normal 136-145 [facility] ([place]) Comment on above: Performed By: #### C BC, ADIFF, ANEU, BMP, TROPHS, MG, GFR, TSH, DRUGS, A1C #### [address] [address] Total Protein 8.4 G/dL High 6.4-8.2 [facility] ([place]) Comment on above: Performed By: #### C BC, ADIFF, ANEU, BMP, TROPHS, MG, GFR, TSH, DRUGS, A1C #### [address] [address] Urea nitrogen [Mass/Vol] 19 mg/dL High 7-18 [facility] ([place]) Comment on above: Performed By: #### C BC, ADIFF, ANEU, BMP, TROPHS, MG, GFR, TSH, DRUGS, A1C #### [address] [address] DIMERon 11-07-2022 D-Dimer 374 ng/mL D-DU High 0-230 [facility] ([place]) Comment on above: Result Comment: Resu lts reported in D-DU ng/mL. Positive for D-dimer. A positive D-Dimer may occur in the following: DVT, PE, DIC, Trauma, Cancer, Sepsis, , Rheumatoid arthritis, Myocardial infarction and Cirrhosis. The presence of Rheumatoid Factor and HAMA (human mouse antibody) produces an overestimation of test results. The result of the D-Dimer test should be evaluated in the context of all the clinical and laboratory data available. In those instances where the laboratory result does not agree with the clinical evaluation, additional tests should be performed accordingly. If the D-Dimer result is used to exclude DVT or PE, the recommended cutoff value is less than 230 ng/mL. The D-Dimer result should not be used alone to rule in DVT/PE, but should be used in conjunction with a clinical pretest probability (PTP)assessment model to exclude venous thromboembolism (VTE) in outpatients suspected of deep venous thrombosis (DVT) and pulmonary embolism (PE). Performed By: #### D LUZ #### [place] [id number] [place], [place] [address] LABORATORYOrdered By: SYSTEM SYSTEM on 11-07-2022 Albumin BCP dye [Mass/Vol] 4.4 G/dL Invalid Interpretation Code 3.5 - 5.0 G/dL AO ADM SS Albumin/Globulin [Mass ratio] 1.1 {ratio} Invalid Interpretation Code 1.1 - 2.5 ratio AO ADM SS ALP [Catalytic activity/Vol] 70 U/L Invalid Interpretation Code 40 - 135 U/L AO ADM SS ALT With P-5'-P [Catalytic activity/Vol] 37 U/L Invalid Interpretation Code 14 - 59 U/L AO ADM SS AST With P-5'-P [Catalytic activity/Vol] 24 U/L Invalid Interpretation Code 10 - 40 U/L AO ADM SS Basophil, Absolute 0.1 103/mcL Invalid Interpretation Code 0.0 - 0.2 10^3/mcL AO Workflow SS Basophils/100 WBC (Bld) 0.9 % Invalid Interpretation Code 0.0 - 2.5 % AO Workflow SS Bilirubin [Mass/Vol] 0.5 mg/dL Invalid Interpretation Code 0.2 - 1.0 mg/dL AO ADM SS Comment on above: Interpretive Data: U se of this assay is not recommended for patients undergoing treatment with eltrombopag due to the potential for falsely elevated results. Calcium [Mass/Vol] 9.3 mg/dL Invalid Interpretation Code 8.4 - 10.2 mg/dL AO ADM SS Chloride [Moles/Vol] 102 mmol/L Invalid Interpretation Code 98 - 107 mmol/L AO ADM SS CO2 [Moles/Vol] 32 mmol/L Invalid Interpretation Code 22 - 29 mmol/L AO ADM SS Creatinine [Mass/Vol] 1.24 mg/dL Invalid Interpretation Code 0.55 - 1.02 mg/dL AO ADM SS Electrolyte Balance 6.0 mEq/L Invalid Interpretation Code 4.0 - 15.0 mEq/L AO ADM SS Eosinophil, Absolute 0.3 103/mcL Invalid Interpretation Code 0.0 - 0.4 10^3/mcL AO Workflow SS Eosinophils/100 WBC (Bld) 4.0 % Invalid Interpretation Code 0.0 - 7.0 % AO Workflow SS Erythrocyte distribution width (RBC) [Ratio] 12.4 % Invalid Interpretation Code 11.5 - 14.5 % AO Workflow SS GFR/1.73 sq M.predicted among blacks MDRD (S/P/Bld) [Vol rate/Area] 55 ml/min/1.73sqm Invalid Interpretation Code AO Chemistry S Comment on above: Interpretive Data: GFR Population mean for , Non- Americans Ages 20-29 = 116 mL/min/1.73 sq.m. Ages 30-39 = 107 mL/min/1.73 sq.m. Ages 40-49 = 99 mL/min/1.73 sq.m. Ages 50-59 = 93 mL/min/1.73 sq.m. Ages 60-69 = 85 mL/min/1.73 sq.m. Ages 70+ = 75 mL/min/1.73 sq.m. Chronic Kidney Disease: Less than 60 mL/min/1.73 square meters End Stage Renal Disease: Less than 15 mL/min/1.73 square meters GFR/1.73 sq M.predicted among non-blacks MDRD (S/P/Bld) [Vol rate/Area] 45 ml/min/1.73sqm Invalid Interpretation Code AO Chemistry S Comment on above: Interpretive Data: GFR Population mean for , Non- Americans Ages 20-29 = 116 mL/min/1.73 sq.m. Ages 30-39 = 107 mL/min/1.73 sq.m. Ages 40-49 = 99 mL/min/1.73 sq.m. Ages 50-59 = 93 mL/min/1.73 sq.m. Ages 60-69 = 85 mL/min/1.73 sq.m. Ages 70+ = 75 mL/min/1.73 sq.m. Chronic Kidney Disease: Less than 60 mL/min/1.73 square meters End Stage Renal Disease: Less than 15 mL/min/1.73 square meters Globulin 4.0 G/dL Invalid Interpretation Code AO ADM SS Glucose [Mass/Vol] 101 mg/dL Invalid Interpretation Code 70 - 105 mg/dL AO ADM SS Hematocrit (Bld) [Volume fraction] 43.3 % Invalid Interpretation Code 37.0 - 47.0 % AO Workflow SS Hemoglobin (Bld) [Mass/Vol] 14.9 G/dL Invalid Interpretation Code 12.0 - 16.0 G/dL AO Workflow SS Lymphocyte, Absolute 2.1 103/mcL Invalid Interpretation Code 0.8 - 3.9 10^3/mcL AO Workflow SS Lymphocytes/100 WBC (Bld) 29.9 % Invalid Interpretation Code 10.0 - 50.0 % AO Workflow SS Magnesium [Mass/Vol] 2.2 mg/dL Invalid Interpretation Code 1.8 - 2.4 mg/dL AO ADM SS MCH (RBC) [Entitic mass] 31.0 pg Invalid Interpretation Code 27.0 - 31.2 pg AO Workflow SS MCHC 34.5 G/dL Invalid Interpretation Code 33.0 - 37.0 G/dL AO Workflow SS MCV (RBC) [Entitic vol] 89.7 fL Invalid Interpretation Code 80.0 - 94.0 fL AO Workflow SS Monocyte, Absolute 0.6 103/mcL Invalid Interpretation Code 0.2 - 1.0 10^3/mcL AO Workflow SS Monocytes/100 WBC (Bld) 8.2 % Invalid Interpretation Code 1.7 - 13.0 % AO Workflow SS Neutrophil, Absolute 4.0 103/mcL Invalid Interpretation Code 2.9 - 6.2 10^3/mcL AO Workflow SS Neutrophils/100 WBC (Bld) 57.0 % Invalid Interpretation Code 37.0 - 80.0 % AO Workflow SS Platelet mean volume (Bld) [Entitic vol] 7.5 fL Invalid Interpretation Code 7.4 - 10.4 fL AO Workflow SS Platelets (Bld) [#/Vol] 299 103/mcL Invalid Interpretation Code 130 - 400 10^3/mcL AO Workflow SS Potassium [Moles/Vol] 4.5 mmol/L Invalid Interpretation Code 3.5 - 5.1 mmol/L AO ADM SS Protein [Mass/Vol] 8.4 G/dL Invalid Interpretation Code 6.4 - 8.2 G/dL AO ADM SS RBC (Bld) [#/Vol] 4.82 106/mcL Invalid Interpretation Code 4.20 - 5.40 10^6/mcL AO Workflow SS Sodium [Moles/Vol] 140 mmol/L Invalid Interpretation Code 136 - 145 mmol/L AO ADM SS Troponin I.cardiac DL <= 0.01 ng/mL [Mass/Vol] ng/L Invalid Interpretation Code 0.0 - 51.4 ng/L AO ADM SS Urea nitrogen [Mass/Vol] 19 mg/dL Invalid Interpretation Code 7 - 18 mg/dL AO ADM SS Urea nitrogen/Creatinine [Mass ratio] 15 ratio Invalid Interpretation Code 7 - 27 ratio AO ADM SS WBC (Bld) [#/Vol] 7.0 103/mcL Invalid Interpretation Code 4.6 - 10.8 10^3/mcL AO Workflow SS LABORATORYOrdered By: Heather Wilde on 11-07-2022 Fibrin D-dimer DDU (PPP) [Mass/Vol] 374 ng/mL D-DU Invalid Interpretation Code 0 - 230 ng/mL D-DU AO [facility] SS Comment on above: Result Comment: Resu lts reported in D-DU ng/mL. Positive for D-dimer. A positive D-Dimer may occur in the following: DVT, PE, DIC, Trauma, Cancer, Sepsis, , Rheumatoid arthritis, Myocardial infarction and Cirrhosis. The presence of Rheumatoid Factor and HAMA (human mouse antibody) produces an overestimation of test results. Interpretive Data: T he result of the D-Dimer test should be evaluated in the context of all the clinical and laboratory data available. In those instances where the laboratory result does not agree with the clinical evaluation, additional tests should be performed accordingly. If the D-Dimer result is used to exclude DVT or PE, the recommended cutoff value is less than 230 ng/mL. The D-Dimer result should not be used alone to rule in DVT/PE, but should be used in conjunction with a clinical pretest probability (PTP)assessment model to exclude venous thromboembolism (VTE) in outpatients suspected of deep venous thrombosis (DVT) and pulmonary embolism (PE). MGon 11-07-2022 Magnesium [Mass/Vol] 2.2 mg/dL Normal 1.8-2.4 [facility] ([place]) Comment on above: Performed By: #### C BC, ADIFF, ANEU, BMP, TROPHS, MG, GFR, TSH, DRUGS, A1C #### [place] [id number] [place] [id number] TROPHSon 11-07-2022 Troponin I High Sensitivity <4.0 Normal 0.0-51.4 [facility] ([place]) Comment on above: Performed By: #### C BC, ADIFF, ANEU, BMP, TROPHS, MG, GFR, TSH, DRUGS, A1C #### [place] [id number] [place] [id number] XR Ribs - bilateral 4 Views and Chest PAon 02-06-2020 IMPRESSION: No acute abnormality. Transmission Maintenance Supervisor: SpeakPhoneB Transcribe Date/Time: Feb 06 2020 3:30P Dictated by : DODIE MENDEZ MD This examination was interpreted and the report reviewed and electronically signed by: DODIE MENDEZ MD on Feb 06 2020 3:31PM [facility] * * *Final Report* * * DATE OF EXAM: Feb 06 2020 3:24PM WOX 5242 - XR RIBS 4V FIDELINA+UPPER/LOWER CHEST / PROCEDURE REASON: Rib pain * * * * Physician Interpretation * * * * PROCEDURE: Bilateral ribs with chest INDICATION: Rib pain .Bilateral lateral lower rib pain x 1 week without injury TECHNIQUE: XR RIBS 4V FIDELINA+UPPER/LOWER CHEST COMPARISON: Chest 11/13/2017 FINDINGS: Cardiothymic silhouette is within normal limits. No acute consolidation, pleural effusion or pneumothorax. Suspected COPD. Bilateral ribs are intact without acute fracture, sclerotic or lytic lesion. DIVISION OF RADIOLOGY Provider, [facility] - 02/06/2020 * * *Final Report* * * DATE OF EXAM: Feb 06 2020 3:24PM WOX 5242 - XR RIBS 4V FIDELINA+UPPER/LOWER CHEST / PROCEDURE REASON: Rib pain * * * * Physician Interpretation * * * * PROCEDURE: Bilateral ribs with chest INDICATION: Rib pain .Bilateral lateral lower rib pain x 1 week without injury TECHNIQUE: XR RIBS 4V FIDELINA+UPPER/LOWER CHEST COMPARISON: Chest 11/13/2017 FINDINGS: Cardiothymic silhouette is within normal limits. No acute consolidation, pleural effusion or pneumothorax. Suspected COPD. Bilateral ribs are intact without acute fracture, sclerotic or lytic lesion. IMPRESSION IMPRESSION: No acute abnormality. Transmission Maintenance Supervisor: Speak[employer] Transcribe Date/Time: Feb 06 2020 3:30P Dictated by : DODIE MENDEZ MD This examination was interpreted and the report reviewed and electronically signed by: DODIE MENDEZ MD on Feb 06 2020 3:31PM EST [facility] Radiology Study observation (narrative) [facility] XR Ribs - bilateral 4 Views and Chest PAOrdered By: [facility] Provider on 02-06-2020 [facility] Coronavirus 0 COVID 19 Result DIGITAL ARTIST Normal Negative for COVID19 (SARS CoV2) by PCR. [facility] Comment on above: Result Comment: Nega tive for This test was developed and its performance characteristics determined by [facility] [place]. This test has been authorized by FDA under an Emergency Use Authorization (EUA). This test has been validated in accordance with the FDA's Guidance Document Policy for Diagnostics Testing in Laboratories Certified to Perform High Complexity Testing under CLIA prior to Emergency use Authorization for Coronavirus Disease 2019 during the Public Health Emergency issued on April 27, 2019. COVID19 (SARS This test was developed and its performance characteristics determined by [facility] [place]. This test has been authorized by FDA under an Emergency Use Authorization (EUA). This test has been validated in accordance with the FDA's Guidance Document Policy for Diagnostics Testing in Laboratories Certified to Perform High Complexity Testing under CLIA prior to Emergency use Authorization for Coronavirus Disease 2019 during the Public Health Emergency issued on April 27, 2019. CoV2) by PCR. This test was developed and its performance characteristics determined by [facility] [place]. This test has been authorized by FDA under an Emergency Use Authorization (EUA). This test has been validated in accordance with the FDA's Guidance Document Policy for Diagnostics Testing in Laboratories Certified to Perform High Complexity Testing under CLIA prior to Emergency use Authorization for Coronavirus Disease 2019 during the Public Health Emergency issued on April 27, 2019. Coronavirus 0 COVID 19 Source DIGITAL ARTIST DIGITAL ARTIST Normal [facility] Coronavirus 0 COVID 19 Result DIGITAL ARTIST Normal Negative for COVID19 (SARS CoV2) by PCR. [facility] Comment on above: Result Comment: Nega tive for This test was developed and its performance characteristics determined by [facility]'s [facility] [place]. This test has been authorized by FDA under an Emergency Use Authorization (EUA). This test has been validated in accordance with the FDA's Guidance Document Policy for Diagnostics Testing in Laboratories Certified to Perform High Complexity Testing under CLIA prior to Emergency use Authorization for Coronavirus Disease 2019 during the Public Health Emergency issued on April 27, 2019. COVID19 (SARS This test was developed and its performance characteristics determined by [facility] [place]. This test has been authorized by FDA under an Emergency Use Authorization (EUA). This test has been validated in accordance with the FDA's Guidance Document Policy for Diagnostics Testing in Laboratories Certified to Perform High Complexity Testing under CLIA prior to Emergency use Authorization for Coronavirus Disease 2019 during the Public Health Emergency issued on April 27, 2019. CoV2) by PCR. This test was developed and its performance characteristics determined by [facility] [place]. This test has been authorized by FDA under an Emergency Use Authorization (EUA). This test has been validated in accordance with the FDA's Guidance Document Policy for Diagnostics Testing in Laboratories Certified to Perform High Complexity Testing under CLIA prior to Emergency use Authorization for Coronavirus Disease 2019 during the Public Health Emergency issued on April 27, 2019. COVID 19 Source DIGITAL ARTIST DIGITAL ARTIST Normal [facility] Reference Lab Vital Signs Date Time Vital Sign Value Performing Clinician Facility 06-07-2023 09:33-0400 Body height 162.6 cm Amanda Foote PA-C Work Phone: [facility] 06-07-2023 09:33-0400 Body weight 66.9 kg Amanda Foote PA-C Work Phone: [facility] 06-07-2023 09:33-0400 Diastolic blood pressure 83 mm[Hg] Amanda Foote PA-C Work Phone: [facility] 06-07-2023 09:33-0400 Heart rate 72 /min Amanda Foote PA-C Work Phone: [facility] 06-07-2023 09:33-0400 SaO2% (BldA) [Mass fraction] 97 % Amanda Foote PA-C Work Phone: [facility] 06-07-2023 09:33-0400 Systolic blood pressure 120 mm[Hg] Amanda Foote PA-C Work Phone: [facility] 03-11-2023 22:35-0500 Diastolic Blood Pressure Non-Invasive 86 mm[Hg] CAROLANN DUGGAN MD [facility] 03-11-2023 22:35-0500 Heart rate 76 /min CAROLANN DUGGAN MD [facility] 03-11-2023 22:35-0500 Respiratory rate 18 /min CAROLANN DUGGAN MD [facility] 03-11-2023 22:35-0500 Systolic Blood Pressure Non-Invasive 137 mm[Hg] CAROLANN DUGGAN MD [facility] 03-11-2023 21:25-0500 Body temperature 97.34 [degF] CAROLANN DUGGAN MD [facility] 03-11-2023 21:25-0500 Diastolic Blood Pressure Non-Invasive 87 mm[Hg] CAROLANN DUGGAN MD [facility] 03-11-2023 21:25-0500 Heart rate 79 /min CAROLANN DUGGAN MD [facility] 03-11-2023 21:25-0500 Respiratory rate 18 /min CAROLANN DUGGAN MD [facility] 03-11-2023 21:25-0500 Systolic Blood Pressure Non-Invasive 146 mm[Hg] CAROLANN DUGGAN MD [facility] 01-15-2023 13:28-0500 Body weight 66.22 kg Kyaw Remy EXHIBIT PREPARATOR.OYSTER PICKER Work Phone: [facility] 01-15-2023 13:28-0500 Diastolic blood pressure 78 mm[Hg] Kyaw Remy EXHIBIT PREPARATOR.OYSTER PICKER Work Phone: [facility] 01-15-2023 13:28-0500 Heart rate 82 /min Kyaw Remy EXHIBIT PREPARATOR.OYSTER PICKER Work Phone: [facility] 01-15-2023 13:28-0500 Respiratory rate 16 /min Kyaw Remy EXHIBIT PREPARATOR.OYSTER PICKER Work Phone: [facility] 01-15-2023 13:28-0500 SaO2% (BldA) [Mass fraction] 96 % Kyaw Remy EXHIBIT PREPARATOR.OYSTER PICKER Work Phone: [facility] 01-15-2023 13:28-0500 Systolic blood pressure 110 mm[Hg] Kyaw Remy EXHIBIT PREPARATOR.OYSTER PICKER Work Phone: [facility] 11-08-2022 18:50-0400 Heart rate 78 /min DR MARKUS SIMONS MD [address] 11-08-2022 18:20-0400 Diastolic Blood Pressure Non-Invasive [address] MARKUS SIMONS MD [address] 11-08-2022 18:20-0400 Heart rate 82 /min DR MARKUS SIMONS MD [facility] 11-08-2022 18:20-0400 Mean blood pressure 68 mm[Hg] DR MARKUS SIMONS MD [address] 11-08-2022 18:20-0400 Systolic Blood Pressure Non-Invasive [address] MARKUS SIMONS MD [facility] 11-08-2022 17:51-0400 Diastolic Blood Pressure Non-Invasive [address] MARKUS SIMONS MD [facility] 09-12-2023 17:51-0400 Heart rate 75 /min DR MARKUS SIMONS MD [address] [place] [address] 11-08-2022 17:51-0400 Mean blood pressure 71 mm[Hg] DR MARKUS SIMONS MD [address] [place] [address] 11-08-2022 17:51-0400 Systolic Blood Pressure Non-Invasive [address] MARKUS SIMONS MD [address] [place] [address] 11-08-2022 17:25-0400 Diastolic Blood Pressure Non-Invasive [address] MARKUS SIMONS MD [address] [place] [address] 11-08-2022 17:25-0400 Mean blood pressure 78 mm[Hg] DR MARKUS SIMONS MD [address] [place] [address] 11-08-2022 17:25-0400 Systolic Blood Pressure Non-Invasive [address] MARKUS SIMONS MD [address] [place] [address] 11-08-2022 14:13-0400 Blood Pressure Cuff Size DR MARKUS SIMONS MD [address] [place] [address] 11-08-2022 14:13-[address] MARKUS SIMONS MD [address] [place] [address] 11-08-2022 14:13-[address] MARKUS SIMONS MD [address] [place] [address] 11-08-2022 14:13-0400 Body temperature 97.52 [degF] DR MARKUS SIMONS MD [address] [place] [address] 11-08-2022 14:13-0400 Reason For Taking VItal Signs DR MARKUS SIMONS MD [address] [place] [address] 11-08-2022 14:13-0400 Respiratory rate 16 /min DR MARKUS SIMONS MD [address] [place] [address] 11-08-2022 06:33-0400 Blood Pressure Cuff Size DR MARKUS SIMONS MD [address] [place] [address] 11-08-2022 06:33-[address] MARKUS SIMONS MD [address] [place] [address] 11-08-2022 06:33-[address] MARKUS SIMONS MD [address] [place] [address] 11-08-2022 06:33-0400 Body temperature 98.06 [degF] DR MARKUS SIMONS MD [address] [place] [address] 11-08-2022 06:33-0400 Reason For Taking VItal Signs DR MARKUS SIMONS MD [address] 11-08-2022 06:33-0400 Respiratory rate 16 /min DR MARKUS SIMONS MD [address] 11-07-2022 23:43-0400 Body height 162.[address] MARKUS SIMONS MD [address] [place] [address] 11-07-2022 23:43-0400 Body weight 66.[address] MARKUS SIMONS MD [address] [place] [address] 11-07-2022 23:43-0400 Body weight 25.15 kg/m2 DR MARKUS SIMONS MD [facility] 11-07-2022 19:11-0400 Body temperature 98.24 [degF] MERYL GILLILAND APRN-OYSTER PICKER [facility] 11-07-2022 19:11-0400 Diastolic Blood Pressure Non-Invasive 67 1 MERYL GILLILAND APRN-OYSTER PICKER [facility] 11-07-2022 19:11-0400 Heart rate 80 /min MERYL GILLILAND APRN-OYSTER PICKER [facility] 11-07-2022 19:11-0400 Reason For Taking VItal Signs MERYL GILLILAND APRN-OYSTER PICKER [facility] 11-07-2022 19:11-0400 Respiratory rate 18 /min MERYL GILLILAND EXHIBIT PREPARATOR-OYSTER PICKER [facility] 11-07-2022 19:11-0400 Systolic Blood Pressure Non-Invasive 102 1 MERYL GILLILAND EXHIBIT PREPARATOR-OYSTER PICKER [facility] 11-07-2022 17:32-0400 Heart rate 78 /min MERYL GILLILAND EXHIBIT PREPARATOR-OYSTER PICKER [facility] 11-07-2022 17:32-0400 Respiratory rate 16 /min MERYL GILLILAND EXHIBIT PREPARATOR-OYSTER PICKER [facility] 11-07-2022 14:46-0400 Body temperature 97.52 [degF] MERYL GILLILAND EXHIBIT PREPARATOR-OYSTER PICKER [facility] 11-07-2022 14:46-0400 Diastolic Blood Pressure Non-Invasive 75 1 MERYL GILLILAND EXHIBIT PREPARATOR-OYSTER PICKER [facility] 11-07-2022 14:46-0400 Heart rate 75 /min MERYL GILLILAND EXHIBIT PREPARATOR-OYSTER PICKER [facility] 11-07-2022 14:46-0400 Reason For Taking VItal Signs MERYLArsen GILLILAND EXHIBIT PREPARATOR-OYSTER PICKER [facility] 11-07-2022 14:46-0400 Respiratory rate 18 /min MERYL GILLILAND EXHIBIT PREPARATOR-OYSTER PICKER [facility] 11-07-2022 14:46-0400 Systolic Blood Pressure Non-Invasive 120 1 MERYL GILLILAND EXHIBIT PREPARATOR-OYSTER PICKER [facility] 11-07-2022 14:16-0400 Heart rate 87 /min MERYL KARLENEITH EXHIBIT PREPARATOR-OYSTER PICKER [facility] 11-07-2022 12:37-0400 Body temperature 97.88 [degF] MERYL GILLILAND EXHIBIT PREPARATOR-OYSTER PICKER [facility] 11-07-2022 12:37-0400 Diastolic Blood Pressure Non-Invasive 80 1 MERYLSCOTTIE GILLILAND EXHIBIT PREPARATOR-OYSTER PICKER [facility] 11-07-2022 12:37-0400 Heart rate 70 /min MERYL GILLILAND EXHIBIT PREPARATOR-OYSTER PICKER [facility] 11-07-2022 12:37-0400 Reason For Taking VItal Signs MERYL GILLILAND EXHIBIT PREPARATOR-OYSTER PICKER [facility] 11-07-2022 12:37-0400 Systolic Blood Pressure Non-Invasive 121 1 MERYL GILLILAND EXHIBIT PREPARATOR-OYSTER PICKER [facility] 11-07-2022 06:10-0400 Heart rate 67 /min MERYL GILLILAND EXHIBIT PREPARATOR-OYSTER PICKER [facility] 11-07-2022 04:29-0400 Body height 162.6 cm MERYL GILLILAND EXHIBIT PREPARATOR-OYSTER PICKER [facility] 11-07-2022 04:29-0400 Body weight 67.18 kg MERYL GILLILAND EXHIBIT PREPARATOR-OYSTER PICKER [facility] 11-07-2022 04:29-0400 Body weight 25.41 kg/m2 MERYL GILLILAND EXHIBIT PREPARATOR-OYSTER PICKER [facility] 11-07-2022 03:45-0400 Heart rate 59 /min MERYL GILLILAND EXHIBIT PREPARATOR-OYSTER PICKER [facility] Encounters Encounter Date Encounter Type Care Provider Facility Start: 02-23-2024 End: 02-23-2024 Emergency department patient visit Cammie Ungerer Facility:[facility] Start: 10-04-2023 End: 10-04-2023 Emergency department patient visit Cammie Ungerer Facility:[facility] Start: 09-12-2023 ambulatory Cammie Ungerer Facilit y:[facility] Start: 09-11-2023 ambulatory Cammie Ungerer Facilit y:[facility] Start: 09-11-2023 End: 09-12-2023 Evaluation and management of inpatient Cammie Ungerer Facility:[facility] Start: 07-19-2023 End: 07-19-2023 ambulatory Cammie O'Jhon PT [facility] Comment on above: Somatic dysfunction of lumbar region (Primary Dx); Chronic pain of both knees Start: 07-05-2023 End: 07-05-2023 ambulatory Cammie O'Jhon PT [facility] Comment on above: Somatic dysfunction of lumbar region (Primary Dx); Chronic pain of both knees Start: 06-21-2023 End: 06-21-2023 ambulatory Cammie O'Jhon PT [facility] Comment on above: Somatic dysfunction of lumbar region (Primary Dx); Chronic pain of both knees Start: 06-07-2023 End: 06-07-2023 ambulatory AMANDA FOOTE Facility:[facility] Start: 06-07-2023 End: 06-07-2023 Patient encounter procedure Amanda Foote PA-C Work Phone: [facility] Comment on above: Somatic dysfunction of lumbar region (Primary Dx); Chronic pain of both knees Start: 05-31-2023 End: 05-31-2023 ambulatory CAMMIE ANGELIA UNGERER [facility] Start: 05-09-2023 Telephone encounter Francesco ramírez PA-C Work Phone: Orthopaedics Comment on above: Appointment Start: 04-18-2023 End: 04-18-2023 ambulatory CAMMIE D UNGERER Facility:[facility] Start: 04-18-2023 End: 04-18-2023 Subsequent hospital visit by physician Riya [facility] Baudliio Work Phone: Radiology Start: 03-11-2023 End: 03-12-2023 Emergency department patient visit NOT RECORDED PHYSICIAN Facility:B Start: 03-11-2023 End: 03-11-2023 Emergency department patient visit CAROLANN DUGGAN MD [facility] Start: 03-03-2023 End: 03-03-2023 ambulatory FRANCESCO BANKS Facility:[facility] Start: 02-10-2023 End: 02-10-2023 ambulatory FRANCESCO BAKNS Facility:[facility] Start: 01-20-2023 End: 01-20-2023 ambulatory FRANCESCO BANKS Facility:[facility] Start: 01-20-2023 End: 01-20-2023 Subsequent hospital visit by physician Xr [facility] Shira Astudillo Work Phone: Radiology Comment on above: Pain [R52] Start: 01-16-2023 Orders Only Francesco Sanchez rosalba PA-C Work Phone: [facility] [place] Comment on above: Pain (Primary Dx) Start: 01-15-2023 End: 01-15-2023 ambulatory CAMMIE O'JHON Facility:[facility] Start: 01-15-2023 End: 01-15-2023 Patient encounter procedure Kyaw Remy APRN.OYSTER PICKER Work Phone: [facility] Comment on above: Synovial cyst of rig ht popliteal space (Primary Dx) Start: 11-08-2022 End: 11-08-2022 ambulatory NOT RECORDED PHYSICIAN Facility:A Start: 11-07-2022 End: 11-08-[address] MARKUS SIMONS MD [facility] Start: 11-07-2022 End: 11-07-2022 ambulatory MARCELA NOLAN EXHIBIT PREPARATOR-OYSTER PICKER Facility:[facility] Start: 11-07-2022 End: 11-07-2022 Observation MERYL GILLILAND APRN-OYSTER PICKER [facility] Start: 02-06-2020 End: 02-06-2020 Subsequent hospital visit by physician Xr [facility] Work Phone: Radiology Comment on above: Rib pain [R07.81] Procedures Date Procedure Procedure Detail Performing Clinician Start: 02-06-2020 Radex ribs bi w/post eroant ch minimum 4 views Naveed Roland EXHIBIT PREPARATOR.OYSTER PICKER, DNP Work Phone: Start: 11-22-2017 Colonoscopy Kyaw garcia EXHIBIT PREPARATOR.OYSTER PICKER Work Phone: Start: 06-16-2015 Lipid 1996 panel - S zuleyma or Plasma Kyaw Remy EXHIBIT PREPARATOR.OYSTER PICKER Work Phone: History of hernia repair BERNARDO GILLILAND EXHIBIT PREPARATOR-OYSTER PICKER Ligation of fallopian tube J GAL DARSHANA EXHIBIT PREPARATOR-OYSTER PICKER Plan of Treatment Date Care Activity Detail Author Start: 10-29-2023 Covid-19 Vaccine ( season) Covid-19 Vaccine () [facility] Start: 10-29-2023 Influenza vaccination [facility] Start: 08-07-2023 End: 08-07-2023 ambulatory 08/07/2023 9:30 AM EDT OT/PT/Speech Visit [facility] [address] [place] [address] O'JhonCammie, PT back [facility] Comment on above: back Start: 08-01-2023 End: 08-01-2023 ambulatory 08/01/2023 9:00 AM EDT OT/PT/Speech Visit [facility] [address] [place] [address] O'Jhon Cammie, PT back [facility] Comment on above: back Start: 07-12-2023 End: 07-12-2023 ambulatory 07/12/2023 9:00 AM EDT OT/PT/Speech Visit [facility] [address] [place] [address] O'JhonLuisitoCammie, PT back [facility] Comment on above: back Start: 02-27-2023 Behavioral Health Screening Behavioral Health Screening [facility] Start: 02-27-2023 [facility] Start: 10-28-2022 Covid-19 Vaccine ( season) Covid-19 Vaccine ( season) [facility] Start: 10-28-2022 Influenza vaccination Influenza Vacc ine (#1) [facility] Start: 03-04-2022 Diabetes Screening Diabetes Screenin g [facility] Start: 02-27-2022 Depression [facility] Start: 03-19-2021 Influenza vaccination Lung Cancer Sc reening [facility] Start: 03-19-2021 Screening for malign ant neoplasm of lung Lung Cancer Screening [facility] Start: 01-30-2021 Annual PCP Team Dial Printer dariana Disease Visit Annual PCP Team Chronic Disease Visit [facility] Start: 11-22-2020 Colonoscopy Colonoscopy [facility] Start: 11-22-2020 Colorectal Cancer Screening Colorectal Cancer Screening [facility] Start: 11-22-2020 Screening for malign ant neoplasm of colon [facility] Start: 09-23-2020 Screening for malign ant neoplasm of breast Mammogram Screening [facility] Start: 06-15-2020 Lipid 1996 panel - S zuleyma or Plasma Lipid Screening [facility] Start: 06-15-2020 Lipid panel Lipid Screening [facility] Start: 03-04-2020 Fecal Occult Blood Fecal Occult Bloo d [facility] Start: 03-04-2020 Screening for malign ant neoplasm of colon Fecal Occult Blood [facility] Start: 11-05-2019 Shingrix Vaccine (1 of 2) Shingrix Vaccine (1 of 2) [facility] Start: 06-14-2016 HPV Testing HPV Testing [facility] Start: 06-14-2016 Pap Testing Pap Testing [facility] Start: 06-14-2016 Screening for malign ant neoplasm of cervix [facility] Start: 2014 Cologuard (FIT-DNA) Cologuard (FIT-D NA) [facility] Start: [address] Colonography [facility] Start: 2014 Screening for malign ant neoplasm of colon [facility] Start: 2014 Sigmoidoscopy Sigmoidoscopy [facility] Start: 01-21-2014 Mammography Mammogram Screening [facility] Start: 01-21-2014 Screening for malign ant neoplasm of breast Mammogram Screening [facility] Start: 11-05-1999 Zoledronic acid therapy Alpha- 1 Antitrypsin Deficiency Screening [facility] Start: 1988 Hepatitis B Vaccine (1 of 3 - 19+ 3-dose series) Hepatitis B Vaccine (1 of 3 - 19+ 3-dose series) [facility] Start: 1988 Urine microalbumin profile DTaP,Tdap,Td Vaccine (1 - Tdap) [facility] Start: 11-05-1987 Depression Screening Depression Scre ening [facility] Start: 11-05-1987 Hepatitis C Screening Hepatitis C [facility] Start: 11-05-1987 Hepatitis C screening Hepatitis C [facility] Start: 11-05-1987 HIV Screening HIV Screening [facility] Start: 11-05-1987 HIV screening HIV Screening [facility] Start: 11-05-1975 Pneumococcal vaccination [facility] Start: 05-04-1970 Covid-19 Vaccine (#1) Covid-19 Vacci ne (#1) [facility] Start: 1969 Hepatitis B Vaccine (1 of 3 - 3-dose series) Hepatitis B Vaccine (1 of 3 - 3-dose series) [facility] End: 02-15-2024 XR KNEE GENERAL 4V AP BOTH/PA BOTH/LAT/MERC RIGHT XR KNEE GENERAL 4V AP BOTH/PA BOTH/LAT/MERC RIGHT Radiology Routine Pain 1 Occurrences starting 01/16/2023 until 02/15/2024 [facility] Work Phone: Comment on above: 1 Occurrences starti ng 01/16/2023 until 02/15/2024 XR KNEE GENERAL 4V A P BOTH/PA BOTH/LAT/MERC RIGHT XR KNEE GENERAL 4V AP BOTH/PA BOTH/LAT/MERC RIGHT Radiology Routine Pain 01/20/2023 8:47 AM EST [facility] Work Phone: [facility] Immunizations Immunization Date Immunization Notes Care Provider Frankie zee 03-04-2019 influenza virus vacc ine, unspecified formulation Kyaw Remy APRN.OYSTER PICKER Work Phone: [facility] Payers Date Payer Category Payer Self-pay 2022 Medicaid [id number] 2021 Private Health Insurance [id number] 2019 Private Health Insurance [id number] 2019 Unknown [id number] 1970 Unknown [id number] 2.16.8 [id number] 1970 Unknown [id number] 2.16.8 [id number] 1970 Unknown [id number] 2.16.8 [id number] 1970 Unknown [id number] 2.16.8 [id number] Unknown [id number] 2.16.8 [id number] Unknown [id number] 2.16.8 [id number] Unknown [id number] 2.16.8 [id number] Unknown [id number] 2.16.8 [id number] Unknown [id number] 2.16.8 [id number] Unknown [id number] 2.16.8 [id number] Social History Date Type Detail Facility Start: 11-07-2022 End: 03-03-2023 Tobacco smoking status Ex-smoker (finding) [facility] Comment on above: has quit smoking for 2 years per patient Sex Assigned At Female [facility] Start: 06-15-1989 End: 01-15-2023 Tobacco smoking status MOIS Smokes tobacco daily [facility] Start: 06-15-1989 End: 01-27-2022 History of tobacco use Cigarette Smoker [facility] Start: 02-02-2020 End: 01-15-2023 Cigarettes smoked current (pack per day) - Reported 1 [facility] Start: 01-31-2020 End: 01-15-2023 Tobacco use and exposure Smokeless tobacco non-user [facility] Start: 01-31-2020 End: 01-15-2023 Alcohol intake Current non-drinker of alcohol (finding) [facility] Start: 02-02-2020 End: 01-15-2023 Tobacco use panel [facility] National Score (1-10 0), lower number is lower risk Not on file [facility] Start: 01-31-2020 End: 01-15-2023 Tobacco Comment 11/10/2019 [facility] Start: 1970 Sex Assigned At Not on file [facility] Start: 06-15-1989 End: 01-27-2022 History of tobacco use Current smoker [facility] Start: 01-07-2020 End: 02-06-2020 Exposure to SARS-CoV-2 (event) Not sure [facility] Functional Status Date Assessment Result Facility 03-11-2023 Functional Status Independent [facility] 11-08-2022 Functional Status Complete bedrest [facility] 11-08-2022 Functional Status Non-Slip footw ear, Room check performed [facility] 11-08-2022 Functional Status [facility] 11-08-2022 Functional Status [facility] 11-08-2022 Functional Status Ambulation in Room [facility] 11-07-2022 Functional Status 11pm-3am [facility] 11-07-2022 Functional Status Room check performed [facility] 11-07-2022 Functional Status bilateral knee high yomaira lied/on [facility] 11-07-2022 Functional Status [facility] 11-07-2022 Functional Status [facility] 11-07-2022 Functional Status Driving, 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, Home management, Housework, Laundry, Meal preparation, Personal ADL, Shopping [facility] 11-07-2022 Functional Status Demonstrates C orrect Call Light Use Yes [facility] 11-07-2022 Functional Status Initiated [facility] Mental Status Date Assessment Result Facility 03-11-2023 Mental Status Orientation Oriented x 4 [facility] 03-11-2023 Mental Status [facility] 11-08-2022 Mental Status Orientation Oriented x 4 [facility] 11-08-2022 Mental Status [facility] 11-08-2022 Mental Status [place] 11-07-2022 Mental Status Orientation Asse ssment Oriented x 4 [facility] 11-07-2022 Mental Status Orientation Oriented x 4 [facility] 11-07-2022 Mental Status [facility] 11-07-2022 Mental Status [facility] Clinical Notes 02-06-2020 to 09-12-2023 O'Cammie Ferreira, PT - 07/19/2023 9:19 AM EDCammie Carranza, PT - 07/19/2023 8:46 AM Cammie Mathew, PT - 07/05/2023 6:18 PM Cammie Mathew, PT - 07/05/2023 5:55 PM EDTPatient Instructions Note Date & Type Note Facility 09-12-2023 Note [facility] Medical Records Department [address] [place] [id number] Discharge Summary 09/12/23 1317 MR#: [id number] Acct: [id number] Name: JOAN SNOW Rep #: [id number] : [id number] 52 From: Dwight Self DO PCP: ALFONSO Wang Status:ADM IN Location: [facility] [id number] Providers Date of Admission: 09/11/23 Primary Care Physician: ALFONSO Wang Reason For Visit: AE COPD, RESPIRATORY INSUFFICIENCY AND CHEST Diagnosis Discharge Diagnosis (1) COPD with acute exacerbation: Status: Chronic Code(s): J44.1 - Chronic obstructive pulmonary disease with (acute) exacerbation (2) Respiratory insufficiency: Status: Acute Code(s): R06.89 - Other abnormalities of breathing (3) History of tobacco abuse: Status: Acute Code(s): Z87.891 - Personal history of nicotine dependence (4) Chest pressure: Status: Acute Code(s): R07.89 - Other chest pain (5) Hypokalemia: Status: Acute Code(s): E87.6 - Hypokalemia (6) Hyperlipemia: Status: Acute Code(s): E78.5 - Hyperlipidemia, unspecified Qualifiers: Hyperlipidemia type: unspecified Qualified Code(s): E78.5 - Hyperlipidemia, unspecified Plan AECOPD * Continue BDs and and changed to prednisone burst * home oxygen, patient did not require oxygen with activity. Chest pain * troponins negative * Stress test negative * Echocardiogram shows an EF of 70%. Chronic conditions: * Hyperlipidemia - Resume statin and check Lipid Profile in light of #3. * Depression with anxiety - Continue home regimen as previous. VTE prophylaxis: LMWH . Medications at Discharge Home Medications buspirone 15 mg tablet 15 mg PO BID 11/15/17 multivitamin with minerals (Multiple Vitamin-Minerals tablet) 1 ea PO DAILY 02/25/18 albuterol sulfate 90 mcg/actuation aerosol inhaler 2 puff inhalation Q4H PRN 09/11/23 atorvastatin 40 mg tablet 40 mg PO DAILY 09/11/23 fluticasone 250 mcg-salmeterol 50 mcg/dose blistr powdr for inhalation (Advair Diskus) 1 inh inhalation BID 09/11/23 trazodone 100 mg tablet 100 mg PO QHS 09/11/23 prednisone 20 mg tablet 40 mg (2 x 20 mg) PO DAILY #10 tabs 09/12/23 Hospital Course Operations None Procedures 2-D Echocardiogram and Stress test Summary of Care Provided Hospital Course: Patient presents with chest pain. Patient mimic coughing. She came here had a stress test and 2D echocardiogram that were both unremarkable. Chest pain is felt to be probably musculoskeletal/costochondritis. No additional workup is necessary for this. Patient also had some exacerbation of her COPD and started on bronchodilators as well as Solu-Medrol. Patient is overall doing well. Patient will be discharged and to continue the prednisone burst. Weight / BMI Weight Weight: 64.1 kg Body Mass Index (BMI) 24.3 ABG / Lab / Microbiology Data 09/12/23 05:27 09/12/23 05:27 Laboratory: Laboratory Results - last 24 hr 09/11/23 17:50: WBC 5.9, RBC 4.72, Hgb 14.2, Hct 42.9, MCV 90.9, MCH 30.1, MCHC 33.1, RDW Std Deviation 39.7, RDW Coeff of Jorge 11.9, Plt Count 239, MPV 9.6, Immature Gran % (Auto) 0.200, Neut % (Auto) 62.1, Lymph % (Auto) 28.0, Haakon % (Auto) 6.3, Eos % (Auto) 2.2, Baso % (Auto) 1.2 H, Absolute Neuts (auto) 3.6, Absolute Lymphs (auto) 1.64, Nucleated RBC % 0, D-Dimer Quant (PE/DVT) 0.29, Sodium 140, Potassium 3.3 L, Chloride 106, Carbon Dioxide 27.0, Anion Gap 7, BUN 14, Creatinine 1.14 H, Estim Creat Clear Calc 49.28, Est GFR (MDRD) Af Amer 64, Est GFR (MDRD) Non-Af 53 L, BUN/Creatinine Ratio 12.3, Glucose 112 H, Calcium 9.7, Troponin I High Sens 4 09/11/23 20:05: Troponin I High Sens 4 09/11/23 22:18: Troponin I High Sens < 3 L 09/12/23 05:27: WBC 5.6, RBC 4.55, Hgb 13.8, Hct 41.7, MCV 91.6, MCH 30.3, MCHC 33.1, RDW Std Deviation 40.3, RDW Coeff of Jorge 12.0, Plt Count 247, MPV 10.0, Immature Gran % (Auto) DIGITAL ARTIST, Neut % (Auto) DIGITAL ARTIST, Lymph % (Auto) DIGITAL ARTIST, Haakon % (Auto) DIGITAL ARTIST, Eos % (Auto) DIGITAL ARTIST, Baso % (Auto) DIGITAL ARTIST, Absolute Neuts (auto) 5.2, Absolute Lymphs (auto) 0.43 L, Total Counted 100, Neutrophils % (Manual) 89 H, Band Neutrophils % 2, Lymphocytes % (Manual) 7 L, Metamyelocytes % 2 H, Nucleated RBC % 0, Diff Path Review May foll, Sodium 140, Potassium 3.8, Chloride 109 H, Carbon Dioxide 23.0, Anion Gap 8, BUN 17, Creatinine 1.37 H, Estim Creat Clear Calc 41.01, Est GFR (MDRD) Af Amer 52 L, Est GFR (MDRD) Non-Af 43 L, BUN/Creatinine Ratio 12.4, Glucose 189 H, Calcium 9.0, Phosphorus 2.6, Magnesium 1.7, Total Bilirubin 0.40, AST 22, ALT 26, Alkaline Phosphatase 62, Total Protein 7.5, Albumin 3.7, Globulin 3.8, Albumin/Globulin Ratio 1.0, Triglycerides 58, Cholesterol 122, LDL Cholesterol 59, VLDL Cholesterol 12, HDL Cholesterol 51, TSH 1.09 Microbiology: Microbiology 09/11/23 17:10 Mucosa - Nose Coronavirus COVID-19 PCR - Final Radiography Diagnostic Testing: Radiology Impre (more content not included)... [facility] 07-19-2023 History of Presen t illness Narrative Program_ID:[id number] Access Code: [email or web address] URL: [email or web address] Date: 07-19-2023 Prepared By: Cammie Rodriges Program Notes Exercises - Supine Single Knee to Chest Stretch - 2-3 x daily - 7 x weekly - 4 sets - 1 reps - Supine Single Knee to Chest Stretch - 2-3 x daily - 7 x weekly - 4 sets - 1 reps - Supine Hamstring Stretch - 2 x daily - 7 x weekly - 4 sets - 10 reps - Supine Hamstring Stretch - 2 x daily - 7 x weekly - 4 sets - 10 reps - Seated Long Arc Quad - 2 x daily - 7 x weekly - 2 sets - 10-12 reps - Seated Long Arc Quad - 2 x daily - 7 x weekly - 2 sets - 10-12 reps - Supine Active Straight Leg Raise - 2 x daily - 7 x weekly - 2 sets - 10-12 reps - Supine Active Straight Leg Raise - 2 x daily - 7 x weekly - 2 sets - 10-12 reps - Gastroc Stretch on Wall - 1 x daily - 7 x weekly - 3 sets - 10 reps - Gastroc Stretch on Wall - 1 x daily - 7 x weekly - 3 sets - 10 reps Images from the original note were not included. Episode Visit Count: 3 Therapist That Will Accept/Oversee The Plan Of Care: Cammie Rodriges Start of Care Date: 06/21/23 Onset Date: 02/19/23 (I've had back pain all my life.) Plan of Care Certification Date: 07/19/23 Next Certification Due Date: 08/23/23 REHABILITATION AND SPORTS THERAPY PHYSICAL THERAPY PROGRESS REPORT PLAN OF CARE UPDATE: Assessment: Joan Snow demonstrates improvements in rising from a chair, standing, walking, walking in the house, and walking in the community. She has progressed toward goals. Patient continues to present with impairments in ADL's, balance, flexibility, gait, independence in exercise, overall function, patient reported outcome measures, strength, symptom management, and tissue tenderness that interfere with bending, kneeling, stair negotiation . Current prognosis is Good due to: positive past response to therapy, current objective clinical presentation . She will benefit from continued skilled therapy services to meet the updated goals for this plan of care as noted below. Goals for Episode of Care: created on 06/21/23 through 08/16/23 Goals updated on 07/19/2023 08/23/23 [facility] in home exercise program. -- MET Patient will decrease pain rating by 2 points to meet minimal clinical important difference for numeric pain rating scale. -- MET Patient will increase active ROM of bilateral knee active extension to to 0 to allow pt to to improve postural alignment, to improve performance of ADLs, to improve gait mechanics / gait pattern , and to decrease falls risks . -- MET Patient will demonstrate increase in bilateral quadriceps strength to 4/5 during manual muscle testing in order to improve function for prior functional tasks. -- MET Patient will increase flexibility of BLE hamstrings to WNL to improve ability to maintain proper posture, improve mechanics, and decrease pain. Improve postural awareness. -- MET Normal gait. -- PROGRESSING Reciprocal stair negotiation. -- PROGRESSING Patient Goals: reduce LBP and B knee pain -- PROGRESSING Patient Goals: reduce LBP and B knee pain Planned Interventions, Frequency, and Duration: 1x/week, 5 weeks Total Number of Visits Planned: 5 Patient to be seen for Therapeutic exercise (69561), Neuromuscular re-education (61292), Manual therapy (35432), Therapeutic activities (90912), Self-fpc management (38888), Gait Training (14959) PLAN FOR NEXT VISIT: pt. will return 08/07/23 if she continues to have LB and knee pain. otherwise she plans to cx this visit. SUBJECTIVE: I'm feeling a lot better, not 100% 75% improvement. KTC stretch is helpful. Knees are also better. Pt. burned her back using her heating pad without a cover for hours. She has showed her physician this and it is healing.. Patient Goals: reduce LBP and B knee pain Functional Limitations: bending, kneeling, stair negotiation Pain: Pain Pain Level: 3 Pain Location: Low Back/Lumbar Spine - Left Description: Aching Pain Level 2: 0 Pain Location 2: Knee - Right, Knee - Left (R>L) Post Treatment Pain Post Treatment Pain Level: 0 Post Treatment Pain Location: Knee - Left, Thoracic Spine - Left (R knee 2-10) Post Treatment Symptoms: denies back pain PROMIS Scales 07/18/2023 06/20/2023 Higher is Better Phys Func - Score 43 (mild dysfunction) 33 (moderate dysfunction) Phys Func - Percentile 24 4 Self-Eff Symptom - Score 43 (Average) 41 (Average) Self-Eff Symptom - Percentile 24 18 T-scores: mean of general population = 50. 5 points is clinically meaningfully difference Percentiles provide an indication of how the patient's score ranks in relation to the general population. Higher percentile rankings indicate better function/quality of life. 50th percentile is the average of the general population and indicates half of respondents had a worse score. OBJECTIVE MEASURES WITH LEVEL OF FUNCTION: Lumbar Spine AROM Lumbar Flexion: Moderate limitation Lumbar Extension: Minimal limitation, Produces Lumbar R Side [place]: Normal Lumbar L Side [place]: Normal Lumbar R Side-Bend: Moderate limitation Lumbar L Side-Bend: Moderate limitation Lumbar R Rotation: Normal Lumbar L Rotation: Normal LE AROM L Knee Extension: 0 Degrees L Knee Flexion: 145 Degrees LE Flexibility R Hamstring Flexibility: WNL L Hamstring Flexibility: limited more than R but <20 90/90 LE Strength L Knee Extension (L3): 4/5 Gait General Deviations/Observations: Trunk Control Decreased, Wide base of support, Anna decreased, Lateral sway increased TREATMENT: Therapeutic Exercise: 1: lumbar flex, ext, SG each side, SB each side, rotation each side 1 x each 2: supine L knee flexion 1x10 (measurement taken) 3: *Access Code: [email or web address] URL: [email or web address] Date: 07/19/2023 Prepared by: Cammie Head Exercises - Supine Single Knee to Chest Stretch - 2-3 x daily - 7 x weekly - 4 sets - 1 reps - 30 hold - Supine Single Knee to Chest Stretch (Mirrored) - 2-3 x daily - 7 x weekly - 4 sets - 1 reps - 30 hold - Supine Hamstring Stretch - 2 x daily - 7 x weekly - 4 sets - 10 reps - 1 hold - Supine Hamstring Stretch (Mirrored) - 2 x daily - 7 x weekly - 4 sets - 10 reps - 1 hold - Seated Long Arc Quad - 2 x daily - 7 x weekly - 2 sets - 10-12 reps - 1 hold - Seated Long Arc Quad (Mirrored) - 2 x daily - 7 x weekly - 2 sets - 10-12 reps - 1 hold - Supine Active Straight Leg Raise - 2 x daily - 7 x weekly - 2 sets - 10-12 reps - 1 hold - Supine Active Straight Leg Raise (Mirrored) - 2 x daily - 7 x weekly - 2 sets - 10-12 reps - 1 hold - Gastroc Stretch on Wall - 1 x daily - 7 x weekly - 3 sets - 10 reps - Gastroc Stretch on Wall (Mirrored) - 1 x daily - 7 x weekly - 3 sets - 10 reps Skilled Intervention: Patient was educated in proper exercise technique and purpose for exercises. Skilled judgment was used in selection of appropriate interventions. Provided written instruction for home exercise program to facilitate proper performance and compliance. Correct performance of therapeutic exercises was facilitated with verbal, visual, and tactile cuing. Educated patient on rationale for performing exercises in regards to decreasing fatigue , including balance, increase ease of ADL, and ROM and function . Patient education as noted. Gait Training: Distance (feet): 80' 4x Gait Cues: heel strike and toe push off, minimize lateral trunk sway Assistive Device: none Assist Level: superivison and verbal cues Skilled Intervention: Patient was provided supervision during pre-gait/gait training to prevent falls and insure safety. Provided written instruction for home program to facilitate proper performance and compliance. Correct performance of home program was facilitated with verbal, visual, and tactile cueing. Self-Usp Management: 1: advised to use heating pad only for 10 min and always have a barrier/cover on it 2: advised continued compliance with HEP and activity modification as needed when working in her garden or doing other activites that cause pain/soreness 3: discussed the difference between muscle work burning and pain Skilled Intervention: Skilled judgment in the selection of proper modification for activity of daily living/home management based on clinical presentation, deficits, and needs. Provided written instruction for activities of daily living techniques to facilitate proper performance and compliance. Reviewed patient specific diagnosis in relation to activities of daily living/home management. Activity progression based on professional judgement. Moderate verbal cues for maintaining neutral spine alignment. Provided written instruction for home program to facilitate proper performance and compliance. Correct performance of home program was facilitated with verbal, visual, and tactile cueing. Billing Therapeutic Exercise Treatment Minutes: 30 Self-Care/Home Management Treatment Minutes: 5 Gait Training Treatment Minutes: 5 Skilled Treatment Time Minutes (timed and untimed codes): 40 Total Session Time (minutes): 40 Session Start Time : 848 Session Stop Time : 928 Cammie Rodriges PT documented in this encounter [facility] 07-19-2023 Note HNO ID: [id number] Author: CAMMIE RODRIGES PT Service: ? Author Type: Physical Therapist Type: Progress Notes Filed: 10/25/2023 12:12 Note Text: 10/25/2023 [facility] REHABILITATION AND SPORTS THERAPY PHYSICAL THERAPY DISCONTINUANCE OF CARE Plan of Care Period: Start of Care Date: 06/21/23 Last Visit Date: 07/19/2023 Therapy Program: The following is a summary of the interventions provided for this episode of care; Therapeutic exercise, Self-fpc management, and Gait training Assessment: Based on most recent visit, patient was progressing as expected toward functional goals based on documented subjective information on progress. Unable to formally assess goal achievement, as patient has not returned to therapy or scheduled additional follow-up appointments. Reason for Discontinuation of Care: Patient has not returned to therapy or scheduled additional follow-up appointments. Cammie O'Jhon, PT Episode Visit Count: 3 Therapist That Will Accept/Oversee The Plan Of Care: Cammie Rodrgies Start of Care Date: 06/21/23 Onset Date: 02/19/23 (I've had back pain all my life.) Plan of Care Certification Date: 07/19/23 Next Certification Due Date: 08/23/23 REHABILITATION AND SPORTS THERAPY PHYSICAL THERAPY PROGRESS REPORT PLAN OF CARE UPDATE: Assessment: Joan Snow demonstrates improvements in rising from a chair, standing, walking, walking in the house, and walking in the community. She has progressed toward goals. Patient continues to present with impairments in ADL's, balance, flexibility, gait, independence in exercise, overall function, patient reported outcome measures, strength, symptom management, and tissue tenderness that interfere with bending, kneeling, stair negotiation . Current prognosis is Good due to: positive past response to therapy, current objective clinical presentation . She will benefit from continued skilled therapy services to meet the updated goals for this plan of care as noted below. Goals for Episode of Care: created on 06/21/23 through 08/16/23 Goals updated on 07/19/2023 08/23/23 [facility] in home exercise program. -- MET Patient will decrease pain rating by 2 points to meet minimal clinical important difference for numeric pain rating scale. -- MET Patient will increase active ROM of bilateral knee active extension to to 0 to allow pt to to improve postural alignment, to improve performance of ADLs, to improve gait mechanics / gait pattern , and to decrease falls risks . -- MET Patient will demonstrate increase in bilateral quadriceps strength to 4/5 during manual muscle testing in order to improve function for prior functional tasks. -- MET Patient will increase flexibility of BLE hamstrings to WNL to improve ability to maintain proper posture, improve mechanics, and decrease pain. Improve postural awareness. -- MET Normal gait. -- PROGRESSING Reciprocal stair negotiation. -- PROGRESSING Patient Goals: reduce LBP and B knee pain -- PROGRESSING Patient Goals: reduce LBP and B knee pain Planned Interventions, Frequency, and Duration: 1x/week, 5 weeks Total Number of Visits Planned: 5 Patient to be seen for Therapeutic exercise (41283), Neuromuscular re-education (13646), Manual therapy (31339), Therapeutic activities (08077), Self-fpc management (64759), Gait Training (85140) PLAN FOR NEXT VISIT: pt. will return 08/07/23 if she continues to have LB and knee pain. otherwise she plans to cx this visit. SUBJECTIVE: I'm feeling a lot better, not 100% 75% improvement. KTC stretch is helpful. Knees are also better. Pt. burned her back using her heating pad without a cover for hours. She has showed her physician this and it is healing.. Patient Goals: reduce LBP and B knee pain Functional Limitations: bending, kneeling, stair negotiation Pain: Pain Pain Level: 3 Pain Location: Low Back/Lumbar Spine - Left Description: Aching Pain Level 2: 0 Pain Location 2: Knee - Right, Knee - Left (R>L) Post Treatment Pain Post Treatment Pain Level: 0 Post Treatment Pain Location: Knee - Left, Thoracic Spine - Left (R knee 2-10) Post Treatment Symptoms: denies back pain PROMIS Scales 07/18/2023 06/20/2023 Higher is Better Phys Func - Score 43 (mild dysfunction) 33 (moderate dysfunction) Phys Func - Percentile 24 4 Self-Eff Symptom - Score 43 (Average) 41 (Average) Self-Eff Symptom - Percentile 24 18 T-scores: mean of general population = 50. 5 points is clinically meaningfully difference Percentiles provide an indication of how the patient's score ranks in relation to the general population. Higher percentile rankings indicate better function/quality of life. 50th percentile is the average of the general population and indicates half of respondents had a worse score. OBJECTIVE MEASURES WITH LEVEL OF FUNCTION: Lumbar Spine AROM Lumbar Flexion: Moderate limitation Lumbar Extension: Minima (more content not included)... [facility] 07-05-2023 History of Presen t illness Narrative Program_ID:[id number] Access Code: [email or web address] URL: [email or web address] Date: 07-05-2023 Prepared By: Cammie Rodriges Program Notes Exercises - Supine Single Knee to Chest Stretch - 2-3 x daily - 7 x weekly - 4 sets - 1 reps - Supine Single Knee to Chest Stretch - 2-3 x daily - 7 x weekly - 4 sets - 1 reps - Quad Setting and Stretching - 2-3 x daily - 7 x weekly - 4 sets - 5 reps - Supine Hamstring Stretch - 1 x daily - 7 x weekly - 4 sets - 5 reps Episode Visit Count: 2 Therapist That Will Accept/Oversee The Plan Of Care: Cammie Rodriges Start of Care Date: 06/21/23 Onset Date: 02/19/23 (I've had back pain all my life.) Plan of Care Certification Date: 06/21/23 Next Certification Due Date: 07/26/23 REHABILITATION AND SPORTS THERAPY PHYSICAL THERAPY TREATMENT NOTE ASSESSMENT: Joan Snow tolerated the session with increased symptoms. She demonstrated difficulty with all exercises and required max cues for technique for each. Pt. Requires frequent reassurance that muscular fatigue and burning is expected. She demonstrates improved L knee flexion AROM. The patient will continue to benefit from ongoing skilled physical therapy to progress toward set goals. Current Frequency: 1x/week PLAN FOR NEXT VISIT: TKE in standing, balance on foam SUBJECTIVE: Pt. reports the pain has been off and on. HEP hurts. KTC stretch felt good but she had much difficulty with quad sets. She worked in her garden for 8 hours yesterday and could hardly move last night. Pt. reports that bending forward causes increased pain. Pain: Pain Pain Level: 9 Pain Location: Low Back/Lumbar Spine - Left Description: Sharp Pain Location 2: Knee - Right, Knee - Left (R>L) Post Treatment Pain Post Treatment Pain Level: 5 Post Treatment Pain Location: Knee - Left, Thoracic Spine - Left (R knee 2-3/10) OBJECTIVE MEASURES WITH LEVEL OF FUNCTION: LE AROM L Knee Flexion: 130 Degrees TREATMENT: Therapeutic Exercise: 1: *Access Code: [email or web address] URL: [email or web address] Date: 07/05/2023 Prepared by: Cammie Head Exercises - Supine Single Knee to Chest Stretch - 2-3 x daily - 7 x weekly - 4 sets - 1 reps - 30 hold - Supine Single Knee to Chest Stretch (Mirrored) - 2-3 x daily - 7 x weekly - 4 sets - 1 reps - 30 hold - Quad Setting and Stretching - 2-3 x daily - 7 x weekly - 4 sets - 5 reps - 5 hold - Supine Hamstring Stretch - 1 x daily - 7 x weekly - 4 sets - 5 reps - 1 hold 2: active SLR to 30 degrees of hip flexion 3x8 each side 3: hook lying hip adduction into towel 2x15 -- dc due to pt. complaining of pain despite max cues to not perform max contractoin 4: supine SAQ 4x8 each side Skilled Intervention: Patient was educated in proper exercise technique and purpose for exercises. Reviewed and educated patient on additions/changes for home exercise program as above (*). Skilled judgment was used in selection of appropriate interventions. Provided written instruction for home exercise program to facilitate proper performance and compliance. Educated patient on rationale for performing exercises in regards to decreasing fatigue , increase ease of ADL, and ROM and function . Patient education as noted. Self-Usp Management: 1: discussed that OA does not always correlate with pain 2: advised actiity modification with gardening - shorter duration 3: discussed using tools for gardneing that allow pt. to avoid bending forward Skilled Intervention: Skilled judgment in the selection of proper modification for activity of daily living/home management based on clinical presentation, deficits, and needs. Reviewed patient specific diagnosis in relation to activities of daily living/home management. Activity progression based on professional judgement. Reviewed and educated patient on additions/changes for home program as noted above with an (*). Provided written instruction for home program to facilitate proper performance and compliance. Correct performance of home program was facilitated with verbal, visual, and tactile cueing. Billing Therapeutic Exercise Treatment Minutes: 25 Self-Care/Home Management Treatment Minutes: 15 Skilled Treatment Time Minutes (timed and untimed codes): 40 Total Session Time (minutes): 40 Session Start Time : 1753 Session Stop Time : 1832 Cammie Rodriges PT documented in this encounter [facility] 07-05-2023 Note HNO ID: [id number] Author: CAMMIE RODRIGES PT Service: ? Author Type: Physical Therapist Type: Progress Notes Filed: 07/05/2023 18:31 Note Text: Episode Visit Count: 2 Therapist That Will Accept/Oversee The Plan Of Care: Cammie Rodriges Start of Care Date: 06/21/23 Onset Date: 02/19/23 (I've had back pain all my life.) Plan of Care Certification Date: 06/21/23 Next Certification Due Date: 07/26/23 REHABILITATION AND SPORTS THERAPY PHYSICAL THERAPY TREATMENT NOTE ASSESSMENT: Joan Snow tolerated the session with increased symptoms. She demonstrated difficulty with all exercises and required max cues for technique for each. Pt. Requires frequent reassurance that muscular fatigue and burning is expected. She demonstrates improved L knee flexion AROM. The patient will continue to benefit from ongoing skilled physical therapy to progress toward set goals. Current Frequency: 1x/week PLAN FOR NEXT VISIT: TKE in standing, balance on foam SUBJECTIVE: Pt. reports the pain has been off and on. HEP hurts. KTC stretch felt good but she had much difficulty with quad sets. She worked in her garden for 8 hours yesterday and could hardly move last night. Pt. reports that bending forward causes increased pain. Pain: Pain Pain Level: 9 Pain Location: Low Back/Lumbar Spine - Left Description: Sharp Pain Location 2: Knee - Right, Knee - Left (R>L) Post Treatment Pain Post Treatment Pain Level: 5 Post Treatment Pain Location: Knee - Left, Thoracic Spine - Left (R knee 2-3/10) OBJECTIVE MEASURES WITH LEVEL OF FUNCTION: LE AROM L Knee Flexion: 130 Degrees TREATMENT: Therapeutic Exercise: 1: *Access Code: [email or web address] URL: [email or web address] Date: 07/05/2023 Prepared by: Cammie Rodriges Exercises - Supine Single Knee to Chest Stretch - 2-3 x daily - 7 x weekly - 4 sets - 1 reps - 30 hold - Supine Single Knee to Chest Stretch (Mirrored) - 2-3 x daily - 7 x weekly - 4 sets - 1 reps - 30 hold - Quad Setting and Stretching - 2-3 x daily - 7 x weekly - 4 sets - 5 reps - 5 hold - Supine Hamstring Stretch - 1 x daily - 7 x weekly - 4 sets - 5 reps - 1 hold 2: active SLR to 30 degrees of hip flexion 3x8 each side 3: hook lying hip adduction into towel 2x15 -- dc due to pt. complaining of pain despite max cues to not perform max contractoin 4: supine SAQ 4x8 each side Skilled Intervention: Patient was educated in proper exercise technique and purpose for exercises. Reviewed and educated patient on additions/changes for home exercise program as above (*). Skilled judgment was used in selection of appropriate interventions. Provided written instruction for home exercise program to facilitate proper performance and compliance. Educated patient on rationale for performing exercises in regards to decreasing fatigue , increase ease of ADL, and ROM and function . Patient education as noted. Self-Usp Management: 1: discussed that OA does not always correlate with pain 2: advised actiity modification with gardening - shorter duration 3: discussed using tools for gardneing that allow pt. to avoid bending forward Skilled Intervention: Skilled judgment in the selection of proper modification for activity of daily living/home management based on clinical presentation, deficits, and needs. Reviewed patient specific diagnosis in relation to activities of daily living/home management. Activity progression based on professional judgement. Reviewed and educated patient on additions/changes for home program as noted above with an (*). Provided written instruction for home program to facilitate proper performance and compliance. Correct performance of home program was facilitated with verbal, visual, and tactile cueing. Billing Therapeutic Exercise Treatment Minutes: 25 Self-Care/Home Management Treatment Minutes: 15 Skilled Treatment Time Minutes (timed and untimed codes): 40 Total Session Time (minutes): 40 Session Start Time : 1753 Session Stop Time : 1833 Cammie Rodriges, PT [facility] 06-21-2023 History of Presen t illness Narrative Program_ID:[id number] Access Code: [email or web address] URL: [email or web address] Date: 06-21-2023 Prepared By: Cammie Rodriges Program Notes Exercises - Supine Single Knee to Chest Stretch - 2-3 x daily - 7 x weekly - 4 sets - 1 reps - Quad Setting and Stretching - 2-3 x daily - 7 x weekly - 4 sets - 5 reps - Supine Single Knee to Chest Stretch - 2-3 x daily - 7 x weekly - 4 sets - 1 reps - Seated Hamstring Stretch - 2-3 x daily - 7 x weekly - 4 sets - 1 reps Images from the original note were not included. Episode Visit Count: 1 Therapist That Will Accept/Oversee The Plan Of Care: Cammie Rodriges Start of Care Date: 06/21/23 Onset Date: 02/19/23 (I've had back pain all my life.) Plan of Care Certification Date: 06/21/23 Next Certification Due Date: 07/26/23 Patient Identified by Name and Date of : Yes REHABILITATION AND SPORTS THERAPY PHYSICAL THERAPY EVALUATION PLAN OF CARE: Assessment: Joan Snow presents with diagnosis of somatic dysfunction of lumbar region and chronic pain of both knees that interferes with standing, rising from a chair, bending, kneeling, walking, stair negotiation, walking in the community, walking in the house . She presents with impairments in ADL's, balance, flexibility, gait, independence in exercise, joint mobility, overall function, patient reported outcome measures, posture, range of motion, strength, and symptom management. PROMIS (Patient-Reported Outcomes Measurement Information System) scores were reviewed and identified as a rehabilitation concern. Prognosis for therapy is Fair due to: coping skills, chronic nature of impairments, multiple co- morbidities, clinical presentation, limited tolerance to activity, poor historian, poor understanding of deficits . She will benefit from skilled therapy services to meet the goals established for this plan of care as noted below. Classification Low Back Pain Classification: Symptom Modulation Goals for Episode of Care: created on 06/21/23 through 08/16/23 [facility] in home exercise program. Patient will decrease pain rating by 2 points to meet minimal clinical important difference for numeric pain rating scale. Patient will increase active ROM of bilateral knee active extension to to 0 to allow pt to to improve postural alignment, to improve performance of ADLs, to improve gait mechanics / gait pattern , and to decrease falls risks . Patient will demonstrate increase in bilateral quadriceps strength to 4/5 during manual muscle testing in order to improve function for prior functional tasks. Patient will increase flexibility of BLE hamstrings to WNL to improve ability to maintain proper posture, improve mechanics, and decrease pain. Improve postural awareness. Normal gait. Reciprocal stair negotiation. Patient Goals: reduce LBP and B knee pain Planned Interventions, Frequency, and Duration: Current Frequency: 1x/week Duration: 8 weeks Total Number of Visits Planned: 8 Planned Treatment Interventions: Self-fpc management (77385), Gait Training (33884), Therapeutic activities (89516), Manual therapy (14704), Neuromuscular re-education (66608), Therapeutic exercise (39994) PLAN FOR NEXT VISIT: assess symptom response to HS stretching, quad strengthening, and flexion KTC stretch--- determine directional preference of lumbar spine or continue hook lying TA Patient demonstrates fair understanding of plan of care and treatment. The above goals and plan of care were discussed and agreed upon by patient/family. SUBJECTIVE: for increased low back pain over the last 4 mo. and B knee pain (R>L). 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 report -- minimal improvement per pt. report) Falls Interview: No positive findings with falls interview Red Flags Vertebral Fracture Red Flags: Female Vertebral Fracture Clinical Reasoning: Proceed with caution due to the above (1-2) risk factors Abdominal Aortic Aneurysm Clinical Reasoning: No identified risk factors. Cancer Clinical Reasoning: No identified risk factors. Infection Clinical Reasoning: No identified risk factors. Cauda Equina Syndrome Clinical Reasoning: No identified risk factors. Red Flags - Cervical Cancer Clinical Reasoning: No identified risk factors. Infection Clinical Reasoning: No identified risk factors. Spine History Symptoms Location at Onset: Back Symptoms Since Onset: Worsening Pain is Worse Always: Bending, Standing, Walking, Rising Pain is Better Always: Lying, Rest Sleeping Position: Side lying left Sleep Affected by Pain: Pain keeps from falling asleep, Pain awakens (pt. takes medication for sleep) Pain: Pain Pain Level: 7 Pain Location: Low Back/Lumbar Spine - Left Description: Sharp Frequency: At rest Additional Pain Information : Location 2 Pain Level 2: 5 Pain Location 2: Knee - Right, Knee - Left (R>L) Description 2: Aching Post Treatment Pain Post Treatment Pain Level: Better Post Treatment Pain Location: Knee - Right, Knee - Left, Thoracic Spine - Left Post Treatment Symptoms: pt. reports better overall PROMIS Scales 06/20/2023 Higher is Better Phys Func - Score 33 (moderate dysfunction) Phys Func - Percentile 4 Self-Eff Symptom - Score 41 (Average) Self-Eff Symptom - Percentile 18 T-scores: mean of general population = 50. 5 points is clinically meaningfully difference Percentiles provide an indication of how the patient's score ranks in relation to the general population. Higher percentile rankings indicate better function/quality of life. 50th percentile is the average of the general population and indicates half of respondents had a worse score. OBJECTIVE MEASURES WITH LEVEL OF FUNCTION: Posture / Alignment Posture: (edge of chair,) Sitting Posture: Perched, Sits on left ischial tuberosity (trunk rotated L and SB R) Knee Observations Knee Brace: Patellar sleeve (BLE knees - pt. reports is helfpul) Sensation - Lumbar Sensation: Grossly Intact Lumbar Spine AROM Lumbar Flexion: Major limitation Lumbar Extension: Major limitation Lumbar R Side [place]: Major limitation Lumbar L Side [place]: Major limitation Lumbar R Side-Bend: Moderate limitation Lumbar L Side-Bend: Major limitation Lumbar R Rotation: Major limitation Lumbar L Rotation: Major limitation Lumbar Spine AROM Comments: all movements reproduce symptoms per pt. report Repeated Test Movements - Lumbar RFIL - Symptoms During: decreases RFIL - Symptoms After: better Other Lumbar Repeated Test Movements: Yes Static Testing - Lumbar Sit Slouched: worse Sit Erect: worse Stand Erect: worse LE AROM R Hip Flexion: 90 Degrees R Knee Extension: -15 Degrees (seated) R Knee Flexion: 120 Degrees (supine) L Hip Flexion: 90 Degrees L Knee Extension: -17 Degrees (seated) L Knee Flexion: 113 Degrees (supine) LE Flexibility Flexibility: Hamstring Flexibility, Gastrocnemius Flexibility, Hip Flexor Flexibility R Hamstring Flexibility: limited L Hamstring Flexibility: limited R Hip Flexor Flexibility: limited L Hip Flexor Flexibility: limited R Gastrocnemius Flexibility: limited L Gastrocnemius Flexibility: limited LE Joint Mobility Joint Mobility Comment: very limited tolerance, PROM not assessed LE Strength R Knee Extension (L3): 2/5 L Knee Extension (L3): 2/5 Special Tests - Hip and Spine Hip and Spine Special Tests: Active SLR, SLR Test SLR Test: Right Negative, Left Negative Active SLR: Right Positive, Left Positive Special Test Comments: reduced LBP to 3/10 in hook lying -- suggests possible flexion directional preference Gait Gait: Supervision Gait Distance (feet): 80 Gait Device: None Gait Deviations: General Deviations General Deviations/Observations: Shuffling Gait, Step length decreased, Trunk Control Decreased, Wide base of support, Flexed trunk posture, Anna decreased, Lateral sway increased, Non-functional gait speed Education: Education Learning Preferences: Demonstration, Explanation, Printed Materials, Performance Barriers: Emotions, Desire and Motivation Learning/educational needs: Plan of Care, Home exercise program, Gait Training Education Provided: Yes, see treatment interventions for education provided Education Provided To: Patient Education Mode/Type: Demonstration, Explanation/Discussion, Literature/Printed Materials, Performance Response to Education/Teach Back: Requires Review/Additional Education TREATMENT: PT Treatment Interventions: Therapeutic Exercise, Self-Usp Management Evaluation Therapeutic Exercise: 1: attempted SLR - reported increased low back pain 2: *Access Code: [email or web address] URL: [email or web address] Date: 06/21/2023 Prepared by: Cammie Bolton'Jhon Exercises - Supine Single Knee to Chest Stretch - 2-3 x daily - 7 x weekly - 4 sets - 1 reps - 30 hold - Quad Setting and Stretching - 2-3 x daily - 7 x weekly - 4 sets - 5 reps - 5 hold - Supine Single Knee to Chest Stretch (Mirrored) - 2-3 x daily - 7 x weekly - 4 sets - 1 reps - 30 hold - Seated Hamstring Stretch - 2-3 x daily - 7 x weekly - 4 sets - 1 reps - 30 hold 3: attempted hook lying pelvic rotations -- dc due to pt. reports of increased symptoms Skilled Intervention: Patient was educated in proper exercise technique and purpose for exercises. Skilled judgment was used in selection of appropriate interventions. Provided written instruction for home exercise program to facilitate proper performance and compliance. Correct performance of therapeutic exercises was facilitated with verbal, visual, and tactile cuing. Educated patient on rationale for performing exercises in regards to decreasing fatigue , increase ease of ADL, and ROM and function . Patient education as noted. Self-Usp Management: 1: discussed that PT is trying to idenitfy exercises that reduce symptoms or improve strength without making symptoms worse 2: discussed that avoiding movement can cause more pain than relief 3: postural education 4: pt. instructed to avoid exercises (such as using her treadmill) that make her symptoms worse Skilled Intervention: Skilled judgment in the selection of proper modification for activity of daily living/home management based on clinical presentation, deficits, and needs. Provided written instruction for activities of daily living techniques to facilitate proper performance and compliance. Reviewed patient specific diagnosis in relation to activities of daily living/home management. Activity progression based on professional judgement. Moderate verbal cues for maintaining neutral spine alignment. Provided written instruction for home program to facilitate proper performance and compliance. Correct performance of home program was facilitated with verbal, visual, and tactile cueing. Billing * Evaluation Low Complexity: 1 Unit Therapeutic Exercise Treatment Minutes: 15 Self-Care/Home Management Treatment Minutes: 10 Skilled Treatment Time Minutes (timed and untimed codes): 45 Total Session Time (minutes): 45 Session Start Time : 808 Session Stop Time : 853 Cammie Rodriges PT documented in this encounter [facility] 06-21-2023 Note HNO ID: [id number] Author: CAMMIE RODRIGES PT Service: ? Author Type: Physical Therapist Type: Progress Notes Filed: 06/21/2023 08:51 Note Text: Episode Visit Count: 1 Therapist That Will Accept/Oversee The Plan Of Care: Cammie Rodriges Start of Care Date: 06/21/23 Onset Date: 02/19/23 (I've had back pain all my life.) Plan of Care Certification Date: 06/21/23 Next Certification Due Date: 07/26/23 Patient Identified by Name and Date of : Yes [facility] PHYSICAL THERAPY EVALUATION PLAN OF CARE: Assessment: Joan Snow presents with diagnosis of somatic dysfunction of lumbar region and chronic pain of both knees that interferes with standing, rising from a chair, bending, kneeling, walking, stair negotiation, walking in the community, walking in the house . She presents with impairments in ADL's, balance, flexibility, gait, independence in exercise, joint mobility, overall function, patient reported outcome measures, posture, range of motion, strength, and symptom management. PROMIS? (Patient-Reported Outcomes Measurement Information System) scores were reviewed and identified as a rehabilitation concern. Prognosis for therapy is Fair due to: coping skills, chronic nature of impairments, multiple co- morbidities, clinical presentation, limited tolerance to activity, poor historian, poor understanding of deficits . She will benefit from skilled therapy services to meet the goals established for this plan of care as noted below. Classification Low Back Pain Classification: Symptom Modulation Goals for Episode of Care: created on 06/21/23 through 08/16/23 [place] in home exercise program. Patient will decrease pain rating by 2 points to meet minimal clinical important difference for numeric pain rating scale. Patient will increase active ROM of bilateral knee active extension to to 0 to allow pt to to improve postural alignment, to improve performance of ADLs, to improve gait mechanics / gait pattern , and to decrease falls risks . Patient will demonstrate increase in bilateral quadriceps strength to 4/5 during manual muscle testing in order to improve function for prior functional tasks. Patient will increase flexibility of BLE hamstrings to WNL to improve ability to maintain proper posture, improve mechanics, and decrease pain. Improve postural awareness. Normal gait. Reciprocal stair negotiation. Patient Goals: reduce LBP and B knee pain Planned Interventions, Frequency, and Duration: Current Frequency: 1x/week Duration: 8 weeks Total Number of Visits Planned: 8 Planned Treatment Interventions: Self-fpc management (43968), Gait Training (30885), Therapeutic activities (33665), Manual therapy (02128), Neuromuscular re-education (03025), Therapeutic exercise (44018) PLAN FOR NEXT VISIT: assess symptom response to HS stretching, quad strengthening, and flexion KTC stretch--- determine directional preference of lumbar spine or continue hook lying TA Patient demonstrates fair understanding of plan of care and treatment. The above goals and plan of care were discussed and agreed upon by patient/family. SUBJECTIVE: for increased low back pain over the last 4 mo. and B knee pain (R>L). 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 report -- minimal improvement per pt. report) Falls Interview: No positive findings with falls interview Red Flags Vertebral Fracture Red Flags: Female Vertebral Fracture Clinical Reasoning: Proceed with caution due to the above (1-2) risk factors Abdominal Aortic Aneurysm Clinical Reasoning: No identified risk factors. Cancer Clinical Reasoning: No identified risk factors. Infection Clinical Reasoning: No identified risk factors. Cauda Equina Syndrome Clinical Reasoning: No identified risk factors. Red Flags - Cervical Cancer Clinical Reasoning: No identified risk factors. Infection Clinical Reasoning: No identified risk factors. Spine History Symptoms Location at Onset: Back Symptoms Since Onset: Worsening Pain is Worse Always: Bending, Standing, Walking, Rising Pain is Better Always: Lying, Rest Sleeping Position: Side lying left Sleep Affected by Pain: Pain keeps from falling asleep, Pain awakens (pt. takes medication for sleep) Pain: Pain Pain Level: 7 Pain Location: Low Back/Lumbar Spine - Left Description: Sharp Frequency: At rest Additional Pain Information : Location 2 Pain Level 2: 5 Pain Location 2: Knee - Right, Kn (more content not included)... [facility] 06-07-2023 Note HNO ID: [id number] Author: AMANDA FOOTE PA-C Service: ? Author Type: Physician Tax Record Clerk Type: Progress Notes Filed: 06/07/2023 10:35 Note Text: Amanda Foote PA-C [facility] [address] [id number] 06/07/2023 ASSESSMENT AND PLAN: Assessment : Encounter Diagnosis ICD-10-CM 1. Somatic dysfunction of lumbar region M99.03 CONSULT TO PHYSICAL THERAPY tiZANidine (ZANAFLEX) 4 mg tablet 2. Chronic pain of both knees M25.561 CONSULT TO PHYSICAL THERAPY M25.562 tiZANidine (ZANAFLEX) 4 mg tablet G89.29 Discussion: Ms. Snow is a 52-year-old female here for evaluation of fairly severe low back pain worsening over the past 6 months or so, but present for a number of years. She describes separate right greater than left knee pain and stiffness with standing and sitting. She has been using a heating pad extensively and notes the fact that she has developed heating pad solorzano across her lumbosacral junction. EXAM Highlights: She is quite slow to move from sitting to standing and does not achieve a fully erect stance. She does not straighten out her right knee fully. She has troubles with getting any motion forward, backward, or [id number] without increasing central low back pain. She has diminished strength resistance in all motor groups of the lower extremities but describes increased pain with all resisted strength testing. She denies any bowel or bladder dysfunction or perineal numbness Seated SLR's are negative bilaterally. There is moderately severe pain on palpation in multiple areas across her low back including SI joints, PSIS, and lumbosacral junction in the midline and greater trochanters. IMAGING: She had a current series of lumbar plain radiographs that we reviewed in detail during today's visit. There is mild scoliosis without rotational component noted on the AP view. There may be mild disc space height loss at L3-4 and L4-5, but this is fairly subtle. She has otherwise age-appropriate degenerative findings in the lumbar region. SUMMARY/PLAN: Her pain seems to be poorly managed at this point and it seems to also be creating a cascade of other issues. I am not sure if the low back problems recently worsened are a result of her significant gait alterations to favor her right knee, or whether her low back is its own separate issue. Since she is neurologically intact without clear evidence of lumbar nerve root dysfunction today, I would recommend supervised PT and muscle relaxants to try to calm down some of her muscle spasm and pain in the back itself. We also had a discussion about the importance of her getting her knee issues evaluated and more fully treated. As long as she has significant gait alteration and favoring of her knee, it we will place additional mechanical stressors on her low back and keep her low back from healing well. She is to follow-up here after trying these 2 things if she still has some appreciable symptoms. We could consider future spine imaging studies such as CT or MRI. She will consider follow-up in urgent care or emergency department if symptoms become unmanageable in the interim Plan : REFERAL FOR SERVICES: -Physical therapy will be instituted. MEDICATIONS: -See prescribed medication list for this encounter. ACTIVITY RECOMMENDATIONS: -The patient is encouraged to avoid bed rest and maintain normal activity. -The patient advised to avoid prolonged sitting. FOLLOW-UP: -The patient is instructed to return after six weeks of therapy. -The patient is instructed to return sooner if problems warrant. This document has been created with the use of voice recognition technology. It may contain inaccuracies: (e.g. misspellings, inaccurate syntax or word sense) that have escaped review. Time spent: 45 minutes today with this patient visit. This includes otum-ce-ibgc time, review of chart records regarding conservative care history, spine-pertinent imaging, and communication/care coordination with referring provider, problem-specific history-taking and counseling/education regarding treatment options. cc: SELF Phone: N/A Fax: Results of consultation to be transmitted via electronic medical record for those providers who practice within [facility] or with access to [facility] via [facility], or via letter. ################################ ################################ ######## CHIEF COMPLAINT: Patient is here for the lower back pain, sometimes has left hip pain and pain goes down to the upper left leg. Has this pain for years and it is getting worse. Walking, standing, sitting, and standing up is painful. Level of the pain is at 8/10. HPI: see Discussion above History of bowel or bladder dysfunction (not IBS or constipation): No History of previous spina (more content not included)... [facility] 06-07-2023 History of Presen t illness Narrative Images from the original note were not included. Amanda Foote PA-C [facility] [address] [facility] [address] [place] [id number] 06/07/2023 ASSESSMENT AND PLAN: Assessment : Encounter Diagnosis ICD-10-CM 1. Somatic dysfunction of lumbar region M99.03 CONSULT TO PHYSICAL THERAPY tiZANidine (ZANAFLEX) 4 mg tablet 2. Chronic pain of both knees M25.561 CONSULT TO PHYSICAL THERAPY M25.562 tiZANidine (ZANAFLEX) 4 mg tablet G89.29 Discussion: Ms. Snow is a 52-year-old female here for evaluation of fairly severe low back pain worsening over the past 6 months or so, but present for a number of years. She describes separate right greater than left knee pain and stiffness with standing and sitting. She has been using a heating pad extensively and notes the fact that she has developed heating pad solorzano across her lumbosacral junction. EXAM Highlights: She is quite slow to move from sitting to standing and does not achieve a fully erect stance. She does not straighten out her right knee fully. She has troubles with getting any motion forward, backward, or [id number] without increasing central low back pain. She has diminished strength resistance in all motor groups of the lower extremities but describes increased pain with all resisted strength testing. She denies any bowel or bladder dysfunction or perineal numbness Seated SLR's are negative bilaterally. There is moderately severe pain on palpation in multiple areas across her low back including SI joints, PSIS, and lumbosacral junction in the midline and greater trochanters. IMAGING: She had a current series of lumbar plain radiographs that we reviewed in detail during today's visit. There is mild scoliosis without rotational component noted on the AP view. There may be mild disc space height loss at L3-4 and L4-5, but this is fairly subtle. She has otherwise age-appropriate degenerative findings in the lumbar region. SUMMARY/PLAN: Her pain seems to be poorly managed at this point and it seems to also be creating a cascade of other issues. I am not sure if the low back problems recently worsened are a result of her significant gait alterations to favor her right knee, or whether her low back is its own separate issue. Since she is neurologically intact without clear evidence of lumbar nerve root dysfunction today, I would recommend supervised PT and muscle relaxants to try to calm down some of her muscle spasm and pain in the back itself. We also had a discussion about the importance of her getting her knee issues evaluated and more fully treated. As long as she has significant gait alteration and favoring of her knee, it we will place additional mechanical stressors on her low back and keep her low back from healing well. She is to follow-up here after trying these 2 things if she still has some appreciable symptoms. We could consider future spine imaging studies such as CT or MRI. She will consider follow-up in urgent care or emergency department if symptoms become unmanageable in the interim Plan : REFERAL FOR SERVICES: -Physical therapy will be instituted. MEDICATIONS: -See prescribed medication list for this encounter. ACTIVITY RECOMMENDATIONS: -The patient is encouraged to avoid bed rest and maintain normal activity. -The patient advised to avoid prolonged sitting. FOLLOW-UP: -The patient is instructed to return after six weeks of therapy. -The patient is instructed to return sooner if problems warrant. This document has been created with the use of voice recognition technology. It may contain inaccuracies: (e.g. misspellings, inaccurate syntax or word sense) that have escaped review. Time spent: 45 minutes today with this patient visit. This includes [id number]-yj-[id number] time, review of chart records regarding conservative care history, spine-pertinent imaging, and communication/care coordination with referring provider, problem-specific history-taking and counseling/education regarding treatment options. cc: SELF Phone: N/A Fax: Results of consultation to be transmitted via electronic medical record for those providers who practice within [facility] or with access to [facility] via [facility], or via letter. ################################ ################################ ######## CHIEF COMPLAINT: Patient is here for the lower back pain, sometimes has left hip pain and pain goes down to the upper left leg. Has this pain for years and it is getting worse. Walking, standing, sitting, and standing up is painful. Level of the pain is at 8/10. 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 Spinal Injections: She has not gotten prior spinal injections. Other: None Current Outpatient Medications Medication Sig Dispense Refill DULoxetine (CYMBALTA) 30 mg capsule Take 1 capsule by mouth every afternoon. ADVAIR DISKUS 250-50 mcg/dose inhaler two times a day. pantoprazole DR (PROTONIX) 40 mg tablet Take 1 tablet by mouth every afternoon. traZODone (DESYREL) 100 mg tablet Take 100 mg by mouth daily at bedtime. atorvastatin (LIPITOR) 40 mg tablet melatonin 10 mg TbER Take by mouth. budesonide-formoterol (SYMBICORT) 160-4.5 mcg/actuation inhaler Inhale 2 Puffs as instructed twice daily. 30.6 g 0 escitalopram oxalate (LEXAPRO) 10 mg tablet Take 1 tablet by mouth once daily. 30 tablet 11 albuterol sulfate (PROAIR RESPICLICK) 90 mcg/actuation Inhale 2 Puffs as instructed four times daily as needed. 3 Inhaler 0 TURMERIC ROOT EXTRACT ORAL Take by mouth. aspirin, enteric coated (ASPIRIN, ENTERIC COATED) 81 mg EC tablet Take 81 mg by mouth once daily. MULTIVITAMIN ORAL Take by mouth. busPIRone (BUSPAR) 15 mg tablet Take 0.5 tablets by mouth twice daily. (Patient not taking: Reported on 01/15/2023) 30 tablet 3 biotin 1 mg cap Take by mouth. (Patient not taking: Reported on 01/15/2023) No current facility-administered medications for this visit. Allergies: Patient has no known allergies. PAST MEDICAL HISTORY Diagnosis Date Abnormal pap COPD (chronic obstructive pulmonary disease) (HCC) History of tobacco use Umbilical hernia without mention of obstruction or gangrene PAST SURGICAL HISTORY Procedure Laterality Date COLONOSCOPY FLX DX W/COLLJ SPEC WHEN PFRMD 11/22/2017 Colonoscopy HERNIA REPAIR HX 2004 umbilical LEEP PROCEDURE (HEAD OF BIOLOGY DEPT)_*FL 2006 LIG/TRNSXJ FLP TUBE ABDL/VAG APPR UNI/BI 2004 VAGINOSCOPY 07/2006 Social History Tobacco Use Smoking status: Former Packs/day: 1.00 Years: 30.00 Additional pack years: 0.00 Total pack years: 30.00 Types: Cigarettes Start date: 06/15/1989 Quit date: 01/2022 Years since quittin.3 Smokeless tobacco: Never Vaping Use Vaping Use: Never used Substance Use Topics Alcohol use: No Drug use: No FAMILY HISTORY Problem Relation Age of Onset Alcohol/Drug Mother Heart Father 63 [place] Heart Maternal Grandmother GA REVIEW OF SYSTEMS: Constitutional: (-) Fever/Chills (-) Night Sweats (-) Weight Gain (-) Weight Loss Gastrointestinal: (-) Abdominal Pain (-) Diarrhea (+) Constipation (+) Heart Burn Cardiovascular: (+) Chest Pain (+) Palpitations (+) Lightheadedness (-) Hx Heart Surgery/Stent Respiratory: (+) Short of Breath (-) Cough (-) Snoring Neurologic: (+) Headache (-) Blurry Vision (-) Fainting Skin: (-) Rashes (-) Itching (-) Other Lesions Psychiatric: (-) Depression (+) Anxiety (-) Suicidal Thoughts Genitourinary: (-) Frequency (-) Urgency Endocrine: (-) Thyroid Disorder (-) Diabetes Hematologic: (-) Prolonged Bleeding (-) Easy Bruising ################################ ################################ ################################ ################################ # PHYSICAL EXAM: Blood pressure 120/83, pulse 72, height 162.6 cm (5' 4), weight 66.9 kg (147 lb 7.8 oz), SpO2 97%. Body mass index is 25.32 kg/m . General: Patient is a(n) average historian. The patient appears approximately the recorded age and is sitting uncomfortably in the examining room. The patient is average height in stature and is slender in appearance. This individual has difficulty arising from a sitting position and does have difficulty acquiring a full, upright position when standing. Station and Gait: flexed posture and antalgic gait leaning forward, favoring the right lower extremity, short strides, wide-based, and slow pace The patient is unable to walk in a tandem gait. MENTAL STATUS EXAMINATION: The patient was well groomed and casually attired. The patient had fair eye contact and rapport was average to establish. The patient appeared to be alert and oriented in all spheres. The patient's overall medical judgment appeared to be fair.The patient's motivation for treatment was judged based on today's encounter to be good. SPINE: Lumbar Lordosis: Decreased/flattened Thoracic Kyphosis: Normal RANGE OF MOTION: Flexion: abnormal, decreased motion below expected for age and weight Pain: Yes, axial pain Extension: abnormal, decreased motion below expected for age and weight Pain: Yes, axial pain Lateral Bending: Right abnormal, decreased motion below expected for age and weight Pain: Yes, axial pain Left abnormal, decreased motion below expected for age and weight Pain: Yes, axial pain PALPATION TENDERNESS: Severe tenderness at: lumbar region, posterior pelvis, and gluteal region Hyperesthesia present: No Regional symptoms present: No Increased pain with axial loading: No Distraction: Normal Pain responses: elevated NEUROLOGIC EXAM: MOTOR: Walk on Toes: Right: No Left: Yes, but poorly Walk on Heels: Right: No Left: Yes, but poorly Requires verbal cues to minimize cog-wheel or give-way resistance: Yes Hip Flexor R: -4/5 L: -4/5 Hip Abductor R: -4/5 L: -4/5 Hip Adductor R: -4/5 L: -4/5 Knee Extension R: -4/5 L: -4/5 Foot Dorsiflexion R: -4/5 L: -4/5 Foot Plantar Flexion R: 4/5 L: 5/5 Ext Hallicus Longus R: -4/5 L: -4/5 Toe Extensors R: -4/5 L: -4/5 SENSATION to Light Touch: Lumbar: L2-S1 symmetrically normal. REFLEXES: Lower Extremity: Patella tendon: R: 3+ L: 3+ Achilles tendon: R: 2+ L: 2+ Clonus: R: 0 beats/Normal L: 1-2 beats Babinski Sign: Negative bilaterally. Upper Extremity: Freeman's Sign: Barely a flicker of positivity on both sides VASCULAR: Skin appearance: Right: Warm/pink Left: Warm/pink There are also large areas of dark heating pad solorzano across her low back and upper buttocks Capillary refill: Right: brisk Left: brisk ADDITIONAL MUSCULOSKELETAL EXAM: HIP/PELVIS EXAM: Tenderness over the PSIS: Right: Yes Left: Yes Greater Trochanteric pain: Right: Yes Left: Yes SPECIAL TESTS: Straight Leg Raise: negative bilaterally Contralateral Straight Leg Raise: negative bilaterally IMAGING STUDIES: See discussion above documented in this encounter [facility] 05-10-2023 Miscellaneous Notes Patient cancelled appointment. Patient has appointment scheduled on 05/12/2023 for bilateral knee injections. I left a message for the patient to contact the office to determine what kind of injection she is coming in for. She is too early to get a cortisone injection(last one 03/03/2023), will need to wait until 06/02/2023 to repeat and if she is coming in for a gel injection, that needs to be approved by her insurance. documented in this encounter [facility] 04-18-2023 History of Presen t illness Narrative Radiology Service Progress Note PATIENT NAME: Joan Snow DATE OF SERVICE: April 18, 2023 TIME: 9:56 AM PATIENT IDENTITY VERIFICATION COMPLETED USING TWO (2) IDENTIFIERS: Name and Date of confirmed by patient verbally. FALL SCREENING: Has the patient had 2 falls in the last year or 1 fall with injury or currently using an Ambulatory Assistive Device (Walker, Cane, Wheelchair, Crutches, etc.)? No PATIENT GENDER DATA: Female. status: : No status: NO. PATIENT RELEVANT IMPLANT DATA REVIEWED: Not Applicable PATIENT PRESENTS WITH AN IMPLANTABLE OR ATTACHED ALUMINUM MOLDING MACHINE OPERATOR: No RADIOLOGY DEPARTMENT: General X-ray: Exam(s) Completed: Spine X-Ray(s): Cervical AP / LAT / FLEX-EXT , THORACIC AP/LAT/SWIMMERS LUMBAR AP/LAT/ FLEX/ EXT WT BEARING PERIPHERAL IV DATA: Not applicable SIGNED BY: RT Eliel(R) April 18, 2023 9:56 AM documented in this encounter [facility] 04-18-2023 Note HNO ID: [id number] Author: MILA REY RT(R) Service: ? Author Type: Technologist Type: Progress Notes Filed: 04/18/2023 09:57 Note Text: Radiology Service Progress Note PATIENT NAME: Joan Snow DATE OF SERVICE: April 18, 2023 TIME: 9:56 AM PATIENT IDENTITY VERIFICATION COMPLETED USING TWO (2) IDENTIFIERS: Name and Date of confirmed by patient verbally. FALL SCREENING: Has the patient had 2 falls in the last year or 1 fall with injury or currently using an Ambulatory Assistive Device (Walker, Cane, Wheelchair, Crutches, etc.)? No PATIENT GENDER DATA: Female. status: : No status: NO. PATIENT RELEVANT IMPLANT DATA REVIEWED: Not Applicable PATIENT PRESENTS WITH AN IMPLANTABLE OR ATTACHED ALUMINUM MOLDING MACHINE OPERATOR: No RADIOLOGY DEPARTMENT: General X-ray: Exam(s) Completed: Spine X-Ray(s): Cervical AP / LAT / FLEX-EXT , THORACIC AP/LAT/SWIMMERS LUMBAR AP/LAT/ FLEX/ EXT WT BEARING PERIPHERAL IV DATA: Not applicable SIGNED BY: RT Eliel(R) April 18, 2023 9:56 AM [facility] 03-12-2023 Hospital Discharg e instructions Patient Education 03/11/2023 22:34:16 GERD (Adult) GERD (Adult) The esophagus is a tube that carries food from the mouth to the stomach. A valve (the LES, lower esophageal sphincter) at the lower end of the esophagus prevents stomach acid from flowing upward. When this valve doesn't work properly, stomach contents may repeatedly flow back up (reflux) into the esophagus. This is called gastroesophageal reflux disease (GERD). GERD can irritate the esophagus. It can cause problems with pain, swallowing or breathing. In severe cases, GERD can cause recurrent pneumonia (from aspiration or breathing in particles) or other serious problems. Symptoms of reflux include burning, pressure or sharp pain in the upper abdomen or mid to lower chest. The pain can spread to the neck, back, or shoulder. There may be belching, an acid taste in the back of the throat, chronic cough, or sore throat, or hoarseness. GERD symptoms often occur during the day after a big meal. They can also occur at night when lying down. Home care Lifestyle changes can help reduce symptoms. If needed, your healthcare provider may prescribe medicines. Symptoms often improve with treatment, but if treatment is stopped, the symptoms often return after a few months. So most persons with GERD will need to continue treatment or get treatment on and off. Lifestyle changes Limit or avoid fatty, fried, and spicy foods, as well as coffee, chocolate, mint, and foods with high acid content such as tomatoes and citrus fruit and juices (orange, grapefruit, lemon). Don t eat large meals, especially at night. Frequent, smaller meals are best. Don't lie down right after eating. And don t eat anything 3 hours before going to bed. Don't drink alcohol or smoke. As much as possible, stay away from second hand smoke. If you are overweight, losing weight will reduce symptoms. Don't wear tight clothing around your stomach area. If your symptoms occur during sleep, use a foam wedge to elevate your upper body (not just your head.) Or, place 4 blocks under the head of your bed. Or use 2 bed risers under your bedframe. Medicines If needed, medicines can help relieve the symptoms of GERD and prevent damage to the esophagus. Discuss a medicine plan with your healthcare provider. This may include one or more of the following medicines: Antacids to help neutralize the normal acids in your stomach. Acid blockers (Histamine or H2 blockers) to decrease acid production. Acid inhibitors (proton pump inhibitors PPIs) to decrease acid production in a different way than the blockers. They may work better, but can take a little longer to take effect. Take an antacid 30 to 60 minutes after eating and at bedtime, but not at the same time as an acid ting. Try not to take medicines such as ibuprofen and aspirin. If you are taking aspirin for your heart or other medical reasons, talk to your healthcare provider about stopping it. Follow-up care Follow up with your healthcare provider or as advised by our staff. When to seek medical advice Call your healthcare provider if any of the following occur: Stomach pain gets worse or moves to the lower right abdomen (appendix area) Chest pain appears or gets worse, or spreads to the back, neck, shoulder, or arm An [id number] trial of medicine doesn't relieve your symptoms Weight loss that can't be explained Trouble or pain swallowing Frequent vomiting (can t keep down liquids) Blood in the stool or vomit (red or black in color) Feeling weak or dizzy Fever of 100.4 F (38 C) or higher, or as directed by your healthcare provider 9541-3375 [employer]. [address] [place] [address]. All rights reserved. This information is not intended as a substitute for professional medical care. Always follow your healthcare professional's instructions. Follow Up Care 03/11/2023 21:15:48 With:Follow up with primary care provider Address:Unknown When:2-4 days [facility] 03-11-2023 Note Discharge Instructions Thank you for allowing [place] [facility] to assist you with your healthcare needs. The following is important discharge information regarding your hospital visit. Diagnosis from Today's Visit heart burn x 2 weeks GERD - Gastro-esophageal reflux disease What to Do Next Instructions from Your Care Team No qualifying data available. Post Acute Orders No qualifying data available. You Need to Schedule the Following Appointments Follow Up with Follow up with primary care provider When Within 2-4 days Allergies NKA Medications Please ask your primary doctor or pharmacist before taking any other medication not listed, including over the counter drugs, herbal medications, vitamins and or supplements as they may interact with your home medications. What How Much When Instructions Last Dose New omeprazole (omeprazole 20 mg oral delayed release capsule) 1 cap by mouth Once a day Printed Prescription Unchanged albuterol (albuterol MDI (90 mcg/ inh) CFC free inhalation aerosol) 1 puff(s) by inhalation Every 6 hours as needed for Shortness of breath (SOB) Unchanged aspirin (aspirin 81 mg oral tablet, chewable) 1 tab(s) Chewed Once a day Unchanged atorvastatin (Lipitor 40 mg oral tablet) 1 tab(s) by mouth Once a day Unchanged melatonin 10 Milligram by mouth Daily at bedtime as needed for as needed for insomnia Unchanged Misc Medication 1 capsule by mouth Three (3) times a day as needed for Heartburn apple cider vinegar capsules patient takes up to 3 times a day for heartburn Unchanged multivitamin (Multivitamin) 1 tab(s) by mouth Every day Please take this list to your next doctor s visit. Bring all medications you take, including over the counter medications, herbals and other supplements with you to your doctor s visit. Patients and families are reminded to discard old lists and to update any records with all medication providers or retail pharmacies. Education Materials GERD (Adult) The esophagus is a tube that carries food from the mouth to the stomach. A valve (the LES, lower esophageal sphincter) at the lower end of the esophagus prevents stomach acid from flowing upward. When this valve doesn't work properly, stomach contents may repeatedly flow back up (reflux) into the esophagus. This is called gastroesophageal reflux disease (GERD). GERD can irritate the esophagus. It can cause problems with pain, swallowing or breathing. In severe cases, GERD can cause recurrent pneumonia (from aspiration or breathing in particles) or other serious problems. Symptoms of reflux include burning, pressure or sharp pain in the upper abdomen or mid to lower chest. The pain can spread to the neck, back, or shoulder. There may be belching, an acid taste in the back of the throat, chronic cough, or sore throat, or hoarseness. GERD symptoms often occur during the day after a big meal. They can also occur at night when lying down. Home care Lifestyle changes can help reduce symptoms. If needed, your healthcare provider may prescribe medicines. Symptoms often improve with treatment, but if treatment is stopped, the symptoms often return after a few months. So most persons with GERD will need to continue treatment or get treatment on and off. Lifestyle changes Limit or avoid fatty, fried, and spicy foods, as well as coffee, chocolate, mint, and foods with high acid content such as tomatoes and citrus fruit and juices (orange, grapefruit, lemon). Don t eat large meals, especially at night. Frequent, smaller meals are best. Don't lie down right after eating. And don t eat anything 3 hours before going to bed. Don't drink alcohol or smoke. As much as possible, stay away from second hand smoke. If you are overweight, losing weight will reduce symptoms. Don't wear tight clothing around your stomach area. If your symptoms occur during sleep, use a foam wedge to elevate your upper body (not just your head.) Or, place 4 blocks under the head of your bed. Or use 2 bed risers under your bedframe. Medicines If needed, medicines can help relieve the symptoms of GERD and prevent damage to the esophagus. Discuss a medicine plan with your healthcare provider. This may include one or more of the following medicines: Antacids to help neutralize the normal acids in your stomach. Acid blockers (Histamine or H2 blockers) to decrease acid production. Acid inhibitors (proton pump inhibitors PPIs) to decrease acid production in a different way than the blockers. They may work better, but can take a little longer to take effect. Take an antacid 30 to 60 minutes after eating and at bedtime, but not at the same time as an acid ting. Try not to take medicines such as ibuprofen and aspirin. If you are taking aspirin for your heart or other medical reasons, talk to your healthcare provider about stopping it. Follow-up care Follow up with your healthcare provider or as advised by our staff. When to seek medical advice Call your healthcare provider if any of the following occur: Stomach pain gets worse or moves to the lower right abdomen (appendix area) Chest pain appears or gets worse, or spreads to the back, neck, shoulder, or arm An mtiw-ygf-izzcezy trial of medicine doesn't relieve your symptoms Weight loss that can't be explained Trouble or pain swallowing Frequent vomiting (can t keep down liquids) Blood in the stool or vomit (red or black in color) Feeling weak or dizzy Fever of 100.4 F (38 C) or higher, or as directed by your healthcare provider [id number] [employer]. [address] [place] [address]. All rights reserved. This information is not intended as a substitute for professional medical care. Always follow your healthcare professional's instructions. Additional Information VACCINATE! IT SAVES LIVES! Members of the community who have not yet received the COVID-19 vaccine and would like to receive it can visit one of [facility] vaccine clinics. There are many vaccine clinic locations within the [facility]. For locations and available times, please visit [email or web address] [email or web address] It is important to note that some COVID mobile vaccine clinics are held outdoors and may be canceled in rainy or stormy conditions. To learn more about pediatric vaccinations (ages 5-11), we invite you to visit the [facility] webpage. https://www.[facility].org/p ages/5486-Xvjbv-Goqimzwggtq-Freq tsbaak-Fpeje-Hbqbcqgfi.html To learn more about the COVID-19 vaccine, we invite you to visit the CDC website for a list of frequently asked questions. https://www.cdc.gov/coronavirus/ 2019-ncov/vaccines/faq.html [facility] Patient Portal Access Instructions: Stay connected with your healthcare team and access your personal medical information anytime with the [facility] Patient Portal. If you would like a full copy of your medical records please contact the [facility] Medical Records Department Monday through Monday between 8a.m. and 4:30p.m. Please follow the directions below to access the portal: 1.Access the email account you provided upon registration to the hospital.2.Look for an invitation email from [facility].3.Open the email and access the invitation link: Accept Invitation to [facility].Fill in the required carbajal to create your account. Sign into www.[employer] with your username and password that you created in the above steps to stay up to date. You can then view a summary of results, a summary of your visits, and the ability to download your summaries to your computer or send the information securely to a physician. Remember that your healthcare information is confidential, so carefully consider who you will allow to register on the [facility] Patient Portal for access to your information. You can also access the [employer] [facility] Patient Portal on the [employer]aira. Simply click on Health Records under Health Data and then click on the [employer] logo. HOW TO SAFELY DISPOSE OF PRESCRIPTION MEDICATIONS Please use one of the following methods to safely dispose of your unused medications. 1.Use a drug disposal kit: the drug disposal pouch allows you to safely discard your old and unused drugs. Ask your nurse to give you one when you are discharged.2.Visit a local take-back location: Many local pharmacies and police departments have programs that collect old and unwanted prescription drugs. Call your local pharmacy or go to http://[employer]/5Z9Oh2n to find one close to you.3.Make use of household items: Use cat litter or old coffee grounds to dispose medications if other options are not available. Mix your drugs with these household products, seal them in an airtight container and throw it into the garbage. Call [facility]: [phone] to be sure your drugs can be disposed of in this way. Some medicines may require a different approach.4.Never flush your medications down the toilet. IF YOU HAVE BEEN PRESCRIBED AN OPIOIDS FOR PAIN If you have been prescribed an opioid (such as hydrocodone, oxycodone or morphine), it is critical to understand the possible side effects and risks of opioid pain medications. Even when taken as directed, opioids can have several side effects including: Tolerance, meaning you might need to take more of a medication for the same pain relief. Nausea, vomiting and/or constipation. Sleepiness, dizziness, dry mouth, confusion, depression or itching. Physical dependence, meaning you have withdrawal symptoms when a medication is stopped ? this can develop within a few days. KNOW YOUR RESPONSIBILITIES It is important to know exactly how much and how often to take the opioid pain medications you are prescribed. Never take opioids in higher amounts or more often than prescribed. Do not combine opioids with alcohol or other drugs that cause drowsiness, such as benzodiazepines, also known as benzos, including diazepam and alprazolam, muscle relaxants or sleep aids. Never sell or share prescription opioids. This is illegal. Store opioids in a secure place and out of reach of others (including children, family, friends and visitors). The last page(s) of this document has been signed and retained as a CHART COPY Signatures Patient Education Materials GERD (Adult) Medication Leaflets My discharge plan and instructions have been reviewed and explained to me and IGWENDOLYN CHRISTINE understand my current condition and have read and understand these discharge instructions. I have received a written copy of the plan/instructions. If I have questions, I am aware that I should contact my doctor. 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 The lungs appear to be emphysematous. No overt central vascular congestion, large pleural effusion or significant appreciable pneumothorax. There is biapical scarring. There is left basilar airspace opacity. The right lung is predominantly clear. No acute osseous abnormality. IMPRESSION: Left basilar airspace opacity may represent atelectasis versus developing infiltrate. Correlate with symptomatology and continued follow-up is recommended. Interpreted by: Lashawn Alonso MD Preliminary Report By: Lashawn Alonso MD Electronically signed By Lashawn Alonso MD Dictated Date: 03/11/2023 10:21:45 PM Prelim Date: 03/11/2023 10:24:42 PM Sign Date: 03/11/2023 10:24:42 PM Ordering Provider: CAROLANN DUGGAN [facility] 03-11-2023 Note Sinus rhythm RSR' in V1 or V2, right VCD or RVH Nonspecific T abnormalities, anterior leads Baseline wander in lead(s) V6 Electronic Signature: CAROLANN DUGGAN MD 03/11/2023 22:12:07 [facility] 03-03-2023 Note HNO ID: [id number] Author: FRANCESCO BANKS PA-C Service: ? Author Type: Physician Tax Record Clerk Type: Progress Notes Filed: 03/03/2023 09:50 Note Text: INJECTION PROCEDURE NOTE: Patient returns today for LEFT knee cortisone injection. Patient reports some relief from right knee cortisone, but may be compensating and aggravating the knees. She also was kneeling on concrete floor which made her pain worse. Has been taking meloxicam with minimal help. We will proceed with left knee cortisone for relief. Prior to the procedure, the patient's allergies were reviewed. The procedure site was marked. The procedure team checked for proper functioning of devices and supplies to be used for the procedure. Procedure details: The injection site was prepped in the usual sterile manner. Ethyl chloride mist spray was used to numb the skin. 3cc of 1% lidocaine without epinephrine and 2cc of Celestone was injected into the left knee. After the injection, a bandage was placed over the injection site. The patient tolerated the procedure well with no adverse effects. Post-injection instructions were reviewed with the patient and the patient voiced understanding. Large Joint Arthro/Inj: L knee joint Informed Consent Consent Obtained: Verbal [place] Protocol SIGN IN Personnel directly involved with the procedure wore the appropriate PPE. Special Equipment: N/A Patient/Surrogate Stated/Verified: Patient name, Date of , Relevant allergies and Intended procedure TIME OUT Relevant labs, photos, and/or imaging studies have been reviewed. Correct side/site marked and visible. Medications required for procedure verified. No fire risk assessment and interventions applicable. No implant(s) inserted. 03/03/2023 9:49 AM The procedure site was prepped in the usual sterile fashion. Site: L knee joint Medications: 12 mg betamethasone acetate-betamethasone sodium phosphate 6 mg/mL Anesthetics: 3 mL lidocaine (PF) 10 mg/mL (1 %) Outcome: Tolerated well, no immediate complications Post-injection instructions were reviewed with the patient and the patient voiced understanding of these instructions. SIGN OUT All instruments, equipment, possible retained foreign bodies accounted for. Francesco Banks PA-C [facility] 03-03-2023 Note HNO ID: [id number] Author: ?, ?, ? Service: ? Author Type: ? Type: Progress Notes Filed: 03/03/2023 09:50 Note Text: AMB ROOMING INTAKE FLOWSHEET DATA Pain Pain Level: 4 Pain Location: Knee-Left Description: Aching Duration Amount of Time: 1 Duration Units: Months Frequency: Continuous Intervention/Comfort measure: Cold, Medication, Other: See comment (compression) Patient here for left knee pain that has been ongoing for about 1 month. She states it is difficult to sleep. Her pain is better when she wakes up, but get progressively worse throughout the day as she is on it. Not currently working outside the home. She has been using compression, ice and medications which do not help her pain. [facility] 03-03-2023 Note HNO ID: [id number] Author: BROCK DAVILA RT(R) Service: Radiology Author Type: Technologist Type: Progress Notes Filed: 03/03/2023 09:20 Note Text: Radiology Service Progress Note PATIENT NAME: Joan Snow DATE OF SERVICE: March 03, 2023 TIME: 9:06 AM PATIENT IDENTITY VERIFICATION COMPLETED USING TWO (2) IDENTIFIERS: Name and Date of confirmed by patient verbally. FALL SCREENING: Has the patient had 2 falls in the last year or 1 fall with injury or currently using an Ambulatory Assistive Device (Walker, Cane, Wheelchair, Crutches, etc.)? No PATIENT GENDER DATA: Female. status: : No status: NO. PATIENT RELEVANT IMPLANT DATA REVIEWED: Not Applicable RADIOLOGY DEPARTMENT: General X-ray: Exam(s) Completed: Lower Extremity X-Ray(s): Knee, AP / Lat / Tunne / Merchant Left and Wt. Bearing PERIPHERAL IV DATA: Not applicable SIGNED BY: RT Alli(R) March 03, 2023 9:06 AM [facility] 02-10-2023 Note HNO ID: [id number] Author: Francesco Banks PA-C Service: ? Author Type: Physician Tax Record Clerk Type: Progress Notes Filed: 02/10/2023 9:45 AM Note Text: HISTORY OF PRESENT ILLNESS: Joan is a 52 year old female. She is here for evaluation of Right knee pain. Previously been seen by Kyaw Remy CNP for right knee posterior swelling for 3 weeks. She has been using knee sleeve and ibuprofen with no relief. Upon physical examination she had Christy's cyst in the posterior right knee. 02/10/2023: Patient presents to the office today with bilateral knee pain right greater than left. She feels that she is compensating for her right knee and her left knee has started to bother her. This pain has been going on for approximately 3 months. There was no injury or trauma that set off her pain. She has been using topical lidocaine, ibuprofen, and copper knee sleeve without relief. She reports that any movement aggravates her pain, but she does report pain going down the stairs makes her feel even worse. She does not report any alleviating factors that have helped. Patient denies diabetes, history of blood clots, or use of blood thinners. Per chart review patient is a former smoker with [id number] history she does have chronic COPD that is well-controlled. Injury: No Pain: Yes LOCATION: Bilateral knee pain predominantly anterior PAIN SCALE: 710 on the right, 210 on the left PAIN CHARACTER: Dull, aching DURATION: (How long have you had the pain?) 3 months FREQUENCY: (How often does the pain occur?) Daily, continuous AGGRAVATING FACTORS: Activity, walking, stairs ALLEVIATING FACTORS: Heating pad, rest Onset: gradual and progressive Quality:aching Swelling: Patient notes continuous swelling of the joint. Mechanical symptoms: None Radiation: Yes, occasional radiation down right lower leg extending into foot Activities: Walking, exercise Restriction: None Progression: Constant Previous treatment: Ibuprofen, heating pad, knee sleeve, topical lidocaine NSAIDS: Ibuprofen PT:No physical therapy program has been initiated. MEDICATIONS Current Outpatient Medications on File Prior to Visit Medication Sig atorvastatin (LIPITOR) 40 mg tablet melatonin 10 mg TbER Take by mouth. budesonide-formoterol (SYMBICORT) 160-4.5 mcg/actuation inhaler Inhale 2 Puffs as instructed twice daily. escitalopram oxalate (LEXAPRO) 10 mg tablet Take 1 tablet by mouth once daily. (Patient not taking: Reported on 01/15/2023) albuterol sulfate (PROAIR RESPICLICK) 90 mcg/actuation Inhale 2 Puffs as instructed four times daily as needed. busPIRone (BUSPAR) 15 mg tablet Take 0.5 tablets by mouth twice daily. (Patient not taking: Reported on 01/15/2023) biotin 1 mg cap Take by mouth. (Patient not taking: Reported on 01/15/2023) TURMERIC ROOT EXTRACT ORAL Take by mouth. aspirin, enteric coated (ASPIRIN, ENTERIC COATED) 81 mg EC tablet Take 81 mg by mouth once daily. MULTIVITAMIN ORAL Take by mouth. No current facility-administered medications on file prior to visit. ALLERGIES ALLERGIES No Known Allergies PAST MEDICAL HISTORY PAST MEDICAL HISTORY Diagnosis Date Abnormal pap COPD (chronic obstructive pulmonary disease) (HCC) History of tobacco use Umbilical hernia without mention of obstruction or gangrene PAST SURGICAL HISTORY PAST SURGICAL HISTORY Procedure Laterality Date COLONOSCOPY FLX DX W/COLLJ SPEC WHEN PFRMD 11/22/2017 Colonoscopy HERNIA REPAIR HX 2004 umbilical LEEP PROCEDURE (HEAD OF BIOLOGY DEPT)_*FL 2006 LIG/TRNSXJ FLP TUBE ABDL/VAG APPR UNI/BI 2003 VAGINOSCOPY 07/2006 SOCIAL HISTORY Tobacco: Ex-smoker, quit 1 years ago FAMILY HISTORY Does a similar condition to what you are experiencing run in your family? N/A REVIEW OF SYSTEMS: All other systems negative. PHYSICAL EXAM: PE: All other systems deferred. GENERAL: Appears healthy, well-nourished, no deformities. HABITUS: Normal Gait: Antalgic to the right Left: Alignment: Neutral Range of motion is 0 degrees in extension and 130 degrees of flexion. Extension La degrees Pain with ROM: No Effusion: None Tender to the palpation of Medial femoral condyle, Lateral femoral condyle, and Medial joint line Pain with patellar compression: No Stability: Anterior/Posterior stable and Varus/Valgus stable Hip Exam: flexion to 100+ degrees, full extension, internal/external rotation adequate, and no pain with log roll Neurovascular Status: Sensation Intact, Moves foot and ankle up AND down, and 2+ dorsalis pedis Right: Alignment: Neutral Range of motion is lacking a few degrees secondary to tight hamstrings degrees in extension and 110 degrees of flexion. Extension Lag: < 10 degrees Pain with ROM: Yes Effusion: Mild Tender to the palpation of Posterior Knee, Medial femoral condyle, Lateral femoral condyle, Medial joint line, and Lateral joint line Pain with patellar compression: (more content not included)... [facility] 02-10-2023 Note HNO ID: [id number] Author: Natalie Mcnair RN Service: ? Author Type: Registered Nurse Type: Progress Notes Filed: 02/10/2023 8:47 AM Note Text: Patient presents with: Right Knee - New: Right knee pain and swelling Referred by Kyaw Remy APRN Xray 01/20/2023 (right knee only) Left Knee - New: Left knee pain Patient states that both of her knees have been bothering her (right worse left) with pain and swelling. She states the right knee pain sometimes radiates down to her foot. The pain is worse when using stairs or by the end of the day. Patient is not currently employed. AMB ROOMING INTAKE FLOWSHEET DATA Pain Pain Level: 7 (left knee 2/10) Pain Location: Knee-Right Description: Dull, Throbbing Duration Amount of Time: 3 Duration Units: Months Frequency: Continuous Intervention/Comfort measure: Reposition, Medication Natalie Mcnair RN [facility] 01-20-2023 History of Presen t illness Narrative Radiology Service Progress Note PATIENT NAME: Joan Snow DATE OF SERVICE: January 20, 2023 TIME: 9:02 AM PATIENT IDENTITY VERIFICATION COMPLETED USING TWO (2) IDENTIFIERS: Name and Date of confirmed by patient verbally. FALL SCREENING: Has the patient had 2 falls in the last year or 1 fall with injury or currently using an Ambulatory Assistive Device (Walker, Cane, Wheelchair, Crutches, etc.)? No PATIENT GENDER DATA: Female. status: : No status: NO. PATIENT RELEVANT IMPLANT DATA REVIEWED: Not Applicable RADIOLOGY DEPARTMENT: General X-ray: Exam(s) Completed: Lower Extremity X-Ray(s): Knee, AP / Lat / Tunne / Merchant Right and Wt. Bearing PERIPHERAL IV DATA: Not applicable SIGNED BY: RT Eliel(R) January 20, 2023 9:02 AM documented in this encounter [facility] 01-20-2023 Note HNO ID: [id number] Author: Mila Rey RT(Madisyn) Service: ? Author Type: Technologist Type: Progress Notes Filed: 01/20/2023 9:02 AM Note Text: Radiology Service Progress Note PATIENT NAME: Joan Snow DATE OF SERVICE: January 20, 2023 TIME: 9:02 AM PATIENT IDENTITY VERIFICATION COMPLETED USING TWO (2) IDENTIFIERS: Name and Date of confirmed by patient verbally. FALL SCREENING: Has the patient had 2 falls in the last year or 1 fall with injury or currently using an Ambulatory Assistive Device (Walker, Cane, Wheelchair, Crutches, etc.)? No PATIENT GENDER DATA: Female. status: : No status: NO. PATIENT RELEVANT IMPLANT DATA REVIEWED: Not Applicable RADIOLOGY DEPARTMENT: General X-ray: Exam(s) Completed: Lower Extremity X-Ray(s): Knee, AP / Lat / Tunne / Merchant Right and Wt. Bearing PERIPHERAL IV DATA: Not applicable SIGNED BY: Mila Rey, RT(R) January 20, 2023 9:02 AM [facility] 01-15-2023 Instructions Kyaw Remy APRN.VON - 01/15/2023 1:42 PM EST Follow up with Dr. Alva. documented in this encounter [facility] 01-15-2023 Note HNO ID: [id number] Author: Kyaw Remy APRN.VON Service: ? Author Type: Nurse Practitioner Type: Progress Notes Filed: 01/15/2023 1:42 PM Note Text: This note was created using [employer]. Subjective Joan Snow is a 52 year old female for right posterior knee swelling x3 weeks. Patient reports use of knee sleeve and ibuprofen with no improvement. Objective BP 110/78 Pulse 82 Resp 16 Wt 66.2 kg (146 lb) LMP (LMP Unknown) SpO2 96% BMI 25.86 kg/m? Physical Exam PHYSICAL EXAMINATION: General appearance: Well appearing, alert, in no acute distress, well-hydrated, well nourished. Extremities: Positive findings: Bakers Cyst to posterior right knee Peripheral pulses: Normal Neuro: Gait normal. Reflexes normal and symmetric. Sensation grossly intact. ASSESSMENT/PLAN: 1. Synovial cyst of right popliteal space - ICD9: 727.51, ICD10: M71.21 - CONSULT TO ORTHOPAEDICS Kyaw Remy APRN.CNP [facility] 01-15-2023 History of Presen t illness Narrative This note was created using [employer]. Subjective Joan Snow is a 52 year old female for right posterior knee swelling x3 weeks. Patient reports use of knee sleeve and ibuprofen with no improvement. Objective BP 110/78 Pulse 82 Resp 16 Wt 66.2 kg (146 lb) LMP (LMP Unknown) SpO2 96% BMI 25.86 kg/m Physical Exam PHYSICAL EXAMINATION: General appearance: Well appearing, alert, in no acute distress, well-hydrated, well nourished. Extremities: Positive findings: Bakers Cyst to posterior right knee Peripheral pulses: Normal Neuro: Gait normal. Reflexes normal and symmetric. Sensation grossly intact. ASSESSMENT/PLAN: 1. Synovial cyst of right popliteal space - ICD9: 727.51, ICD10: M71.21 - CONSULT TO ORTHOPAEDICS Kyaw Remy APRN.OYSTER PICKER documented in this encounter [facility] 11-08-2022 Discharge summary Date of Service 11/08/22 Discharge Diagnosis Chest pain rule out ACS (ALISA 1) Elevated creatinine Bilateral pulmonary nodules on CTA of 11/06/2022 History of COPD Hospital Course Patient is a 52-year-old female, with past medical history significant for COPD (not on home oxygen), presents to [facility] as a transfer from [facility] in view of an abnormal stress test. Cough was associated with chest pain for the past 3 days. Associated with worsening shortness of breath. Patient was initially treated at [facility]. Per H&P from provider at [facility], CTA of the chest was negative for pulmonary embolism, showed [id number] centrilobular and paraseptal emphysema, 8.4 mm sized noncalcified nodule within the subpleural left posterior lower lobe, 4 mm sized noncalcified nodule with the subpleural anterior right middle lobe was noted. EKG demonstrated sinus rhythm with nonspecific T wave abnormality unchanged from previous EKG in 08/2019. CBC was unremarkable. Troponin negative x 2. COVID-19, flu A and B negative. Urinalysis significant for 25 leukocyte esterase but negative for nitrites and bacteria, urine WBC 1-5. Patient was administered 1 liter of NS in the ED and transferred to [facility] for further work up. Lexiscan stress test was done which came back positive (Ischemic EKG changes - [address] depression in L2,3aVF 14 seconds into recovery with pending nuclear reports.) which eventually led to her being transferred to [facility] for further evaluation and management. Once up on the floor labs were collected, chest x-ray and echo were done. Chest x-ray showed emphysema and no acute findings. Echo showed ejection fraction of 60 to 65% with normal diastolic function and mild AV regurgitation. Patient subsequently went for left heart cath which came back normal. Additionally patient's repeat troponins here were negative x3. Toxicology came back negative. Hemoglobin A1c resulted at 5.1. D-dimer was high at 374 but is nonspecific. Lipid panel resulted in cholesterol of 240, triglycerides 96, HDL 50, LDL 171. TSH came back high at 4.98. Lexiscan stress test was negative. Patient's EKG was in sinus rhythm at a rate of 61. She was in fair condition on day of discharge. Patient was instructed to take medications as prescribed. We started her on a new prescription of atorvastatin for cholesterol management. She was also instructed to establish with a PCP within 2 weeks for follow-up care regarding her high TSH. Allergies NKA Procedures [facility] 11/08/22 Consults No qualifying data available. Imaging Results and Diagnostics XR Chest 2 Views Result Date: November 08, 2022 Verified By: CECI OWENS MD CLINICAL STATEMENT: IMPRESSION: Emphysema. No acute finding. Physical Exam Vitals and Measurements T: 36.4 C (Oral) TMIN: 36.4 C (Oral) TMAX: 36.7 C (Oral) HR: 69(Monitored) RR: 16 BP: 110/65 SpO2: 97% HT: 162.6 cm WT: 66.5 kg BMI: 25.15 Weight Dosing Weight: 66.5 kg (11/07/22) Skin: warm/dry, normal color Eyes: PERRL, EOMI Head, Ears, Nose, and Throat: pharynx normal, mucous membranes moist, no cervical lymphadenopathy noted Cardiovascular: No JVD, regular rate, rhythm, S1 and S2 heard normally. no murmurs appreciated. Abdomen/GI: non tender, soft , bowel sounds heard. Extremity: normal range of motion, non-tender, no pedal edema Pulmonary: chest non-tender, lungs clear Neurologic: no motor/sensory deficits, normal sensation Pending Labs and Studies None Code Status Code Status - Ordered -- 11/08/22 1:36:00 EDT, Full Code, Constant Order Admission Date 11/08/22 Discharge Date 11/08/22 Patient Instructions Please take medications as prescribed. We have prescribed you atorvastatin for cholesterol. Please establish with a PCP within 2 weeks to follow-up care Medications New Prescription atorvastatin (Lipitor 40 mg oral tablet)1 tab(s) by mouth once a day. Refills: 1. Unchanged albuterol (albuterol MDI (90 mcg/inh) CFC free inhalation aerosol)1 puff(s) by inhalation every 6 hours as needed Shortness of breath (SOB). aspirin (aspirin 81 mg oral tablet, chewable)1 tab(s) Chewed once a day. [id number] Milligram by mouth daily at bedtime as needed as needed for insomnia. Misc Medication1 capsule by mouth three (3) times a day as needed Heartburn. apple cider vinegar capsules patient takes up to 3 times a day for heartburn. multivitamin (Multivitamin)1 tab(s) by mouth every day. Follow Up Follow Up with PHYSICIAN, NOT RECORDED When Within 1-2 days Follow Up Appointments No qualifying data available. Follow Up Labs/Studies Discharge Labs No Follow-up Labs Discharge Studies No Follow-up Studies Discharge Diet Discharge Diet - Ordered -- Type of Diet: Regular, 11/08/22 16:34:00 EDT Discharge Activity Discharge Activity - Ordered -- Activity As Tolerated, Additional instructions include:, 11/08/22 16:34:00 EDT Condition on Discharge Fair Discharge Disposition Home Information Provided To Patient Digitally Signed by KOURTNEY FRANCISCO MD on 11/08/2022 05:31 PM [facility] 11-08-2022 Hospital Discharg e instructions Patient Education 11/08/2022 17:00:48 3- Heart Cath/PCI radial (11/2017)(CUSTOM) HEART CATHETERIZATION/PCI (radial) Discharge Instructions DIET Drink plenty of fluids for the next 48 hours to help your kidneys flush the heart cath dye out of your system ACTIVITY For the next 48 hours: Do not deep bend the wrist Do not lift, push, or pull anything over 5 pounds Do not use the hand/arm to support your weight when rising from a chair or bed Do not drive For the next 7 days: Do not submerse your procedure site in water Do not swim, wash dishes, or take tub baths You may write, eat, type, and shower WOUND CARE Keep a Band-Aid on your procedure site for the next 3-4 days Change the Band-Aid daily or if it gets wet/soiled AFTER YOU GO HOME, CALL YOUR DOCTOR FOR: Any increase in bruising or tenderness from the procedure site Any redness, pus, or other signs of infection at the site A temperature above 100.5 Severe pain at the site DIAL 911 AND RETURN TO THE HOSPITAL FOR: Any bleeding from the procedure site. The site may be bruised or tender, but it should not be bleeding at any time. If your site begins to bleed, hold firm pressure on it and dial 911 to return to the hospital Any increase in swelling at the procedure site. An increase in swelling could mean the area is bleeding under the skin. Hold firm pressure to the site and dial 911 to return to the hospital Document Released: 02/13/2006 Document Revised: 01/30/2013 Document Reviewed: 02/14/2014 Exit[employer] Patient Information 2015 [email or web address]. This information is not intended to replace advice given to you by your health care provider. Make sure you discuss any questions you have with your health care provider. 11/08/2022 17:00:43 Nonspecific Chest Pain, Adult, [id number] Nonspecific Chest Pain Chest pain can be caused by many different conditions. Some causes of chest pain can be life-threatening. These will require treatment right away. Serious causes of chest pain include: Heart attack. A tear in the body's main blood vessel. Redness and swelling (inflammation) around your heart. Blood clot in your lungs. Other causes of chest pain may not be so serious. These include: Heartburn. Anxiety or stress. Damage to bones or muscles in your chest. Lung infections. Chest pain can feel like: Pain or discomfort in your chest. Crushing, pressure, aching, or squeezing pain. Burning or tingling. Dull or sharp pain that is worse when you move, cough, or take a deep breath. Pain or discomfort that is also felt in your back, neck, jaw, shoulder, or arm, or pain that spreads to any of these areas. It is hard to know whether your pain is caused by something that is serious or something that is not so serious. So it is important to see your doctor right away if you have chest pain. Follow these instructions at home: Medicines Take [id number] and prescription medicines only as told by your doctor. If you were prescribed an antibiotic medicine, take it as told by your doctor. Do not stop taking the antibiotic even if you start to feel better. Lifestyle Rest as told by your doctor. Do not use any products that contain nicotine or tobacco, such as cigarettes, e-cigarettes, and chewing tobacco. If you need help quitting, ask your doctor. Do not drink alcohol. Make lifestyle changes as told by your doctor. These may include: ?Getting regular exercise. Ask your doctor what activities are safe for you. ?Eating a heart-healthy diet. A diet and nutrition internship (dietitian) can help you to learn healthy eating options. ?Staying at a healthy weight. ?Treating diabetes or high blood pressure, if needed. ?Lowering your stress. Activities such as yoga and relaxation techniques can help. General instructions Pay attention to any changes in your symptoms. Tell your doctor about them or any new symptoms. Avoid any activities that cause chest pain. Keep all follow-up visits as told by your doctor. This is important. You may need more testing if your chest pain does not go away. Contact a doctor if: Your chest pain does not go away. You feel depressed. You have a fever. Get help right away if: Your chest pain is worse. You have a cough that gets worse, or you cough up blood. You have very bad (severe) pain in your belly (abdomen). You pass out (faint). You have either of these for no clear reason: ?Sudden chest discomfort. ?Sudden discomfort in your arms, back, neck, or jaw. You have shortness of breath at any time. You suddenly start to sweat, or your skin gets clammy. You feel sick to your stomach (nauseous). You throw up (vomit). You suddenly feel lightheaded or dizzy. You feel very weak or tired. Your heart starts to beat fast, or it feels like it is skipping beats. These symptoms may be an emergency. Do not wait to see if the symptoms will go away. Get medical help right away. Call your local emergency services (911 in the [place] Do not drive yourself to the hospital. Summary Chest pain can be caused by many different conditions. The cause may be serious and need treatment right away. If you have chest pain, see your doctor right away. Follow your doctor's instructions for taking medicines and making lifestyle changes. Keep all follow-up visits as told by your doctor. This includes visits for any further testing if your chest pain does not go away. Be sure to know the signs that show that your condition has become worse. Get help right away if you have these symptoms. This information is not intended to replace advice given to you by your health care provider. Make sure you discuss any questions you have with your health care provider. Document Released: 08/01/2008 Document Revised: 08/16/2018 Document Reviewed: 08/16/2018 [employer] Patient Education 2020 [email or web address]. Follow Up Care 11/07/2022 13:46:52 With:PHYSICIAN, NOT RECORDED Address:Unknown When:1-2 days [facility] 11-08-2022 Note Discharge Instructions Thank you for allowing [place] to assist you with your healthcare needs. The following is important discharge information regarding your hospital visit. Your Care Team PHYSICIAN, NOT RECORDED What to do next Instructions From Your Doctor Please take medications as prescribed. We have prescribed you atorvastatin for cholesterol. Please establish with a PCP within 2 weeks to follow-up care Follow Up Appointments Follow Up with PHYSICIAN, NOT RECORDED When Within 1-2 days The Following Activity and Diet Have Been Ordered for You Discharge Activity - Ordered -- Activity As Tolerated, Additional instructions include:, 11/08/22 16:34:00 EDT Discharge Diet - Ordered -- Type of Diet: Regular, 11/08/22 16:34:00 EDT The Following Equipment Has Been Ordered for You No qualifying data available. The Following Treatments Have Been Ordered for You Discharge Labs No qualifying data available. Discharge Radiology No qualifying data available. Other Therapies No qualifying data available. Post Acute Orders No qualifying data available. Someone Will Contact You Regarding These Home Health Referrals No home referrals have been ordered for you. No one will call you. Allergies NKA Medications Please ask your primary doctor or pharmacist before taking any other medication not listed, including over the counter drugs, herbal medications, vitamins and or supplements as they may interact with your home medications. What How Much When Instructions Last Dose New atorvastatin (Lipitor 40 mg oral tablet) 1 tab(s) by mouth Once a day Refills: 1 Pickup at [id number] Unchanged albuterol (albuterol MDI (90 mcg/ inh) CFC free inhalation aerosol) 1 puff(s) by inhalation Every 6 hours as needed for Shortness of breath (SOB) Unchanged aspirin (aspirin 81 mg oral tablet, chewable) 1 tab(s) Chewed Once a day Unchanged melatonin 10 Milligram by mouth Daily at bedtime as needed for as needed for insomnia Unchanged Misc Medication 1 capsule by mouth Three (3) times a day as needed for Heartburn apple cider vinegar capsules patient takes up to 3 times a day for heartburn Unchanged multivitamin (Multivitamin) 1 tab(s) by mouth Every day Pharmacy Information [facility]: [id number] [place], [place] [id number] [phone] Please take this list to your next doctor s visit. Bring all medications you take, including over the counter medications, herbals and other supplements with you to your doctor s visit. Patients and families are reminded to discard old lists and to update any records with all medication providers or retail pharmacies. Medication Leaflets atorvastatin (a TOR va sta tin) Atorvaliq, Lipitor What is the most important information I should know about atorvastatin? You should not take atorvastatin if you have liver disease or cirrhosis. Atorvastatin can cause the breakdown of muscle tissue, which can lead to kidney failure. Call your doctor right away if you have unexplained muscle pain, tenderness, or weakness especially if you also have fever, unusual tiredness, or dark urine. What is atorvastatin? Atorvastatin is used together with diet to lower blood levels of 'bad' cholesterol (low-density lipoprotein, or LDL), to increase levels of 'good' cholesterol (high-density lipoprotein, or HDL), and to lower triglycerides (a type of fat in the blood). Atorvastatin is used to lower the risk of stroke, heart attack, or other heart complications in adults with or without type 2 diabetes or heart disease or other risk factors. Atorvastatin is also used alone, or along with diet, or with other cholesterol-lowering medications in adults and children aged 10 years and older with an inherited condition that causes high levels of bad cholesterol. Atorvastatin may also be used for purposes not listed in this medication guide. What should I discuss with my healthcare provider before taking atorvastatin? You should not use atorvastatin if you are allergic to it, or if you have liver failure or cirrhosis. Tell your doctor if you have or have ever had: muscle pain or weakness; diabetes; stroke; a thyroid disorder; a habit of drinking more than 2 alcoholic beverages per day; or kidney disease. Atorvastatin can cause the breakdown of muscle tissue, which can lead to kidney failure. This happens more often in women, in older adults, or people who have kidney disease or poorly controlled hypothyroidism (underactive thyroid). Atorvastatin may harm an unborn baby. Tell your doctor if you are . Ask a doctor if it is safe to breastfeed while using this medicine. How should I take atorvastatin? Follow all directions on your prescription label and read all medication guides or instruction sheets. Your doctor may occasionally change your dose. Use the medicine exactly as directed. Do not change your dose or stop taking any of your medications without your doctor's advice. Atorvastatin is usually taken once per day. Follow your doctor's instructions. You may take atorvastatin tablet with or without food. Take atorvastatin liquid medicine on an empty stomach, at least 1 hour before a meal or 2 hours after a meal. It may take up to 2 weeks before your cholesterol levels improve, and you may need frequent blood tests. Even if you have no symptoms, tests can help your doctor determine if this medicine is effective. Shake the oral suspension (liquid). Measure a dose with the supplied measuring device (not a kitchen spoon). Your treatment may also include diet, exercise, weight control, and blood tests. Store at room temperature away from moisture, heat, and light. Throw away in the trash any unused liquid 60 days after opening the bottle. What happens if I miss a dose? Take the medicine as soon as you can, but skip the missed dose if you are more than 12 hours late for the dose. Do not take two doses at one time. What happens if I overdose? Seek emergency medical attention or call the Poison Help line at . What should I avoid while taking atorvastatin? Avoid eating foods high in fat or cholesterol, or atorvastatin will not be as effective. Drinking alcohol may increase your risk of liver damage. Grapefruit may interact with atorvastatin and cause side effects. Avoid consuming grapefruit products and drinking more than 1.2 liters of grapefruit juice each day. What are the possible side effects of atorvastatin? Get emergency medical help if you have signs of an allergic reaction (hives, difficult breathing, swelling in your face or throat) or a severe skin reaction (fever, sore throat, burning eyes, skin pain, red or purple skin rash with blistering and peeling). Atorvastatin can cause the breakdown of muscle tissue, which can lead to kidney failure. Call your doctor right away if you have unexplained muscle pain, tenderness, or weakness especially if you also have fever, unusual tiredness, or dark urine. Muscle problems may be more likely in older adults and those who have kidney problems, thyroid problems, or take certain other medicines. Also call your doctor at once if you have: muscle weakness in your hips, shoulders, neck, and back; trouble lifting your arms, trouble climbing or standing; liver problems--loss of appetite, stomach pain (upper right side), tiredness, itching, dark urine, daiana-colored stools, jaundice (yellowing of the skin or eyes); kidney problems--swelling, urinating less, feeling tired or short of breath; or high blood sugar--increased thirst, increased urination, dry mouth, fruity breath odor. Common side effects may include: pain in your bones, spine, joints, or muscles; pain and burning when you urinate, painful urination; muscle spasms; upset stomach; trouble sleeping; stuffy nose, runny nose, sore throat; diarrhea, nausea; or pain in your arms or legs. This is not a complete list of side effects and others may occur. Call your doctor for medical advice about side effects. You may report side effects to FDA at 2-687-JRL-8829. What other drugs will affect atorvastatin? Sometimes it is not safe to use certain medicines at the same time. Some drugs can affect your blood levels of other drugs you use, which can increase risk of serious muscle problems or make the medicines less effective. Tell your doctor about all your current medicines. Many drugs can affect atorvastatin, especially: other cholesterol lowering medicine--gemfibrozil, niacin, fenofibrate, fenofibric acid, and others; colchicine; antibiotic or antifungal medicine--rifampin, erythromycin, clarithromycin, itraconazole, ketoconazole, posaconazole, and voriconazole; control pills; medicine to prevent organ transplant rejection; or antiviral medicine to treat hepatitis C or HIV. This list is not complete and many other drugs may affect atorvastatin. This includes prescription and wfbv-kwg-gmxwnuy medicines, vitamins, and herbal products. Not all possible drug interactions are listed here. Where can I get more information? Your doctor or pharmacist can provide more information about atorvastatin. Remember, keep this and all other medicines out of the reach of children, never share your medicines with others, and use this medication only for the indication prescribed. Every effort has been made to ensure that the information provided by [employer]. ('[employer]') is accurate, up-to-date, and complete, but no guarantee is made to that effect. Drug information contained herein may be time sensitive. [employer] information has been compiled for use by healthcare practitioners and consumers in the [place] and therefore [employer] does not warrant that uses outside of the [place] are appropriate, unless specifically indicated otherwise. The [employer] drug information does not endorse drugs, diagnose patients or recommend therapy. [employer] drug information is an informational resource designed to assist licensed healthcare practitioners in caring for their patients and/or to serve consumers viewing this service as a supplement to, and not a substitute for, the expertise, skill, knowledge and judgment of healthcare practitioners. The absence of a warning for a given drug or drug combination in no way should be construed to indicate that the drug or drug combination is safe, effective or appropriate for any given patient. [employer] does not assume any responsibility for any aspect of healthcare administered with the aid of information [employer] provides. The information contained herein is not intended to cover all possible uses, directions, precautions, warnings, drug interactions, allergic reactions, or adverse effects. If you have questions about the drugs you are taking, check with your doctor, nurse or pharmacist. Copyright 3215-5409 [employer]. Version: 23.02. Revision Date: 08/18/2022. aspirin (oral) ( pir in) Aspi-Cor, Susy Plus, Durlaza, Ecotrin, Miniprin, Vazalore What is the most important information I should know about aspirin? Aspirin can cause Rebel's syndrome, a serious and sometimes fatal condition in children. What is aspirin? Aspirin is a salicylate (by-DEQ-pj-ate) that is used to treat pain, and reduce fever or inflammation. Aspirin is sometimes used to treat or prevent heart attacks, strokes, and chest pain (angina). Aspirin should be used for these conditions only under the supervision of a doctor. Aspirin may also be used for purposes not listed in this medication guide. What should I discuss with my healthcare provider before taking aspirin? Using aspirin in a child or teenager with flu symptoms or chickenpox can cause a serious or fatal condition called Rebel's syndrome. You should not use aspirin if you are allergic to it, or if you have: a recent history of stomach or intestinal bleeding; a bleeding disorder such as hemophilia; or if you have ever had an asthma attack or severe allergic reaction after taking aspirin or an NSAID (non-steroidal anti-inflammatory drug). Tell your doctor if you have ever had: asthma or seasonal allergies; stomach ulcers; liver disease; kidney disease; a bleeding or blood clotting disorder; gout; or heart disease, high blood pressure, or congestive heart failure. Taking aspirin during late may cause bleeding in the mother or the baby during delivery. Tell your doctor if you are or plan to become . You should not breastfeed while using this medicine. How should I take aspirin? Use exactly as directed on the label, or as prescribed by your doctor. Always follow directions on the medicine label about giving aspirin to a child. Take with food if aspirin upsets your stomach. You must chew the chewable tablet before you swallow it. Do not crush, chew, break, or open an enteric-coated or delayed/extended-release pill. Swallow it whole. Tell your doctor if you have a planned surgery. Store at room temperature away from moisture and heat. Do not use aspirin if you smell a strong vinegar odor in the aspirin bottle. The medicine may no longer be effective. What happens if I miss a dose? Aspirin is used when needed. If you are on a dosing schedule, skip any missed dose. Do not use two doses at one time. What happens if I overdose? Seek emergency medical attention or call the Poison Help line at . Overdose may cause stomach pain, vomiting, diarrhea, vision or hearing problems, fast or slow breathing, or confusion. What should I avoid while taking aspirin? Avoid alcohol. Heavy drinking can increase your risk of stomach bleeding. Avoid taking ibuprofen if you take aspirin to prevent stroke or heart attack. Ibuprofen can make aspirin less effective in protecting your heart and blood vessels. Ask your doctor how far apart your doses should be. Ask a doctor or pharmacist before using other medicines for pain, fever, swelling, or cold/flu symptoms. They may contain ingredients similar to aspirin (such as magnesium salicylate, ibuprofen, ketoprofen, or naproxen). What are the possible side effects of aspirin? Get emergency medical help if you have signs of an allergic reaction: hives; difficult breathing; swelling of your face, lips, tongue, or throat. Stop using aspirin and call your doctor at once if you have: ringing in your ears, confusion, hallucinations, rapid breathing, seizure (convulsions); severe nausea, vomiting, or stomach pain; bloody or tarry stools, coughing up blood or vomit that looks like coffee grounds; fever lasting longer than 3 days; or swelling, or pain lasting longer than 10 days. Common side effects may include: upset stomach, heartburn; drowsiness; or mild headache. This is not a complete list of side effects and others may occur. Call your doctor for medical advice about side effects. You may report side effects to FDA at 2-177-TMZ-4734. What other drugs will affect aspirin? Ask your doctor before using aspirin if you take an antidepressant. Taking certain antidepressants with aspirin may cause you to bruise or bleed easily. Ask a doctor or pharmacist before using aspirin with any other medications, especially: a blood thinner (warfarin, Coumadin, Jantoven), or other medication used to prevent blood clots; or other salicylates such as Nuprin Backache Caplet, Kaopectate, KneeRelief, Pamprin Cramp Formula, Pepto-Bismol, Tricosal, Trilisate, and others. This list is not complete. Other drugs may affect aspirin, including prescription and kzjd-trg-vgyeork medicines, vitamins, and herbal products. Not all possible drug interactions are listed here. Where can I get more information? Your pharmacist can provide more information about aspirin. Remember, keep this and all other medicines out of the reach of children, never share your medicines with others, and use this medication only for the indication prescribed. Every effort has been made to ensure that the information provided by [employer]. [employer]') is accurate, up-to-date, and complete, but no guarantee is made to that effect. Drug information contained herein may be time sensitive. [employer] information has been compiled for use by healthcare practitioners and consumers in the [place] and therefore [employer] does not warrant that uses outside of the [place] are appropriate, unless specifically indicated otherwise. [employer]'s drug information does not endorse drugs, diagnose patients or recommend therapy. The [employer] drug information is an informational resource designed to assist licensed healthcare practitioners in caring for their patients and/or to serve consumers viewing this service as a supplement to, and not a substitute for, the expertise, skill, knowledge and judgment of healthcare practitioners. The absence of a warning for a given drug or drug combination in no way should be construed to indicate that the drug or drug combination is safe, effective or appropriate for any given patient. [facility] does not assume any responsibility for any aspect of healthcare administered with the aid of information [facility] provides. The information contained herein is not intended to cover all possible uses, directions, precautions, warnings, drug interactions, allergic reactions, or adverse effects. If you have questions about the drugs you are taking, check with your doctor, nurse or pharmacist. Copyright 9648-3554 [facility]. Version: 18.. Revision Date: 09/19/2022. Education Materials HEART CATHETERIZATION/PCI (radial) Discharge Instructions DIET Drink plenty of fluids for the next 48 hours to help your kidneys flush the heart cath dye out of your system ACTIVITY For the next 48 hours: Do not deep bend the wrist Do not lift, push, or pull anything over 5 pounds Do not use the hand/arm to support your weight when rising from a chair or bed Do not drive For the next 7 days: Do not submerse your procedure site in water Do not swim, wash dishes, or take tub baths You may write, eat, type, and shower WOUND CARE Keep a Band-Aid on your procedure site for the next 3-4 days Change the Band-Aid daily or if it gets wet/soiled AFTER YOU GO HOME, CALL YOUR DOCTOR FOR: Any increase in bruising or tenderness from the procedure site Any redness, pus, or other signs of infection at the site A temperature above 100.5 Severe pain at the site DIAL 911 AND RETURN TO THE HOSPITAL FOR: Any bleeding from the procedure site. The site may be bruised or tender, but it should not be bleeding at any time. If your site begins to bleed, hold firm pressure on it and dial 911 to return to the hospital Any increase in swelling at the procedure site. An increase in swelling could mean the area is bleeding under the skin. Hold firm pressure to the site and dial 911 to return to the hospital Document Released: 02/13/2006 Document Revised: 01/30/2013 Document Reviewed: 02/14/2014 [facility] Patient Information [email or web address] [facility]. This information is not intended to replace advice given to you by your health care provider. Make sure you discuss any questions you have with your health care provider. Nonspecific Chest Pain Chest pain can be caused by many different conditions. Some causes of chest pain can be life-threatening. These will require treatment right away. Serious causes of chest pain include: Heart attack. A tear in the body's main blood vessel. Redness and swelling (inflammation) around your heart. Blood clot in your lungs. Other causes of chest pain may not be so serious. These include: Heartburn. Anxiety or stress. Damage to bones or muscles in your chest. Lung infections. Chest pain can feel like: Pain or discomfort in your chest. Crushing, pressure, aching, or squeezing pain. Burning or tingling. Dull or sharp pain that is worse when you move, cough, or take a deep breath. Pain or discomfort that is also felt in your back, neck, jaw, shoulder, or arm, or pain that spreads to any of these areas. It is hard to know whether your pain is caused by something that is serious or something that is not so serious. So it is important to see your doctor right away if you have chest pain. Follow these instructions at home: Medicines Take reaz-hsz-aiwerxa and prescription medicines only as told by your doctor. If you were prescribed an antibiotic medicine, take it as told by your doctor. Do not stop taking the antibiotic even if you start to feel better. Lifestyle Rest as told by your doctor. Do not use any products that contain nicotine or tobacco, such as cigarettes, e-cigarettes, and chewing tobacco. If you need help quitting, ask your doctor. Do not drink alcohol. Make lifestyle changes as told by your doctor. These may include: ? Getting regular exercise. Ask your doctor what activities are safe for you. ? Eating a heart-healthy diet. A diet and nutrition internship (dietitian) can help you to learn healthy eating options. ? Staying at a healthy weight. ? Treating diabetes or high blood pressure, if needed. ? Lowering your stress. Activities such as yoga and relaxation techniques can help. General instructions Pay attention to any changes in your symptoms. Tell your doctor about them or any new symptoms. Avoid any activities that cause chest pain. Keep all follow-up visits as told by your doctor. This is important. You may need more testing if your chest pain does not go away. Contact a doctor if: Your chest pain does not go away. You feel depressed. You have a fever. Get help right away if: Your chest pain is worse. You have a cough that gets worse, or you cough up blood. You have very bad (severe) pain in your belly (abdomen). You pass out (faint). You have either of these for no clear reason: ? Sudden chest discomfort. ? Sudden discomfort in your arms, back, neck, or jaw. You have shortness of breath at any time. You suddenly start to sweat, or your skin gets clammy. You feel sick to your stomach (nauseous). You throw up (vomit). You suddenly feel lightheaded or dizzy. You feel very weak or tired. Your heart starts to beat fast, or it feels like it is skipping beats. These symptoms may be an emergency. Do not wait to see if the symptoms will go away. Get medical help right away. Call your local emergency services (911 in the [place] Do not drive yourself to the hospital. Summary Chest pain can be caused by many different conditions. The cause may be serious and need treatment right away. If you have chest pain, see your doctor right away. Follow your doctor's instructions for taking medicines and making lifestyle changes. Keep all follow-up visits as told by your doctor. This includes visits for any further testing if your chest pain does not go away. Be sure to know the signs that show that your condition has become worse. Get help right away if you have these symptoms. This information is not intended to replace advice given to you by your health care provider. Make sure you discuss any questions you have with your health care provider. Document Released: 08/01/2008 Document Revised: 08/16/2018 Document Reviewed: 08/16/2018 [employer] Patient Education 2020 [employer] Additional Information VACCINATE! IT SAVES LIVES! Members of the community who have not yet received the COVID-19 vaccine and would like to receive it can visit one of [facility] vaccine clinics. There are many vaccine clinic locations within the [facility]. For locations and available times, please visit [email or web address] It is important to note that some COVID mobile vaccine clinics are held outdoors and may be canceled in rainy or stormy conditions. To learn more about pediatric vaccinations (ages 5-11), we invite you to visit the [facility] webpage. [email or web address] To learn more about the COVID-19 vaccine, we invite you to visit the CDC website for a list of frequently asked questions.https://www.cdc.gov/co ronavirus/2019-ncov/vaccines/faq .html [facility] Patient Portal Access Instructions: Stay connected with your healthcare team and access your personal medical information anytime with the [facility] Patient Portal. Please follow the directions below to create your [facility] account: 1.Access the email account you provided upon registration to the hospital/physician office.2.Look for an invitation email from [facility].3.Open the email and access the invitation link: Accept Invitation to [facility].4.Fill in the required carbajal to create your account. To access your account, visit [email or web address]. Click the blue button labeled Access Patient Portal and then log in with the username and password that you created in the steps above. You will be able to view your test results, lab results, a summary of your visits, upcoming appointments and more. There is also a convenient messaging option where you can send secure messages to your provider. In addition, you will have the ability to download any documents or summaries to your computer and/or send the information securely to a physician. Remember that your healthcare information is confidential, so carefully consider who you will allow to register on the [facility] Patient Portal for access to your information. You can also access the [facility] Patient Portal on the [facility]aira. Simply click on Patient Portal and then log into your account. If you would like to receive a full copy of your medical records, please contact the [facility] Medical Records Department by calling [phone], Monday through Monday between 8 a.m. and 4:30 p.m. HOW TO SAFELY DISPOSE OF PRESCRIPTION MEDICATIONS Please use one of the following methods to safely dispose of your unused medications. 1.Use a drug disposal kit: the drug disposal pouch allows you to safely discard your old and unused drugs. Ask your nurse to give you one when you are discharged.2.Visit a local take-back location: Many local pharmacies and police departments have programs that collect old and unwanted prescription drugs. Call your local pharmacy or go to http://[employer]/5G2Tz6m to find one close to you.3.Make use of household items: Use cat litter or old coffee grounds to dispose medications if other options are not available. Mix your drugs with these household products, seal them in an airtight container and throw it into the garbage. Call [facility]: [phone] to be sure your drugs can be disposed of in this way. Some medicines may require a different approach.4.Never flush your medications down the toilet. IF YOU HAVE BEEN PRESCRIBED AN OPIOID FOR PAIN If you have been prescribed an opioid (such as hydrocodone, oxycodone or morphine), it is critical to understand the possible side effects and risks of opioid pain medications. Even when taken as directed, opioids can have several side effects including: Tolerance, meaning you might need to take more of a medication for the same pain relief. Nausea, vomiting and/or constipation. Sleepiness, dizziness, dry mouth, confusion, depression or itching. Physical dependence, meaning you have withdrawal symptoms when a medication is stopped, can develop within a few days. KNOW YOUR RESPONSIBILITIES It is important to know exactly how much and how often to take the opioid pain medications you are prescribed. Never take opioids in higher amounts or more often than prescribed. Do not combine opioids with alcohol or other drugs that cause drowsiness, such as benzodiazepines, also known as benzos, including diazepam and alprazolam, muscle relaxants or sleep aids. Never sell or share prescription opioids. This is illegal. Store opioids in a secure place and out of reach of others (including children, family, friends and visitors). The last page of this document has been signed and retained as a CHART COPY. Signatures Patient Education Materials 3- Heart Cath/PCI radial (11/2017)(CUSTOM) Nonspecific Chest Pain, Adult, Hrho-bv-Fzqc Medication Leaflets atorvastatin, aspirin My discharge plan and instructions have been reviewed and explained to me and I,AUDREY SNOW understand my current condition and have read and understand these discharge instructions. I have received a written copy of the plan/instructions. If I have questions, I am aware that I should contact my doctor. 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 Cough was associated with chest pain for the past 3 days. Associated with worsening shortness of breath. Patient was initially treated at [facility]. Per H&P from provider at [facility], CTA of the chest was negative for pulmonary embolism, showed nvhf-hy-evlblbit centrilobular and paraseptal emphysema, 8.4 mm sized noncalcified nodule within the subpleural left posterior lower lobe, 4 mm sized noncalcified nodule with the subpleural anterior right middle lobe was noted. EKG demonstrated sinus rhythm with nonspecific T wave abnormality unchanged from previous EKG in 08/2019. CBC was unremarkable. Troponin negative x 2. COVID-19, flu A and B negative. Urinalysis significant for 25 leukocyte esterase but negative for nitrites and bacteria, urine WBC 1-5. Patient was administered 1 liter of NS in the ED and transferred to [facility] for further work up. Lexiscan stress test was done which came back positive (Ischemic EKG changes - [address] depression in L2,3aVF 14 seconds into recovery with pending nuclear reports.) which eventually led to her being transferred to [facility] for further evaluation and management. Once up on the floor labs were collected, chest x-ray and echo were done. Chest x-ray showed emphysema and no acute findings. Echo showed ejection fraction of 60 to 65% with normal diastolic function and mild AV regurgitation. Patient subsequently went for left heart cath which came back normal. Additionally patient's repeat troponins here were negative x3. Toxicology came back negative. Hemoglobin A1c resulted at 5.1. D-dimer was high at 374 but is nonspecific. Lipid panel resulted in cholesterol of 240, triglycerides 96, HDL 50, LDL 171. TSH came back high at 4.98. Lexiscan stress test was negative. Patient's EKG was in sinus rhythm at a rate of 61. She was in fair condition on day of discharge. Patient was instructed to take medications as prescribed. We started her on a new prescription of atorvastatin for cholesterol management. She was also instructed to establish with a PCP within 2 weeks for follow-up care regarding her high TSH. Allergies NKA Procedures [facility] 11/08/22 Consults No qualifying data available. Imaging Results and Diagnostics XR Chest 2 Views Result Date: November 08, 2022 Verified By: CECI OWENS MD CLINICAL STATEMENT: IMPRESSION: Emphysema. No acute finding. Physical Exam Vitals and Measurements T: 36.4 C (Oral) TMIN: 36.4 C (Oral) TMAX: 36.7 C (Oral) HR: 69(Monitored) RR: 16 BP: 110/65 SpO2: 97% HT: 162.6 cm WT: 66.5 kg BMI: 25.15 Weight Dosing Weight: 66.5 kg (11/07/22) Skin: warm/dry, normal color Eyes: PERRL, EOMI Head, Ears, Nose, and Throat: pharynx normal, mucous membranes moist, no cervical lymphadenopathy noted Cardiovascular: No JVD, regular rate, rhythm, S1 and S2 heard normally. no murmurs appreciated. Abdomen/GI: non tender, soft , bowel sounds heard. Extremity: normal range of motion, non-tender, no pedal edema Pulmonary: chest non-tender, lungs clear Neurologic: no motor/sensory deficits, normal sensation Pending Labs and Studies None Code Status Code Status - Ordered -- 11/08/22 1:36:00 EDT, Full Code, Constant Order Admission Date 11/08/22 Discharge Date 11/08/22 Patient Instructions Please take medications as prescribed. We have prescribed you atorvastatin for cholesterol. Please establish with a PCP within 2 weeks to follow-up care Medications New Prescription atorvastatin (Lipitor 40 mg oral tablet)1 tab(s) by mouth once a day. Refills: 1. Unchanged albuterol (albuterol MDI (90 mcg/inh) CFC free inhalation aerosol)1 puff(s) by inhalation every 6 hours as needed Shortness of breath (SOB). aspirin (aspirin 81 mg oral tablet, chewable)1 tab(s) Chewed once a day. [id number] Milligram by mouth daily at bedtime as needed as needed for insomnia. Misc Medication1 capsule by mouth three (3) times a day as needed Heartburn. apple cider vinegar capsules patient takes up to 3 times a day for heartburn. multivitamin (Multivitamin)1 tab(s) by mouth every day. Follow Up Follow Up with PHYSICIAN, NOT RECORDED When Within 1-2 days Follow Up Appointments No qualifying data available. Follow Up Labs/Studies Discharge Labs No Follow-up Labs Discharge Studies No Follow-up Studies Discharge Diet Discharge Diet - Ordered -- Type of Diet: Regular, 11/08/22 16:34:00 EDT Discharge Activity Discharge Activity - Ordered -- Activity As Tolerated, Additional instructions include:, 11/08/22 16:34:00 EDT Condition on Discharge Fair Discharge Disposition Home Information Provided To Patient Digitally Signed by KOURTNEY FRANCISCO MD on 11/08/2022 05:31 PM [facility] 11-08-2022 Evaluation + Plan note Extrac arlette from: Title:History and Physical Author:FAUSTO PATEL MD Date:11/08/22 Chest pain rule out ACS (JULIANNA I 1) Elevated creatinine Bilateral pulmonary nodules on CTA of 11/06/2022 History of COPD DVT prophylaxis CODE STATUS Patient is a 52-year-old female with past medical history significant for COPD who presents to [facility] as a transfer in view of chest pain, cough, shortness of breath and abnormal stress test which showed ischemic changes in the ED [address] depression leads II, III and aVF. Patient is to have further ischemic work-up. Plan: We will admit patient to CCU under MTS for continuous telemetry Keep patient NPO starting midnight pending possible LHC in the morning We will place patient on aspirin and statin We will obtain repeat CBC, BMP and magnesium We will obtain echocardiogram to further assess cardiac function Initial troponin done which were negative. Given persistent chest pain history will obtain serial troponin CTA done at [facility] revealed bilateral pulmonary nodules. Unfortunately reports and images unavailable at time of dictation (no physical chart scanned with patient). As such we will obtain CXR We will obtain UDS and SDS to further work-up chest pain We will re-stratify the patient with HBa1c, Lipid panel and TSH We will offer patient Tylenol for symptomatic relief in addition to nitroglycerin as needed Patient will need outpatient follow-up of incidental pulmonary nodules. DVT prophylaxis: Heparin SubQ Code status: Full code [facility] 09-12-2023 Note ORIGINAL EXAMINATION: TWO XRAY VIEWS OF THE CHEST 11/08/2022 11:17 am COMPARISON: None. HISTORY: ORDERING SYSTEM PROVIDED HISTORY: Reason for Exam: Chest pain FINDINGS: Heart is normal in size and there is no vascular congestion present. Emphysema is evident and there are scattered areas of scarring noted. No infiltrate or pleural fluid is evident. Minor degenerative changes are seen in the spine. IMPRESSION: Emphysema. No acute finding. Interpreted by: Ceci Owens MD Preliminary Report By: Ceci Owens MD Electronically signed By Ceci Owens MD Dictated Date: 11/08/2022 11:20:06 AM Prelim Date: 11/08/2022 11:20:36 AM Sign Date: 11/08/2022 11:20:36 AM Ordering Provider: [facility]09-12-2023 Note* Exam Date Time Procedure Performing Provider Status 11/08/22 9:48 AM Echocardiogram, Adult - CV Auth (Verified) [facility] 09-12-2023 History and physical note Date of Service 11/08/2022 Chief Complaint Chest pain, shortness of breath, cough History of Present Illness Patient is a 52-year-old female, with past medical history significant for COPD (not on home oxygen), presents to [facility] as a transfer from [facility] in view of an abnormal stress test. Patient was apparently normal about 3 weeks ago, when she began to develop a cough-sudden onset, productive in nature with clear appearing sputum, continuously present, with no aggravating factors, not relieved with home remedies (cinnamon, honey). Cough is associated with chest pain which began 3 d ays ago on Saturday 11/04. Chest pain-dull pressure, substernal location, nonradiating, intermittently present lasting a few minutes at a time, about approximately 5x a day, worsens with cough, maximum intensity /10. Associated with shortness of breath-gradually progressing, worsening in supine position, with no aggravating or relieving factors, no PND or orthopnea. Patient denies palpitations, diaphoresis, lower extremity swelling, calf pain, nausea, vomiting, abdominal pain, fevers, headache and chills. Patient has not had similar symptoms in the recent past. In view of above symptoms, patient presented to [facility], where she was evaluated further. Per H&P from provider at [facility], CTA of the chest was negative for pulmonary embolism, showed [id number]-da-mcejyonj centrilobular and paraseptal emphysema, 8.4 mm sized noncalcified nodule within the subpleural left posterior lower lobe, 4 mm sized noncalcified nodule with the subpleural anterior right middle lobe was noted. EKG demonstrated sinus rhythm with nonspecific T wave abnormality unchanged from previous EKG in 08/2019. CBC was unremarkable. Troponin negative x 2. COVID-19,flu A and B negative. Urinalysis significant for 25 leukocyte esterase but negative for nitrites and bacteria, urine WBC 1-5. Patient was administered 1 liter of NS in the ED and transferred to [facility] for further work up. Lexiscan stress test was done which came back positive (Ischemic EKG changes - [address] depression in L2,3aVF 14 seconds into recovery with pending nuclear reports.) which eventually led to her being transferred to [facility] for further evaluation and management. Review of Systems Constitutional: denies: Fever, Chills, chest pain, sob, cough Eyes: Denies: Pain, Vision Change ENT: Denies: Ear Pain, Ear Discharge Cardiovascular: As per HPI Vascular: Denies: Numbness Gastrointestinal: Denies: Nausea, Vomiting Pulmonary: Denies: Dyspnea, Cough Genitourinary: Denies: Dysuria, Frequency, oliguria Neurological: Denies: Weakness, Numbness Physical Exam Vitals and Measurements T: 36.6 C (Oral) HR: 63(Monitored) RR: 20 BP: 125/87 SpO2: 96% HT: 162.6 cm WT: 66.5 kg BMI: 25.15 Weight Dosing Weight: 66.5 kg (11/07/22) Skin: warm/dry, normal color Eyes: PERRL, EOMI Head, Ears, Nose, and Throat: pharynx normal, mucous membranes moist, no cervical lymphadenopathy noted Cardiovascular: No JVD, regular rate, rhythm, S1 and S2 heard normally. no murmurs appreciated. Abdomen/GI: non tender, soft , bowel sounds heard. Extremity: normal range of motion, non-tender, no pedal edema Pulmonary: chest non-tender, lungs clear Neurologic: no motor/sensory deficits, normal sensation Lab Results No 36 Hour Lab Data Assessment/Plan Chest pain rule out ACS (ALISA 1) Elevated creatinine Bilateral pulmonary nodules on CTA of 11/06/2022 History of COPD DVT prophylaxis CODE STATUS Patient is a 52-year-old female with past medical history significant for COPD who presents to [facility] as a transfer in view of chest pain, cough, shortness of breath and abnormal stress test which showed ischemic changes in the ED [address] depression leads II, III and aVF. Patient is to have further ischemic work-up. Plan: We will admit patient to CCU under MTS for continuous telemetry Keep patient NPO starting midnight pending possible LHC in the morning We will place patient on aspirin and statin We will obtain repeat CBC, BMP and magnesium We will obtain echocardiogram to further assess cardiac function Initial troponin done which were negative. Given persistent chest pain history will obtain serial troponin CTA done at [facility] revealed bilateral pulmonary nodules. Unfortunately reports and images unavailable at time of dictation (no physical chart scanned with patient). As such we will obtain CXR We will obtain UDS and SDS to further work-up chest pain We will re-stratify the patient with HBa1c, Lipid panel and TSH We will offer patient Tylenol for symptomatic relief in addition to nitroglycerin as needed Patient will need outpatient follow-up of incidental pulmonary nodules. DVT prophylaxis: Heparin SubQ Code status: Full code Problem List/Past Medical History Ongoing Chest pain Historical No qualifying data Procedure/Surgical History History of hernia repair Tubal ligation Medications Home Medications (5) Active albuterol MDI (90 mcg/inh) CFC free inhalation aerosol 1 puff(s), PRN, Inhalation, q6hr aspirin 81 mg oral tablet, chewable 81 mg = 1 tab(s), Chewed, qDay melatonin 10 mg, PRN, Oral, qHS Misc Medication 1 capsule, PRN, Oral, TID Multivitamin 1 tab(s), Oral, Daily Allergies NKA Social History Alcohol Use: Past. Type: Beer. Frequency: 1-2 times per year., 11/07/2022 Sexual Self described orientation: Straight or heterosexual., 11/07/2022 Substance Abuse Use: Past. Type: Marijuana., 11/07/2022 Tobacco Nicotine Use: Former smoker, quit more than 30 days ago. Exposure to Tobacco Smoke Lives in non-smoking home. Type: Cigarettes. Started at age: 16 Years. Stopped at age: 50 Years., 11/07/2022 Quit smoking in February 2022. Family History Heart disease: Grandparent. Father: COPD, due to a heart attack at 63 years. Mother: Committed suicide in her 30s. Immunizations No qualifying data available. Code Status Full code. Digitally Signed by THOMAS PATEL MD on 11/08/2022 04:11 AM [id number] NoteSINUS RHYTHM NONSPECIFIC T ABNORMALITIES, ANTERIOR LEADS Electronic Signature: MARGARET ARENAS MD 11/08/2022 11:11:59[facility] 09-11-2023 Evaluation + Plan noteExtracted from: Title:History and Physical Author:MRACELA NOLAN APRN-OYSTER PICKER Date:11/07/22 1. Chest pain Acute, new onset 3 days ago, worse with coughing, denies nausea, diaphoresis, pain radiation or shortness of breath *Troponin negative x 3. *Continue to monitor on telemetry. *Send patient for lexiscan stress test in the am. 2. Acid reflux Chronic *Start Protonix 40 mg PO daily. 3. COPD (chronic obstructive pulmonary disease) Chronic *Patient encouraged to get established with PCP for this. She has been using an inhaler at home. *CTA of the chest revealed 2 pulmonary nodules that will require follow-up in next 3 months. *Continue duoneb aerosols as needed for shortness of breath/wheezing. DVT prophylaxis with SCDs, ambulation. Code status: Full Code. Labs, diagnostic test and progress notes reviewed as noted in HPI. Plan of care discussed with patient. All questions answered. Patient verbalizes understanding and is agreeable with plan of care. This case was discussed with collaborating physician, Dr. Akin Kingston. 55 minutes spent reviewing past diagnostic tests, reviewing lab results, vital sign trends, medical history, reviewing medications and ordering home medications, discussed patient with examining patient, collaborating with physician, and documenting in chart. [facility] 09-11-2023 Note TEST TYPE : Lexiscan LEXISCAN DOSE: 0.4 mg INDICATION: Chest pain REFERRING PHYSICIAN: Meryl Gilliland APRN GENDER: Female AGE: 52 years HEIGHT: 64 inches WEIGHT: 147.8 pounds BASELINE: HR - 64 bpm BP: 129/82 mm Hg EKG - Sinus rhythm, VR64 BPM, no EKG ischemia STUDY PROTOCOL: Patient was stressed using the standard lexiscan protocol. Ischemic EKG changes - [address] depression in L2,3aVF 14 seconds into recovery. Arrhythmias: absent Symptoms: chest pain, shortness of breath. IMPRESSION: 1. Lexiscan nuclear imaging study with inferior ischemic changes as above. 2. Nuclear images are to be reported separately. Digitally Signed by JACQUI ARROYO MD on 11/07/2022 12:29 PM [facility]09-11-2023 Note Date of Service 11/07/2022 Chief Complaint Chest pain History of Present Illness Patient is a 52-year-old female, who has no primary care provider and a past medical history significant for COPD, presented initially to [facility] yesterday with the chief complaint of chest pain. Patient stated that she was not feeling well for about 2 weeks prior to going to the ED.Her chief complaint had been a cough. However, she developed substernal chest tightness 3 days ago that was constant but worse with coughing. She states that her chest pain was not accompanied by anynausea or diaphoresis and did not radiate anywhere else. Patient reports that her father from an GA at 53. Patient recently obtained health insurance is in the process of finding a PCP. She states she has been using a rescue inhaler that is . She denies any fever, chills, shortness of breath, abdominal pain, nausea or dysuria. In the [facility] ED, CTA of the chest was negative for pulmonary embolism, qbja-qx-rkaiacnqrueigqfmhvwci and paraseptal emphysema, 8.4 mm sized noncalcified nodule within the subpleural leftposterior lower lobe, 4 mm sized noncalcified nodule with the subpleural anterior right middle lobe. EKG demonstrated sinus rhythm with nonspecific T wave abnormality unchanged from previous EKG in 08/2019. CBC was unremarkable. Troponin negative x 2. COVID-19, flu A and B negative. Urinalysis significant for 25 leukocyte esterace but negative for nitrites and bacteria, urine WBC 1-5. Patient was administered 1 liter of NS in the ED. The ED physician discussed the patient with this provider and recommended admission to rule out ACS due to patient having risk factors of smoking and close familymember having GA at young age. The ED physician was unable to admit patient to [place] due to patient's insurance was not accepted there. Patient was transferred to [facility] telemetry for observation. We will keep her NPO overnight and send for lexiscan stress test in the am. We will trend one more serial troponin prior to stress test. If stress test is negative, patient can be discharged home and follow-up with PCP. Repeat CBC and BMP in the am. Patient seen and evaluated this morning while resting in bed. She states that her chest tightness is still there but better than it was yesterday. Patient is aware that the plan is to send her for a stress test today. If normal, she will be discharged home to follow-up with PCP. If positive, she will likely have to be transferred to [facility] for cardiology consult. All questions answered. Review of Systems Review of Systems: Reviewed in detail, including general health, HEENT, cardiovascular, respiratory, gastrointestinal, genitourinary, endocrine, musculoskeletal, neurologic, vascular, skin, and psychiatric. All are negative except for those listed in the History of Present Illness. Physical Exam Vitals and Measurements T: 36.4 C (Oral) HR: 67(Monitored) RR: 16 BP: 114/76 SpO2: 97% HT: 162.6 cm WT: 67.18 kg BMI: 25.41 Weight Dosing Weight: 67.18 kg (11/07/22) General: No acute distress. Patient is alert and appropriate. Skin: No rash. Skin is warm, dry and intact. HEENT: Head is normocephalic, atraumatic. Pupils are equal, round and reactive. Neck: Supple. No lymphadenopathy, thyromegaly. Lungs: Bilaterally clear but diminished without crepitation or wheeze. Unlabored. Moist-sounding cough noted. Heart: Heart is regular rhythm, S1, S2. No murmurs, gallops or rubs. Abdomen: Abdomen is soft, nontender. Bowels sounds present in all quadrants. Extremities: No clubbing, cyanosis, or edema. Peripheral pulses palpable. No calf tenderness. Neurological: Patient is awake and alert to person, place and time. Following simple commands, moving all extremities. Lab Results 11/07 05:09 WBC: 7.0 Hgb: 14.9 Hct: 43.3 Platelet: 299 Neutrophil %: 57.0 Glucose Level: 101 Sodium Level: 140 Potassium Level: 4.5 BUN: 19 H Creatinine Lvl (s): 1.24 H Assessment/Plan 1. Chest pain Acute, new onset 3 days ago, worse with coughing, denies nausea, diaphoresis, pain radiation or shortness of breath *Troponin negative x 3. *Continue to monitor on telemetry. *Send patient for lexiscan stress test in the am. 2. Acid reflux Chronic *Start Protonix 40 mg PO daily. 3. COPD (chronic obstructive pulmonary disease) Chronic *Patient encouraged to get established with PCP for this. She has been using an inhaler at home. *CTA of the chest revealed 2 pulmonary nodules that will require follow-up in next 3 months. *Continue duoneb aerosols as needed for shortness of breath/wheezing. DVT prophylaxis with SCDs, ambulation. Code status: Full Code. Labs, diagnostic test and progress notes reviewed as noted in HPI. Plan of care discussed with patient. All questions answered. Patient verbalizes understanding and is agreeable with plan of care. This case was discussed with collaborating physician, Dr. Akin Kingston. 55 minutes spent reviewing past diagnostic tests, reviewing lab results, vital sign trends, medicalhistory, reviewing medications and ordering home medications, discussed patient with examining patient, collaborating with physician, and documenting in chart. Problem List/Past Medical History Ongoing No qualifying data Historical No qualifying data Procedure/Surgical History History of hernia repair Tubal ligation Medications Home Medications (5) Active albuterol MDI (90 mcg/inh) CFC free inhalation aerosol 1 puff(s), PRN, Inhalation, q6hr aspirin 81 mg oral tablet, chewable 81 mg = 1 tab(s), Chewed, qDay melatonin 10 mg, PRN, Oral, qHS Misc Medication 1 capsule, PRN, Oral, TID Multivitamin 1 tab(s), Oral, Daily Allergies NKA Social History Alcohol Use: Past. Type: Beer. Frequency: 1-2 times per year., 11/07/2022 Sexual Self described orientation: Straight or heterosexual., 11/07/2022 Substance Abuse Use: Past. Type: Marijuana., 11/07/2022 Tobacco Nicotine Use: Former smoker, quit more than 30 days ago. Exposure to Tobacco Smoke Lives in non-smoking home. Type: Cigarettes. Started at age: 16 Years. Stopped at age: 50 Years., 11/07/2022 Family History COPD: Father. Heart disease: Grandparent. Immunizations No qualifying data available. Code Status Code Status - Ordered -- 11/07/22 4:22:00 EDT, Full Code, Constant Order Digitally Signed by MARCELA NOLAN on 11/07/2022 12:56 PM [facility]09-11-2023 Hospital Discharge instructions Follow Up Care 11/07/2022 04:02:40 With:Call Physician Referral Address:Unknown When: Unknown [facility] 09-11-2023 NoteSinus rhythm Nonspecific T abnormalities, anterior leads Electronic Signature: MARGARET ARENAS MD 11/07/2022 11:43:09[facility] 12-10-2020 History of Present illness Narrative* Dionne Alex (Rt), [facility] - 02/06/2020 3:10 PM EST Radiology Service Progress Note PATIENT NAME: Joan Snow DATE OF SERVICE: February 06, 2020 TIME: 3:13 PM PATIENT IDENTITY VERIFICATION COMPLETED USING TWO (2) IDENTIFIERS: Name and Date of confirmedby patient verbally. FALL SCREENING: Has the patient had 2 falls in the last year or 1 fall with injury or currently using an Ambulatory Assistive Device (Walker, Cane, Wheelchair, Crutches, etc.)? No PATIENT GENDER DATA: Female. status: : No status: NO. PATIENT RELEVANT IMPLANT DATA REVIEWED: Yes RADIOLOGY DEPARTMENT: General X-ray: Exam(s) Completed: Rib X-Ray: Bilateral PERIPHERAL IV DATA: Not applicable SIGNED BY: RT Jose February 06, 2020 3:13 PM [facility] [place] [facility] Plan note Future Appointments Appointment Date:04/10/2023 10:00:00 AM Scheduled Provider:ABHIJEET JANE PA-C Location:[facility] Appointment Type:PC DIGITAL ARTIST [facility] Evaluation note* Diagnosis Synovial cyst of right popliteal space- Primary Synovial cyst of popliteal space documented [facility] this encounter [facility] [place] [facility]* Diagnosis Pain- Primary Generalized pain documented in this encounter [facility] [place] [facility]* Diagnosis Pain Generalized pain [facility] [place] [facility]* Diagnosis Somatic dysfunction of lumbar region- Primary Nonallopathic lesion of lumbar region, not elsewhere classified Chronic pain of both knees documented in this encounter [facility] note* Diagnosis Somatic dysfunction of lumbar region- Primary Nonallopathic lesion of lumbar region, not elsewhere classified Chronic pain of both knees documented [facility] this [facility] [place] [facility]* Diagnosis Somatic dysfunction of lumbar region- Primary Nonallopathic lesion of lumbar region, not elsewhere classified Chronic pain of both knees [facility] [place] [facility]* Diagnosis Somatic dysfunction of lumbar region- Primary Nonallopathic lesion of lumbar region, not elsewhere classified Chronic pain of both knees [facility] [place] [facility]* Diagnosis Rib pain Chest pain, unspecified [facility] Narr[facility] No data available for this section [facility] Reason for referral (narrative)* Diagnostic Procedure Only (Routine) - Pending Review Specialty Diagnoses / Procedures Referred By [place] Referred To Contact XR IMAGING Diagnoses Pain Procedures XR KNEE GENERAL 4V AP BOTH/PA BOTH/LAT/MERC RIGHT RADIOLOGIC EXAM KNEE COMPLETE 4/MORE VIEWS Francesco Banks PA-C [address] [address] [place] [address] Referral ID Status Reason Start Date Expiration Date Visits Requested Visits Authorized [id number] Pending Review Auto-Generat ed Referral 02/15/2024 1 1 [facility] for visit Narrative* Diagnostic Procedure Only (Routine) - Closed Specialty Diagnoses / Procedures Referred By Contac t Referred To Contact XR IMAGING Diagnoses Pain Procedures XR KNEE GENERAL 4V AP BOTH/PA BOTH/LAT/MERC RIGHT RADIOLOGIC EXAM KNEE COMPLETE 4/MORE VIEWS Francesco Banks PA-C [address] [address] [place] [id number] Referral ID Status Reason Start Date Expiration Date V isits Requested Visits Authorized [id number] Closed Auto-Generate d Referral 01/16/2023 02/15/2024 1 1 [facility] Summary Purpose Family History No Family History Records Found No data available for this section No data available for this section No data available for this section No Family History Records FoundNo Family History Records FoundNo Family History Records FoundNo Family History Records Found Advance Directives No Advanced Directives Records FoundNo Advanced Directives Records FoundNo Advanced Directives Records FoundNo Advanced Directives Records FoundNo Advanced Directives Records Found Reason for Referral Specialty Diagnoses / Procedures Referred By Contac t Referred To Contact [facility] Diagnoses Somatic dysfunction of lumbar region Chronic pain of both knees Procedures CONSULT TO PHYSICAL THERAPY PHYSICAL THERAPY EVALUATION HIGH COMPLEX 45 MINS Amanda Foote PA-C [address] [place] [address] [facility] [place] [address] [place] [id number] Referral ID Status Reason Start Date Expiration Date Visits Requested Visits Authorized [id number] Authorized Auto-Generat ed Referral 02/27/2023 02/27/2024 1 1 Specialty Diagnoses / Procedures Referred By Contac t Referred To Contact Orthopedics Diagnoses Synovial cyst of right popliteal space Procedures CONSULT TO ORTHOPAEDICS OFFICE/OUTPATIENT [facility] 60-74 MINUTES Kyaw Remy APRN.[employer] [address] [place] [address] Referral ID Status Reason Start Date Expiration Date Visits Requested Visits Authorized [id number] Authorized PCP Requested Referral 3 01/15/2024 1 1 Additional Source Comments INFORMATION SOURCE (unrecogn ized section and content) DATE CREATED AUTHOR 09/20/2019 [facility] DATE CREATED AUTHOR AUTHOR'S ORGANIZ ATION 03/18/2023 [facility] [place] [facility] DATE CREATED AUTHOR AUTHOR'S ORGANIZ ATION 10/27/2023 [facility] DATE CREATED AUTHOR AUTHOR'S ORGANIZ ATION 03/20/2024 [facility] DATE CREATED AUTHOR AUTHOR'S ORGANIZ ATION 05/24/2024 [facility] Patient Care team informatio n (unrecognized section and content) Care Team Personnel Name: PHYSICIAN, NOT RECORDED Member Role: Primary Care Physician Care Team Related Persons Name: NATE SNOW Care Team Personnel Name: PHYSICIAN, NOT RECORDED Member Role: Primary Care Physician Care Team Related Persons Name: NATE SNOW Care Team Personnel Name: PHYSICIAN, NOT RECORDED Member Role: Primary Care Physician Name: CAROLANN DUGGAN MD Position: ED Physician Member Role: Attending Physician Address: Address: [facility] [address] [place] [id number] Care Team Related Persons Name: GWENDOLYN NATE Source Comments (unrecognize d section and content) In the event this informatio n is protected by the Federal Confidentiality of Alcohol and Drug Abuse Patient Records regulations: The Federal rules restrict any use of the information to criminally investigate or prosecute any alcohol or drug abuse patient.[facility] the event this information is protected by the Federal Confidentiality of Alcohol and Drug Abuse Patient Records regulations: The Federal rules restrict any use of the information to criminally investigate or prosecute any alcohol or drug abuse patient.[facility] the event this information is protected by the Federal Confidentiality of Alcohol and Drug Abuse Patient Records regulations: The Federal rules restrict any use of the information to criminally investigate or prosecute any alcohol or drug abuse patient.[facility] the event this information is protected by the Federal Confidentiality of Alcohol and Drug Abuse Patient Records regulations: The Federal rules restrict any use of the information to criminally investigate or prosecute any alcohol or drug abuse patient.[facility] the event this information is protected by the Federal Confidentiality of Alcohol and Drug Abuse Patient Records regulations: The Federal rules restrict any use of the information to criminally investigate or prosecute any alcohol or drug abuse patient.[facility] the event this information is protected by the Federal Confidentiality of Alcohol and Drug Abuse Patient Records regulations: The Federal rules restrict any use of the information to criminally investigate or prosecute any alcohol or drug abuse patient.[facility] Hospital[facility] the event this information is protected by the Federal Confidentiality of Alcohol and Drug Abuse Patient Records regulations: The Federal rules restrict any use of the information to criminally investigate or prosecute any alcohol or drug abuse patient.[facility] Hospital[facility] the event this information is protected by the Federal Confidentiality of Alcohol and Drug Abuse Patient Records regulations: The Federal rules restrict any use of the information to criminally investigate or prosecute any alcohol or drug abuse patient.[facility] the event this information is protected by the Federal Confidentiality of Alcohol and Drug Abuse Patient Records regulations: The Federal rules restrict any use of the information to criminally investigate or prosecute any alcohol or drug abuse patient.[facility] Hospital[facility] the event this information is protected by the Federal Confidentiality of Alcohol and Drug Abuse Patient Records regulations: The Federal rules restrict any use of the information to criminally investigate or prosecute any alcohol or drug abuse patient.[facility] Reason for Visit (unrecogniz ed section and content) Reason Comments PT Progress Note Specialty Diagnoses / Procedures Referred By Contac t Referred To Contact [facility] Diagnoses Somatic dysfunction of lumbar region Chronic pain of both knees Procedures PT REHAB FOLLOW UP ORDER THERAPEUTIC EXERCISES RE, EA 15 MIN. Amanda Foote PA-C [address] [place] [address] [facility] [address] [address] Referral ID Status Reason Start Date Expiration Date Visits Requested Visits Authorized [id number] Authorized PCP Requested Referral Auto-Generate d Referral 06/23/2023 09/27/2023 8 8 Reason Comments Edema Right knee with pain x 3 wks worsening Reason Comments Appointment Reason Comments New Patient Low Back Pain Left Hip Pain Reason Comments PT Eval Specialty Diagnoses / Procedures Referred By Contac t Referred To Contact [facility] Diagnoses Somatic dysfunction of lumbar region Chronic pain of both knees Procedures CONSULT TO PHYSICAL THERAPY PHYSICAL THERAPY EVALUATION HIGH COMPLEX 45 MINS Amanda Foote PA-C [address] [place] [address] [facility] [address] [address] Referral ID Status Reason Start Date Expiration Date V isits Requested Visits Authorized [id number] Closed Auto-Generate d Referral 02/27/2023 02/27/2024 1 1 Reason Comments Physical Therapy FOR RECORDS PERTAINING TO PATIENTS WHO ARE OR HAVE BEEN ENROLLED IN A CHEMICAL DEPENDENCY/SUBSTANCEABUSE PROGRAM, SOME INFORMATION MAY BE OMITTED. This clinical summary was aggregated from multiple sources. Caution should be exercised in using it in the provision of clinical care. This summary normalizes information from multiple sources, and as a consequence, information in this document may materially change the coding, format and clinical context of patient data. In addition, data may be omitted in some cases. CLINICAL DECISIONS SHOULD BE BASED ON THE PRIMARY CLINICAL RECORDS. [facility] provides no warranty or guarantee of the accuracy or completeness of information in this document.
[2024-10-25 06:14] LABS: Mucous, Urine 0 SEEN /hpf (<or=2+)
[2024-10-25 06:17] LABS: Hematocrit 45.4 % (37-47); Hemoglobin 15.7 g/dL (12.0-15.0); Immature Granulocytes Count 0.020 X10^3/uL (0.0-0.0); Mean Corp Hgb Conc 34.6 g/dL (32-36); Mean Corpuscular Volume 90.3 fL (81-99); Mean Platelet Vol. 9.4 fl (6.2-12.0); NRBC Flagged by Analyzer 0 % (0-5); Platelet Count 259 K/mm3 (150-450); RBC Distribution Width CV 11.6 % (11.6-14.6); RBC Distribution Width SD 38.3 fl (35.1-43.9); Red Blood Count 5.03 M/mm3 (4.2-5.4); White Blood Count 6.0 K/mm3 (4.4-11.0)
[2024-10-25 06:17] LABS: Color, Urine Amber (Yellow); Glucose, Dipstick Normal (Normal); Ketone-Dipstick Negative (Negative); Leukocyte Esterase-Dipstick 25 /ul (Negative); Nitrite-Dipstick Positive (Negative); Occult Blood-Urine 10 /ul (Negative); Protein-Dipstick 15 mg/dl (Negative); Specific Gravity, Urine 1.025 (1.002-1.030)
[2024-10-25 06:21] LABS: Urine Bilirubin Dipstick 6 mg/dL (Negative)
[2024-10-25 06:37] LABS: Squamous Epithelial Cells - UA 10-25 SEEN /hpf (5-10)
[2024-10-25 06:40] LABS: Red Blood Cells-Urine 0-5 SEEN /hpf (0-5)
[2024-10-25 06:52] VITALS: BP 132/78; PULSE 78; RESP 18; TEMP 37.1; O2SAT 99
[2024-10-25 06:56] LABS: Anion Gap 12 (5-15); BUN 29 mg/dL (4-19); BUN/Creat Ratio 31.2 RATIO (10-20); Calcium,Total 9.3 mg/dL (7.6-11.0); Carbon Dioxide 24.3 mmol/L (21.0-32.0); Chloride 102 mmol/L (98-108); Estimated Creatinine Clearance 59.72 ml/min (50-250); Glucose 109 mg/dL (70-99); Potassium 4.0 mmol/L (3.3-5.1)
[2024-10-25] MEDS: Smz/Tmp Ds Tablet 1 TABLET PO (07:43)
[2024-10-25 07:47] VITALS: BP 131/66; PULSE 78; RESP 16; TEMP 37.1; O2SAT 99
== END 2024-10-25 07:47 | disposition home or self-care (01) ==
PROVIDERS: Emergency Provider Emergency Medicine; Visit Provider Emergency Medicine
DX: R19.7 Diarrhea, unspecified (principal); J44.9 Chronic obstructive pulmonary disease, unspecified; E86.0 Dehydration; E78.5 Hyperlipidemia, unspecified; R30.0 Dysuria; Z87.891 Personal history of nicotine dependence; Z79.51 Long term (current) use of inhaled steroids; Z79.899 Other long term (current) drug therapy
CPT/HCPCS: 80048; 81001; 85025; 87086; 96360; 99283; A4216

== ENCOUNTER 2024-11-22 18:52 | Emergency (ER) | payer MEDICAID, SELFPAY ==
[2024-11-22 18:53] VITALS: BP 112/83; PULSE 98; RESP 16; TEMP 36.5; O2SAT 95
--- NOTE | 2024-11-22 21:15 | ED.RN ---
PATIENT LEFT BEFORE SEEING A PROVIDER. NAME CALLED AT [phone] IN ED WAITING ROOM W/ NO RESPONSE.
--- NOTE | 2024-11-22 21:32 | EKG12_ITS ---
Test Reason : CP/SOB Blood Pressure : */* mmHG Vent. Rate : 97 BPM Atrial Rate : 97 BPM P-R Int : 162 ms QRS Dur : 76 ms QT Int : 348 ms P-R-T Axes : 78 62 17 degrees QTcB Int : 441 ms Normal sinus rhythm Nonspecific T wave abnormality Abnormal ECG Confirmed by BENJY COLLINS ([id number]), news editor MUKUL BLISS ([id number]) on 11/25/2024 9:04:51 AM Referred By: Confirmed By: BENJY COLLINS
== END 2024-11-22 21:13 | disposition left against medical advice (07) ==
LOC: ED 21:20
DX: Z53.21 Procedure and treatment not carried out due to patient leaving prior to being seen by health care provider (principal)
CPT/HCPCS: 93005; 99281